=== PATIENT | female | born 1975 | race Caucasian/White ===

== ENCOUNTER 2017-07-03 14:45 | Emergency (ER) | payer OTHER, SELFPAY ==
[2017-07-03 14:46] VITALS: BP 119/79; PULSE 113; RESP 16; TEMP 36.8; O2SAT 98; BMI 21.7
[2017-07-03 15:07] VITALS: BP 105/68; PULSE 111; RESP 18; O2SAT 97
--- NOTE | 2017-07-03 15:52 | CT_ITS ---
STUDY: CT BRAIN WITH AND WITHOUT CONTRAST REASON FOR EXAM: Female, 42 years old. Headaches, fevers RADIATION DOSAGE (If Supplied By Facility): CTDIvol = ( 44.99 ) mGy, DLP = ( 1513.48 ) mGycm TECHNIQUE: Transaxial CT imaging of the brain was performed pre and post contrast administration. The examination was performed with intravenous administration of 50mL ml of Isovue 370 contrast material. Individualized dose optimization techniques were used for this CT. COMPARISON: None. FINDINGS: Normal soft tissue structures. Normal calvarium. Normal size ventricles and extra-axial spaces for the patient's age. Normal white matter tracts of the cerebral hemispheres. Normal basal ganglia and thalami. Normal brainstem. Normal cerebellum. There is no intracranial hemorrhage. There are no findings of an acute ischemic infarction. Normal visualized paranasal sinuses. No suspicious enhancing lesion after contrast administration CT/Brain/Head W/WO Contrast IMPRESSION: Normal unenhanced and enhanced CT scan of the brain. Electronically Signed: Berny Blanton MD at 17:24 EST , Service support ,
--- NOTE | 2017-07-03 16:18 | ED.VISSUMM ---
- ER Visit Summary Date of Service: 07/03/17 Chief Complaint: Fever History of Present Illness: The patient is a 42 F who has had symptoms for over 2 months that have been persistent: Fevers up to 102.7, myalgias, neck pain, bifrontal headache that is throbbing and intermittent, slight cough, fatigue with weight loss, yesterday she was lightheaded, she has been nauseated after eating, she states now her left low back has been hurting off and on but no urinary symptoms, she states she also has some right sided chest pain intermittently, and random pains everywhere of which that chest discomfort seems to be 1. Initially she was seen at urgent care and prescribed Augmentin for what seem to be a sinus infection, she went back because he got no better and was placed on doxycycline, that did not work either so she stopped it prematurely with about 3 or 4 pills left. She was seen here in the ER at one point, she had CMV serology that was negative and Julita-Ta viral serology panel, which the results appear to be consistent with either convalescent or prior EBV infection. Since then, she had an Julita-Ta DNA quant run which was negative, and she saw infectious disease doctor in [place] that ran an unknown blood test on Wednesday along with basic labs that showed a white blood count of 25,000 with a leftward shift, but the unknown blood test has not resulted yet. She is scheduled for an echocardiogram on Wednesday, and is growing increasingly fatigued and family is concerned, under the direction of a son-in-law who is an chief cook and is not currently local, they have come to the ER asking for multiple tests including a urinalysis to rule out or rule in pyelonephritis. She states that the sinus congestion really is not a prominent symptom anymore. Her neck occasionally feels stiff but it does not limit her moving her head, but when she moves it it hurts worse. She has had no confusion. No abdominal pain, trouble breathing, cough is minimal and nonproductive. Her ears burn and ache, a while ago they felt like they need to pop but that is no longer the feeling anymore. She has not been admitted for any of this or seen any other specialists except for her PCP so far. She states that she has a hormone imbalance that was diagnosed by her EYEGLASS FRAMES INSPECTOR sometime ago because she was feeling very fatigued, so the only medications that she takes prior to this is an estrogen and testosterone mix. Physical Examination: Afebrile, vital signs are normal, her exam essentially is normal except for the fact that the patient does not appear to feel well. Her heart is regular, I hear no murmur. There is no cervical lymphadenopathy, I can palpate no Virchow's nodes. There are no rashes. TMs are normal bilaterally. Her neck is supple and has full range of motion. The lights were off when I entered the room, however she denies any significant photophobia. All 4 extremities move without any difficulty, her reflexes are normal, there is no clonus and her toes are downgoing bilaterally. Her central and peripheral neurologic exams are normal. Abdomen is benign. Test Results: Urinalysis shows 25 leukocyte esterase, 50 blood, 5 ketones, 30 protein, 3+ bacteria, no white blood cells/red blood cells/epithelials. Sent for culture. CT head with and without contrast normal. Emergency Department Course and Treatment: I reviewed her labs from a couple days ago, which show a leukocytosis of 25 and a leftward shift, similar to the white blood count of 20 that we performed here on 06/11/17. I did not feel that she needed labs repeated again today. Clinically, and with the above test results, I do not think she has pyelonephritis. She is nontoxic and appears well, her neck is very benign, and I do not think she has meningitis although I did offer an LP, adding that especially if she wanted to be admitted, which I offered, it might be helpful to rule out meningitis and then there would be extra CSF available for consultants to add testing to if they desired. However, she prefers to go home and declines the LP. We discussed at length. I discussed with Dr. Fermin, aeronautics teacher for the infectious disease physician that the patient saw earlier this week, although unfortunately he did not have any access to office notes or lab results and did not personally know the patient. I also discussed with Dr. Escobar, covering for Dr. Zambrano. He offered the idea of a CT abdomen and pelvis looking for a retroperitoneal process that could be responsible for this, however in talking with the patient and her family, she had this on 06/14/17 at [facility], it was normal, showing no renal abnormality/mass/cyst/[place]/stone, no adrenal mass, and no other acute abnormality. Therefore do not think we need to repeat that tonight. After lengthy discussion with Dr. Escobar, family, patient, and the patient's son-in-law who is a physician/chief cook, we all agree that it is safe for her to be discharged home and continue with her outpatient echo at this time, which is scheduled in 2 days, and she is advised to follow-up with her PCP, her infectious disease doctor, and any other specialist whom she is referred, we discussed reasons to return to the ER. Will prescribe her ibuprofen 800 mg tablets to use as needed for fevers or pain, and she is comfortable with that plan. Treatment Plan: As above Disposition: Discharge home Impression: Fever of unknown origin Leukocytosis This note was generated with [employer] dictation software. It may contain incorrect words, spelling, and punctuation that were not noted in review of the chart prior to signing ED Disposition - Plan for ED Patient: Disposition: Home or Assisted Living Chief Complaint: General Illness Instructions: ED Fever Unconf Cause Prescriptions: Ibuprofen 800 mg PO . Q8-12H PRN #30 tab PRN Reason: Fever Referrals: Remigio Valdez MD [Primary Care Provider] - (next week after your echo) doctor, ID [Other] (next week -- ? LP (pt declined in ED today))
--- NOTE | 2017-07-03 16:23 | ED.DCSUM_ITS ---
- ER Visit Summary Date of Service: 07/03/17 Chief Complaint: Fever History of Present Illness: The patient is a 42 F who has had symptoms for over 2 months that have been persistent: Fevers up to 102.7, myalgias, neck pain, bifrontal headache that is throbbing and intermittent, slight cough, fatigue with weight loss, yesterday she was lightheaded, she has been nauseated after eating, she states now her left low back has been hurting off and on but no urinary symptoms, she states she also has some right sided chest pain intermittently, and random pains everywhere of which that chest discomfort seems to be 1. Initially she was seen at urgent care and prescribed Augmentin for what seem to be a sinus infection, she went back because he got no better and was placed on doxycycline, that did not work either so she stopped it prematurely with about 3 or 4 pills left. She was seen here in the ER at one point, she had CMV serology that was negative and Julita-Ta viral serology panel, which the results appear to be consistent with either convalescent or prior EBV infection. Since then, she had an Julita-Ta DNA quant run which was negative, and she saw infectious disease doctor in [place] that ran an unknown blood test on Wednesday along with basic labs that showed a white blood count of 25,000 with a leftward shift, but the unknown blood test has not resulted yet. She is scheduled for an echocardiogram on Wednesday, and is growing increasingly fatigued and family is concerned, under the direction of a son-in- law who is an brand sales manager and is not currently local, they have come to the ER asking for multiple tests including a urinalysis to rule out or rule in pyelonephritis. She states that the sinus congestion really is not a prominent symptom anymore. Her neck occasionally feels stiff but it does not limit her moving her head, but when she moves it it hurts worse. She has had no confusion. No abdominal pain, trouble breathing, cough is minimal and nonproductive. Her ears burn and ache, a while ago they felt like they need to pop but that is no longer the feeling anymore. She has not been admitted for any of this or seen any other specialists except for her PCP so far. She states that she has a hormone imbalance that was diagnosed by her SOCIAL WORKER sometime ago because she was feeling very fatigued, so the only medications that she takes prior to this is an estrogen and testosterone mix. Physical Examination: Afebrile, vital signs are normal, her exam essentially is normal except for the fact that the patient does not appear to feel well. Her heart is regular, I hear no murmur. There is no cervical lymphadenopathy, I can palpate no Virchow's nodes. There are no rashes. TMs are normal bilaterally. Her neck is supple and has full range of motion. The lights were off when I entered the room, however she denies any significant photophobia. All 4 extremities move without any difficulty, her reflexes are normal, there is no clonus and her toes are downgoing bilaterally. Her central and peripheral neurologic exams are normal. Abdomen is benign. Test Results: Urinalysis shows 25 leukocyte esterase, 50 blood, 5 ketones, 30 protein, 3+ bacteria, no white blood cells/red blood cells/epithelials. Sent for culture. CT head with and without contrast normal. Emergency Department Course and Treatment: I reviewed her labs from a couple days ago, which show a leukocytosis of 25 and a leftward shift, similar to the white blood count of 20 that we performed here on 06/11/17. I did not feel that she needed labs repeated again today. Clinically, and with the above test results, I do not think she has pyelonephritis. She is nontoxic and appears well, her neck is very benign, and I do not think she has meningitis although I did offer an LP, adding that especially if she wanted to be admitted, which I offered, it might be helpful to rule out meningitis and then there would be extra CSF available for consultants to add testing to if they desired. However , she prefers to go home and declines the LP. We discussed at length. I discussed with Dr. Fermin, promotional demonstrator for the infectious disease physician that the patient saw earlier this week, although unfortunately he did not have any access to office notes or lab results and did not personally know the patient. I also discussed with Dr. Escobar, covering for Dr. Zambrano. He offered the idea of a CT abdomen and pelvis looking for a retroperitoneal process that could be responsible for this, however in talking with the patient and her family, she had this on 06/14/17 at [facility], it was normal, showing no renal abnormality/mass/cyst/[place]/stone, no adrenal mass, and no other acute abnormality. Therefore do not think we need to repeat that tonight. After lengthy discussion with Dr. Escobar, family, patient, and the patient's son-in- law who is a physician/brand sales manager, we all agree that it is safe for her to be discharged home and continue with her outpatient echo at this time, which is scheduled in 2 days, and she is advised to follow-up with her PCP, her infectious disease doctor, and any other specialist whom she is referred, we discussed reasons to return to the ER. Will prescribe her ibuprofen 800 mg tablets to use as needed for fevers or pain, and she is comfortable with that plan. Treatment Plan: As above Disposition: Discharge home Impression: Fever of unknown origin Leukocytosis This note was generated with [employer] dictation software. It may contain incorrect words, spelling, and punctuation that were not noted in review of the chart prior to signing ED Disposition - Plan for ED Patient: Disposition: Home or Assisted Living Chief Complaint: General Illness Instructions: ED Fever Unconf Cause Prescriptions: Ibuprofen 800 mg PO . Q8-12H PRN #30 tab PRN Reason: Fever Referrals: Remigio Valdez MD [Primary Care Provider] - (next week after your echo) doctor, ID [Other] (next week -- ? LP (pt declined in ED today))
[2017-07-03 16:30] LABS: Color, Urine Yellow (Yellow); Glucose, Dipstick Normal (Normal); Ketone-Dipstick 5 mg/dl (Negative); Leukocyte Esterase-Dipstick 25 /ul (Negative); Nitrite-Dipstick Negative (Negative); Occult Blood-Urine 50 /ul (Negative); Protein-Dipstick 30 mg/dl (Negative); Specific Gravity, Urine 1.025 (1.002-1.030); Urine Bilirubin Dipstick Negative (Negative); Urine Clarity Clear (Clear); Urine Urobilinogen 1 mg/dl (Normal)
[2017-07-03 16:38] LABS: Bacteria 3+ /hpf (None Seen); Mucous, Urine 2+ /hpf (<or=2+); Red Blood Cells-Urine 0-5 SEEN /hpf (0-5); Squamous Epithelial Cells - UA 0-5 SEEN /hpf (5-10); White Blood Cells 0-5 SEEN /hpf (0-5)
[2017-07-03 18:09] VITALS: BP 100/58; PULSE 107; RESP 14; O2SAT 94
[2017-07-03 19:23] VITALS: BP 107/61; PULSE 109; RESP 16; O2SAT 95
== END 2017-07-03 19:24 | disposition home or self-care (01) ==
PROVIDERS: Emergency Provider Emergency Medicine; Family Provider Family Medicine; PCP Family Medicine
DX: R50.9 Fever, unspecified (principal); D72.829 Elevated white blood cell count, unspecified; R11.0 Nausea; R05 Cough; R07.9 Chest pain, unspecified; R51 Headache; M54.2 Cervicalgia; M79.7 Fibromyalgia; M54.5 Low back pain; R42 Dizziness and giddiness
CPT/HCPCS: 70470; 81001; 87086; 96360; 96361; 99284; J7030; Q9967; A4216

== ENCOUNTER 2017-08-14 15:53 | Inpatient (IN) | payer OTHER, SELFPAY ==
[2017-08-14] VITALS (14 sets, daily range): BP systolic 95–124; BP diastolic 53–64; PULSE 95–130; RESP 16–32; TEMP 37–39.3; O2SAT 93–99; BMI 20.5
--- NOTE | 2017-08-14 16:26 | RAD_ITS ---
STUDY: X-RAY CHEST REASON FOR EXAM: Female, 42 years old. Fever. Lymphoma. TECHNIQUE: Single AP portable view of the chest. COMPARISON: 06/11/2017. FINDINGS: Right lung suggests mild infiltrate in the lung bases. On the left there is widespread diffuse pulmonary infiltrate most pronounced in the lower lung calero. Possible small left pleural effusion Soft tissue mass seen around the left hilum and in the area of the AP window. This is consistent with the stated history of lymphoma. RAD/Chest 1 View (Portable) IMPRESSION: Mild infiltrate right lung base. Extensive infiltrate throughout the left lung. Left hilar and perihilar mass. Electronically Signed: Jesus Curiel MD at 18:22 EDT , Service support ,
--- NOTE | 2017-08-14 16:26 | EKG12_ITS ---
Test Reason : CHEST DISCOMFORT Blood Pressure : / mmHG Vent. Rate : 123 BPM Atrial Rate : 123 BPM P-R Int : 116 ms QRS Dur : 068 ms QT Int : 290 ms P-R-T Axes : 033 049 043 degrees QTc Int : 415 ms Sinus tachycardia Otherwise normal ECG Confirmed by MULU SIEGEL MD ([id number]), international editorial producer SHITAL SAVAGE ([id number] on 08/17/2017 1:26:14 PM Referred By: MR Confirmed By:MULU SIEGEL MD
--- NOTE | 2017-08-14 16:33 | ED.VISSUMM ---
- ER Visit Summary Date of Service: 08/14/17 Chief Complaint: Fever History of Present Illness: The patient is a 42 F presenting for evaluation secondary to worsening fever. Patient is undergoing workup for diagnosis of cancer at this time. Patient states that over the course of the last 3 months she has been having issues with intermittent fevers. Patient states that typically these are relatively controlled with Tylenol. Patient states that on Wednesday of this week she underwent a procedure where she had a biopsy of the lymph node taken on the left side of her neck and she had a thoracentesis of her left chest. Patient states that since then her fevers have been significantly worse and have changed in character. They are now as high as 102 3 which is abnormal, and only intermediately controlled with Tylenol. Patient does state that she has a mild cough mild shortness of breath and mild nausea. She denies any diarrhea. Patient states she has some pain in her neck where she had the biopsy but denies any neck rigidity. She denies any new rashes. She does state that she has a mild amount of dysuria associated with this. Last Tylenol the patient took was at 2255. Patient called her on-call oncologist and they recommended that she come in to the emergency department. Physical Examination: Vital signs notable for temperature of 101.4, heart rate of 130, pulse ox of 88% on room air with hypoxia. Well-nourished female no acute distress. Head normocephalic. PRL, EOMI no evidence of conjunctival pallor or scleral icterus. Moist mucous membranes. No neck rigidity noted, neck was supple with no JVD. Heart was tachycardic and regular. Lung sounds showed evidence of diminished sounds in the left lower lung calero with no respiratory distress. There is a minimal amount of epigastric tenderness to palpation with no guarding or rebound tenderness. No peripheral edema noted. Skin was hot to the touch. No lateralizing neurological deficits. Test Results: CBC shows leukocytosis 31.5, hemoglobin 9.5, platelets 742, chemistry and liver panels essentially unremarkable urinalysis unremarkable lactate negative. EKG shows sinus rate of 116 no evidence of acute ischemic changes. Chest x-ray shows left-sided infiltrate and mass Emergency Department Course and Treatment: Patient presented for evaluation secondary to a fever in the setting of a new diagnosis of cancer. Patient was found to be hypoxic and febrile. Patient's workup shows what is in my opinion a left-sided pneumonia. Had discussion with family about this, they state that their oncologist told him that this likely was more associated with the patient's cancer and with her tumor, but given the fact that the patient has new onset hypoxia with worse fever than she typically gets I am suspicious for the possibility of may be an obstructive pneumonia that actually causing the patient's symptoms. Regardless due to her hypoxia I still believe that she requires admission, and I believe that it would be of greater detriment to the patient not to give her antibiotics and it would to be just to give her antibiotics and the patient was given vancomycin and Zosyn. Patient will be admitted under the hospitalist. Disposition: Admission Impression: 1. Pneumonia 2. Sepsis 3. Hypoxia This note was generated with [employer] dictation software. It may contain incorrect words, spelling, and punctuation that were not noted in review of the chart prior to signing ED Disposition - Plan for ED Patient: Disposition: Acute [facility] Chief Complaint: Fever
[2017-08-14] MEDS: 0.9% Normal Saline 1,000 ML IV.SOLN. 1620 ML IV (16:46)
[2017-08-14] MEDS: Acetaminophen 500 MG Tablet 1000 MG PO (16:46)
[2017-08-14 17:00] LABS: Absolute Lymphocyte Count 3.99 X10^3/ul (0.83-4.51); Absolute Neutrophil Count 25.5 X10^3/uL (2.0-7.7); Basophil# 0.07 X10^3/uL; Basophil% 0.2 % (0-1); Eosinophil# 0.03 X10^3/uL; Eosinophils% 0.1 % (0-5); Hematocrit 30.6 % (37-47); Hemoglobin 9.5 g/dl (12.0-15.0); Lymphocyte # 3.99 X10^3/ul (4.0); Lymphocyte % 12.7 % (19-41); Mean Corpuscular Hgb 26.1 pg (27.0-32.0); Mean Corpuscular Volume 84.1 fL (81-99); Mean Platelet Vol. 8.6 fl (6.2-12.0); Monocyte# 1.71 X10^3/uL; Monocyte% 5.4 % (0-10); Neutrophil # 25.51 X10^3/uL (2.7-7.7); Neutrophil % 80.9 % (47-70); Platelet Count 742 K/mm3 (150-450); RBC Distribution Width CV 16.5 % (11.6-14.6); RBC Distribution Width SD 49.6 fl (35.1-43.9); Red Blood Count 3.64 M/mm3 (4.2-5.4)
[2017-08-14 17:04] LABS: Differential Indicated SCAN CRITERIA MET; International Normalized Ratio 1.3; POSITIVE COUNT YES; POSITIVE DIFFERENTIAL YES; POSITIVE MORPHOLOGY YES
[2017-08-14 17:05] LABS: White Blood Count 31.5 K/mm3 (4.4-11.0)
[2017-08-14 17:16] LABS: ALB/GLOB Ratio 0.4 RATIO (0.9-2.4); AST(SGOT) 17 U/L (15-37); Alanine Aminotransfer ALT/SGPT 18 U/L (13-56); Albumin, Serum 2.2 g/dL (3.2-5.0); Alkaline Phosphatase 144 U/L (45-117); Anion Gap 10 (5-15); BUN 10 mg/dL (7-18); BUN/Creat Ratio 13.9 RATIO (10-20); Calcium,Total 8.9 mg/dL (8.5-10.1); Chloride 99 mmol/L (98-107); Creatinine, Serum 0.72 mg/dL (0.55-1.02); EST Glomerular Filtration Rate 94 mL/min (>60); Est Glom Filt Rate - Afr Amer 113 mL/min (>60); Estimated Creatinine Clearance 85.31 ml/min; Globulin 6.1 g/dL (2.2-4.2); Glucose 89 mg/dL (74-106); Lipase 160 U/L (73-393); Potassium 4.3 mmol/L (3.5-5.1); Protein, Total 8.3 g/dL (6.4-8.2); Sodium Level 134 mmol/L (136-145)
[2017-08-14 17:18] LABS: Lactic Acid 0.9 mmol/L (0.4-2.0)
[2017-08-14 17:45] LABS: Mucous, Urine 0 SEEN /hpf (<or=2+)
[2017-08-14 17:48] LABS: Differential Comment SCANNED
[2017-08-14 17:49] LABS: Color, Urine Yellow (Yellow); Glucose, Dipstick Normal (Normal); Ketone-Dipstick Negative (Negative); Leukocyte Esterase-Dipstick 25 /ul (Negative); Nitrite-Dipstick Negative (Negative); Occult Blood-Urine 150 /ul (Negative); Protein-Dipstick 30 mg/dl (Negative); Specific Gravity, Urine 1.015 (1.002-1.030); Urine Bilirubin Dipstick Negative (Negative); Urine Clarity Clear (Clear); Urine Urobilinogen Normal (Normal)
[2017-08-14 18:00] LABS: Red Blood Cells-Urine 0-5 SEEN /hpf (0-5); White Blood Cells 0-5 SEEN /hpf (0-5)
[2017-08-14 18:01] LABS: Bacteria 2+ /hpf (None Seen); Squamous Epithelial Cells - UA 0-5 SEEN /hpf (5-10)
--- NOTE | 2017-08-14 20:42 | HP.PCM_ITS ---
Problem List (1) Fever Status: Acute (2) Sepsis Status: Acute (3) HCAP (healthcare-associated pneumonia) Status: Acute History of Present Illness Date of Admission: 08/14/17 Chief Complaint: HCAP The patient is a 42 year old female w/ h/o fever admitted for HCAP. Pt recently had left neck lymph node biopsy. She also recently had thoracentesis of the left chest. She has been having daily fever for the past few months. However, recently in the past few days, she noted that she has higher temp than usual. She also has been having worsening productive cough. Intensity and frequency of the cough have increased. Tylenol has failed to control her fever. Nothing made it better or worse despite being on antibiotic. She recently stopped NSAID secondary to a pending bone biopsy. Past Medical History Allergies codeine Adverse Reaction (Verified 08/14/17 16:00) Nausea hydrocodone Adverse Reaction (Verified 08/14/17 16:00) Nausea miconazole [From Monistat 1 Combo Pack] Adverse Reaction (Verified 07/03/17 14: 49) Swelling Home Medications: Ambulatory Orders Medication Instructions Recorded Ibuprofen 800 mg PO . Q8-12H PRN #30 tab 07/03/17 Progesterone,Micronized 150 mg PO QHS 07/03/17 [Endometrin] Testosterone 10 mg TOPICAL QHS 07/03/17 Albuterol Sulfate [Ventolin Hfa] 2 puff IH Q4H PRN PRN 08/14/17 Benzonatate [Tessalon Perle] 1 tab PO TID PRN 08/14/17 Dicyclomine HCl [Bentyl] 1 tab PO DAILY 08/14/17 Mirtazapine [Mirtazapine] 1 tab PO QHS 08/14/17 Pyridoxine HCl [Vitamin B-6] 1 tab PO DAILY 08/14/17 Lives: Spouse/ Significant Other, With Family Smoking Status: Former smoker Alcohol: None Drugs: None Review of Systems Constitutional: Reports: Chills, Fever. Denies: Weight Change HEENT: Denies: Head Aches, Sinus Congestion, Sinus Drainage Cardiovascular: Denies: Chest Pain, Palpitations Respiratory: Reports: Cough. Denies: Shortness of breath at rest, Sputum production Gastrointestinal: Denies: Abdominal Pain, Nausea, Vomiting Genitourinary: Denies: Dysuria Musculoskeletal: Denies: Joint Pain, Joint Tenderness Skin: Denies: Rash, Wounds Neurological: Denies: Numbness, Tingling, Focal weakness Psychiatric: Denies: Anxiety, Depression, Homicidal Ideations, Suicidal Ideations Hematologic/ Lymphatic: Denies: Easy Bruising, Easy Bleeding VTE Information - Inpt Only VTE Present on Admission: No VTE Mechan Device Prophylaxis: SCD's VTE Pharm Prophylaxis ordered?: Yes Patient Problems: Active and Suspected Problems Fever (Acute) Sepsis (Acute) HCAP (healthcare-associated pneumonia) (Acute) - Physical Exam General: Alert, Oriented x3, Cooperative HEENT: Atraumatic, PERRLA, EOMI, Normocephalic Neck: Supple, No JVD, Negative Carotid Bruits Lungs: Clear to auscultation, Normal air movement Cardiovascular: Regular rate, No murmurs Abdomen: Bowel Sounds Present, Soft, Non Tender Extremities: No edema, Capillary Refill Less than 3 Seconds Skin: No rashes, No breakdown Musculoskeletal: No Tenderness to Palpation of Joints or Extremities Neurological: Cranial nerves II-XII grossly intact Psych/Mental Status: Normal Affect, Appropriate Vital Signs Temp Pulse Resp BP Pulse Ox 99.5 F H 97 24 H 100/58 L 95 08/14/17 19:10 08/14/17 20:02 08/14/17 20:02 08/14/17 20:02 08/14/17 20:02 Oxygen Flow Rate (L/min) 6 Oxygen Delivery Method Nasal Cannula Weight: 54.2 kg Body Mass Index (BMI) 20.5 Laboratory Tests Past 24 Hrs 08/14/17 08/14/17 08/14/17 16:40 16:40 16:40 WBC 31.5 H* RBC 3.64 L Hgb 9.5 L Hct 30.6 L MCV 84.1 MCH 26.1 L MCHC 31.0 L RDW 16.5 H RDW Differential 49.6 H Plt Count 742 H MPV 8.6 Immature Gran % (Auto) 0.700 Neut % (Auto) 80.9 H Lymph % (Auto) 12.7 L [place] % (Auto) 5.4 Eos % (Auto) 0.1 Baso % (Auto) 0.2 Absolute Neuts (auto) 25.5 H Absolute Lymphs (auto) 3.99 Total Counted Not Reportable Differential Comment SCANNED Diff Path Review September foll PT 16.0 H INR 1.3 APTT 40.0 H Sodium 134 L Potassium 4.3 Chloride 99 Carbon Dioxide 25.0 Anion Gap 10 BUN 10 Creatinine 0.72 Estim Creat Clear Calc 85.31 Est GFR (MDRD) Af Amer 113 Est GFR (MDRD) Non-Af 94 BUN/Creatinine Ratio 13.9 Glucose 89 Lactic Acid Calcium 8.9 Total Bilirubin 0.40 AST 17 ALT 18 Alkaline Phosphatase 144 H Total Protein 8.3 H Albumin 2.2 L Globulin 6.1 H Albumin/Globulin Ratio 0.4 L Lipase 160 Urine Color Urine Clarity Urine pH Ur Specific [place] Urine Protein Urine Glucose (UA) Urine Ketones Urine Occult Blood Urine Nitrite Urine Bilirubin Urine Urobilinogen Ur Leukocyte Esterase Urine RBC Urine WBC Ur Squamous Epith Cells Urine Bacteria Urine Mucus 08/14/17 08/14/17 16:40 17:30 WBC RBC Hgb Hct MCV MCH MCHC RDW RDW Differential Plt Count MPV Immature Gran % (Auto) Neut % (Auto) Lymph % (Auto) [place] % (Auto) Eos % (Auto) Baso % (Auto) Absolute Neuts (auto) Absolute Lymphs (auto) Total Counted Differential Comment Diff Path Review PT INR APTT Sodium Potassium Chloride Carbon Dioxide Anion Gap BUN Creatinine Estim Creat Clear Calc Est GFR (MDRD) Af Amer Est GFR (MDRD) Non-Af BUN/Creatinine Ratio Glucose Lactic Acid 0.9 Calcium Total Bilirubin AST ALT Alkaline Phosphatase Total Protein Albumin Globulin Albumin/Globulin Ratio Lipase Urine Color Yellow Urine Clarity Clear Urine pH 5.0 Ur Specific [place] 1.015 Urine Protein 30 H Urine Glucose (UA) Normal Urine Ketones Negative Urine Occult Blood 150 H Urine Nitrite Negative Urine Bilirubin Negative Urine Urobilinogen Normal Ur Leukocyte Esterase 25 H Urine RBC 0-5 SEEN Urine WBC 0-5 SEEN Ur Squamous Epith Cells 0-5 SEEN Urine Bacteria 2+ Urine Mucus 0 SEEN Assessment/Plan Active and Suspected Problems Fever (Acute) Sepsis (Acute) HCAP (healthcare-associated pneumonia) (Acute) 42 year old female w/ h/o fever admitted for HCAP. 1) HCAP: Given leukocytosis, fever, and cough, she most likely has HCAP. She has proven sepsis secondary to HCAP. Will start zosyn and vanco. Will get CTA in AM to r/o possible PE. Cultures pending. 2) Fever: Probably infectious etiology. Possible also malignancy vs autoimmune as well. Will consider autoimmune workup if no malignancy is found. 3) Hyponatremia: Probably hypovolemia hyponatremia. Hydration. Monitor. 4) Chronic normocytic anemia secondary to chronic disease: Followed H and H. Monitor. 5) Prophylaxis: SCD / heparin.
[2017-08-14] MEDS: 0.9% Normal Saline 1,000 ML 125 ML IV (22:41)
--- NOTE | 2017-08-14 23:10 | PCM.RX.CS ---
Consult Pharmacy has been consulted to manage selected antiobiotic: Vancomycin Type of Consult: New start Suspected Infection: Other Prior Doses of Antibiotics Received/Current Regimen: Medications Vancomycin 1000mg IV x1 (ED) Vancomycin HCl () 500 mg in 100 mls @ 100 mls/hr IV Q8H ALEC Labs: Sodium 134 mmol/L (136-145) L 08/14/17 16:40 Potassium 4.3 mmol/L (3.5-5.1) 08/14/17 16:40 Chloride 99 mmol/L (98-107) 08/14/17 16:40 Carbon Dioxide 25.0 mmol/L (21.0-32.0) 08/14/17 16:40 Anion Gap 10 (5-15) 08/14/17 16:40 BUN 10 mg/dL (7-18) 08/14/17 16:40 Creatinine 0.72 mg/dL (0.55-1.02) 08/14/17 16:40 Est GFR (MDRD) Af Amer 113 mL/min (>60) 08/14/17 16:40 Est GFR (MDRD) Non-Af 94 mL/min (>60) 08/14/17 16:40 BUN/Creatinine Ratio 13.9 RATIO (10-20) 08/14/17 16:40 Glucose 89 mg/dL (74-106) 08/14/17 16:40 Weight used for dosin.2 kg Estimated Creatinine Clearance: 85 Goal Trough: 10-15 mcg/mL Pharmacy Plan for Drug Dosing: Pharmacy Service will continue to monitor and adjust dosing as required. Follow-Up Labs: Trough Vancomycin Labs to be done on [date and time ordered]: 08/15/17 @1930
[2017-08-15] VITALS (24 sets, daily range): BP systolic 85–116; BP diastolic 51–66; PULSE 98–122; RESP 14–32; TEMP 36.7–38.9; O2SAT 92–98
[2017-08-15] MEDS: guaiFENesin 1,200 MG Tablet 1200 MG PO ×2 (00:17→10:52)
[2017-08-15] MEDS: Acetaminophen 325 MG Tablet 650 MG PO ×2 (01:46→17:49)
[2017-08-15] MEDS: Albuterol 2.5 MG/3 ML VIAL.NEB. INHALATION ×2 (01:55→11:10)
[2017-08-15] MEDS: 0.9% Normal Saline 1,000 ML 999 ML IV (02:30)
[2017-08-15 02:48] LABS: Hematocrit 25.1 % (37-47); Hemoglobin 7.9 g/dl (12.0-15.0); Mean Corp Hgb Conc 31.5 g/gl (32-36); Mean Corpuscular Hgb 26.8 pg (27.0-32.0); Mean Corpuscular Volume 85.1 fL (81-99); Mean Platelet Vol. 8.6 fl (6.2-12.0); Platelet Count 537 K/mm3 (150-450); RBC Distribution Width CV 16.4 % (11.6-14.6); RBC Distribution Width SD 49.1 fl (35.1-43.9); Red Blood Count 2.95 M/mm3 (4.2-5.4); Scan Indicated on CBC? Y/N NO
[2017-08-15 02:50] LABS: White Blood Count 31.7 K/mm3 (4.4-11.0)
[2017-08-15 03:05] LABS: ALB/GLOB Ratio 0.4 RATIO (0.9-2.4); AST(SGOT) 14 U/L (15-37); Alanine Aminotransfer ALT/SGPT 16 U/L (13-56); Albumin, Serum 1.7 g/dL (3.2-5.0); Alkaline Phosphatase 115 U/L (45-117); Anion Gap 8 (5-15); BUN 8 mg/dL (7-18); BUN/Creat Ratio 14.1 RATIO (10-20); Calcium,Total 7.7 mg/dL (8.5-10.1); Chloride 105 mmol/L (98-107); Creatinine, Serum 0.57 mg/dL (0.55-1.02); EST Glomerular Filtration Rate 123 mL/min (>60); Est Glom Filt Rate - Afr Amer 149 mL/min (>60); Estimated Creatinine Clearance 107.77 ml/min; Globulin 4.7 g/dL (2.2-4.2); Glucose 122 mg/dL (74-106); Lactic Acid 1.1 mmol/L (0.4-2.0); Protein, Total 6.4 g/dL (6.4-8.2); Sodium Level 136 mmol/L (136-145)
[2017-08-15] MEDS: Piperacil/Tazobactam 3.375 GM/50 ML ML IV ×3 (06:25→22:24)
[2017-08-15] MEDS: 0.9% Normal Saline 1,000 ML 125 ML IV ×3 (07:01→23:30)
--- NOTE | 2017-08-15 09:15 | NURSING ---
aware Dr. Fabian was informed by primary RN vsa triggering Q1-2 hrs. Aware she still requests her order of now awaking patient for vital signs be followed.
--- NOTE | 2017-08-15 09:34 | PCA ---
Faxed STAT release of medical records to [facility] at [phone];
[2017-08-15] MEDS: Pyridoxine HCl 100 MG Tablet PO (10:52)
[2017-08-15] MEDS: Dicyclomine 10 MG Capsule PO (10:52)
[2017-08-15] MEDS: Ipratropium/Albuterol Sulfate 3 ML AMPUL.NEB INHALATION ×2 (15:04→19:59)
--- NOTE | 2017-08-15 16:20 | PN_ITS ---
<Evans Lund - Last Filed: 08/15/17 16:10> Patient Problems: Active and Suspected Problems Fever (Acute) Sepsis (Acute) HCAP (healthcare-associated pneumonia) (Acute) Subjective: Pts fever was highest last night at 102.7 at 1700, 2nd spike overnight at 0141 to 102.0. She Has not required O2 prior to this admission. She states she had a CT last week that did not have any pna and is concerned that she developed pna from the needle bx. She is coughing and mildly SOB. She is very fatigued today. She continues to have a productive cough with clear sputum, denies hemoptysis. She is a smoker, smoking 1 ppd for about 15 years. She also had some diarrhea overnight. No dysuria or frequency. - Physical Exam General: Alert, Oriented x3, Cooperative HEENT: Atraumatic, PERRLA, EOMI, Normocephalic Neck: Supple, No JVD, Negative Carotid Bruits Lungs: Normal air movement, Rales - L>R Cardiovascular: Regular rate, No murmurs Abdomen: Bowel Sounds Present, Soft, Non Tender Extremities: No edema, Capillary Refill Less than 3 Seconds Skin: No rashes, No breakdown Musculoskeletal: No Tenderness to Palpation of Joints or Extremities Neurological: Cranial nerves II-XII grossly intact Psych/Mental Status: Normal Affect, Appropriate Vital Signs Temp Pulse Resp BP Pulse Ox 98.8 F 117 H 24 H 101/59 L 92 08/15/17 11:40 08/15/17 15:04 08/15/17 15:04 08/15/17 11:40 08/15/17 15:04 Oxygen Flow Rate (L/min) 3 Oxygen Delivery Method Nasal Cannula Weight: 54.2 kg Body Mass Index (BMI) 20.5 Intake and Output for Last 24 Hours 08/13/17 08/14/17 08/15/17 23:59 23:59 23:59 Intake Total 435 / 435 2706 / 2706 Output Total 0 / 0 Balance 435 / 435 2706 / 2706 Microbiology Past 72 Hours 08/15/17 02:00 Respiratory Panel (PCR) - Final Mucosa - Nose 08/14/17 22:53 Influenza Types A,B Direct FA (GI) - Final Mucosa - Nose Laboratory Tests Past 24 Hrs 03/25/18 03/25/18 03/25/18 02:15 02:15 02:15 WBC 31.7 H* RBC 2.95 L Hgb 7.9 L Hct 25.1 L MCV 85.1 MCH 26.8 L MCHC 31.5 L RDW 16.4 H RDW Differential 49.1 H Plt Count 537 H MPV 8.6 Sodium 136 Potassium 4.0 Chloride 105 Carbon Dioxide 23.0 Anion Gap 8 BUN 8 Creatinine 0.57 Estim Creat Clear Calc 107.77 Est GFR (MDRD) Af Amer 149 Est GFR (MDRD) Non-Af 123 BUN/Creatinine Ratio 14.1 Glucose 122 H Lactic Acid 1.1 Calcium 7.7 L Total Bilirubin 0.30 AST 14 L ALT 16 Alkaline Phosphatase 115 Total Protein 6.4 Albumin 1.7 L Globulin 4.7 H Albumin/Globulin Ratio 0.4 L Blood Type Antibody Screen 08/15/17 11:50 WBC RBC Hgb Hct MCV MCH MCHC RDW RDW Differential Plt Count MPV Sodium Potassium Chloride Carbon Dioxide Anion Gap BUN Creatinine Estim Creat Clear Calc Est GFR (MDRD) Af Amer Est GFR (MDRD) Non-Af BUN/Creatinine Ratio Glucose Lactic Acid Calcium Total Bilirubin AST ALT Alkaline Phosphatase Total Protein Albumin Globulin Albumin/Globulin Ratio Blood Type O POSITIVE Antibody Screen NEGATIVE Medical Necessity - Tobacco Use Smoking Status: Former smoker Assessment/Plan Active and Suspected Problems Fever (Acute) Sepsis (Acute) HCAP (healthcare-associated pneumonia) (Acute) 1. Acute BL HCAP - Extensive infiltrate left lung and mild infiltrate right base. Pt of Dr. Obrien being followed for possible lymphoma vs lung CA. Continue vanc and zosyn. Respiratory panel negative. Blood cultures pending. LA neg. Urine ag neg.Continue mucinex, IS, pep therapy, deep breathing + coughing. Urine with 2+ bacteria, culture pending. Denies dysuria or urgency. WBC 31k, reportedly chronic fevers being workup up for Dr. Obrien. 2. ? Lymphoma - c/s to Dr. Obrien. Recent needle bx. Results pending. 3. Nicotine abuse - declines patch at this time. 4. Hyponatremia resolved 5. Normocytic anemia - T/S. denies blood in stool or vomit. She does have midepigastric pain. Obtain stool for occult. 6. Diarrhea - check cdiff. DVT ppx: heparin, scds This patient was seen by Evans Lund PA-C under the supervision of Doctor Caren. <Jordana Fabian - Last Filed: 08/15/17 17:16> - Physical Exam Vital Signs Temp Pulse Resp BP Pulse Ox 99.3 F H 120 H 16 103/66 94 08/15/17 15:30 08/15/17 16:05 08/15/17 15:30 08/15/17 15:30 08/15/17 15:30 Oxygen Flow Rate (L/min) 3 Oxygen Delivery Method Nasal Cannula Weight: 54.2 kg Body Mass Index (BMI) 20.5 Intake and Output for Last 24 Hours 08/13/17 08/14/17 08/15/17 23:59 23:59 23:59 Intake Total 435 / 435 2706 / 2706 Output Total 0 / 0 Balance 435 / 435 2706 / 2706 Microbiology Past 72 Hours 08/15/17 02:00 Respiratory Panel (PCR) - Final Mucosa - Nose 08/14/17 22:53 Influenza Types A,B Direct FA (GI) - Final Mucosa - Nose Laboratory Tests Past 24 Hrs 08/15/17 08/15/17 08/15/17 02:15 02:15 02:15 WBC 31.7 H* RBC 2.95 L Hgb 7.9 L Hct 25.1 L MCV 85.1 MCH 26.8 L MCHC 31.5 L RDW 16.4 H RDW Differential 49.1 H Plt Count 537 H MPV 8.6 Sodium 136 Potassium 4.0 Chloride 105 Carbon Dioxide 23.0 Anion Gap 8 BUN 8 Creatinine 0.57 Estim Creat Clear Calc 107.77 Est GFR (MDRD) Af Amer 149 Est GFR (MDRD) Non-Af 123 BUN/Creatinine Ratio 14.1 Glucose 122 H Lactic Acid 1.1 Calcium 7.7 L Total Bilirubin 0.30 AST 14 L ALT 16 Alkaline Phosphatase 115 Total Protein 6.4 Albumin 1.7 L Globulin 4.7 H Albumin/Globulin Ratio 0.4 L Blood Type Antibody Screen 08/15/17 08/15/17 11:50 17:00 WBC RBC Hgb Pending Hct Pending MCV MCH MCHC RDW RDW Differential Plt Count MPV Sodium Potassium Chloride Carbon Dioxide Anion Gap BUN Creatinine Estim Creat Clear Calc Est GFR (MDRD) Af Amer Est GFR (MDRD) Non-Af BUN/Creatinine Ratio Glucose Lactic Acid Calcium Total Bilirubin AST ALT Alkaline Phosphatase Total Protein Albumin Globulin Albumin/Globulin Ratio Blood Type O POSITIVE Antibody Screen NEGATIVE Assessment/Plan Patient was seen and examined. She looks unwell. Recently worked up for ? malignancy admitted with HCAP/Post-obstructive Pneumonia. Complains of feeling very tired, did not sleep well. Denies fever or chills. On 3L oxygen, Decreased AE bilaterally with coarse crackles all over lung calero worse on the left with increased egophony. On IV vancomycin and Zosyn. Jian consult oncology, ID. Work on chest physiotherapy, wean off oxygen as can be tolerated. Get records from [facility] stat concerning CT chest done a week ago. Code Visit Inpatient E&M: 91150 Subs Hosp L3
[2017-08-15 17:20] LABS: Hematocrit 26.4 % (37-47)
[2017-08-15 20:40] LABS: Vancomycin, Trough Level 6.1 ug/mL (5.0-15.0)
--- NOTE | 2017-08-15 21:13 | PCM.RX.CS ---
Consult Pharmacy has been consulted to manage selected antiobiotic: Vancomycin Type of Consult: Follow-up Suspected Infection: Pneumonia Prior Doses of Antibiotics Received/Current Regimen: Medications Discontinued Medications Vancomycin HCl () 500 mg in 100 mls @ 100 mls/hr IV Q8H ALEC Last Admin: 08/15/17 20:02 Dose: 100 mls/hr Labs: Sodium 136 mmol/L (136-145) 08/15/17 02:15 Potassium 4.0 mmol/L (3.5-5.1) 08/15/17 02:15 Chloride 105 mmol/L (98-107) 08/15/17 02:15 Carbon Dioxide 23.0 mmol/L (21.0-32.0) 08/15/17 02:15 Anion Gap 8 (5-15) 08/15/17 02:15 BUN 8 mg/dL (7-18) 08/15/17 02:15 Creatinine 0.57 mg/dL (0.55-1.02) 08/15/17 02:15 Est GFR (MDRD) Af Amer 149 mL/min (>60) 08/15/17 02:15 Est GFR (MDRD) Non-Af 123 mL/min (>60) 08/15/17 02:15 BUN/Creatinine Ratio 14.1 RATIO (10-20) 08/15/17 02:15 Glucose 122 mg/dL (74-106) H 08/15/17 02:15 Vancomycin Trough 6.1 ug/mL (5.0-15.0) 08/15/17 19:33 Microbiology: Microbiology 08/15/17 02:00 Mucosa - Nose Respiratory Panel (PCR) - Final 08/14/17 22:53 Mucosa - Nose Influenza Types A,B Direct FA (GI) - Final Weight used for dosin.2 kg Estimated Creatinine Clearance: 108 Goal Trough: 15-20 mcg/mL Pharmacy Plan for Drug Dosing: Pharmacy Service will continue to monitor and adjust dosing as required. Follow-Up Labs: Trough Vancomycin Labs to be done on [date and time ordered]: 08/17/17 @0675
[2017-08-16] VITALS (17 sets, daily range): BP systolic 96–116; BP diastolic 54–73; PULSE 100–111; RESP 16–20; TEMP 36.6–38.1; O2SAT 81–97
[2017-08-16] MEDS: Mirtazapine 15 MG Tablet PO ×2 (00:30→21:17)
[2017-08-16] MEDS: guaiFENesin 1,200 MG Tablet 1200 MG PO ×3 (00:30→21:17)
[2017-08-16] MEDS: Piperacil/Tazobactam 3.375 GM/50 ML ML IV ×3 (05:38→21:17)
[2017-08-16 06:04] LABS: Absolute Lymphocyte Count 3.46 X10^3/ul (0.83-4.51); Basophil# 0.04 X10^3/uL; Basophil% 0.1 % (0-1); Eosinophil# 0.04 X10^3/uL; Eosinophils% 0.1 % (0-5); Hematocrit 23.7 % (37-47); Hemoglobin 7.2 g/dl (12.0-15.0); Lymphocyte # 3.46 X10^3/ul (4.0); Lymphocyte % 12.3 % (19-41); Mean Corp Hgb Conc 30.4 g/gl (32-36); Mean Corpuscular Hgb 26.1 pg (27.0-32.0); Mean Corpuscular Volume 85.9 fL (81-99); Mean Platelet Vol. 8.6 fl (6.2-12.0); Monocyte% 5.3 % (0-10); Neutrophil # 22.97 X10^3/uL (2.7-7.7); Neutrophil % 81.7 % (47-70); Platelet Count 529 K/mm3 (150-450); RBC Distribution Width CV 16.6 % (11.6-14.6); RBC Distribution Width SD 50.3 fl (35.1-43.9); Red Blood Count 2.76 M/mm3 (4.2-5.4); White Blood Count 28.2 K/mm3 (4.4-11.0)
[2017-08-16 06:05] LABS: Differential Indicated SCAN CRITERIA MET; POSITIVE COUNT NO; POSITIVE DIFFERENTIAL YES; POSITIVE MORPHOLOGY YES
[2017-08-16 06:18] LABS: Differential Comment SCANNED
[2017-08-16 06:22] LABS: Anion Gap 10 (5-15); BUN 6 mg/dL (7-18); BUN/Creat Ratio 11.3 RATIO (10-20); Calcium,Total 8.2 mg/dL (8.5-10.1); Chloride 103 mmol/L (98-107); Creatinine, Serum 0.53 mg/dL (0.55-1.02); EST Glomerular Filtration Rate 133 mL/min (>60); Est Glom Filt Rate - Afr Amer 161 mL/min (>60); Glucose 108 mg/dL (74-106); Potassium 3.9 mmol/L (3.5-5.1); Sodium Level 137 mmol/L (136-145)
[2017-08-16] MEDS: Ipratropium/Albuterol Sulfate 3 ML AMPUL.NEB INHALATION ×3 (06:57→19:24)
[2017-08-16] MEDS: 0.9% Normal Saline 1,000 ML 125 ML IV ×2 (07:42→21:17)
--- NOTE | 2017-08-16 07:58 | CON.PCM_ITS ---
Problem List (1) Lung mass Status: Chronic (2) Fever Status: Acute Qualifiers: Fever type: unspecified Qualified Code(s): R50.9 - Fever, unspecified (3) Neutrophilic leukocytosis Status: Chronic - Consult Date of Consult: 08/16/[address] Jenny Kovacs patient with recurrent fever & a lung mass in the left upper mediastinum. My finnal recommendation will be communicated by electronic medical records and to Dr. Ott. - Reason for Consult Fever of unknown origin Left upper mediastinal mass History of Present Illness Date of Admission: 08/14/17 The patient is a 42 year old female w/ h/o fever admitted for fever. Patient has been having recurrent fever since June. Evaluation including CT scan of the abdomen pelvis and infectious disease consultation revealed no source of infection. X-ray in May did not reveal any lung mass. Patient is a smoker of 25+ pack year. She has a chronic cough for the last several weeks. Chest x- ray CT scan of the chest this month showed a left lung mass, mediastinal and left supraclavicular adenopathy. She also has a left pleural effusion. She had a left pleural thoracentesis left supraclavicular lymph node biopsy last week. Pleural fluid was exudative, however cytology was negative for malignancy. AFB and fungal stain were initially negative. 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 However, recently in the past few days, she noted that she has higher temp than usual, but has stopped ibuprofen. She also has been having worsening productive cough. Intensity and frequency of the cough have increased with pain in her chest. Tylenol has failed to control her fever. she completed a 7 day course of Levaquin last week. She was placed on Zosyn and vancomycin on admission. Respiratory panel, influenza, Legionaella tests were negative. Urine culture & blood cultures are pending. Past Medical History Allergies codeine Adverse Reaction (Verified 08/14/17 16:00) Nausea hydrocodone Adverse Reaction (Verified 08/14/17 16:00) Nausea miconazole [From Monistat 1 Combo Pack] Adverse Reaction (Verified 07/03/17 14: 49) Swelling Home Medications: Ambulatory Orders Medication Instructions Recorded Ibuprofen 800 mg PO . Q8-12H PRN #30 tab 07/03/17 Progesterone,Micronized 150 mg PO QHS 07/03/17 [Endometrin] Testosterone 10 mg TOPICAL QHS 07/03/17 Albuterol Sulfate [Ventolin Hfa] 2 puff IH Q4H PRN PRN 08/14/17 Benzonatate [Tessalon Perle] 1 tab PO TID PRN 08/14/17 Dicyclomine HCl [Bentyl] 1 tab PO DAILY 08/14/17 Mirtazapine [Mirtazapine] 1 tab PO QHS 08/14/17 Pyridoxine HCl [Vitamin B-6] 1 tab PO DAILY 08/14/17 Lives: Spouse/ Significant Other, With Family Smoking Status: Former smoker Alcohol: None Drugs: None Review of Systems Constitutional: Reports: Chills, Fever. Denies: Weight Change HEENT: Denies: Head Aches, Sinus Congestion, Sinus Drainage Cardiovascular: Denies: Chest Pain, Palpitations Respiratory: Reports: Cough. Denies: Shortness of breath at rest, Sputum production Gastrointestinal: Denies: Abdominal Pain, Nausea, Vomiting Genitourinary: Denies: Dysuria Musculoskeletal: Denies: Joint Pain, Joint Tenderness Skin: Denies: Rash, Wounds Neurological: Denies: Numbness, Tingling, Focal weakness Psychiatric: Denies: Anxiety, Depression, Homicidal Ideations, Suicidal Ideations Hematologic/ Lymphatic: Denies: Easy Bruising, Easy Bleeding - Physical Exam General: Alert, Oriented x3, Cooperative HEENT: Atraumatic, PERRLA, EOMI, Normocephalic Neck: Supple, No JVD, Negative Carotid Bruits Lungs: Clear to auscultation, Normal air movement Cardiovascular: Regular rate, No murmurs Abdomen: Bowel Sounds Present, Soft, Non Tender Extremities: No edema, Capillary Refill Less than 3 Seconds Skin: No rashes, No breakdown Musculoskeletal: No Tenderness to Palpation of Joints or Extremities Neurological: Cranial nerves II-XII grossly intact Psych/Mental Status: Normal Affect, Appropriate Vital Signs Temp Pulse Resp BP Pulse Ox 99.5 F H 97 24 H 100/58 L 95 08/14/17 19:10 08/14/17 20:02 08/14/17 20:02 08/14/17 20:02 08/14/17 20:02 Oxygen Flow Rate (L/min) 6 Oxygen Delivery Method Nasal Cannula Weight: 54.2 kg Body Mass Index (BMI) 20.5 Laboratory Tests Past 24 Hrs 08/14/17 08/14/17 08/14/17 16:40 16:40 16:40 WBC 31.5 H* RBC 3.64 L Hgb 9.5 L Hct 30.6 L MCV 84.1 MCH 26.1 L MCHC 31.0 L RDW 16.5 H RDW Differential 49.6 H Plt Count 742 H MPV 8.6 Immature Gran % (Auto) 0.700 Neut % (Auto) 80.9 H Lymph % (Auto) 12.7 L [place] % (Auto) 5.4 Eos % (Auto) 0.1 Baso % (Auto) 0.2 Absolute Neuts (auto) 25.5 H Absolute Lymphs (auto) 3.99 Total Counted Not Reportable Differential Comment SCANNED Diff Path Review September foll PT 16.0 H INR 1.3 APTT 40.0 H Sodium 134 L Potassium 4.3 Chloride 99 Carbon Dioxide 25.0 Anion Gap 10 BUN 10 Creatinine 0.72 Estim Creat Clear Calc 85.31 Est GFR (MDRD) Af Amer 113 Est GFR (MDRD) Non-Af 94 BUN/Creatinine Ratio 13.9 Glucose 89 Lactic Acid Calcium 8.9 Total Bilirubin 0.40 AST 17 ALT 18 Alkaline Phosphatase 144 H Total Protein 8.3 H Albumin 2.2 L Globulin 6.1 H Albumin/Globulin Ratio 0.4 L Lipase 160 Urine Color Urine Clarity Urine pH Ur Specific [place] Urine Protein Urine Glucose (UA) Urine Ketones Urine Occult Blood Urine Nitrite Urine Bilirubin Urine Urobilinogen Ur Leukocyte Esterase Urine RBC Urine WBC Ur Squamous Epith Cells Urine Bacteria Urine Mucus 08/14/17 08/14/17 16:40 17:30 WBC RBC Hgb Hct MCV MCH MCHC RDW RDW Differential Plt Count MPV Immature Gran % (Auto) Neut % (Auto) Lymph % (Auto) [place] % (Auto) Eos % (Auto) Baso % (Auto) Absolute Neuts (auto) Absolute Lymphs (auto) Total Counted Differential Comment Diff Path Review PT INR APTT Sodium Potassium Chloride Carbon Dioxide Anion Gap BUN Creatinine Estim Creat Clear Calc Est GFR (MDRD) Af Amer Est GFR (MDRD) Non-Af BUN/Creatinine Ratio Glucose Lactic Acid 0.9 Calcium Total Bilirubin AST ALT Alkaline Phosphatase Total Protein Albumin Globulin Albumin/Globulin Ratio Lipase Urine Color Yellow Urine Clarity Clear Urine pH 5.0 Ur Specific [place] 1.015 Urine Protein 30 H Urine Glucose (UA) Normal Urine Ketones Negative Urine Occult Blood 150 H Urine Nitrite Negative Urine Bilirubin Negative Urine Urobilinogen Normal Ur Leukocyte Esterase 25 H Urine RBC 0-5 SEEN Urine WBC 0-5 SEEN Ur Squamous Epith Cells 0-5 SEEN Urine Bacteria 2+ Urine Mucus 0 SEEN CXR: Left suprahilar/mediastinal lung mass & possible lung infiltrates Assessment/Plan Active and Suspected Problems Fever (Acute) Sepsis (Acute) Left lung mass (Chronic) Leukocytosis (Chronic) 42 year old female w/ h/o fever, leukocytosis from malignancy, and presumed sepsis on admission. 1) fever of unknown origin-secondary to malignancy -R/O sepsis Plan: -consult ID -d/c vancomycin; continue Zosyn -Culture pending 2) Lung mass; chest pain 2/2 inflammation from malignancy Plan: -CTA Chest today to R/O PE -Roxanol & Ibuprofen as needed for pain -PET/CT scan tomorrow at [facility] after d/c 3) anemia of chronic disease and iron deficiency Plan: - resume iron twice daily Follow-up with me on in my office to discuss palliative chemotherapy. cc: Dr. Cleveland Obrien, Dr. Emmanuel Parr, Dr. Efren Ott; Dr. Gerry Valdez
--- NOTE | 2017-08-16 10:15 | CT_ITS ---
STUDY: CTA CHEST REASON FOR EXAM: Female, 42 years old. Fever and sepsis RADIATION DOSAGE (If Supplied By Facility): CTDIvol = ( 6.43 ) mGy, DLP = ( 160.49 ) mGycm TECHNIQUE: The examination was performed with the intravenous administration of 75ML ml of Isovue 370 contrast material. Post-processing of the angiographic images was performed, with multiplanar reformation and 3D reconstruction. Individualized dose optimization techniques were used for this CT. COMPARISON: None. FINDINGS: Soft tissue windows show large bulky soft tissue mass in the superior mediastinum, along the left of the aorta and particularly in the AP window and left hilar regions surrounding the left mainstem bronchus and the left main pulmonary artery consistent with patient's history of lymphoma. There is no filling defect within the pulmonary arteries to suspect PE. There is a free-flowing left pleural effusion with associated atelectasis and scattered opacifications in the left upper lobe suggesting multifocal pneumonitis along with noncalcified nodules concerning for metastasis. Bony structures show degenerative change. Limited cuts through the upper abdomen show hepatomegaly. CT/CTA Chest W/WO Contrast IMPRESSION: No demonstrated PE Large bulky soft tissue masses in the superior mediastinum, left perihilar region and in the AP window consistent with patient's history of lymphoma. There is narrowing of the left mainstem bronchus and left upper and lower lobe bronchi. Free-flowing left pleural effusion with associated atelectasis Multifocal pneumonitis in the left upper lobe with noncalcified nodules suspicious for metastasis Right lung is clear Degenerative bony changes Fatty infiltration of liver with extensive hepatomegaly Electronically Signed: Berny Blanton MD at 11:09 EDT , Service support ,
[2017-08-16] MEDS: Dicyclomine 10 MG Capsule PO (10:22)
[2017-08-16] MEDS: Pyridoxine HCl 100 MG Tablet PO (10:22)
--- NOTE | 2017-08-16 11:21 | CASEMGMT ---
RN RIKKI Face to Face with patient for initial transition planning/care coordination assessment. RN CM introduced self and role at [facility]. Patient lying in bed, alert and oriented, friend at bedside. Patient willing to participate in assessment and is able to answer all questions appropriately. Care providers, pharmacy, and demographics verified. See link attached. Patient wishes to discharge home, denies need for home health at this time. Will monitor patient for home oxygen and nebulizer. Patient states she has no preference for DME company and is agreeable to [employer]. Patient states she has no further needs or concerns at this time. CM to follow for discharge planning needs that may arise. Disposition Plan: Patient to discharge home with family support and follow-up plans in place.
--- NOTE | 2017-08-16 13:17 | PCM.PROGNOTE ---
<Evans Lund - Last Filed: 08/16/17 13:17> Patient Problems: Active and Suspected Problems Fever (Acute) Sepsis (Acute) HCAP (healthcare-associated pneumonia) (Acute) Fever (Acute) Subjective: Pt reports that she was told she does not have lymphoma but has not been told if she has cancer or not yet. She seems more alert today. She is sitting upright in bed on O2. The daughter is present and asking for the patient to be DC'd so that she can get to her PET scan in [place] tomorrow. The patient is still somewhat SOB with a productive cough. She denies chills. Last fever recorded last evening up to 102.1. She denies CP. She is still somewhat tachy. She denies leg pain or swelling. - Physical Exam General: Alert, Oriented x3, Cooperative HEENT: Atraumatic, PERRLA, EOMI, Normocephalic Neck: Supple, No JVD, Negative Carotid Bruits Lungs: Diminished, Rales - BL calero Cardiovascular: No murmurs, Tachycardic Abdomen: Bowel Sounds Present, Soft, Non Tender Extremities: No edema, Capillary Refill Less than 3 Seconds, - - neg fab/yadira sign Skin: No rashes, No breakdown Musculoskeletal: No Tenderness to Palpation of Joints or Extremities Neurological: Cranial nerves II-XII grossly intact Psych/Mental Status: Normal Affect, Appropriate, Alert and oriented to time, place, person, mood and affect Vital Signs Temp Pulse Resp BP Pulse Ox 97.8 F 101 H 18 103/54 L 97 08/16/17 12:20 08/16/17 12:20 08/16/17 12:20 08/16/17 12:20 08/16/17 12:20 Oxygen Flow Rate (L/min) 96 Oxygen Delivery Method Nasal Cannula Weight: 54.2 kg Body Mass Index (BMI) 20.5 Intake and Output for Last 24 Hours 08/14/17 08/15/17 08/16/17 23:59 23:59 23:59 Intake Total 435 / 435 3696 / 3696 3608 / 3608 Output Total 0 / 0 Balance 435 / 435 3696 / 3696 3608 / 3608 Microbiology Past 72 Hours 08/16/17 07:50 C. difficile DNA Amplification - Final Stool 08/16/17 07:50 Stool Occult Blood (GI) - Final Stool 08/15/17 02:00 Respiratory Panel (PCR) - Final Mucosa - Nose 08/14/17 22:53 Influenza Types A,B Direct FA (GI) - Final Mucosa - Nose Laboratory Tests Past 24 Hrs 08/15/17 08/15/17 08/16/17 17:00 19:33 05:10 WBC 28.2 H RBC 2.76 L Hgb 8.0 L 7.2 L Hct 26.4 L 23.7 L MCV 85.9 MCH 26.1 L MCHC 30.4 L RDW 16.6 H RDW Differential 50.3 H Plt Count 529 H MPV 8.6 Immature Gran % (Auto) 0.500 Neut % (Auto) 81.7 H Lymph % (Auto) 12.3 L [place] % (Auto) 5.3 Eos % (Auto) 0.1 Baso % (Auto) 0.1 Absolute Neuts (auto) 23.0 H Absolute Lymphs (auto) 3.46 Total Counted Not Reportable Differential Comment SCANNED Sodium Potassium Chloride Carbon Dioxide Anion Gap BUN Creatinine Estim Creat Clear Calc Est GFR (MDRD) Af Amer Est GFR (MDRD) Non-Af BUN/Creatinine Ratio Glucose Calcium Vancomycin Trough 6.1 08/16/17 05:10 WBC RBC Hgb Hct MCV MCH MCHC RDW RDW Differential Plt Count MPV Immature Gran % (Auto) Neut % (Auto) Lymph % (Auto) [place] % (Auto) Eos % (Auto) Baso % (Auto) Absolute Neuts (auto) Absolute Lymphs (auto) Total Counted Differential Comment Sodium 137 Potassium 3.9 Chloride 103 Carbon Dioxide 24.0 Anion Gap 10 BUN 6 L Creatinine 0.53 L Estim Creat Clear Calc 115.90 Est GFR (MDRD) Af Amer 161 Est GFR (MDRD) Non-Af 133 BUN/Creatinine Ratio 11.3 Glucose 108 H Calcium 8.2 L Vancomycin Trough Medical Necessity - Tobacco Use Smoking Status: Former smoker Assessment/Plan Active and Suspected Problems Fever (Acute) Sepsis (Acute) HCAP (healthcare-associated pneumonia) (Acute) Fever (Acute) 1. Acute BL HCAP - Extensive infiltrate left lung and mild infiltrate right base. CTA of the chest is without PE, it does show a mass that may be compressing the left mainstem bronchus and left upper and lower lobe bronchi, left pleural effusion, multifocal pneumonitis ETHAN suspicious for mets. Pt of Dr. Obrien, nonsmall cell lung CA. Oncology DC'd Jeannieo. Evin continues. Infectious disease consult is pending. ? Pna vs changes c/w cancer. She remains tachy, febrile last night, with increased O2 demand, and leukocytosis. Resp panel neg. She did fail a week of levaquin as an outpatient. Urine ag's are neg. Blood cultures are pending. Urine culture neg. 2. Non small cell lung CA - reportedly stage IV. Plan for PET tomorrow at [facility] if pt stable. c/s to Dr. Obrien. Recent needle bx. Results pending. Per Dr. Obrien she will discuss palliative Chemo. 3. Nicotine abuse - declines patch at this time. 4. Hyponatremia resolved 5. Normocytic anemia, iron deficiency - Iron BID. denies blood in stool or vomit. occult blood neg. 6. Diarrhea - c diff neg DVT ppx: heparin, scds. Consider palliative care consult. This patient was seen by Evans Lund PA-C under the supervision of Doctor Tru. <Efren Ott - Last Filed: 08/16/17 17:36> Subjective: Discussed with Dr. Gregg in the morning. She had left supraclavicular lymph node biopsy as an outpatient and reported non-small cell cancer. Her chest x-ray this time showed significant enlargement of mediastinal mass as compared to May 2017. CT chest was ordered. - Physical Exam Neck: Supple, No JVD, Negative Carotid Bruits Lungs: Diminished - Large left pleural effusion, Rales Cardiovascular: No murmurs, Tachycardic Vital Signs Temp Pulse Resp BP Pulse Ox 100.5 F H 111 H 20 H 103/54 L 96 08/16/17 15:59 08/16/17 14:00 08/16/17 13:37 08/16/17 12:20 08/16/17 15:09 Oxygen Flow Rate (L/min) [ 2 AMBULATION with Oxygen] Oxygen Flow Rate (L/min) 1 Oxygen Delivery Method Nasal Cannula Weight: 119 lb 7.849 oz Body Mass Index (BMI) 20.5 Intake and Output for Last 24 Hours 08/14/17 08/15/17 08/16/17 23:59 23:59 23:59 Intake Total 435 / 435 3696 / 3696 3608 / 3608 Output Total 0 / 0 Balance 435 / 435 3696 / 3696 3608 / 3608 Microbiology Past 72 Hours 08/16/17 07:50 C. difficile DNA Amplification - Final Stool 08/16/17 07:50 Stool Occult Blood (GI) - Final Stool 08/15/17 02:00 Respiratory Panel (PCR) - Final Mucosa - Nose 08/14/17 22:53 Influenza Types A,B Direct FA (GI) - Final Mucosa - Nose Laboratory Tests Past 24 Hrs 08/15/17 08/16/17 08/16/17 19:33 05:10 05:10 WBC 28.2 H RBC 2.76 L Hgb 7.2 L Hct 23.7 L MCV 85.9 MCH 26.1 L MCHC 30.4 L RDW 16.6 H RDW Differential 50.3 H Plt Count 529 H MPV 8.6 Immature Gran % (Auto) 0.500 Neut % (Auto) 81.7 H Lymph % (Auto) 12.3 L [place] % (Auto) 5.3 Eos % (Auto) 0.1 Baso % (Auto) 0.1 Absolute Neuts (auto) 23.0 H Absolute Lymphs (auto) 3.46 Total Counted Not Reportable Differential Comment SCANNED Sodium 137 Potassium 3.9 Chloride 103 Carbon Dioxide 24.0 Anion Gap 10 BUN 6 L Creatinine 0.53 L Estim Creat Clear Calc 115.90 Est GFR (MDRD) Af Amer 161 Est GFR (MDRD) Non-Af 133 BUN/Creatinine Ratio 11.3 Glucose 108 H Calcium 8.2 L Vancomycin Trough 6.1 Assessment/Plan This patient was seen in conjunction with Evans JACOBSON. I have independently interviewed and examined the patient and reviewed pertinent history, examination findings, laboratory and plan of management. I have reviewed the note and agree with the documented findings with the few additional points. In brief, patient is admitted for shortness of breath. CT chest showed large bulky soft tissue masses in the superior mediastinum, left perihilar region and in the AP window. There is narrowing of the left mainstem bronchus and left upper and lower lobe bronchi. Free-flowing left pleural effusion with associated atelectasis Multifocal pneumonitis in the left upper lobe with noncalcified nodules suspicious for metastasis. The CT scan was discussed with the patient and her significant other. This was also discussed with ID and oncologist. Dr. Pack advised 7 more days of Omnicef and Flagyl for presemed bilateral lower lobe HCAP as the patient continues to spike fever. I have discussed my assessment with Evans JACOBSON and orders have been reviewed. Code Visit Inpatient E&M: 29043 Subs Hosp L3
[2017-08-16 13:45] LABS: Pathologist Review Reviewed
--- NOTE | 2017-08-16 15:19 | PCM.HP.ID ---
Problem List (1) Fever Status: Acute Qualifiers: Fever type: malignant hyperthermia due to anesthesia Encounter type: sequela Qualified Code(s): T88.3XXS - Malignant hyperthermia due to anesthesia, sequela Reason for Consult: fever Consulted by: Dr. Ott History of Present Illness: The patient is a 42 year old F with recent diagnosis of NSCLC who presented with worsened fever and cough. Fever and leukocytosis developed in April,. Had negative outpatient work-up and was referred to ID, and I saw her in June. Infectious work-up was neg, and she was referred to hem-onc. After that point, had worsened cough, cxr and CT showed new infiltrate and lymphadenopathy. LN bx done and she was given course of levaquin which finished last week. PET planned for tomorrow in [place]. Due to worsened fever and cough, came to [facility]. Started on vanc/zosyn, not feeling much better today. Vanc was stopped. Additional history provided by family at bedside. Full ROS performed and neg except as noted above. - Medical History Past Medical History (Chronic Problems): Chronic Problems Lung mass (Chronic) Neutrophilic leukocytosis (Chronic) Allergies/Adverse Reactions: Allergies codeine Adverse Reaction (Verified 08/14/17 16:00) Nausea hydrocodone Adverse Reaction (Verified 08/14/17 16:00) Nausea miconazole [From Monistat 1 Combo Pack] Adverse Reaction (Verified 07/03/17 14:49) Swelling Home Medications: Ambulatory Orders Medication Instructions Recorded Ibuprofen 800 mg PO . Q8-12H PRN #30 tab 07/03/17 Progesterone,Micronized 150 mg PO QHS 07/03/17 [Endometrin] Testosterone 10 mg TOPICAL QHS 07/03/17 Albuterol Sulfate [Ventolin Hfa] 2 puff IH Q4H PRN PRN 08/14/17 Benzonatate [Tessalon Perle] 1 tab PO TID PRN 08/14/17 Dicyclomine HCl [Bentyl] 1 tab PO DAILY 08/14/17 Mirtazapine [Mirtazapine] 1 tab PO QHS 08/14/17 Pyridoxine HCl [Vitamin B-6] 1 tab PO DAILY 08/14/17 - Social History SMOKING STATUS:: Former smoker Vital Signs Temp Pulse Resp BP Pulse Ox 97.8 F 111 H 20 H 103/54 L 96 08/16/17 12:20 08/16/17 14:00 08/16/17 13:37 08/16/17 12:20 08/16/17 15:09 Oxygen Flow Rate (L/min) [ 2 AMBULATION with Oxygen] Oxygen Flow Rate (L/min) 1 Oxygen Delivery Method Nasal Cannula Weight: 54.2 kg Body Mass Index (BMI) 20.5 Microbiology Past 72 Hours 08/16/17 07:50 C. difficile DNA Amplification - Final Stool 08/16/17 07:50 Stool Occult Blood (GI) - Final Stool 08/15/17 02:00 Respiratory Panel (PCR) - Final Mucosa - Nose 08/14/17 22:53 Influenza Types A,B Direct FA (GI) - Final Mucosa - Nose Laboratory Tests Past 24 Hrs 08/15/17 08/15/17 08/16/17 17:00 19:33 05:10 WBC 28.2 H RBC 2.76 L Hgb 8.0 L 7.2 L Hct 26.4 L 23.7 L MCV 85.9 MCH 26.1 L MCHC 30.4 L RDW 16.6 H RDW Differential 50.3 H Plt Count 529 H MPV 8.6 Immature Gran % (Auto) 0.500 Neut % (Auto) 81.7 H Lymph % (Auto) 12.3 L [place] % (Auto) 5.3 Eos % (Auto) 0.1 Baso % (Auto) 0.1 Absolute Neuts (auto) 23.0 H Absolute Lymphs (auto) 3.46 Total Counted Not Reportable Differential Comment SCANNED Sodium Potassium Chloride Carbon Dioxide Anion Gap BUN Creatinine Estim Creat Clear Calc Est GFR (MDRD) Af Amer Est GFR (MDRD) Non-Af BUN/Creatinine Ratio Glucose Calcium Vancomycin Trough 6.1 08/16/17 05:10 WBC RBC Hgb Hct MCV MCH MCHC RDW RDW Differential Plt Count MPV Immature Gran % (Auto) Neut % (Auto) Lymph % (Auto) [place] % (Auto) Eos % (Auto) Baso % (Auto) Absolute Neuts (auto) Absolute Lymphs (auto) Total Counted Differential Comment Sodium 137 Potassium 3.9 Chloride 103 Carbon Dioxide 24.0 Anion Gap 10 BUN 6 L Creatinine 0.53 L Estim Creat Clear Calc 115.90 Est GFR (MDRD) Af Amer 161 Est GFR (MDRD) Non-Af 133 BUN/Creatinine Ratio 11.3 Glucose 108 H Calcium 8.2 L Vancomycin Trough - Other Studies Radiology: [] Other Studies: [] reviewed Route of nutrition/ use of supplements: [] Nutritional Intake: [] IV Site: [] Cummins Catheter: [] - Physical Exam General: Alert, Oriented x3, Cooperative, No apparent distress HEENT: Atraumatic, PERRLA, EOMI Neck: Supple Lungs: Clear to auscultation, Diminished Cardiovascular: Regular rate, Regular Rhythm Abdomen: Bowel Sounds Present, Soft, Non Tender, Non-Distended Extremities: No edema Skin: No rashes IV Site: Peripheral, without redness Musculoskeletal: No Tenderness to Palpation of Joints or Extremities Neurological: Cranial nerves II-XII grossly intact - Assessment/Plan Antibiotics: [] Assessment/Plan: [] Active and Suspected Problems Fever (Acute) Sepsis (Acute) HCAP (healthcare-associated pneumonia) (Acute) Fever (Acute) Chronic fever due to new dx of NSCLC - suspicion for associated post-obstructive pneumonia. Ok for d/c home on po omnicef 300mg bid and po flagyl 500mg tid for one more week to see if that can help her fever/cough. Ultimate cause is her malignancy, and do not want to delay her outpatient work-up. Cont zosyn while inpatient. Thank you, will follow, d/w Dr. Ott and case briefer.
--- NOTE | 2017-08-16 15:35 | CON.PCM_ITS ---
Problem List (1) Fever Status: Acute Qualifiers: Fever type: malignant hyperthermia due to anesthesia Encounter type: sequela Qualified Code(s): T88.3XXS - Malignant hyperthermia due to anesthesia , sequela Reason for Consult: fever Consulted by: Dr. Ott History of Present Illness: The patient is a 42 year old F with recent diagnosis of NSCLC who presented with worsened fever and cough. Fever and leukocytosis developed in April,. Had negative outpatient work-up and was referred to ID, and I saw her in June. Infectious work-up was neg, and she was referred to hem-onc. After that point, had worsened cough, cxr and CT showed new infiltrate and lymphadenopathy. LN bx done and she was given course of levaquin which finished last week. PET planned for tomorrow in [place]. Due to worsened fever and cough, came to [facility]. Started on vanc/zosyn, not feeling much better today. Vanc was stopped. Additional history provided by family at bedside. Full ROS performed and neg except as noted above. - Medical History Past Medical History (Chronic Problems): Chronic Problems Lung mass (Chronic) Neutrophilic leukocytosis (Chronic) Allergies/Adverse Reactions: Allergies codeine Adverse Reaction (Verified 08/14/17 16:00) Nausea hydrocodone Adverse Reaction (Verified 08/14/17 16:00) Nausea miconazole [From Monistat 1 Combo Pack] Adverse Reaction (Verified 07/03/17 14: 49) Swelling Home Medications: Ambulatory Orders Medication Instructions Recorded Ibuprofen 800 mg PO . Q8-12H PRN #30 tab 07/03/17 Progesterone,Micronized 150 mg PO QHS 07/03/17 [Endometrin] Testosterone 10 mg TOPICAL QHS 07/03/17 Albuterol Sulfate [Ventolin Hfa] 2 puff IH Q4H PRN PRN 08/14/17 Benzonatate [Tessalon Perle] 1 tab PO TID PRN 08/14/17 Dicyclomine HCl [Bentyl] 1 tab PO DAILY 08/14/17 Mirtazapine [Mirtazapine] 1 tab PO QHS 08/14/17 Pyridoxine HCl [Vitamin B-6] 1 tab PO DAILY 08/14/17 - Social History SMOKING STATUS:: Former smoker Vital Signs Temp Pulse Resp BP Pulse Ox 97.8 F 111 H 20 H 103/54 L 96 08/16/17 12:20 08/16/17 14:00 08/16/17 13:37 08/16/17 12:20 08/16/17 15:09 Oxygen Flow Rate (L/min) [ 2 AMBULATION with Oxygen] Oxygen Flow Rate (L/min) 1 Oxygen Delivery Method Nasal Cannula Weight: 54.2 kg Body Mass Index (BMI) 20.5 Microbiology Past 72 Hours 08/16/17 07:50 C. difficile DNA Amplification - Final Stool 08/16/17 07:50 Stool Occult Blood (GI) - Final Stool 08/15/17 02:00 Respiratory Panel (PCR) - Final Mucosa - Nose 08/14/17 22:53 Influenza Types A,B Direct FA (GI) - Final Mucosa - Nose Laboratory Tests Past 24 Hrs 08/15/17 08/15/17 08/16/17 17:00 19:33 05:10 WBC 28.2 H RBC 2.76 L Hgb 8.0 L 7.2 L Hct 26.4 L 23.7 L MCV 85.9 MCH 26.1 L MCHC 30.4 L RDW 16.6 H RDW Differential 50.3 H Plt Count 529 H MPV 8.6 Immature Gran % (Auto) 0.500 Neut % (Auto) 81.7 H Lymph % (Auto) 12.3 L [place] % (Auto) 5.3 Eos % (Auto) 0.1 Baso % (Auto) 0.1 Absolute Neuts (auto) 23.0 H Absolute Lymphs (auto) 3.46 Total Counted Not Reportable Differential Comment SCANNED Sodium Potassium Chloride Carbon Dioxide Anion Gap BUN Creatinine Estim Creat Clear Calc Est GFR (MDRD) Af Amer Est GFR (MDRD) Non-Af BUN/Creatinine Ratio Glucose Calcium Vancomycin Trough 6.1 08/16/17 05:10 WBC RBC Hgb Hct MCV MCH MCHC RDW RDW Differential Plt Count MPV Immature Gran % (Auto) Neut % (Auto) Lymph % (Auto) [place] % (Auto) Eos % (Auto) Baso % (Auto) Absolute Neuts (auto) Absolute Lymphs (auto) Total Counted Differential Comment Sodium 137 Potassium 3.9 Chloride 103 Carbon Dioxide 24.0 Anion Gap 10 BUN 6 L Creatinine 0.53 L Estim Creat Clear Calc 115.90 Est GFR (MDRD) Af Amer 161 Est GFR (MDRD) Non-Af 133 BUN/Creatinine Ratio 11.3 Glucose 108 H Calcium 8.2 L Vancomycin Trough - Other Studies Radiology: [] Other Studies: [] reviewed Route of nutrition/ use of supplements: [] Nutritional Intake: [] IV Site: [] Cummins Catheter: [] - Physical Exam General: Alert, Oriented x3, Cooperative, No apparent distress HEENT: Atraumatic, PERRLA, EOMI Neck: Supple Lungs: Clear to auscultation, Diminished Cardiovascular: Regular rate, Regular Rhythm Abdomen: Bowel Sounds Present, Soft, Non Tender, Non-Distended Extremities: No edema Skin: No rashes IV Site: Peripheral, without redness Musculoskeletal: No Tenderness to Palpation of Joints or Extremities Neurological: Cranial nerves II-XII grossly intact - Assessment/Plan Antibiotics: [] Assessment/Plan: [] Active and Suspected Problems Fever (Acute) Sepsis (Acute) HCAP (healthcare-associated pneumonia) (Acute) Fever (Acute) Chronic fever due to new dx of NSCLC - suspicion for associated post- obstructive pneumonia. Ok for d/c home on po omnicef 300mg bid and po flagyl 500mg tid for one more week to see if that can help her fever/cough. Ultimate cause is her malignancy, and do not want to delay her outpatient work-up. Cont zosyn while inpatient. Thank you, will follow, d/w Dr. Ott and upper caser.
--- NOTE | 2017-08-16 15:44 | CASEMGMT ---
YING BRANDT notified by RN that patient qualified for home oxygen. Script obtained for [place] oxygen and [place] [facility] [place] [employer]. YING BRANDT [place] [facility] [place] in supervisor assembly and packing for testing in [place]. YING BRANDT updated charge nurse regarding home oxygen setup.
[2017-08-16] MEDS: Acetaminophen 325 MG Tablet 650 MG PO ×2 (15:58→21:17)
--- NOTE | 2017-08-16 19:14 | CON.PCM_ITS ---
Problem List (1) Pleural effusion, left Status: Acute (2) Lung mass Status: Chronic Reason for Consult Date of Consultation: 08/16/17 History of Present Illness: The patient is a 42 year old F recently diagnosed with left non-small cell lung cancer an a recurring left pleural effusion. She was seen by Dr. Donald - intelligence agent at 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 ? Patient reports that she first started feeling sick end of~April 2017 when she developed an upper respiratory infection with sinus congestion, nasal drainage, cough and fevers (MAXIMUM TEMPERATURE 102 Fahrenheit). ~She completed a course of Augmentin without significant clinical improvement and hence was prescribed a second antibiotic. ~Patient had pleuritic chest pain which improved after antibiotics were CXR done at OSH on 06/11/2017 was noted to be unremarkable. Patient had~and a CT scan sinus done 06/16/2017~showed mucosal thickening left maxillary sinus. ~CT scan of abdomen/pelvis with IV contrast done 06/14/2017 was unremarkable. ~Patient also started having night sweats. ~ Testing for mononucleosis was negative. ~EBV testing was negative except EBV IgG.~~CT scan of brain with/without contrast done 07/03/2017 was unremarkable. ~ Patient continued~to stay febrile and was seen in consultation by ID. she was seen by hematology/oncology on 07/07/2017 and treated with IV Injectafer (Iron) for KRISTEN. ~Patient was seen by her primary care physician and prescribed an albuterol inhaler for bronchitis. ~Meanwhile patient continued to have poor appetite (15 pound unintentional weight loss since beginning of 2018), night sweats, myalgias and generalized fatigue. ~Patient noticed worsening productive cough with clear to yellowish mucus (spitting and wastebasket all night). ~CXR done 07/26/2017 showed airspace consolidation left suprahilar region?patient was treated with a course of azithromycin followed by Levaquin. ~Repeat CXR 2017 showed similar findings. ~Patient has been alternating acetaminophen and ibuprofen for fevers. ~She denies any joint swelling, joint pain or skin rashes. ~Patient has been sleeping sitting up as cough is worse in supine position. ~She has noticed that she is unable to sleep on her left as she starts to cough heavily. ~She denies any hemoptysis. ~No palpable swollen glands. ~TB~blood screen and HIV screen are negative. ? LEEP 1997-; cells came back - repeat 1998 (Dr Olguin; [facility]). S/p Colonoscopy - for sigmoid diverticulitis - s/p Abx (07/2016) - unremarkable. ~Patient reports stable bowel habits. ~She has annual mammograms which are unremarkable. ? CT scan chest 08/06/2017 showed a large heterogeneous mass lesion ETHAN measuring 6.2 x 5.6 cm, multiple nodular densities left upper lung. ~Extensive interlobular septal thickening left lung calero. ~Moderate left pleural effusion. ~There is significant left hilar lymphadenopathy with enlarged mediastinal and right hilar lymph nodes. ~There is a 2.8 x 2.2 cm left supraclavicular lymph node. ? 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 Born and grew up in [facility]. No known exposure to TB. Travel - [place] ([place]). ? MMRC Dyspnea Scale: ? ~~~~?0.?Not troubled by breathlessness except on strenuous exercise 1. Short of breath when hurrying or walking up a slight hill 2. Walks slower than contemporaries on the level because of breathlessness, or has to stop for breath when walking at own pace 3. Stops for breath after about 100 m or after a few minutes on the level? 4. Too breathless to leave the house, or breathless when dressing or undressing ? he underwent lymph node biopsy and left thoracentesis. Thoracentesis removed proximally 700 cc of fluid. thoracentesis was negative for malignant cells. Biopsy of the supraventricular lymph node - undifferentiated non-small cell carcinoma. the patient has recurring shortness of breath, and the pleural effusion was be recommitting rather rapidly. She is currently scheduled to have a PET CT scan tomorrow in [place].. Dr. Obrien has asked me to see the patient for possible Pleurx catheter placement. Past Medical History Past Medical History (Chronic Problems): Chronic Problems Lung mass (Chronic) Neutrophilic leukocytosis (Chronic) Allergies codeine Adverse Reaction (Verified 08/14/17 16:00) Nausea hydrocodone Adverse Reaction (Verified 08/14/17 16:00) Nausea miconazole [From Monistat 1 Combo Pack] Adverse Reaction (Verified 07/03/17 14: 49) Swelling Home Medications: Ambulatory Orders Medication Instructions Recorded Progesterone,Micronized 150 mg PO QHS 07/03/17 [Endometrin] Testosterone 10 mg TOPICAL QHS 07/03/17 Albuterol Sulfate [Ventolin Hfa] 2 puff IH Q4H PRN PRN 08/14/17 Benzonatate [Tessalon Perle] 1 tab PO TID PRN 08/14/17 Dicyclomine HCl [Bentyl] 1 tab PO DAILY 08/14/17 Mirtazapine 1 tab PO QHS 08/14/17 Pyridoxine HCl [Vitamin B-6] 1 tab PO DAILY 08/14/17 Cefdinir [Omnicef [equiv]] 300 mg PO Q12H #14 capsule 08/16/17 Ensure Enlive 120 ml PO 4X/DAY #12 bottle 08/16/17 Guaifenesin [Mucinex] 1,200 mg PO BID tablet 08/16/17 Metronidazole [Flagyl] 500 mg PO Q8H #21 tablet 08/16/17 Oxycodone [Oxyir] 5 mg PO Q4H PRN PRN #12 tablet 08/16/17 Lives: Spouse/ Significant Other, With Family Smoking Status: Former smoker Alcohol: None Drugs: None Review of Systems Constitutional: Reports: Anorexia, Fever, Weight Change Cardiovascular: Reports: Chest Pain Respiratory: Reports: Shortness of Breath Patient Problems: Active and Suspected Problems Fever (Acute) Sepsis (Acute) HCAP (healthcare-associated pneumonia) (Acute) Fever (Acute) Pleural effusion, left (Acute) - Physical Exam General: Alert, Oriented x3 Neck: - - left super cervical adenopathy Lungs: Diminished - left base/mid chest with dullness to percussion consistent with significant left pleural effusion Cardiovascular: Regular rate, No murmurs Abdomen: Bowel Sounds Present, Soft, Non Tender Vital Signs Temp Pulse Resp BP Pulse Ox 98.1 F 104 H 18 103/61 93 08/16/17 18:02 08/16/17 18:02 08/16/17 18:02 08/16/17 18:02 08/16/17 18:02 Oxygen Flow Rate (L/min) [ 2 AMBULATION with Oxygen] Oxygen Flow Rate (L/min) 1 Oxygen Delivery Method Nasal Cannula Weight: 54.2 kg Body Mass Index (BMI) 20.5 Intake and Output for Last 24 Hours 08/14/17 08/15/17 08/16/17 23:59 23:59 23:59 Intake Total 435 / 435 3696 / 3696 4297 / 4297 Output Total 0 / 0 Balance 435 / 435 3696 / 3696 4297 / 4297 Microbiology Past 72 Hours 08/16/17 07:50 C. difficile DNA Amplification - Final Stool 08/16/17 07:50 Stool Occult Blood (GI) - Final Stool 08/15/17 02:00 Respiratory Panel (PCR) - Final Mucosa - Nose 08/14/17 22:53 Influenza Types A,B Direct FA (GI) - Final Mucosa - Nose Laboratory Tests Past 24 Hrs 08/15/17 08/16/17 08/16/17 19:33 05:10 05:10 WBC 28.2 H RBC 2.76 L Hgb 7.2 L Hct 23.7 L MCV 85.9 MCH 26.1 L MCHC 30.4 L RDW 16.6 H RDW Differential 50.3 H Plt Count 529 H MPV 8.6 Immature Gran % (Auto) 0.500 Neut % (Auto) 81.7 H Lymph % (Auto) 12.3 L Towns % (Auto) 5.3 Eos % (Auto) 0.1 Baso % (Auto) 0.1 Absolute Neuts (auto) 23.0 H Absolute Lymphs (auto) 3.46 Total Counted Not Reportable Differential Comment SCANNED Sodium 137 Potassium 3.9 Chloride 103 Carbon Dioxide 24.0 Anion Gap 10 BUN 6 L Creatinine 0.53 L Estim Creat Clear Calc 115.90 Est GFR (MDRD) Af Amer 161 Est GFR (MDRD) Non-Af 133 BUN/Creatinine Ratio 11.3 Glucose 108 H Calcium 8.2 L Vancomycin Trough 6.1 Assessment/Plan Active and Suspected Problems Fever (Acute) Sepsis (Acute) HCAP (healthcare-associated pneumonia) (Acute) Fever (Acute) Pleural effusion, left (Acute) left non-small cell lung cancer with metastases to the supraclavicular node, recurring left pleural effusion. I've spoken with the patient about a possible left Pleurx/tunneled pleural catheter placement. we discussed the risks, benefits, possible complications, and possible alternatives. I was able to write information about the catheter and demonstrate and show pictures what the catheter placement would entail. the patient is getting her PET CT scan tomorrow. She will follow up with Dr. Obrien . His opinion is, she will need a Pleurx catheter this week. We will plan for Pleurx catheter afternoon. Dr. Obrien and I also discussed the possibility of Port-A-Cath placement . the patient and Dr. Obrien will decide whether this is necessary after reviewing the PET CT scan morning.
[2017-08-16] MEDS: 0.9% NaCl Peripheral Flush Adult/Peds IV (21:16)
[2017-08-16] MEDS: Benzonatate 100 MG Capsule PO (21:17)
[2017-08-17] VITALS (8 sets, daily range): BP systolic 104–110; BP diastolic 59–60; PULSE 106–112; RESP 18–20; TEMP 37.5–37.6; O2SAT 92–94
--- NOTE | 2017-08-17 02:12 | NURSING ---
Called [facility] for breathing tx @ this time.
[2017-08-17] MEDS: Ipratropium/Albuterol Sulfate 3 ML AMPUL.NEB INHALATION ×2 (02:19→07:22)
[2017-08-17] MEDS: 0.9% Normal Saline 1,000 ML 125 ML IV (05:24)
[2017-08-17] MEDS: Piperacil/Tazobactam 3.375 GM/50 ML ML IV (05:24)
[2017-08-17 06:26] LABS: Absolute Lymphocyte Count 3.09 X10^3/ul (0.83-4.51); Absolute Neutrophil Count 22.6 X10^3/uL (2.0-7.7); Basophil# 0.04 X10^3/uL; Basophil% 0.1 % (0-1); Eosinophils% 0.4 % (0-5); Hematocrit 23.4 % (37-47); Hemoglobin 7.2 g/dl (12.0-15.0); Lymphocyte # 3.09 X10^3/ul (4.0); Lymphocyte % 11.4 % (19-41); Mean Corp Hgb Conc 30.8 g/gl (32-36); Mean Corpuscular Hgb 26.4 pg (27.0-32.0); Mean Corpuscular Volume 85.7 fL (81-99); Mean Platelet Vol. 8.8 fl (6.2-12.0); Monocyte# 1.07 X10^3/uL; Neutrophil # 22.63 X10^3/uL (2.7-7.7); Neutrophil % 83.6 % (47-70); Platelet Count 558 K/mm3 (150-450); RBC Distribution Width CV 16.7 % (11.6-14.6); RBC Distribution Width SD 50.1 fl (35.1-43.9); Red Blood Count 2.73 M/mm3 (4.2-5.4); White Blood Count 27.1 K/mm3 (4.4-11.0)
[2017-08-17 06:29] LABS: Differential Indicated SCAN CRITERIA MET; POSITIVE COUNT NO; POSITIVE DIFFERENTIAL YES; POSITIVE MORPHOLOGY YES
[2017-08-17 06:33] LABS: Anion Gap 8 (5-15); BUN 6 mg/dL (7-18); BUN/Creat Ratio 12.7 RATIO (10-20); Calcium,Total 7.7 mg/dL (8.5-10.1); Chloride 106 mmol/L (98-107); Creatinine, Serum 0.47 mg/dL (0.55-1.02); EST Glomerular Filtration Rate 151 mL/min (>60); Est Glom Filt Rate - Afr Amer 183 mL/min (>60); Glucose 101 mg/dL (74-106); Potassium 3.8 mmol/L (3.5-5.1); Sodium Level 137 mmol/L (136-145)
--- NOTE | 2017-08-17 07:39 | DCINST_ITS ---
- Discharge Diagnoses Current Active Problems: Current Active and Chronic Problems Fever (Acute) Sepsis (Acute) HCAP (healthcare-associated pneumonia) (Acute) Lung mass (Chronic) Fever (Acute) Neutrophilic leukocytosis (Chronic) Pleural effusion, left (Acute) You will use the following diet at home:: Regular Discharge Activity: May Not Drive Allergies/Adverse Reactions: Allergies codeine Adverse Reaction (Verified 08/14/17 16:00) Nausea hydrocodone Adverse Reaction (Verified 08/14/17 16:00) Nausea miconazole [From Monistat 1 Combo Pack] Adverse Reaction (Verified 07/03/17 14: 49) Swelling Medications to take at Discharge Progesterone,Micronized [Endometrin] 150 mg PO QHS 07/03/17 Testosterone 10 mg TOPICAL QHS 07/03/17 Albuterol Sulfate [Ventolin Hfa] 2 puff IH Q4H PRN PRN 08/14/17 Benzonatate [Tessalon Perle] 1 tab PO TID PRN 08/14/17 Dicyclomine HCl [Bentyl] 1 tab PO DAILY 08/14/17 Mirtazapine 1 tab PO QHS 08/14/17 Pyridoxine HCl [Vitamin B-6] 1 tab PO DAILY 08/14/17 Cefdinir [Omnicef [equiv]] 300 mg PO Q12H #14 capsule 08/16/17 Ensure Enlive 120 ml PO 4X/DAY #12 bottle 08/16/17 Guaifenesin [Mucinex] 1,200 mg PO BID tablet 08/16/17 Metronidazole [Flagyl] 500 mg PO Q8H #21 tablet 08/16/17 Oxycodone [Oxyir] 5 mg PO Q4H PRN PRN #12 tablet 08/16/17 The following prescriptions were given: Oxycodone [Oxyir] 5 mg PO Q4H PRN PRN #12 tablet PRN Reason: Moderate Pain (pain scale 4-5) Cefdinir [Omnicef [equiv]] 300 mg PO Q12H #14 capsule Metronidazole [Flagyl] 500 mg PO Q8H #21 tablet Ensure Enlive 120 ml PO 4X/DAY #12 bottle Primary Care Physician: Remigio Valdez MD [Primary Care Provider] - Please follow up with your Primary Care Physician in: in 1-2 weeks Please Follow Up With: Cleveland Obrien MD When: this week, Thurs Please Follow Up With: Barron Li MD When: this week, Thurs for port-catheter and possible Pleurex cath
--- NOTE | 2017-08-17 07:40 | PN_ITS ---
Patient Problems: Active and Suspected Problems Fever (Acute) Sepsis (Acute) HCAP (healthcare-associated pneumonia) (Acute) Fever (Acute) Pleural effusion, left (Acute) Subjective: Patient is feeling better. She is not short of breath on oxygen. She also has a productive cough. No Chest pain - Physical Exam General: Alert, Oriented x3 HEENT: Atraumatic, PERRLA, EOMI Oral: Moist Mucosa Neck: Supple, No JVD Lungs: Clear to auscultation, Diminished - Diminished breath sounds left lung base with dullness to percussion. Cardiovascular: Regular rate, Regular Rhythm, Normal S1, Normal S2 Abdomen: Bowel Sounds Present, Soft, Non Tender, Non-Distended, Hepatomegaly Extremities: No clubbing, No cyanosis, No edema Skin: No rashes Musculoskeletal: No Tenderness to Palpation of Joints or Extremities Lymphatic: Cervical Adenopathy - Left supraclavicular adenopathy 3cm Neurological: Cranial nerves II-XII grossly intact, Neuro grossly intact Psych/Mental Status: Normal Affect Vital Signs Temp Pulse Resp BP Pulse Ox 99.6 F H 106 H 18 110/60 94 08/17/17 02:12 08/17/17 05:25 08/17/17 02:20 08/17/17 02:12 08/17/17 02:12 Oxygen Flow Rate (L/min) [ 2 AMBULATION with Oxygen] Oxygen Flow Rate (L/min) 1 Oxygen Delivery Method Room Air Weight: 119 lb 7.849 oz Body Mass Index (BMI) 20.5 Intake and Output for Last 24 Hours 08/15/17 08/16/17 08/17/17 23:59 23:59 23:59 Intake Total 3696 / 3696 5197 / 5197 950 / 950 Balance 3696 / 3696 5197 / 5197 950 / 950 Microbiology Past 72 Hours 08/16/17 07:50 C. difficile DNA Amplification - Final Stool 08/16/17 07:50 Stool Occult Blood (GI) - Final Stool 08/15/17 02:00 Respiratory Panel (PCR) - Final Mucosa - Nose 08/14/17 22:53 Influenza Types A,B Direct FA (GI) - Final Mucosa - Nose Laboratory Tests Past 24 Hrs 08/17/17 08/17/17 05:42 05:42 WBC 27.1 H RBC 2.73 L Hgb 7.2 L Hct 23.4 L MCV 85.7 MCH 26.4 L MCHC 30.8 L RDW 16.7 H RDW Differential 50.1 H Plt Count 558 H MPV 8.8 Immature Gran % (Auto) 0.500 Neut % (Auto) 83.6 H Lymph % (Auto) 11.4 L Traill % (Auto) 4.0 Eos % (Auto) 0.4 Baso % (Auto) 0.1 Absolute Neuts (auto) 22.6 H Absolute Lymphs (auto) 3.09 Total Counted Not Reportable Sodium 137 Potassium 3.8 Chloride 106 Carbon Dioxide 23.0 Anion Gap 8 BUN 6 L Creatinine 0.47 L Estim Creat Clear Calc 130.70 Est GFR (MDRD) Af Amer 183 Est GFR (MDRD) Non-Af 151 BUN/Creatinine Ratio 12.7 Glucose 101 Calcium 7.7 L Medical Necessity - Tobacco Use Smoking Status: Former smoker Tobacco Use: Cigarettes Assessment/Plan Active and Suspected Problems Fever (Acute) Sepsis (Acute) HCAP (healthcare-associated pneumonia) (Acute) Fever (Acute) Pleural effusion, left (Acute) 1) non-small cell lung cancer Plan: -Discharge this morning for PET CT scan for staging at [facility] -For a Pleurx catheter placement this with Dr. Buitrago for malignant/ recurrent effusion -Repeat fluid cytology -Start Chemotherapy next week with cisplatin & etoposide 2) recurrent fever and leukocytosis-possible post-obstructive pneumonia ID consult appreciated Plan: -Continue antibiotics as outpatient -Need oxygen at home 3) iron deficiency anemia and anemia secondary to malignancy Plan: - Continue iron supplement as an outpatient - PPI and avoid NSAIDs Please schedule patient for appointment/follow-up with me on Wednesday noon to discuss and consent for chemotherapy treatment in my office. cc: Dr. Cleveland Obrien, Dr. Ott, Dr. Barron Li, Dr. Emmanuel Pack.
--- NOTE | 2017-08-17 14:08 | PCM.DC.SUM ---
<Evans Lund - Last Filed: 08/17/17 14:08> Discharge Date and Diagnosis Date of Admission: 08/14/17 Date of Discharge: 08/17/17 - Primary Discharge Diagnosis Bilateral postobstructive HCAP pneumonia Non-small cell lung cancer Chronic fever and leukocytosis Chronic hypoxic respiratory failure Nicotine abuse - Secondary Discharge Diagnosis Chronic Problems Lung mass (Chronic) Neutrophilic leukocytosis (Chronic) Hospital Course and Treatment Imaging Results: RAD/Chest 1 View (Portable) IMPRESSION: Mild infiltrate right lung base. Extensive infiltrate throughout the left lung. Left hilar and perihilar mass. CT/CTA Chest W/WO Contrast IMPRESSION: No demonstrated PE Large bulky soft tissue masses in the superior mediastinum, left perihilar region and in the AP window consistent with patient's history of lymphoma. There is narrowing of the left mainstem bronchus and left upper and lower lobe bronchi. Free-flowing left pleural effusion with associated atelectasis Multifocal pneumonitis in the left upper lobe with noncalcified nodules suspicious for metastasis Right lung is clear Degenerative bony changes Fatty infiltration of liver with extensive hepatomegaly Consultations: [facility] - oncology [facility] surgery [facility] Operations: None Procedures: None Summary of Care Provided: Physical exam on day of discharge: General: Resting comfortably NAD Psych: A/Ox3 normal affect HEENT: PEARRLA AT NC Neck: Supple NT CV: RRR no m/t/r/g/h Resp: Bilateral crackles left greater than right, lower lobes. Abd: [id number] Soft NT no guarding or rigidity Ext: DP2+= no edema Skin: W/D normal turgor Lymph/Heme: No active bleeding or adenopathy Neuro: CN2-12 intact Hospital course: The patient is a 42 year old F with a history of chronic fevers and leukocytosis being worked up as an outpatient by Dr. Tinajero for possible lymphoma versus lung cancer, nicotine abuse who presented to the emergency room with worsening shortness of breath and new productive cough, worsening of chronic fevers. The week prior she had undergone a needle biopsy of a mass in her lungs but had not received a diagnosis from Dr. Tinajero up to this point. Dr. Tinajero was consulted and patient was admitted for healthcare associated pneumonia. A chest x-ray demonstrated bilateral infiltrates. Infectious disease was consulted . Patient was significantly tachycardic and had increased oxygen demands so CTA was completed which did not reveal any PE. It demonstrated a bulky mass consistent with history of lymphoma, free-flowing left pleural effusions, multifocal pneumonitis suspicious for metastasis. Initially the patient was on Vanco and Zosyn. The patient had an outpatient PET scan that she needed to get to and was feeling improved on IV antibiotics desired discharge. She remained on oxygen and this was arranged for her at home along with a nebulizer and albuterol treatments. Infectious disease transitioned her to 7 more days of Flagyl and Omnicef. She had some diarrhea while she was here and was checked for C. difficile. This was negative. She had significant anemia but did not require blood transfusion. Stool occult blood was negative. Influenza's and respiratory panel were negative. Urine antigens were negative. Blood cultures are negative at 48 hours. Urine cultures negative. We advised the patient to follow-up to get her PET scan today, she will need close follow-up with Dr. Tinajero. Dr. Sherman saw her while she was here for consultation for Pleurx catheter placement. Per Dr. Guzman she was negative for lymphoma but appeared to have non-small cell lung cancer. He is going to arrange for palliative chemo therapy at this point. The patient was discharged in stable condition to home, a this time she did not feel she needed home health per Case Management. This patient was seen by Evans Lund PA-C under the supervision of Doctor Ott. [] Discharge Diet: No Restrictions Discharge Activity: May Not Drive Home Medications: Medications to take at Discharge Progesterone,Micronized [Endometrin] 150 mg PO QHS 07/03/17 Testosterone 10 mg TOPICAL QHS 07/03/17 Albuterol Sulfate [Ventolin Hfa] 2 puff IH Q4H PRN PRN 08/14/17 Benzonatate [Tessalon Perle] 1 tab PO TID PRN 08/14/17 Dicyclomine HCl [Bentyl] 1 tab PO DAILY 08/14/17 Mirtazapine 1 tab PO QHS 08/14/17 Pyridoxine HCl [Vitamin B-6] 1 tab PO DAILY 08/14/17 Cefdinir [Omnicef [equiv]] 300 mg PO Q12H #14 cap 08/16/17 Ensure Enlive 120 ml PO 4X/DAY #12 bottle 08/16/17 Guaifenesin [Mucinex] 1,200 mg PO BID tablet 08/16/17 Metronidazole [Flagyl] 500 mg PO Q8H #21 tab 08/16/17 Oxycodone [Oxyir] 5 mg PO Q4H PRN PRN #12 tab 08/16/17 Albuterol Aerosols [Ventolin Aerosols] 2.5 mg INHALATION Q4H PRN PRN #120 vial 08/17/17 Following Prescrptions Were Given to Patient: Albuterol Aerosols [Ventolin Aerosols] 2.5 mg INHALATION Q4H PRN PRN #120 vial PRN Reason: Sob &/Or Wheezing Cefdinir [Omnicef [equiv]] 300 mg PO Q12H #14 cap Ensure Enlive 120 ml PO 4X/DAY #12 bottle Metronidazole [Flagyl] 500 mg PO Q8H #21 tab Oxycodone [Oxyir] 5 mg PO Q4H PRN PRN #12 tab PRN Reason: Moderate Pain (pain scale 4-5) Primary Care Physician: Remigio Valdez MD [Primary Care Provider] - Please follow up with your Primary Care Physician in: in 1-2 weeks Please Follow Up With: Cleveland Obrien MD When: this week, Thurs Please Follow Up With: Barron Li MD When: this week, Thurs for port-catheter and possible Pleurex cath Disposition: Home Minutes spent on discharge:: 40 Patient Condition:: Stable Medical Necessity - Tobacco Use Smoking Status: Former smoker Tobacco Use: Cigarettes Meaningful Use Info Meaningful Use Diagnoses (Choose all that apply): None applicable <Efren Ott - Last Filed: 08/17/17 15:17> Discharge Date and Diagnosis - Secondary Discharge Diagnosis Chronic Problems Lung mass (Chronic) Neutrophilic leukocytosis (Chronic) Hospital Course and Treatment Summary of Care Provided: This patient was seen in conjunction with Evans JACOBSON. I have independently interviewed and examined the patient and reviewed pertinent history, examination findings, laboratory and plan of management. I have reviewed the note and agree with the documented findings with the few additional points. In brief, patient is admitted for progressive worsening of shortness of breath, cough and fever which is more chronic in nature. Overall, patient has diagnosis of non-small cell lung cancer. She is scheduled for PET scan today in [facility]. Discussed with infectious disease insurance healthcare consultant and oncologist. ID recommended 7 days of Omnicef and Flagyl. Prescription was given. Discharge medication reconciliation done. Discharge follow-up instructions given. Total time spent, exact 32 minutes on discharge meds reconciliation, examination, review of imaging and blood test and discussion with the patient on follow-up instructions. I have discussed my assessment with Evans JACOBSON and orders have been reviewed. [] Code Visit Inpatient E&M: 10169 Disch Hosp
--- NOTE | 2017-08-17 14:18 | DS.PCM_ITS ---
<Evans Lund - Last Filed: 08/17/17 14:08> Discharge Date and Diagnosis Date of Admission: 08/14/17 Date of Discharge: 08/17/17 - Primary Discharge Diagnosis Bilateral postobstructive HCAP pneumonia Non-small cell lung cancer Chronic fever and leukocytosis Chronic hypoxic respiratory failure Nicotine abuse - Secondary Discharge Diagnosis Chronic Problems Lung mass (Chronic) Neutrophilic leukocytosis (Chronic) Hospital Course and Treatment Imaging Results: RAD/Chest 1 View (Portable) IMPRESSION: Mild infiltrate right lung base. Extensive infiltrate throughout the left lung. Left hilar and perihilar mass. CT/CTA Chest W/WO Contrast IMPRESSION: No demonstrated PE Large bulky soft tissue masses in the superior mediastinum, left perihilar region and in the AP window consistent with patient's history of lymphoma. There is narrowing of the left mainstem bronchus and left upper and lower lobe bronchi. Free-flowing left pleural effusion with associated atelectasis Multifocal pneumonitis in the left upper lobe with noncalcified nodules suspicious for metastasis Right lung is clear Degenerative bony changes Fatty infiltration of liver with extensive hepatomegaly Consultations: [facility] - oncology [facility] surgery [facility] Operations: None Procedures: None Summary of Care Provided: Physical exam on day of discharge: General: Resting comfortably NAD Psych: A/Ox3 normal affect HEENT: PEARRLA AT NC Neck: Supple NT CV: RRR no m/t/r/g/h Resp: Bilateral crackles left greater than right, lower lobes. Abd: [id number] Soft NT no guarding or rigidity Ext: DP2+= no edema Skin: W/D normal turgor Lymph/Heme: No active bleeding or adenopathy Neuro: CN2-12 intact Hospital course: The patient is a 42 year old F with a history of chronic fevers and leukocytosis being worked up as an outpatient by Dr. Tinajero for possible lymphoma versus lung cancer, nicotine abuse who presented to the emergency room with worsening shortness of breath and new productive cough, worsening of chronic fevers. The week prior she had undergone a needle biopsy of a mass in her lungs but had not received a diagnosis from Dr. Tinajero up to this point. Dr. Tinajero was consulted and patient was admitted for healthcare associated pneumonia. A chest x-ray demonstrated bilateral infiltrates. Infectious disease was consulted . Patient was significantly tachycardic and had increased oxygen demands so CTA was completed which did not reveal any PE. It demonstrated a bulky mass consistent with history of lymphoma, free-flowing left pleural effusions, multifocal pneumonitis suspicious for metastasis. Initially the patient was on Vanco and Zosyn. The patient had an outpatient PET scan that she needed to get to and was feeling improved on IV antibiotics desired discharge. She remained on oxygen and this was arranged for her at home along with a nebulizer and albuterol treatments. Infectious disease transitioned her to 7 more days of Flagyl and Omnicef. She had some diarrhea while she was here and was checked for C. difficile. This was negative. She had significant anemia but did not require blood transfusion. Stool occult blood was negative. Influenza's and respiratory panel were negative. Urine antigens were negative. Blood cultures are negative at 48 hours. Urine cultures negative. We advised the patient to follow-up to get her PET scan today, she will need close follow-up with Dr. Tinajero. Dr. Sherman saw her while she was here for consultation for Pleurx catheter placement. Per Dr. Guzman she was negative for lymphoma but appeared to have non-small cell lung cancer. He is going to arrange for palliative chemo therapy at this point. The patient was discharged in stable condition to home, a this time she did not feel she needed home health per Case Management. This patient was seen by Evans Lund PA-C under the supervision of Doctor Ott. [] Discharge Diet: No Restrictions Discharge Activity: May Not Drive Home Medications: Medications to take at Discharge Progesterone,Micronized [Endometrin] 150 mg PO QHS 07/03/17 Testosterone 10 mg TOPICAL QHS 07/03/17 Albuterol Sulfate [Ventolin Hfa] 2 puff IH Q4H PRN PRN 08/14/17 Benzonatate [Tessalon Perle] 1 tab PO TID PRN 08/14/17 Dicyclomine HCl [Bentyl] 1 tab PO DAILY 08/14/17 Mirtazapine 1 tab PO QHS 08/14/17 Pyridoxine HCl [Vitamin B-6] 1 tab PO DAILY 08/14/17 Cefdinir [Omnicef [equiv]] 300 mg PO Q12H #14 cap 08/16/17 Ensure Enlive 120 ml PO 4X/DAY #12 bottle 08/16/17 Guaifenesin [Mucinex] 1,200 mg PO BID tablet 08/16/17 Metronidazole [Flagyl] 500 mg PO Q8H #21 tab 08/16/17 Oxycodone [Oxyir] 5 mg PO Q4H PRN PRN #12 tab 08/16/17 Albuterol Aerosols [Ventolin Aerosols] 2.5 mg INHALATION Q4H PRN PRN #120 vial 08/17/17 Following Prescrptions Were Given to Patient: Albuterol Aerosols [Ventolin Aerosols] 2.5 mg INHALATION Q4H PRN PRN #120 vial PRN Reason: Sob &/Or Wheezing Cefdinir [Omnicef [equiv]] 300 mg PO Q12H #14 cap Ensure Enlive 120 ml PO 4X/DAY #12 bottle Metronidazole [Flagyl] 500 mg PO Q8H #21 tab Oxycodone [Oxyir] 5 mg PO Q4H PRN PRN #12 tab PRN Reason: Moderate Pain (pain scale 4-5) Primary Care Physician: Remigio Valdez MD [Primary Care Provider] - Please follow up with your Primary Care Physician in: in 1-2 weeks Please Follow Up With: Cleveland Obrien MD When: this week, Thurs Please Follow Up With: Barron Li MD When: this week, Thurs for port-catheter and possible Pleurex cath Disposition: Home Minutes spent on discharge:: 40 Patient Condition:: Stable Medical Necessity - Tobacco Use Smoking Status: Former smoker Tobacco Use: Cigarettes Meaningful Use Info Meaningful Use Diagnoses (Choose all that apply): None applicable <Efren Ott - Last Filed: 08/17/17 15:17> Discharge Date and Diagnosis - Secondary Discharge Diagnosis Chronic Problems Lung mass (Chronic) Neutrophilic leukocytosis (Chronic) Hospital Course and Treatment Summary of Care Provided: This patient was seen in conjunction with Evans JACOBSON. I have independently interviewed and examined the patient and reviewed pertinent history, examination findings, laboratory and plan of management. I have reviewed the note and agree with the documented findings with the few additional points. In brief, patient is admitted for progressive worsening of shortness of breath, cough and fever which is more chronic in nature. Overall, patient has diagnosis of non-small cell lung cancer. She is scheduled for PET scan today in [facility]. Discussed with infectious disease small business consultant and oncologist. ID recommended 7 days of Omnicef and Flagyl. Prescription was given. Discharge medication reconciliation done. Discharge follow-up instructions given. Total time spent, exact 32 minutes on discharge meds reconciliation, examination , review of imaging and blood test and discussion with the patient on follow-up instructions. I have discussed my assessment with Evans JACOBSON and orders have been reviewed. [] Code Visit Inpatient E&M: 10202 Disch Hosp
== END 2017-08-17 08:48 | disposition home or self-care (01) | DRG 871 ==
LOC: ED 16:52 → PCU 20:45 → MS3 21:06
PROVIDERS: Internal Medicine; Physician Assistant; Admitting Provider Internal Medicine; Emergency Provider Emergency Medicine; Family Provider Family Medicine; PCP Family Medicine; Visit Provider Internal Medicine
DX: A41.9 Sepsis, unspecified organism (principal); J18.9 Pneumonia, unspecified organism; J96.11 Chronic respiratory failure with hypoxia; J90 Pleural effusion, not elsewhere classified; C34.90 Malignant neoplasm of unspecified part of unspecified bronchus or lung; E87.1 Hypo-osmolality and hyponatremia; D63.0 Anemia in neoplastic disease; D50.9 Iron deficiency anemia, unspecified; Y95 Nosocomial condition; Z72.0 Tobacco use
CPT/HCPCS: 36415; 71045; 71275; 80048; 80053; 80202; 81001; 82274; 83605; 83690; 85014; 85018; 85025; 85027; 85610; 85730; 86850; 86900; 87040; 87086; 87449; 87493; 87633; 87804; 93005; 94640; 94667; 94668; 97802; 99284; J7030; J7050; Q9967; A4216

== ENCOUNTER 2017-08-19 14:22 | Day surgery (SDC) | payer OTHER, SELFPAY ==
[2017-08-19] VITALS (11 sets, daily range): BP systolic 94–108; BP diastolic 57–89; PULSE 100–112; RESP 14–20; TEMP 36.8–39.2; O2SAT 93–96; BMI 21.6
--- NOTE | 2017-08-19 | IMM_PTH ---
PATIENT: ARJUN THIBODEAUX LOC: [facility] U#:[id number] AGE/SX: 42/F ROOM: RE08/19/[address]: Dr. Barron Li MD : 1975 BED: DIS: 08/20/2017 SPEC #: [id number] RECD: 08/23/17 10:36 STATUS: DAVID REQ #: [id number] BIENVENIDO: 08/19/17 00:[address]: Barron Li DEPT: IMMUNOHISTOCHEMISTRY RECD BY: Migdalia Carlson ENTERED: 08/23/17 10:38 SP TYPE: IMMUNO OTHR DR: Dr. Remigio Valdez MD Tissues: Pleural fluid, NOS Procedures: NAPSIN A (add) Ariel Ret (add) CK20 (add) CK7 (add) CK8 (add) VA (add) TTF1 (add) Vimentin (add) P40 (add) ER (initial) PHYSICIAN & INSTITUTION [place] [id number] SPECIMEN INFORMATION: Tissue Source: Left pleural fluid Clinical Info: Left lung cancer; left recurrent pleural effusion Specimen Number: [id number] CPT code: 33874, 64207 x9 METHODOLOGY: Deparaffinized sections of prefer/formalin-fixed tissue or PAP/DQ stained slides are incubated with monoclonal/polyclonal antibodies/oligonucleotide probes. Localization is made via biotin free immunoperoxidase method. Appropriate controls are performed and reacted as expected. Results on target cell population are indicated in the following table: RESULTS: ANTIBODY / CLONE RESULT ER (6F11) negative VA (1E2) negative Vimentin (V9) negative * CK7 (OV-TL12/30) negative * CK8 (96dvcnY89) negative * CK20 (KS20.8) negative TTF-1 (8G7G3/1) negative Napsin A (Rabbit Polyclonal) negative P40 (BC28) negative CALRET (polyclonal) negative * *?Positive in mesothelial cells. These tests were developed and their performance characteristics determined by [facility]. They may not have been cleared or approved by the U.S. Food and Drug Administration. The FDA has determined that such clearance or approval is not necessary. INTERPRETATION: Left pleural fluid: Negative for malignant cells. SJ:jo-ann 08/24/17
[2017-08-19] MEDS: Cefazolin 2 GM in 0.9% Normal Saline 100 ML IV (17:10)
[2017-08-19] MEDS: Bupivacaine 0.25% 30 ML Vial (17:29)
--- NOTE | 2017-08-19 18:05 | RAD_ITS ---
STUDY: X-RAY CHEST REASON FOR EXAM: Female, 42 years old. Left-sided chest tube insertion. TECHNIQUE: A single AP upright portable chest view. COMPARISON: Chest 08/14/2017. Correlation CTA chest 08/16/2017. FINDINGS: Small caliber left lung base pleural tube is noted with left lower lateral thoracic rib approach and with left lung base lateral superior extension forming a half loop at the level of the left hilum and then descending extension over the mid heart shadow is seen projecting just inferior to the left medial diaphragm which may be in the left posterior lung base but upper abdomen is not entirely excluded with this single view. Right lung appears well-expanded and clear. Left lung shows heterogeneous basal opacities extending in the midlung with mid and upper lung zone thin linear and groundglass opacities suggesting atelectasis and/or lower probability pleural fluid which was seen with prior CTA chest study 08/16/2017. Normal size heart noted with mild hazy left lower cardiac margin seen. Left paratracheal mass is again noted, approximate 8.6 x 7.5 cm with the appearance of mild narrowing of the distal left mainstem bronchus and is consistent with mediastinal masses/adenopathy seen with prior CTA chest 08/16/2017. Trachea is slightly left of midline due to mild rotation. Left hilum including pulmonary artery is obscured by above. Right hilum including pulmonary artery appears within normal limits. Aortic knob is partially obscured by above. No change visualized thoracic spine, ribs, clavicles, and shoulders. There is no demonstrated abnormality of the visualized soft tissue structures of the upper abdomen. No subdiaphragmatic free air seen grossly. EKG wires and oxygen tubing overlie the thorax. RAD/CXR for Line Placement IMPRESSION: Small caliber left lung base pleural tube as described with inferior tip likely in the left posterior lung base but upper abdomen is not entirely excluded with this single view. Clinical correlation recommended. If clinically indicated, lateral view may be more helpful. Redemonstration left paratracheal mediastinal mass extending into the left hilum, neoplasm/metastasis until proven otherwise also seen with CTA chest 08/16/2017. Overall mildly improved aeration in the left lung compared to portable chest 08/14/2017. . Electronically Signed: Emmanuel Chandler, at 19:03 EDT Tel , Service support ,
--- NOTE | 2017-08-19 18:06 | HP.PCM_ITS ---
History and Physical Date of Admission: 08/19/17 he patient is a 42 year old F recently diagnosed with left non-small cell lung cancer an a recurring left pleural effusion. She was seen by Dr. 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 ? Patient reports that she first started feeling sick end of~April 2017 when she developed an upper respiratory infection with sinus congestion, nasal drainage, cough and fevers (MAXIMUM TEMPERATURE 102 Fahrenheit). ~She completed a course of Augmentin without significant clinical improvement and hence was prescribed a second antibiotic. ~Patient had pleuritic chest pain which improved after antibiotics were CXR done at OSH on 06/11/2017 was noted to be unremarkable. Patient had~and a CT scan sinus done 06/16/2017~showed mucosal thickening left maxillary sinus. ~CT scan of abdomen/pelvis with IV contrast done 06/14/2017 was unremarkable. ~Patient also started having night sweats. ~ Testing for mononucleosis was negative. ~EBV testing was negative except EBV IgG.~~CT scan of brain with/without contrast done 07/03/2017 was unremarkable. ~ Patient continued~to stay febrile and was seen in consultation by ID. she was seen by hematology/oncology on 07/07/2017 and treated with IV Injectafer (Iron) for KRISTEN. ~Patient was seen by her primary care physician and prescribed an albuterol inhaler for bronchitis. ~Meanwhile patient continued to have poor appetite (15 pound unintentional weight loss since beginning of 2018), night sweats, myalgias and generalized fatigue. ~Patient noticed worsening productive cough with clear to yellowish mucus (spitting and wastebasket all night). ~CXR done 07/26/2017 showed airspace consolidation left suprahilar region?patient was treated with a course of azithromycin followed by Levaquin. ~Repeat CXR 2017 showed similar findings. ~Patient has been alternating acetaminophen and ibuprofen for fevers. ~She denies any joint swelling, joint pain or skin rashes. ~Patient has been sleeping sitting up as cough is worse in supine position. ~She has noticed that she is unable to sleep on her left as she starts to cough heavily. ~She denies any hemoptysis. ~No palpable swollen glands. ~TB~blood screen and HIV screen are negative. ? LEEP 1997-; cells came back - repeat 1998 (Dr Olguin; [facility]). S/p Colonoscopy - for sigmoid diverticulitis - s/p Abx (07/2016) - unremarkable. ~Patient reports stable bowel habits. ~She has annual mammograms which are unremarkable. ? CT scan chest 08/06/2017 showed a large heterogeneous mass lesion ETHAN measuring 6.2 x 5.6 cm, multiple nodular densities left upper lung. ~Extensive interlobular septal thickening left lung calero. ~Moderate left pleural effusion. ~There is significant left hilar lymphadenopathy with enlarged mediastinal and right hilar lymph nodes. ~There is a 2.8 x 2.2 cm left supraclavicular lymph node. ? 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 Born and grew up in [place]. No known exposure to TB. Travel - [place] ? MMRC Dyspnea Scale: ? ~~~~?0.?Not troubled by breathlessness except on strenuous exercise 1. Short of breath when hurrying or walking up a slight hill 2. Walks slower than contemporaries on the level because of breathlessness, or has to stop for breath when walking at own pace 3. Stops for breath after about 100 m or after a few minutes on the level? 4. Too breathless to leave the house, or breathless when dressing or undressing ? he underwent lymph node biopsy and left thoracentesis. Thoracentesis removed proximally 700 cc of fluid. thoracentesis was negative for malignant cells. Biopsy of the supraventricular lymph node - undifferentiated non-small cell carcinoma. the patient has recurring shortness of breath, and the pleural effusion was be recommitting rather rapidly. She is currently scheduled to have a PET CT scan tomorrow in [place].. Dr. Obrien has asked me to see the patient for possible Pleurx catheter placement. Past Medical History Past Medical History (Chronic Problems): Chronic Problems Lung mass (Chronic) Neutrophilic leukocytosis (Chronic) Allergies codeine Adverse Reaction (Verified 08/14/17 16:00) Nausea hydrocodone Adverse Reaction (Verified 08/14/17 16:00) Nausea miconazole [From Monistat 1 Combo Pack] Adverse Reaction (Verified 07/03/17 14: 49) Swelling Home Medications: Ambulatory Orders Medication Instructions Recorded Progesterone,Micronized 150 mg PO QHS 07/03/17 [Endometrin] Testosterone 10 mg TOPICAL QHS 07/03/17 Albuterol Sulfate [Ventolin Hfa] 2 puff IH Q4H PRN PRN 08/14/17 Benzonatate [Tessalon Perle] 1 tab PO TID PRN 08/14/17 Dicyclomine HCl [Bentyl] 1 tab PO DAILY 08/14/17 Mirtazapine 1 tab PO QHS 08/14/17 Pyridoxine HCl [Vitamin B-6] 1 tab PO DAILY 08/14/17 Cefdinir [Omnicef [equiv]] 300 mg PO Q12H #14 capsule 08/16/17 Ensure Enlive 120 ml PO 4X/DAY #12 bottle 08/16/17 Guaifenesin [Mucinex] 1,200 mg PO BID tablet 08/16/17 Metronidazole [Flagyl] 500 mg PO Q8H #21 tablet 08/16/17 Oxycodone [Oxyir] 5 mg PO Q4H PRN PRN #12 tablet 08/16/17 Lives: Spouse/ Significant Other, With Family Smoking Status: Former smoker Alcohol: None Drugs: None Review of Systems Constitutional: Reports: Anorexia, Fever, Weight Change Cardiovascular: Reports: Chest Pain Respiratory: Reports: Shortness of Breath Patient Problems: Active and Suspected Problems Fever (Acute) Sepsis (Acute) HCAP (healthcare-associated pneumonia) (Acute) Fever (Acute) Pleural effusion, left (Acute) - Physical Exam General: Alert, Oriented x3 Neck: - - left super cervical adenopathy Lungs: Diminished - left base/mid chest with dullness to percussion consistent with significant left pleural effusion Cardiovascular: Regular rate, No murmurs Abdomen: Bowel Sounds Present, Soft, Non Tender Vital Signs Temp Pulse Resp BP Pulse Ox 98.1 F 104 H 18 103/61 93 08/16/17 18:02 08/16/17 18:02 08/16/17 18:02 08/16/17 18:02 08/16/17 18:02 Oxygen Flow Rate (L/min) [ 2 AMBULATION with Oxygen] Oxygen Flow Rate (L/min) 1 Oxygen Delivery Method Nasal Cannula Weight: 54.2 kg Body Mass Index (BMI) 20.5 Intake and Output for Last 24 Hours 08/14/17 08/15/17 08/16/17 23:59 23:59 23:59 Intake Total 435 / 435 3696 / 3696 4297 / 4297 Output Total 0 / 0 Balance 435 / 435 3696 / 3696 4297 / 4297 Microbiology Past 72 Hours 08/16/17 07:50 C. difficile DNA Amplification - Final Stool 08/16/17 07:50 Stool Occult Blood (GI) - Final Stool 08/15/17 02:00 Respiratory Panel (PCR) - Final Mucosa - Nose 08/14/17 22:53 Influenza Types A,B Direct FA (GI) - Final Mucosa - Nose Laboratory Tests Past 24 Hrs 08/15/17 08/16/17 08/16/17 19:33 05:10 05:10 WBC 28.2 H RBC 2.76 L Hgb 7.2 L Hct 23.7 L MCV 85.9 MCH 26.1 L MCHC 30.4 L RDW 16.6 H RDW Differential 50.3 H Plt Count 529 H MPV 8.6 Immature Gran % (Auto) 0.500 Neut % (Auto) 81.7 H Lymph % (Auto) 12.3 L [place] % (Auto) 5.3 Eos % (Auto) 0.1 Baso % (Auto) 0.1 Absolute Neuts (auto) 23.0 H Absolute Lymphs (auto) 3.46 Total Counted Not Reportable Differential Comment SCANNED Sodium 137 Potassium 3.9 Chloride 103 Carbon Dioxide 24.0 Anion Gap 10 BUN 6 L Creatinine 0.53 L Estim Creat Clear Calc 115.90 Est GFR (MDRD) Af Amer 161 Est GFR (MDRD) Non-Af 133 BUN/Creatinine Ratio 11.3 Glucose 108 H Calcium 8.2 L Vancomycin Trough 6.1 Assessment/Plan Active and Suspected Problems Fever (Acute) Sepsis (Acute) HCAP (healthcare-associated pneumonia) (Acute) Fever (Acute) Pleural effusion, left (Acute) left non-small cell lung cancer with metastases to the supraclavicular node, recurring left pleural effusion. I've spoken with the patient about a possible left Pleurx/tunneled pleural catheter placement. we discussed the risks, benefits, possible complications, and possible alternatives. I was able to write information about the catheter and demonstrate and show pictures what the catheter placement would entail.
--- NOTE | 2017-08-19 18:06 | PCM.OPRPT ---
Report of Operation Date of Procedure: 08/19/17 Pre-Operative Diagnosis: left lung cancer, left recurrent pleural effusion Post-Operative Diagnosis: left lung cancer, left recurrent pleural effusion Surgery/Procedure Performed:: left tunneled pleural catheter - plurex catheter, ultrasound guided communication arts lecturer: None Type of Anesthesia:: MAC Anesthesiologist: Jayla Taylor - ASA3 Specimen's removed: 1700 plueral fluid for body fluid analysis Drains: left pleural drain Estimated Blood Loss (mL): minimal Fluids Replaced: 800 Description of Procedure: The patient was brought to the operating suite. The left chest site was marked in the holding area and the patient concurred this was the planned operative site. Sign was performed verifying patient, site, position, skip antibiotic prophylaxis-2 g of Ancef and DVT prophylaxis with SCDs. Ultrasound was used to evaluate the left thoracic space and pleural fluid was noted to be at the planned site which was marked on the skin Following IV sedation, left/right chest and upper lateral abdomen were prepped and draped in the usual fashion. Timeout was performed verifying patient, site, position. Local anesthetic was injected and a Seldinger needle was used to access the left pleural space without difficulty. a guidewire was inserted and advanced into the pleural space. Local anesthetic was injected and incision made for the catheter exit site. Next the catheter was tunneled from the skin exit site to the wire. Dilators were placed over the wire until the largest dilator with introducer sheath were placed. The wire and dilator removed. The catheter was fed through the introducer suture sheath and adjusted to the edge of the pleural surface with the fenestrations . There was good return of pleural fluid. The Pleurx catheter was affixed to an adapter and attached to a Pleur-evac at 20 cm suction. A total of approximately 1600 cc of fluid was drained. The catheter was secured with a 3-0 silk suture at the skin exit site. The thoracic site. Skin was closed with 4-0 Biosyn interrupted subcuticular sutures. Dermabond was applied to the thoracic site. A dressing was applied. The joints were taped and a large dressing placed over the drain exit site. The patient was brought to recovery room in stable condition with plans for a postprocedure chest x- ray
--- NOTE | 2017-08-19 18:49 | FLU_PTH ---
PATIENT: ARJUN THIBODEAUX LOC: [facility] [place] U#:[id number] AGE/SX: 42/F ROOM: RE08/19/[address]: Dr. Barron Li MD : 1975 BED: DIS: 08/20/2017 SPEC #: [id number] RECD: 08/20/17 08:54 STATUS: DAVID ELADIO #: [id number] BIENVENIDO: 08/19/17 18:[address]: Barron Li DEPT: CYTOLOGY RECD BY: Barron Buck ENTERED: 08/20/17 08:55 SP TYPE: Fluid OTHR DR: Dr. Remigio Valdez MD Tissues: Pleural fluid, NOS Procedures: Pap Stain (control) Special Stain Group II Surgery Specimen Level IV Cell Block Cytospin Fluid HEADER OPERATION: Left tunneled pleural catheter, ultrasound-guided PRE-OP DIAGNOSIS: Left lung cancer, left recurrent pleural effusion TISSUE SUBMITTED: Left pleural fluid for cytology DIAGNOSIS CYTOLOGY Left pleural fluid for cytology (cytospin and cell block): Negative for malignant cells. See comment. SJ:rg 08/24/17 COMMENT Immunohistochemistry ([id number]) supports the above diagnosis. CYTOLOGY STUDY Slides are reviewed. The specimen consists of reactive and nonreactive mesothelial cells, macrophages and inflammatory cells. CYTOLOGY GROSS Received is 20 ml of gold cloudy fluid labeled with the patient's name and and designated per the requisition as left pleural fluid. Submitted for cytology preparation including cell block. / RY:brandy 08/20/17 TC:5 CPT: 41350, 04205
[2017-08-19] MEDS: Lactated Ringers 1,000 ML 75 ML IV (19:00)
[2017-08-19 19:22] LABS: Cytology, Body Fluid / CSF SEE PATHOLOGY REPORT
[2017-08-19] MEDS: Morphine 2 MG/ML Syringe IV (19:26)
[2017-08-19 19:29] LABS: Body Fluid Mononuclear WBC # 1.273 10^3/uL; Body Fluid Mononuclear WBC % 58.4 %; Body Fluid Polynuclear WBC # 0.906 10^3/uL; Body Fluid Polynuclear WBC % 41.6 %; Body Fluid Total Cells Counted 2.554 10^3/ul (0.000-0.000); White Blood Count/Body Fluid 2.179 10^3/uL
[2017-08-19 19:40] LABS: Glucose, Body Fluid 82 mg/dL (40-70); LDH,Body Fluid 224 Units/l (Not Establ.); Protein, Body Fluid 4.7 g/dL (Not Establ.)
[2017-08-19 21:05] LABS: Appearance/Body Fluid CLOUDY; Auto B Fluid Analyzer BKGD Ct COUNTS W/IN LIMITS (W/IN LIMITS); Color/Body Fluid YELLOW; Source- Body Fluid PLEURAL FLUID
[2017-08-19 21:06] LABS: Lymphocytes 39 %; Macrophages 20 %; Mesothelial Cells 7 %; Monocytes 1 %; Neutrophil (Segs) 33 %
[2017-08-19 21:07] LABS: Body Fluid QC Type(s) BF2Q
[2017-08-19] MEDS: Acetaminophen 500 MG Tablet PO (22:25)
[2017-08-19] MEDS: Ibuprofen 200 MG Tablet PO (22:25)
[2017-08-19] MEDS: Cefdinir 300 MG Capsule PO (22:25)
[2017-08-19] MEDS: metroNIDAZOLE 500 MG Tablet PO (22:25)
[2017-08-19] MEDS: oxyCODONE 5 MG Tablet PO (22:29)
[2017-08-20] VITALS: BP 92/54; PULSE 107; RESP 18; TEMP 37.2; O2SAT 96
--- NOTE | 2017-08-20 00:30 | NURSING ---
communicable disease specialist assisted this RN with changing chest tube drainage collection container. Straw colored output present. Dressing CDI. Patient remains on 02 at , [place]. Patient tolerated procedure well. Daughter remains at bedside.
[2017-08-20] MEDS: Ibuprofen 200 MG Tablet PO ×3 (02:09→11:15)
[2017-08-20 04:05] VITALS: BP 87/52; PULSE 80; RESP 18; TEMP 36.4; O2SAT 98
--- NOTE | 2017-08-20 05:00 | RAD_ITS ---
STUDY: X-RAY CHEST REASON FOR EXAM: Female, 42 years old. Pneumothorax TECHNIQUE: PA and lateral COMPARISON: 08/19/2017 FINDINGS: There is a LEFT-sided chest tube. There is increased consolidation of the LEFT lower lung compared to prior study. There is a tiny LEFT apical pneumothorax. There is NO pleural effusion. Normal size heart. There is widening of the mediastinum. This corresponds to known mediastinal mass. Normal visualized pulmonary arteries. Normal visualized aortic arch and descending thoracic aorta. Normal visualized thoracic spine. Normal visualized ribs, clavicles, and shoulders. There is no demonstrated abnormality of the visualized soft tissue structures of the upper abdomen. RAD/Chest 1 View (Portable) IMPRESSION: There is a LEFT-sided chest tube. There is increased consolidation of the LEFT lower lung compared to prior study. There is a tiny LEFT apical pneumothorax. There is NO pleural effusion. Normal size heart. There is widening of the mediastinum. This corresponds to known mediastinal mass. Electronically Signed: Shakeel Mcgowan MD at 5:05 EDT , Service support ,
[2017-08-20] MEDS: Lactated Ringers 1,000 ML 75 ML IV (06:31)
[2017-08-20] MEDS: oxyCODONE 5 MG Tablet PO ×2 (06:32→11:19)
[2017-08-20] MEDS: metroNIDAZOLE 500 MG Tablet PO (06:32)
[2017-08-20 06:33] VITALS: BP 82/48; PULSE 83; RESP 18; TEMP 36.8; O2SAT 95
--- NOTE | 2017-08-20 06:42 | DCINST_ITS ---
You will use the following diet at home:: No restrictions Your food should be the consistency of: Regular Discharge Activity: May not drive while taking narcotic pain medications. May shower in (days): 3 - Wednesday before presenting for dressing change Call your doctor if your incision/area has: Continuous Slow Oozing, Sudden Increased Bleeding, Increased Pain/ Swelling Call your doctor if you observe: Shortness of breath Allergies/Adverse Reactions: Allergies codeine Adverse Reaction (Verified 08/18/17 13:55) Nausea hydrocodone Adverse Reaction (Verified 08/18/17 13:55) Nausea miconazole [From Monistat 1 Combo Pack] Adverse Reaction (Verified 08/18/17 13: 55) Swelling Medications to take at Discharge Progesterone,Micronized [Endometrin] 150 mg PO QHS 07/03/17 Testosterone 10 mg TOPICAL QHS 07/03/17 Albuterol Sulfate [Ventolin Hfa] 2 puff IH Q4H PRN PRN 08/14/17 Benzonatate [Tessalon Perle] 1 tab PO TID PRN 08/14/17 Dicyclomine HCl [Bentyl] 1 tab PO DAILY 08/14/17 Mirtazapine 0.5 tab PO QHS 08/14/17 Pyridoxine HCl [Vitamin B-6] 1 tab PO DAILY 08/14/17 Cefdinir [Omnicef [equiv]] 300 mg PO Q12H #14 cap 08/16/17 Metronidazole [Flagyl] 500 mg PO Q8H #21 tab 08/16/17 Albuterol Aerosols [Ventolin Aerosols] 2.5 mg INHALATION Q4H PRN PRN #120 vial 08/17/17 Acetaminophen [Tylenol] 500 - 1,000 mg PO Q6H PRN PRN 08/18/17 Ibuprofen [Motrin] 200 mg PO Q4 tablet 08/20/17 Oxycodone [Oxyir] 5 mg PO Q4H PRN PRN 7 Days #20 tab 08/20/17 The following prescriptions were given: Oxycodone [Oxyir] 5 mg PO Q4H PRN PRN 7 Days #20 tab PRN Reason: Moderate Pain (pain scale 4-5) Primary Care Physician: Remigio Valdez MD [Primary Care Provider] - Please Follow Up With: Barron Li MD - Wednesday for drainage
[2017-08-20 08:00] VITALS: RESP 18
--- NOTE | 2017-08-20 10:49 | NURSING ---
Dr Li now aware that pt is on home o2 1L at rest normally. ok to dc home now
[2017-08-20] MEDS: Pyridoxine HCl 100 MG Tablet PO (11:15)
[2017-08-20] MEDS: Cefdinir 300 MG Capsule PO (11:15)
[2017-08-20] MEDS: Dicyclomine 10 MG Capsule PO (11:16)
[2017-08-20 11:57] VITALS: BP 87/54; PULSE 91; RESP 16; TEMP 36.9; O2SAT 95
[2017-08-20 14:06] LABS: Pathologist Comment/Body Fluid Reviewed
--- NOTE | 2017-08-20 18:32 | PN.SURG_ITS ---
Subjective: some incisional pain - Physical Exam General: Alert Lungs: Clear to auscultation, Normal air movement, - - Pleurx catheter drainage site with straw-colored fluid. Cardiovascular: Regular rate, Regular Rhythm Vital Signs Temp Pulse Resp BP Pulse Ox 98.4 F 91 16 87/54 L 95 08/20/17 11:57 08/20/17 11:57 08/20/17 11:57 08/20/17 11:57 08/20/17 11:57 Oxygen Flow Rate (L/min) 1 Oxygen Delivery Method Room Air Weight: 57.1 kg Body Mass Index (BMI) 21.6 Intake and Output for Last 24 Hours 08/18/17 08/19/17 08/20/17 23:59 23:59 23:59 Intake Total 1984 486 / 486 Output Total 1969 156 / 156 Balance 330 / 330 Microbiology Past 72 Hours 08/19/17 18:40 Gram Stain - Final Fluid - Pleural (Lung) Body Fluid Culture - Preliminary No growth-Final to follow Laboratory Tests Past 24 Hrs 08/19/17 08/19/17 08/19/17 18:40 18:40 18:40 Fluid Source PLEURAL FLUID Fluid Color YELLOW Fluid Appearance CLOUDY Fluid Specific Grav 1.030 Fluid pH Cancelled Fluid WBC 2.179 Fluid RBC 0.58308 Fluid Tot Cell Count 2.554 H Fld Polynuclear WBCs # 0.906 Fld Polynuclear WBCs % 41.6 Fluid Mononuclear WBCs 1.273 Fld Mononuclear WBCs % 58.4 Fluid Neutrophils 33 Fluid Lymphocytes 39 Fluid Monocytes 1 Fluid Macrophages 20 Fld Mesothelial Cells 7 Fl Pathologist Comment Reviewed Fluid Glucose 82 H Fluid Total Protein 4.7 Fluid LDH 224 Fluid Amylase Pending Fluid Comment 2 SEE COMMENT Miscellaneous Cytology 08/19/17 18:40 Fluid Source Fluid Color Fluid Appearance Fluid Specific Grav Fluid pH Fluid WBC Fluid RBC Fluid Tot Cell Count Fld Polynuclear WBCs # Fld Polynuclear WBCs % Fluid Mononuclear WBCs Fld Mononuclear WBCs % Fluid Neutrophils Fluid Lymphocytes Fluid Monocytes Fluid Macrophages Fld Mesothelial Cells Fl Pathologist Comment Fluid Glucose Fluid Total Protein Fluid LDH Fluid Amylase Fluid Comment 2 Miscellaneous Cytology Pending Medical Necessity - Tobacco Use Smoking Status: Former smoker Assessment/Plan POD # 1 - status post left tunneled pleural/Pleurx catheter placement for evacuation of presumed malignant pleural fluidThe patient was brought to the operating suite. The left/right chest site was marked in the holding area and the patient concurred this was the planned operative site. Sign was performed verifying patient, site, position, skip antibiotic prophylaxis-2 g of Ancef and DVT prophylaxis with SCDs. Ultrasound was used to evaluate the left/right thoracic space and pleural fluid was noted to be at the planned site which was marked on the skin Following IV sedation, left/right chest and upper lateral abdomen were prepped and draped in the usual fashion. Timeout was performed verifying patient, site , position. Local anesthetic was injected and a Seldinger needle was used to access the left/right pleural space without difficulty. a guidewire was inserted and advanced into the pleural space. Local anesthetic was injected and incision made for the catheter exit site. Next the catheter was tunneled from the skin exit site to the wire. Dilators were placed over the wire until the largest dilator with introducer sheath were placed. The wire and dilator removed. The catheter was fed through the introducer suture sheath and adjusted to the edge of the pleural surface with the fenestrations . There was good return of pleural fluid. The Pleurx catheter was affixed to an adapter and attached to a Pleur-evac at 20 cm suction. A total of approximately 2500 cc of fluid was drained. The catheter was secured with a 3-0 silk suture at the skin exit site. The thoracic site. Skin was closed with 4-0 Biosyn interrupted subcuticular sutures. Dermabond was applied to the thoracic site. A dressing was applied. The joints were taped and a large dressing placed over the drain exit site. The patient was brought to recovery room in stable condition with plans for a postprocedure chest x-. Patient is able to be discharged home on oral pain medication. We'll follow up with cytology, cultures, and pleural body fluid panel results as outpatient.
--- NOTE | 2017-08-20 18:32 | PCM.DC.SUM ---
Discharge Date and Diagnosis Date of Admission: 08/19/17 Date of Discharge: 08/20/17 - Primary Discharge Diagnosis left lung cancer, left malignant pleural effusion - Secondary Discharge Diagnosis Chronic Problems Lung mass (Chronic) Neutrophilic leukocytosis (Chronic) Hospital Course and Treatment Operations: - - left tunneled thoracic catheter placement Summary of Care Provided: The patient is a 42 year old F with a recurring left pleural fluid felt to be secondary to left advanced non-small cell lung cancer. The patient is status post left tunneled pleural/Pleurx catheter placement for evacuation of presumed malignant pleural flui. good reexpansion of lung and was tolerating oral pain medications. Her diet after removing 2000 cc of left pleural fluid. Patient is able to be discharged home on oral pain medication. We'll follow up with cytology, cultures, and pleural body fluid panel results as outpatient Discharge Activity: May not drive while taking narcotic pain medications. May shower in (days): 3 - Wednesday before presenting for dressing change Call your doctor if your incision/area has: Continuous Slow Oozing, Sudden Increased Bleeding, Increased Pain/ Swelling Call your doctor if you observe: Shortness of breath Home Medications: Medications to take at Discharge Progesterone,Micronized [Endometrin] 150 mg PO QHS 07/03/17 Testosterone 10 mg TOPICAL QHS 07/03/17 Albuterol Sulfate [Ventolin Hfa] 2 puff IH Q4H PRN PRN 08/14/17 Benzonatate [Tessalon Perle] 1 tab PO TID PRN 08/14/17 Dicyclomine HCl [Bentyl] 1 tab PO DAILY 08/14/17 Mirtazapine 0.5 tab PO QHS 08/14/17 Pyridoxine HCl [Vitamin B-6] 1 tab PO DAILY 08/14/17 Cefdinir [Omnicef [equiv]] 300 mg PO Q12H #14 cap 08/16/17 Metronidazole [Flagyl] 500 mg PO Q8H #21 tab 08/16/17 Albuterol Aerosols [Ventolin Aerosols] 2.5 mg INHALATION Q4H PRN PRN #120 vial 08/17/17 Acetaminophen [Tylenol] 500 - 1,000 mg PO Q6H PRN PRN 08/18/17 Ibuprofen [Motrin] 200 mg PO Q4 tablet 08/20/17 Oxycodone [Oxyir] 5 mg PO Q4H PRN PRN 7 Days #20 tab 08/20/17 Following Prescrptions Were Given to Patient: Oxycodone [Oxyir] 5 mg PO Q4H PRN PRN 7 Days #20 tab PRN Reason: Moderate Pain (pain scale 4-5) Primary Care Physician: Remigio Valdez MD [Primary Care Provider] - Please Follow Up With: Barron Li MD - Wednesday for drainage Medical Necessity - Tobacco Use Smoking Status: Former smoker Meaningful Use Info Meaningful Use Diagnoses (Choose all that apply): None applicable
[2017-08-22 11:09] LABS: Amylase Body Fluid 50 U/L (.)
== END 2017-08-20 13:09 | disposition home or self-care (01) ==
LOC: SDC 14:22 → AC 14:24 → SDC 18:38 → MS3 18:42
PROVIDERS: Family Provider Family Medicine; PCP Family Medicine; Visit Provider Surgery
PROC: (CPT 32550; principal; 2017-08-19 15:45)
DX: C34.92 Malignant neoplasm of unspecified part of left bronchus or lung (principal); J91.0 Malignant pleural effusion; C77.0 Secondary and unspecified malignant neoplasm of lymph nodes of head, face and neck; J96.11 Chronic respiratory failure with hypoxia; K58.9 Irritable bowel syndrome, unspecified; I73.00 Raynaud's syndrome without gangrene; D64.9 Anemia, unspecified; Z79.899 Other long term (current) drug therapy; Z87.19 Personal history of other diseases of the digestive system; Z87.891 Personal history of nicotine dependence; Z98.51 Tubal ligation status
CPT/HCPCS: 32550; 75989; 71045; 81002; 82150; 82945; 83615; 84157; 87070; 87075; 87205; 88108; 88305; 88313; 88341; 88342; 89050; 97802; J7120; C1729

== ENCOUNTER 2017-08-26 15:15 | Inpatient (IN) | payer OTHER, SELFPAY ==
[2017-08-26] VITALS (10 sets, daily range): BP systolic 98–104; BP diastolic 50–67; PULSE 89–112; RESP 14–22; TEMP 36.9–38.8; O2SAT 89–97; BMI 20.5; BMI 20.3; BMI 20.4
--- NOTE | 2017-08-26 15:26 | EKG12_ITS ---
Test Reason : SEPSIS Blood Pressure : / mmHG Vent. Rate : 109 BPM Atrial Rate : 109 BPM P-R Int : 122 ms QRS Dur : 072 ms QT Int : 312 ms P-R-T Axes : 032 038 045 degrees QTc Int : 420 ms Sinus tachycardia Otherwise normal ECG Confirmed by ROBBIN ROSALES, MULU ([id number]), senior technical editor SHITAL SAVAGE ([id number] on 08/30/2017 2:17:01 PM Referred By: ROBERT Confirmed By:MULU SIEGEL MD
--- NOTE | 2017-08-26 15:28 | ED.VISSUMM ---
- ER Visit Summary Date of Service: 08/26/17 Chief Complaint: Fever History of Present Illness: The patient is a 42 F presents to the emergency department with fever. The patient has a history of non-small cell lung cancer. She just started chemotherapy on Wednesday. She has had 3 treatments. Last treatment was yesterday. She did have a fever today. It was 101.8 at home. She describes chills and myalgias. She has also been listless and lethargic. The patient has had scant cough, but states that she has had this. She was recently hospitalized about a week ago. She had a Pleurx catheter placed. She does drain it every other day. It was drained yesterday. Friend at the bedside states that it was clear pleural fluid. There was no purulence. She denies abdominal pain. She denies dysuria. She denies headache or vision changes. Physical Examination: Vital signs reviewed General: Well-nourished, well-developed Head: Normocephalic, atraumatic Eyes: Pupils equal and reactive, extraocular muscles intact Neck, supple, no lymphadenopathy Heart: Regular tachycardic rate and rhythm Respiratory: No distress, diminished in the left base Abdomen: Soft, nontender, nondistended, no peritoneal signs Back: Nontender Extremities: Nontender, no edema, no cords Skin: Normal color no rash Neuro: Alert and oriented, no focal or lateralizing deficits Test Results: [] Emergency Department Course and Treatment: The patient presents tachycardic, tachypneic, and with blood pressures in the 90s. Sepsis workup was pursued immediately. She was given 2 L of IV fluid, Zofran, Tylenol. She did have improvement of her nausea and of her fever. There is no erythema of her chest tube site. Her chest x-ray does show improvement of aeration in the left lower lung field. Screening labs do show persistent leukocytosis. She also has thrombus at Tanja. The patient was covered with IV cefepime on arrival. She continues to have a mild resting tachypnea. She is a chronic oxygen requirement. I did discuss the patient with Dr. Stahl. Given her recent chemotherapy, spiking fevers, and systemic symptoms he did agree with plan for admission with continued IV antibiotics and monitoring. This may all be related to tumor burden and tumor fever, but as she is currently undergoing chemo with infectious symptoms, I do feel that the most prudent thing would be to cover her with antibiotics and admit her. Patient was discussed with the hospitalist. Treatment Plan: [] Disposition: Admission Impression: 1. Sepsis 2. Non-small cell lung cancer with recent chemotherapy This note was generated with [employer] dictation software. It may contain incorrect words, spelling, and punctuation that were not noted in review of the chart prior to signing ED Disposition - Plan for ED Patient: Chief Complaint: Fever Referrals: Remigio Valdez MD [Primary Care Provider] -
[2017-08-26] MEDS: 0.9% Normal Saline 1,000 ML IV.SOLN. 2000 ML IV (15:37)
[2017-08-26] MEDS: Acetaminophen 500 MG Tablet 1000 MG PO (15:38)
[2017-08-26] MEDS: Ondansetron 4 MG/2 ML Vial IV (15:56)
[2017-08-26 16:14] LABS: Absolute Neutrophil Count 25.2 X10^3/uL (2.0-7.7); Basophil# 0.02 X10^3/uL; Basophil% 0.1 % (0-1); Hematocrit 31.6 % (37-47); Hemoglobin 9.9 g/dl (12.0-15.0); Lymphocyte % 8.2 % (19-41); Mean Corp Hgb Conc 31.3 g/gl (32-36); Mean Corpuscular Hgb 26.1 pg (27.0-32.0); Mean Corpuscular Volume 83.4 fL (81-99); Mean Platelet Vol. 8.5 fl (6.2-12.0); Monocyte# 0.22 X10^3/uL; Monocyte% 0.8 % (0-10); Neutrophil # 25.22 X10^3/uL (2.7-7.7); RBC Distribution Width CV 18.9 % (11.6-14.6); RBC Distribution Width SD 54.3 fl (35.1-43.9); Red Blood Count 3.79 M/mm3 (4.2-5.4)
[2017-08-26 16:16] LABS: Differential Indicated SCAN CRITERIA MET; POSITIVE COUNT YES; POSITIVE DIFFERENTIAL YES; POSITIVE MORPHOLOGY NO; Platelet Count 803 K/mm3 (150-450)
--- NOTE | 2017-08-26 16:16 | ED.RN ---
DR JONES NOTIFIED OF PLT RESULTS
--- NOTE | 2017-08-26 16:20 | RAD_ITS ---
STUDY: X-RAY CHEST REASON FOR EXAM: Female, 42 years old. Fever TECHNIQUE: Frontal view of the chest COMPARISON: 08/20/2017 FINDINGS: Again noted is airspace opacity in the left lower lobe with a small left pleural effusion. When compared with the prior exam, this is decreased The lungs are otherwise clear. There is no right pleural effusion. There is no pneumothorax. The heart is normal in size. There is stable prominence of the mediastinum, consistent with the patient's known history of lymphadenopathy and lymphoma. The visualized osseous structures are within normal limits. RAD/Chest 1 View (Portable) IMPRESSION: Left lower lobe opacity and small left pleural effusion which are decreased when compared with 08/20/2017. Electronically Signed: Javi Ceja, at 16:47 EDT Tel , Service support ,
[2017-08-26 16:23] LABS: ALB/GLOB Ratio 0.4 RATIO (0.9-2.4); AST(SGOT) 22 U/L (15-37); Alanine Aminotransfer ALT/SGPT 14 U/L (13-56); Albumin, Serum 2.1 g/dL (3.2-5.0); Alkaline Phosphatase 93 U/L (45-117); Anion Gap 11 (5-15); BUN 15 mg/dL (7-18); BUN/Creat Ratio 21.2 RATIO (10-20); Calcium,Total 9.2 mg/dL (8.5-10.1); Chloride 92 mmol/L (98-107); Creatinine, Serum 0.71 mg/dL (0.55-1.02); EST Glomerular Filtration Rate 95 mL/min (>60); Est Glom Filt Rate - Afr Amer 115 mL/min (>60); Estimated Creatinine Clearance 86.89 ml/min; Globulin 4.7 g/dL (2.2-4.2); Glucose 92 mg/dL (74-106); Potassium 4.1 mmol/L (3.5-5.1); Protein, Total 6.8 g/dL (6.4-8.2); Sodium Level 130 mmol/L (136-145)
[2017-08-26 16:37] LABS: Lactic Acid 1.6 mmol/L (0.4-2.0)
[2017-08-26 17:19] LABS: International Normalized Ratio 1.2; Prothrombin Time (Protime)PT. 15.1 SECONDS (11.7-14.9)
[2017-08-26 17:20] LABS: Partial Thromboplast Time 31.1 Seconds (24.1-36.2)
[2017-08-26 17:39] LABS: Bacteria 0 SEEN /hpf (None Seen); Mucous, Urine 0 SEEN /hpf (<or=2+); Red Blood Cells-Urine 0 SEEN /hpf (0-5); White Blood Cells 0 SEEN /hpf (0-5)
[2017-08-26 17:44] LABS: Anisocytosis 2+; Differential Comment SCANNED; Hypochromasia 1+; Platelet Estimate MKD INC (ADEQ)
[2017-08-26 17:57] LABS: Color, Urine Straw (Yellow); Glucose, Dipstick Normal (Normal); Ketone-Dipstick Negative (Negative); Leukocyte Esterase-Dipstick Negative /ul (Negative); Nitrite-Dipstick Negative (Negative); Occult Blood-Urine 10 /ul (Negative); Protein-Dipstick Negative (Negative); Specific Gravity, Urine 1.005 (1.002-1.030); Urine Bilirubin Dipstick Negative (Negative); Urine Clarity Clear (Clear); Urine Urobilinogen Normal (Normal)
[2017-08-26 18:12] LABS: Squamous Epithelial Cells - UA 0-5 SEEN /hpf (5-10)
[2017-08-26] MEDS: fentaNYL 100 MCG/2 ML Ampul 25 MCG IV (18:12)
--- NOTE | 2017-08-26 19:21 | HP.PCM_ITS ---
Problem List (1) Sepsis Status: Acute Qualifiers: Sepsis type: sepsis due to unspecified organism Qualified Code(s): A41.9 - Sepsis, unspecified organism (2) Fever Status: Acute Qualifiers: Fever type: unspecified Qualified Code(s): R50.9 - Fever, unspecified (3) HCAP (healthcare-associated pneumonia) Status: Acute Comment: Interval improvement on x-ray (4) Non-small cell cancer of left lung Status: Chronic Comment: Status post chemotherapy 08/23,08/24,08/25/17 cisplatin/etoposide (5) Neutrophilic leukocytosis Status: Chronic (6) Pleural effusion, left Status: Chronic Comment: presence of L pleurX catheter drains Q48 hours (7) Chronic hypoxemic respiratory failure Status: Chronic Comment: O2 at 2 liters History of Present Illness Date of Admission: 08/26/17 Chief Complaint: fever The patient is a 42 year old F former smoker 25+ PY smoker with past medical history of non-small cell cancer of the left lung, left pleural effusion s/p Pleurx catheter placement, reformed tobacco dependency, history of left lower lobe pneumonia, chronic home O2. She was admitted to hospital 08/14 through 08/17/2017, with chronic fever and leukocytosis, hypoxemia, and was found to have left lung mass with bilateral postobstructive HCAP pneumonia. She qualified for oxygen at discharge. Discharge antibiotics included Omnicef and metronidazole. Follow up was arranged with Dr. Obrien, oncology. Cultures were negative, respiratory panel was negative, and urinary antigens were negative. She underwent first chemotherapy regimen on 08/23/2017 (cisplatin, etoposide). She last drained Pleurx catheter last night; drainage was clear. She has intermittent chronic left lower back pain since Pleurx catheter placed. She presents with fever and fatigue, feeling very wiped out since chemotherapy.. Evaluation indicated temp 100.0, heart rate 107, respirations 22, blood pressure 104/67, 92% on 2 L Laboratories were pertinent for chronic leukocytosis/nutrition Lorie, white count 28,000 (unchanged from 08/16/2017), improved anemia hemoglobin 9.9 (prior 8.0 08/15/2017), normal INR, neutropenia sodium 130, normal lactic acid 1.6, albumin 2.1, urinalysis unrevealing. LFTs were unremarkable. Chest x-ray revealed presence of left hilar mass, but interval improvement in postobstructive left-sided airspace disease. The patient met sepsis criteria on admission, and was pancultured. She received Tylenol 1 g, 1.25 L saline, cefepime 1 g, fentanyl 25 mcg IV, and Zofran 4 mg IV. Upon seeing the patient, she appears very fatigued but nontoxic. The patient will be admitted for further management. Past Medical History Past Medical History (Chronic Problems): Chronic Problems Lung mass (Chronic) Neutrophilic leukocytosis (Chronic) Pleural effusion, left (Chronic) presence of L pleurX catheter drains Q48 hours Non-small cell cancer of left lung (Chronic) Status post chemotherapy 08/23,08/24,08/25/17 cisplatin/etoposide Chronic hypoxemic respiratory failure (Chronic) O2 at 2 liters Allergies codeine Adverse Reaction (Verified 08/26/17 15:18) Nausea hydrocodone Adverse Reaction (Verified 08/26/17 15:18) Nausea miconazole [From Monistat 1 Combo Pack] Adverse Reaction (Verified 08/26/17 15: 18) Swelling Home Medications: Ambulatory Orders Medication Instructions Recorded Progesterone,Micronized 150 mg PO QHS 07/03/17 [Endometrin] Testosterone 10 mg TOPICAL QHS 07/03/17 Albuterol Sulfate [Ventolin Hfa] 2 puff IH Q4H PRN PRN 08/14/17 Pyridoxine HCl [Vitamin B-6] 1 tab PO DAILY 08/14/17 Cefdinir [Omnicef [equiv]] 300 mg PO Q12H #14 cap 08/16/17 Albuterol Aerosols [Ventolin 2.5 mg INHALATION Q4H PRN PRN #120 08/17/17 Aerosols] vial Olanzapine [Zyprexa] 7.5 mg PO QHS 08/26/17 Surgical History: - - L pleurX catheter Smoking Status: Former smoker Review of Systems Constitutional: Reports: Fever, Malaise, Weakness Cardiovascular: Reports: - - pain L PleurX intermittent Respiratory: Reports: Shortness of Breath VTE Information - Inpt Only VTE Present on Admission: No VTE Mechan Device Prophylaxis: SCD's VTE Pharm Prophylaxis ordered?: Yes Objective: non toxic appearing - Physical Exam General: Alert, Oriented x3, Cooperative HEENT: - - no jaundice Oral: Moist Mucosa Neck: No JVD Lungs: - - decreased BS L base Cardiovascular: Regular rate, Regular Rhythm, Normal S1, Normal S2 Abdomen: Bowel Sounds Present, Soft, Non Tender Extremities: No edema, - - thin Vital Signs Temp Pulse Resp BP Pulse Ox 100.0 F H 95 21 H 104/61 95 08/26/17 16:34 08/26/17 18:33 08/26/17 18:33 08/26/17 18:33 08/26/17 18:33 Assessment/Plan 42-year-old patient with diagnosis of non-small cell lung cancer left lung, with associated left pleural effusion, status post Pleurx catheter placement, with chronic leukocytosis/neutrophilia, and resolving postobstructive pneumonitis, presents with fever and fatigue after first chemotherapy treatment on 08/23/2017. Patient met sepsis criteria on arrival. However, there is interval improvement in her chest x-ray. Fever/leukocytosis could represent postchemotherapy, tumor fever/tumor burden itself, HCAP/or persistent post obstructive PNA not excluded. She is mildly dehydrated by laboratories. Oxygenation is stable. Recent blood cultures and urinary antigens from last admission were negative; would hold off on repeating urinary antigens now. 1. Sepsis 2. Fever NOS 3. H CAP -- .appears intervally improved on x-ray 4. Non-small cell cancer of left lung, status post chemotherapy for 07/13/2017 through 08/25/2017, cisplatin, etoposide 5. Chronic neutrophilic leukocytosis 6. Left pleural effusion, status post left Pleurx catheter, drains every 48 hours 7. Chronic hypoxemic respiratory failure on home O2 at 2 L DVT prophylaxis --> subQ heparin Plan: Admit Supportive care with IV fluid hydration, comfort meds, pain management, pulmonary toilet, supplemental oxygen Probiotic Cefepime 2 g IV every 12 hours May self drain Pleurx catheter every 48 hours Daily lab Oncology opinion Code Visit Inpatient E&M: 33303 Init Hosp L2
[2017-08-26] MEDS: oxyCODONE 5 MG Tablet PO (20:34)
[2017-08-26] MEDS: Dext 5%-0.45% NS 1,000 ML 75 ML IV (20:35)
[2017-08-26] MEDS: OLANZapine 2.5 MG Tablet 7.5 MG PO (22:50)
[2017-08-26] MEDS: Heparin Injection 5,000 UNITS/ML Syringe 5000 UNITS SC (22:51)
[2017-08-26] MEDS: Acetaminophen 325 MG Tablet 650 MG PO (22:57)
[2017-08-26] MEDS: Ipratropium/Albuterol Sulfate 3 ML AMPUL.NEB INHALATION (23:15)
[2017-08-27] VITALS (11 sets, daily range): BP systolic 100–115; BP diastolic 55–62; PULSE 84–118; RESP 16–20; TEMP 36.9–38.8; O2SAT 95–98
[2017-08-27] MEDS: Ipratropium/Albuterol Sulfate 3 ML AMPUL.NEB INHALATION ×3 (06:39→18:57)
[2017-08-27 07:07] LABS: Absolute Lymphocyte Count 1.91 X10^3/ul (0.83-4.51); Absolute Neutrophil Count 22.8 X10^3/uL (2.0-7.7); Basophil# 0.01 X10^3/uL; Eosinophil# 0.01 X10^3/uL; Hematocrit 29.3 % (37-47); Lymphocyte # 1.91 X10^3/ul (4.0); Lymphocyte % 7.6 % (19-41); Mean Corp Hgb Conc 30.7 g/gl (32-36); Mean Corpuscular Hgb 25.9 pg (27.0-32.0); Mean Corpuscular Volume 84.4 fL (81-99); Mean Platelet Vol. 8.2 fl (6.2-12.0); Monocyte% 0.4 % (0-10); Neutrophil # 22.81 X10^3/uL (2.7-7.7); Neutrophil % 90.8 % (47-70); Platelet Count 656 K/mm3 (150-450); Red Blood Count 3.47 M/mm3 (4.2-5.4); White Blood Count 25.2 K/mm3 (4.4-11.0)
[2017-08-27 07:08] LABS: Differential Indicated SCAN CRITERIA MET; POSITIVE COUNT NO; POSITIVE DIFFERENTIAL YES; POSITIVE MORPHOLOGY NO
[2017-08-27 07:29] LABS: ALB/GLOB Ratio 0.4 RATIO (0.9-2.4); AST(SGOT) 8 U/L (15-37); Alanine Aminotransfer ALT/SGPT 10 U/L (13-56); Albumin, Serum 1.8 g/dL (3.2-5.0); Alkaline Phosphatase 88 U/L (45-117); Anion Gap 8 (5-15); BUN 11 mg/dL (7-18); BUN/Creat Ratio 19.7 RATIO (10-20); Calcium,Total 8.7 mg/dL (8.5-10.1); Chloride 97 mmol/L (98-107); Creatinine, Serum 0.56 mg/dL (0.55-1.02); EST Glomerular Filtration Rate 126 mL/min (>60); Est Glom Filt Rate - Afr Amer 152 mL/min (>60); Estimated Creatinine Clearance 108.96 ml/min; Globulin 4.4 g/dL (2.2-4.2); Glucose 100 mg/dL (74-106); Magnesium 1.9 mg/dL (1.6-2.6); Potassium 3.8 mmol/L (3.5-5.1); Protein, Total 6.2 g/dL (6.4-8.2); Sodium Level 133 mmol/L (136-145)
[2017-08-27 07:50] LABS: Anisocytosis 1+; Platelet Estimate MOD INC (ADEQ)
[2017-08-27] MEDS: Dext 5%-0.45% NS 1,000 ML 150 ML IV ×3 (08:15→23:30)
--- NOTE | 2017-08-27 09:05 | PCM.CONS.B ---
Problem List (1) Fever Status: Acute Qualifiers: Fever type: unspecified Qualified Code(s): R50.9 - Fever, unspecified (2) Non-small cell cancer of left lung Status: Chronic Comment: Status post chemotherapy 08/23,08/24,08/25/17 cisplatin/etoposide - Consult Date of Consult: 08/27/17 - Reason for Consult History of present illness: The patient is a 42-year-old female who presented in May with recurrent/relapsing fevers. She initially was seen in the emergency department on 06/11/2017 with a fever of 101.2 associated with generalized body aches and a sore throat. She had previously been seen in urgent care and was started on Augmentin for potential sinusitis. She was also given a Solu-Medrol Dosepak along with doxycycline. She did not improve. She continued to have intermittent fevers, body aches and was using Tylenol and ibuprofen to help control symptoms. She had a rather extensive workup which included a chest x-ray, blood cultures and Monospot testing for EBV. All were negative. She was seen by her primary care physician on 06/14 and a repeat CBC and CMP showed an elevated WBC and platelet count. CT scan of the abdomen and pelvis was obtained and was noted to be negative. Apparently the patient was also experiencing some left lower quadrant pain at that time. CT of the sinuses demonstrated thickening of the maxillary sinus membranes. She was seen by ID and referred for hematology evaluation. She was thought to potentially have a viral syndrome. She was seen by Dr. Obrien who ordered a chest CT. This demonstrated a left upper lobe/paramediastinal mass associated with possible postobstructive pneumonia. She was then referred to pulmonary medicine for evaluation. An ultrasound guided biopsy of a left supraventricular lymph node demonstrated poorly differentiated non-small cell lung cancer. She underwent Pleurx catheter placement last week. Cytology on pleural fluid was negative. She was started on chemotherapy including cisplatin and etoposide earlier this week. She received treatment on Wednesday, Wednesday and Wednesday. During the 3 days of treatment she didn't have any fevers. However yesterday she began feeling more fatigued and wiped out and developed a temperature to 102. She presented to the emergency department where she was noted to have a fever of 102. White count was significantly elevated. [facility]. She was started on hydration and admitted. Patient has a complaint of cough. It's associated with taking deep breaths. It's occasionally productive of thick clear sputum. She doesn't feel that she's been wheezing. She has been on home O2 2 L/m. She is on the same amount of oxygen presently. She denies chest pain, pressure and tightness. No hemoptysis. She quit smoking some time ago. She's been getting in a lot of fluids this week and her nausea has been under good control. She says her bowels have been working and they've been loose. She has minor mouth discomfort of the left buccal mucosa. No sore throat. Allergies codeine Adverse Reaction (Verified 08/26/17 15:18) Nausea hydrocodone Adverse Reaction (Verified 08/26/17 15:18) Nausea miconazole [From Monistat 1 Combo Pack] Adverse Reaction (Verified 08/26/17 15:18) Swelling Current Medications Acetaminophen (Tylenol) 650 mg PO Q4H PRN PRN PRN Reason: FEVER Last Admin: 08/26/17 22:57 Dose: 650 mg Acetaminophen (Tylenol) 650 mg PO Q6H PRN PRN PRN Reason: Mild Pain (scale 0-3)/T>100.7 Albuterol/Ipratropium (Duoneb) 3 ml INHALATION Q4H.RT [facility] Last Admin: 08/27/17 10:48 Dose: Not Given Bisacodyl (Dulcolax) 10 mg PO DAILY PRN PRN PRN Reason: Constipation Docusate Sodium (Colace) 200 mg PO BID PRN PRN PRN Reason: Constipation Famotidine (Pepcid) 20 mg PO BID PRN PRN Reason: DYSPEPSIA Fentanyl Citrate (Sublimaze (100mcg Ampule)) 25 mcg IV Q3H PRN PRN PRN Reason: SEVERE PAIN (6-10/10) Guaifenesin (Mucinex) 1,200 mg PO BID [facility] Last Admin: 08/27/17 10:38 Dose: 1,200 mg Heparin Sodium (Porcine) () 5,000 units SC BID [facility] Last Admin: 08/27/17 10:37 Dose: 5,000 units Cefepime HCl 2 gm/ Sodium (Chloride) 100 mls @ 200 mls/hr IV Q12 [facility] Last Admin: 08/27/17 10:36 Dose: 200 mls/hr Lactobacillus Acidophilus (Acidophilus) 2 tablet PO DAILY [facility] Last Admin: 08/27/17 10:37 Dose: 2 tablet Magnesium Hydroxide (Milk Of Magnesia) 30 ml PO DAILY PRN PRN PRN Reason: Constipation Non-Formulary Medication (Progesterone,Micronized [Endometrin]) 150 mg PO QHS [facility] Non-Formulary Medication (Testosterone) 10 mg TOPICAL QHS [facility] Nutritional Formula (Lactose Free) (Ensure Enlive) 120 ml PO 4X/DAY [facility] Last Admin: 08/27/17 12:28 Dose: 120 ml Nystatin (Nystatin) 500,000 unit PO 4X/DAY [facility] Last Admin: 08/27/17 12:28 Dose: 500,000 unit Olanzapine (Zyprexa) 7.5 mg PO QHS [facility] Last Admin: 08/26/17 22:50 Dose: 7.5 mg Ondansetron HCl (Zofran) 4 mg IV Q8H PRN PRN PRN Reason: NAUSEA Oxycodone HCl (Oxyir) 5 mg PO Q4H PRN PRN PRN Reason: Moderate Pain (pain scale 4-5) Last Admin: 08/26/17 20:34 Dose: 5 mg Pyridoxine HCl (Vitamin B-6) 100 mg PO DAILY [facility] Last Admin: 08/27/17 10:38 Dose: 100 mg Sodium Chloride () 5 - 30 ml IV UD PRN PRN Reason: SALINE FLUSH ROS: Constitutional: See above. Neuro: Denies symptoms of neuropathy. HEENT: No recent change in voice, vision or hearing. Resp: See above. CVS: Denies exertional chest pain, PND, orthopnea and LE edema. GI: Denies dysphagia and odynophagia. Denies reflux and abdominal pain. : Denies dysuria or gross hematuria. No symptoms of bladder outlet obstruction. Endo: Denies hot flashes. Musculoskeletal: Denies bone, back, joint and muscular pain. Derm: Denies rash. Denies jaundice and diffuse pruritis. Heme: Denies unusual bleeding and unexplained bruising. PHYSICAL EXAM: Vitals: Vital Signs Temp 98.5 F 08/27/17 10:30 Pulse 102 H 08/27/17 11:25 Resp 18 08/27/17 11:25 BP 100/58 L 08/27/17 10:30 Pulse Ox 96 08/27/17 11:25 Intake & Output 08/25/17 08/26/17 08/27/17 23:59 23:59 23:59 Intake Total 2059 Output Total 2099 Balance -40 / -40 Weight: 53.841 kg 53.841 kg Intake: Oral 550 / 550 IV fluid/meds 1510 / 1510 Output: Urine 2099 Fatigued, but otherwise well-appearing and in no acute distress. EYES: Sclerae are anicteric bilaterally. Thrush left buccal mucosa. NECK: Supple. LYMPHATIC: There is no palpable cervical or supraclavicular adenopathy. RESPIRATORY: Inspiratory breath sounds are diminished in all calero. Faint, coarse rhonchi. CARDIOVASCULAR: Rhythm is regular. Normal intensity S1/S2. ABDOMEN: The abdomen is nondistended. tender left upper quadrant secondary to Pleurx Extremities: No swelling or edema. SKIN: No jaundice or rash. NEUROLOGIC: cake stripper II-XII are grossly intact. DTRs normal. MUSCULOSKELETAL: No muscle wasting. ASSESSMENT/PLAN: 1) Fever/malaise. Assessment: -The patient has had recurring fever for the last 2 months. Extensive workup has not revealed any infectious source. -She was afebrile the 3 days she received chemotherapy but dexamethasone 10 mg intravenously was administered every day as an antiemetic. -Personally reviewed chest film images. Most recent film from yesterday demonstrates some hazy possible infiltrative process left lower lobe with improved appearance of pleural effusion. -Symptoms not suggestive of pneumonia. -The clinical course is suggestive of tumor fever. Malaise exacerbated by chemotherapy. Plan: -Continue hydration. -Supportive care with antiemetic therapy prn. -Add Nystatin swish and swallow. -Begin scheduled Tylenol administration 1000 mg PO q 6-8 hours. -I would be comfortable stopping antibiotic therapy for now and observing for another 24 hours or so prior to discharge.
--- NOTE | 2017-08-27 09:11 | CON.PCM_ITS ---
Problem List (1) Fever Status: Acute Qualifiers: Fever type: unspecified Qualified Code(s): R50.9 - Fever, unspecified (2) Non-small cell cancer of left lung Status: Chronic Comment: Status post chemotherapy 08/23,08/24,08/25/17 cisplatin/etoposide - Consult Date of Consult: 08/27/17 - Reason for Consult History of present illness: The patient is a 42-year-old female who presented in May with recurrent/relapsing fevers. She initially was seen in the emergency department on 06/11/2017 with a fever of 101.2 associated with generalized body aches and a sore throat. She had previously been seen in urgent care and was started on Augmentin for potential sinusitis. She was also given a Solu-Medrol Dosepak along with doxycycline. She did not improve. She continued to have intermittent fevers, body aches and was using Tylenol and ibuprofen to help control symptoms. She had a rather extensive workup which included a chest x-ray, blood cultures and Monospot testing for EBV. All were negative. She was seen by her primary care physician on 06/14 and a repeat CBC and CMP showed an elevated WBC and platelet count. CT scan of the abdomen and pelvis was obtained and was noted to be negative. Apparently the patient was also experiencing some left lower quadrant pain at that time. CT of the sinuses demonstrated thickening of the maxillary sinus membranes. She was seen by ID and referred for hematology evaluation. She was thought to potentially have a viral syndrome. She was seen by Dr. Obrien who ordered a chest CT. This demonstrated a left upper lobe/paramediastinal mass associated with possible postobstructive pneumonia. She was then referred to pulmonary medicine for evaluation. An ultrasound guided biopsy of a left supraventricular lymph node demonstrated poorly differentiated non-small cell lung cancer. She underwent Pleurx catheter placement last week. Cytology on pleural fluid was negative. She was started on chemotherapy including cisplatin and etoposide earlier this week. She received treatment on Wednesday, Wednesday and Wednesday. During the 3 days of treatment she didn't have any fevers. However yesterday she began feeling more fatigued and wiped out and developed a temperature to 102. She presented to the emergency department where she was noted to have a fever of 102. White count was significantly elevated. [facility] She was started on hydration and admitted. Patient has a complaint of cough. It's associated with taking deep breaths. It' s occasionally productive of thick clear sputum. She doesn't feel that she's been wheezing. She has been on home O2 2 L/m. She is on the same amount of oxygen presently. She denies chest pain, pressure and tightness. No hemoptysis. She quit smoking some time ago. She's been getting in a lot of fluids this week and her nausea has been under good control. She says her bowels have been working and they've been loose. She has minor mouth discomfort of the left buccal mucosa. No sore throat. Allergies codeine Adverse Reaction (Verified 08/26/17 15:18) Nausea hydrocodone Adverse Reaction (Verified 08/26/17 15:18) Nausea miconazole [From Monistat 1 Combo Pack] Adverse Reaction (Verified 08/26/17 15: 18) Swelling Current Medications Acetaminophen (Tylenol) 650 mg PO Q4H PRN PRN PRN Reason: FEVER Last Admin: 08/26/17 22:57 Dose: 650 mg Acetaminophen (Tylenol) 650 mg PO Q6H PRN PRN PRN Reason: Mild Pain (scale 0-3)/T>100.7 Albuterol/Ipratropium (Duoneb) 3 ml INHALATION Q4H.RT [facility] Last Admin: 08/27/17 10:48 Dose: Not Given Bisacodyl (Dulcolax) 10 mg PO DAILY PRN PRN PRN Reason: Constipation Docusate Sodium (Colace) 200 mg PO BID PRN PRN PRN Reason: Constipation Famotidine (Pepcid) 20 mg PO BID PRN PRN Reason: DYSPEPSIA Fentanyl Citrate (Sublimaze (100mcg Ampule)) 25 mcg IV Q3H PRN PRN PRN Reason: SEVERE PAIN (6-10/10) Guaifenesin (Mucinex) 1,200 mg PO BID [facility] Last Admin: 08/27/17 10:38 Dose: 1,200 mg Heparin Sodium (Porcine) () 5,000 units SC BID [facility] Last Admin: 08/27/17 10:37 Dose: 5,000 units Cefepime HCl 2 gm/ Sodium (Chloride) 100 mls @ 200 mls/hr IV Q12 [facility] Last Admin: 08/27/17 10:36 Dose: 200 mls/hr Lactobacillus Acidophilus (Acidophilus) 2 tablet PO DAILY [facility] Last Admin: 08/27/17 10:37 Dose: 2 tablet Magnesium Hydroxide (Milk Of Magnesia) 30 ml PO DAILY PRN PRN PRN Reason: Constipation Non-Formulary Medication (Progesterone,Micronized [Endometrin]) 150 mg PO QHS [facility] Non-Formulary Medication (Testosterone) 10 mg TOPICAL QHS [facility] Nutritional Formula (Lactose Free) (Ensure Enlive) 120 ml PO 4X/DAY [facility] Last Admin: 08/27/17 12:28 Dose: 120 ml Nystatin (Nystatin) 500,000 unit PO 4X/DAY [facility] Last Admin: 08/27/17 12:28 Dose: 500,000 unit Olanzapine (Zyprexa) 7.5 mg PO QHS [facility] Last Admin: 08/26/17 22:50 Dose: 7.5 mg Ondansetron HCl (Zofran) 4 mg IV Q8H PRN PRN PRN Reason: NAUSEA Oxycodone HCl (Oxyir) 5 mg PO Q4H PRN PRN PRN Reason: Moderate Pain (pain scale 4-5) Last Admin: 08/26/17 20:34 Dose: 5 mg Pyridoxine HCl (Vitamin B-6) 100 mg PO DAILY [facility] Last Admin: 08/27/17 10:38 Dose: 100 mg Sodium Chloride () 5 - 30 ml IV UD PRN PRN Reason: SALINE FLUSH ROS: Constitutional: See above. Neuro: Denies symptoms of neuropathy. HEENT: No recent change in voice, vision or hearing. Resp: See above. CVS: Denies exertional chest pain, PND, orthopnea and LE edema. GI: Denies dysphagia and odynophagia. Denies reflux and abdominal pain. : Denies dysuria or gross hematuria. No symptoms of bladder outlet obstruction. Endo: Denies hot flashes. Musculoskeletal: Denies bone, back, joint and muscular pain. Derm: Denies rash. Denies jaundice and diffuse pruritis. Heme: Denies unusual bleeding and unexplained bruising. PHYSICAL EXAM: Vitals: Vital Signs Temp 98.5 F 08/27/17 10:30 Pulse 102 H 08/27/17 11:25 Resp 18 08/27/17 11:25 BP 100/58 L 08/27/17 10:30 Pulse Ox 96 08/27/17 11:25 Intake & Output 08/25/17 08/26/17 08/27/17 23:59 23:59 23:59 Intake Total 2059 Output Total 2099 Balance -40 / -40 Weight: 53.841 kg 53.841 kg Intake: Oral 550 / 550 IV fluid/meds 1510 / 1510 Output: Urine 2099 Fatigued, but otherwise well-appearing and in no acute distress. EYES: Sclerae are anicteric bilaterally. Thrush left buccal mucosa. NECK: Supple. LYMPHATIC: There is no palpable cervical or supraclavicular adenopathy. RESPIRATORY: Inspiratory breath sounds are diminished in all calero. Faint, coarse rhonchi. CARDIOVASCULAR: Rhythm is regular. Normal intensity S1/S2. ABDOMEN: The abdomen is nondistended. tender left upper quadrant secondary to Pleurx Extremities: No swelling or edema. SKIN: No jaundice or rash. NEUROLOGIC: sort manager II-XII are grossly intact. DTRs normal. MUSCULOSKELETAL: No muscle wasting. ASSESSMENT/PLAN: 1) Fever/malaise. Assessment: -The patient has had recurring fever for the last 2 months. Extensive workup has not revealed any infectious source. -She was afebrile the 3 days she received chemotherapy but dexamethasone 10 mg intravenously was administered every day as an antiemetic. -Personally reviewed chest film images. Most recent film from yesterday demonstrates some hazy possible infiltrative process left lower lobe with improved appearance of pleural effusion. -Symptoms not suggestive of pneumonia. -The clinical course is suggestive of tumor fever. Malaise exacerbated by chemotherapy. Plan: -Continue hydration. -Supportive care with antiemetic therapy prn. -Add Nystatin swish and swallow. -Begin scheduled Tylenol administration 1000 mg PO q 6-8 hours. -I would be comfortable stopping antibiotic therapy for now and observing for another 24 hours or so prior to discharge.
[2017-08-27] MEDS: Heparin Injection 5,000 UNITS/ML Syringe 5000 UNITS SC ×2 (10:37→21:13)
[2017-08-27] MEDS: guaiFENesin 600 MG Tablet 1200 MG PO (10:38)
[2017-08-27] MEDS: Pyridoxine HCl 100 MG Tablet PO (10:38)
[2017-08-27] MEDS: NYSTATIN 500,000 UNIT/5 ML UDC 500000 UNIT PO ×2 (12:28→20:01)
--- NOTE | 2017-08-27 13:59 | CASEMGMT ---
Social Work Assessment Referral Date: 08/27/2017 Date of Assessment: 08/27/2017 Reason for Consult: Pt is a readmission and has cancer Informant: BROCK Personal Status: SW met with pt to complete initial assessment to identify discharge needs. SW introduced self and role at [facility]. Pt states that she lives with people at home and that she was previously independent before coming to the hospital. Pt states that she has good support at home from her family and friends. Pt states that she has home oxygen and nebulizer. SW provided information on [facility] and left pamphlet for pt in room. At this time, pt denied needing home health care and/or therapy in her home. Pt denied additional needs at this time. Substance Abuse: Pt states that she was a former smoker Mental Health Hx: Pt denied Plan: Return Home at discharge. Dia Gracia VARNISH DIPPER, [employer]
--- NOTE | 2017-08-27 14:10 | NURSING ---
Received call from Dr Li. wanted to know of this nurse was going to drain the port a cath. Informed Dr Li that I did not know anything about this patient, but can drain it if he wanted it done. States he doesn't care who does it but would like to know how much drainage was pulled, what color it was, and wanted some fluid sent for culture. matt Jacbo RN and Stephanie RN both aware.
[2017-08-27] MEDS: Acetaminophen 500 MG Tablet 1000 MG PO ×2 (15:09→21:22)
--- NOTE | 2017-08-27 15:54 | PCM.PN.HOSP ---
Subjective: CC: Fever Objective: This is a 42-year-old female with history of non-small cell cancer of the left lung, left pleural effusion s/p Pleurx catheter placement, she started chemotherapy on Wednesday and now resented to the emergency room with fever 101.8 . The patient has leukocytosis of more than 25K, she was started on IV Cefepime and admitted to the hospital. Oncologist does not feel the fever is due to an infectious process and recommends to continue antibiotics. Vitals/I&O's: Vital Signs Temp Pulse Resp BP Pulse Ox 101.9 F H 88 16 100/59 L 97 08/27/17 14:00 08/27/17 15:14 08/27/17 15:14 08/27/17 14:00 08/27/17 14:00 Oxygen Flow Rate (L/min) 2 Oxygen Delivery Method Nasal Cannula Weight: 53.841 kg Body Mass Index (BMI) 20.3 Intake and Output for Last 24 Hours 08/25/17 08/26/17 08/27/17 23:59 23:59 23:59 Intake Total 2059 / 2059 Output Total 2099 / 2099 Balance -40 / -40 General: Alert, Oriented x3 HEENT: Atraumatic Oral: Moist Mucosa Neck: Supple Lungs: Clear to auscultation Cardiovascular: Regular rate, Normal S1, Normal S2 Abdomen: Bowel Sounds Present, Soft, Non Tender Extremities: No clubbing Skin: No rashes Neurological: Cranial nerves II-XII grossly intact Laboratory Results 08/27/17 06:17: WBC 25.2 H, RBC 3.47 L, Hgb 9.0 L, Hct 29.3 L, MCV 84.4, MCH 25.9 L, MCHC 30.7 L, RDW 19.0 H, RDW Differential 58.0 H, Plt Count 656 H, MPV 8.2, Immature Gran % (Auto) 1.200 H, Neut % (Auto) 90.8 H, Lymph % (Auto) 7.6 L, [place] % (Auto) 0.4, Eos % (Auto) 0.0, Baso % (Auto) 0.0, Absolute Neuts (auto) 22.8 H, Absolute Lymphs (auto) 1.91, Total Counted Not Reportable, Platelet Estimate MOD INC, Anisocytosis 1+ 08/27/17 06:17: Sodium 133 L, Potassium 3.8, Chloride 97 L, Carbon Dioxide 28.0, Anion Gap 8, BUN 11, Creatinine 0.56, Estim Creat Clear Calc 108.96, Est GFR (MDRD) Af Amer 152, Est GFR (MDRD) Non-Af 126, BUN/Creatinine Ratio 19.7, Glucose 100, Calcium 8.7, Magnesium 1.9, Total Bilirubin 0.50, AST 8 L, ALT 10 L, Alkaline Phosphatase 88, Total Protein 6.2 L, Albumin 1.8 L, Globulin 4.4 H, Albumin/Globulin Ratio 0.4 L Current Medications Acetaminophen (Tylenol) 1,000 mg PO Q8 [facility] Last Admin: 08/27/17 15:09 Dose: 1,000 mg Albuterol/Ipratropium (Duoneb) 3 ml INHALATION Q4H.RT [facility] Last Admin: 08/27/17 15:14 Dose: 3 ml Bisacodyl (Dulcolax) 10 mg PO DAILY PRN PRN PRN Reason: Constipation Docusate Sodium (Colace) 200 mg PO BID PRN PRN PRN Reason: Constipation Famotidine (Pepcid) 20 mg PO BID PRN PRN Reason: DYSPEPSIA Fentanyl Citrate (Sublimaze (100mcg Ampule)) 25 mcg IV Q3H PRN PRN PRN Reason: SEVERE PAIN (6-10/10) Guaifenesin (Mucinex) 1,200 mg PO BID [facility] Last Admin: 08/27/17 10:38 Dose: 1,200 mg Heparin Sodium (Porcine) () 5,000 units SC BID [facility] Last Admin: 08/27/17 10:37 Dose: 5,000 units Dextrose/Sodium Chloride () 1,000 mls @ 150 mls/hr IV .Q6H40M [facility] Lactobacillus Acidophilus (Acidophilus) 2 tablet PO DAILY [facility] Last Admin: 08/27/17 10:37 Dose: 2 tablet Magnesium Hydroxide (Milk Of Magnesia) 30 ml PO DAILY PRN PRN PRN Reason: Constipation Non-Formulary Medication (Progesterone,Micronized [Endometrin]) 150 mg PO QHS [facility] Non-Formulary Medication (Testosterone) 10 mg TOPICAL QHS [facility] Nutritional Formula (Lactose Free) (Ensure Enlive) 120 ml PO 4X/DAY [facility] Last Admin: 08/27/17 12:28 Dose: 120 ml Nystatin (Nystatin) 500,000 unit PO 4X/DAY [facility] Last Admin: 08/27/17 12:28 Dose: 500,000 unit Olanzapine (Zyprexa) 7.5 mg PO QHS [facility] Last Admin: 08/26/17 22:50 Dose: 7.5 mg Ondansetron HCl (Zofran) 4 mg IV Q8H PRN PRN PRN Reason: NAUSEA Oxycodone HCl (Oxyir) 5 mg PO Q4H PRN PRN PRN Reason: Moderate Pain (pain scale 4-5) Last Admin: 08/26/17 20:34 Dose: 5 mg Pyridoxine HCl (Vitamin B-6) 100 mg PO DAILY [facility] Last Admin: 08/27/17 10:38 Dose: 100 mg Sodium Chloride () 5 - 30 ml IV UD PRN PRN Reason: SALINE FLUSH Medical Necessity - Tobacco Use Smoking Status: Former smoker Assessment/Plan 1. Fever of unclear etiology; the patient is immunocompromised and continues to spike fever, she will be continued on Cefepime and since she has a PleurX catheter , will add IV Vancomycin until cultures are negative. 2. Left pleural effusion, status post left Pleurx catheter, drains every 48 hours. 3. Non-small cell cancer of left lung, status post chemotherapy. 4.Chronic Respiratory failure on supplemental oxygen. 5. Leukocytosis;we will repeat CBC in q a.m. 6. Hyponatremia ; continue saline at 75 cc /hr, monitor sodium level closely. 7.DVT Prophylaxis with subcutaneous heparin. further Management of this patient will be dictated by her clinical progress. Discussed patient Past management plan with Dr. Stahl and Dr. Javier Code Visit Inpatient E&M: [id number] [facility] L[facility]
[2017-08-27] MEDS: OLANZapine 2.5 MG Tablet 7.5 MG PO (21:18)
[2017-08-28] VITALS (9 sets, daily range): BP systolic 94–107; BP diastolic 51–58; PULSE 95–124; RESP 18; TEMP 36.6–38.1; O2SAT 92–98
[2017-08-28] MEDS: Acetaminophen 500 MG Tablet 1000 MG PO ×3 (05:25→21:47)
[2017-08-28] MEDS: Dext 5%-0.45% NS 1,000 ML 150 ML IV ×2 (05:26→14:57)
[2017-08-28] MEDS: Ipratropium/Albuterol Sulfate 3 ML AMPUL.NEB INHALATION ×3 (07:02→14:55)
[2017-08-28] MEDS: Ondansetron 4 MG/2 ML Vial IV ×2 (09:11→17:10)
[2017-08-28] MEDS: guaiFENesin 600 MG Tablet 1200 MG PO (09:14)
[2017-08-28] MEDS: Pyridoxine HCl 100 MG Tablet PO (09:14)
[2017-08-28] MEDS: Heparin Injection 5,000 UNITS/ML Syringe 5000 UNITS SC ×2 (09:15→21:47)
[2017-08-28] MEDS: NYSTATIN 500,000 UNIT/5 ML UDC 500000 UNIT PO ×4 (09:15→21:47)
--- NOTE | 2017-08-28 10:17 | CON.PCM_ITS ---
Reason for Consult Date of Consultation: 08/27/17 History of Present Illness: The patient is a 42 year old F with left lung cancer recurring left pleural effusion. The patient is a 42 year old F recently diagnosed with left non-small cell lung cancer an a recurring left pleural effusion. She was seen by Dr. 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 ? Patient reports that she first started feeling sick end of~April 2017 when she developed an upper respiratory infection with sinus congestion, nasal drainage, cough and fevers (MAXIMUM TEMPERATURE 102 Fahrenheit). ~She completed a course of Augmentin without significant clinical improvement and hence was prescribed a second antibiotic. ~Patient had pleuritic chest pain which improved after antibiotics were CXR done at OSH on 06/11/2017 was noted to be unremarkable. Patient had~and a CT scan sinus done 06/16/2017~showed mucosal thickening left maxillary sinus. ~CT scan of abdomen/pelvis with IV contrast done 06/14/2017 was unremarkable. ~Patient also started having night sweats. ~ Testing for mononucleosis was negative. ~EBV testing was negative except EBV IgG.~~CT scan of brain with/without contrast done 07/03/2017 was unremarkable. ~ Patient continued~to stay febrile and was seen in consultation by ID. she was seen by hematology/oncology on 07/07/2017 and treated with IV Injectafer (Iron) for KRISTEN. ~Patient was seen by her primary care physician and prescribed an albuterol inhaler for bronchitis. ~Meanwhile patient continued to have poor appetite (15 pound unintentional weight loss since beginning of 2018), night sweats, myalgias and generalized fatigue. ~Patient noticed worsening productive cough with clear to yellowish mucus (spitting and wastebasket all night). ~CXR done 07/26/2017 showed airspace consolidation left suprahilar region?patient was treated with a course of azithromycin followed by Levaquin. ~Repeat CXR 2017 showed similar findings. ~Patient has been alternating acetaminophen and ibuprofen for fevers. ~She denies any joint swelling, joint pain or skin rashes. ~Patient has been sleeping sitting up as cough is worse in supine position. ~She has noticed that she is unable to sleep on her left as she starts to cough heavily. ~She denies any hemoptysis. ~No palpable swollen glands. ~TB~blood screen and HIV screen are negative. ? LEEP 1997-; cells came back - repeat 1998 (Dr Olguin; [facility]). S/p Colonoscopy - for sigmoid diverticulitis - s/p Abx (07/2016) - unremarkable. ~Patient reports stable bowel habits. ~She has annual mammograms which are unremarkable. ? CT scan chest 08/06/2017 showed a large heterogeneous mass lesion ETHAN measuring 6.2 x 5.6 cm, multiple nodular densities left upper lung. ~Extensive interlobular septal thickening left lung calero. ~Moderate left pleural effusion. ~There is significant left hilar lymphadenopathy with enlarged mediastinal and right hilar lymph nodes. ~There is a 2.8 x 2.2 cm left supraclavicular lymph node. ? 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 ~[place] 1-2 a month. Born and grew up in [facility]. No known exposure to TB. Travel - [place] ? MMRC Dyspnea Scale: ? ~~~~?0.?Not troubled by breathlessness except on strenuous exercise 1. Short of breath when hurrying or walking up a slight hill 2. Walks slower than contemporaries on the level because of breathlessness, or has to stop for breath when walking at own pace 3. Stops for breath after about 100 m or after a few minutes on the level? 4. Too breathless to leave the house, or breathless when dressing or undressing ? he underwent lymph node biopsy and left thoracentesis. Thoracentesis removed proximally 700 cc of fluid. thoracentesis was negative for malignant cells. Biopsy of the supraventricular lymph node - undifferentiated non-small cell carcinoma. the patient has recurring shortness of breath, and the pleural effusion was be recommitting rather rapidly. I placed a left tunneled thoracic/Pleurx catheter on August 20. Approximately 2 L of fluid was drained during the procedure and an overnight. When she was attached to a Pleur-evac. The site was capped off and she was discharged to home on August 21. fluid was negative for cytology. Culture was sent which demonstrated gram-positive sign Gram stain, but there was no growth on day 5. She had drainage of the fluid on Wednesday in my office draining about 600 cc and the fluid was drained at home on Wednesday, draining approximately 500 cc. Past Medical History Past Medical History (Chronic Problems): Chronic Problems Lung mass (Chronic) Neutrophilic leukocytosis (Chronic) Pleural effusion, left (Chronic) presence of L pleurX catheter drains Q48 hours Non-small cell cancer of left lung (Chronic) Status post chemotherapy 08/23,08/24,08/25/17 cisplatin/etoposide Chronic hypoxemic respiratory failure (Chronic) O2 at 2 liters Allergies codeine Adverse Reaction (Verified 08/26/17 15:18) Nausea hydrocodone Adverse Reaction (Verified 08/26/17 15:18) Nausea miconazole [From Monistat 1 Combo Pack] Adverse Reaction (Verified 08/26/17 15: 18) Swelling Home Medications: Ambulatory Orders Medication Instructions Recorded Progesterone,Micronized 150 mg PO QHS 07/03/17 [Endometrin] Testosterone 10 mg TOPICAL QHS 07/03/17 Albuterol Sulfate [Ventolin Hfa] 2 puff IH Q4H PRN PRN 08/14/17 Pyridoxine HCl [Vitamin B-6] 1 tab PO DAILY 08/14/17 Cefdinir [Omnicef [equiv]] 300 mg PO Q12H #14 cap 08/16/17 Albuterol Aerosols [Ventolin 2.5 mg INHALATION Q4H PRN PRN #120 08/17/17 Aerosols] vial Olanzapine [Zyprexa] 7.5 mg PO QHS 08/26/17 Surgical History: - - L pleurX catheter Smoking Status: Former smoker - Physical Exam General: Alert, Oriented x3, Cooperative Lungs: Clear to auscultation - on the right, Diminished, Rhonchi - on the left Vital Signs Temp Pulse Resp BP Pulse Ox 97.8 F 100 18 94/58 L 97 08/28/17 09:00 08/28/17 09:00 08/28/17 09:00 08/28/17 09:00 08/28/17 09:00 Oxygen Flow Rate (L/min) 3 Oxygen Delivery Method Room Air Weight: 53.841 kg Body Mass Index (BMI) 20.3 Intake and Output for Last 24 Hours 08/26/17 08/27/17 08/28/17 23:59 23:59 23:59 Intake Total 4278 / 4278 1130 / 1130 Output Total 5050 / 5050 1000 / 1000 Balance -772 / -772 130 / 130 Assessment/Plan recurring left pleural effusion, left lung cancer with likely postobstructive pneumonia. The Pleurx catheter was accessed and drained for just at 500 cc's. This fluid was sent for culture again.
--- NOTE | 2017-08-28 10:20 | PCM.PN.SRG ---
Subjective: some improved shortness of breath after drainage of pleural fluid yesterday - Physical Exam General: Alert, Oriented x3, Cooperative Lungs: Clear to auscultation - right, Diminished - on the left but improved with less dullness at the base, Rhonchi Vital Signs Temp Pulse Resp BP Pulse Ox 97.8 F 100 18 94/58 L 97 08/28/17 09:00 08/28/17 09:00 08/28/17 09:00 08/28/17 09:00 08/28/17 09:00 Oxygen Flow Rate (L/min) 3 Oxygen Delivery Method Room Air Weight: 53.841 kg Body Mass Index (BMI) 20.3 Intake and Output for Last 24 Hours 08/26/17 08/27/17 08/28/17 23:59 23:59 23:59 Intake Total 4278 / 4278 1130 / 1130 Output Total 5050 / 5050 1000 / 1000 Balance -772 / -772 130 / 130 Medical Necessity - Tobacco Use Smoking Status: Former smoker Assessment/Plan recurring left pleural effusion, left lung cancer with likely postobstructive pneumonia. The Pleurx catheter was accessed and drained for just at 500 cc's yesterday. This fluid was sent for culture again. - Gram stain and culture results pending.
--- NOTE | 2017-08-28 10:41 | PCM.PN.HOSP ---
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 She started chemotherapy 6 days ago and has had 3 sessions over. She presented to the emergency room on 08/25/2017 with fever of 101.8 and had leukocytosis of more than 25,000. She was started on IV cefepime and admitted to the hospital. Oncology is on board and think this may be due to post obstructive pneumonia. She has remained stable. Seen and examined this morning. She was sleeping in bed and looked quite lethargic. She denied any fever or chills but complained of increased sweats overnight. She denied any cough, any chest pain, any nausea or vomiting, any abdominal pain, any palpitations, any diarrhea vomiting. Review of systems otherwise negative. Vitals/I&O's: Vital Signs Temp Pulse Resp BP Pulse Ox 97.8 F 100 18 94/58 L 97 08/28/17 09:00 08/28/17 09:00 08/28/17 09:00 08/28/17 09:00 08/28/17 09:00 Oxygen Flow Rate (L/min) 3 Oxygen Delivery Method Room Air Weight: 118 lb 11.185 oz Body Mass Index (BMI) 20.3 Intake and Output for Last 24 Hours 08/26/17 08/27/17 08/28/17 23:59 23:59 23:59 Intake Total 4278 / 4278 1130 / 1130 Output Total 5050 / 5050 1000 / 1000 Balance -772 / -772 130 / 130 General: Alert, Oriented x3, Cooperative, Lethargic HEENT: Atraumatic, PERRLA, EOMI, Normocephalic Oral: Dry Mucosa Neck: Supple, No JVD, Negative Carotid Bruits Lungs: - - Decreased breath sounds and decreased vocal fremitus and left lower lung calero. No crackles or wheezing auscultated. Cardiovascular: Regular rate, Regular Rhythm, Normal S1, Normal S2, No murmurs Abdomen: Bowel Sounds Present, Soft, Non Tender, Non-Distended Extremities: No clubbing, No cyanosis, No edema, Capillary Refill Less than 3 Seconds Skin: No rashes, No breakdown, - - Left Pleurx catheter in place. Musculoskeletal: No Tenderness to Palpation of Joints or Extremities Lymphatic: No Cervical, Supraclavicular, or Inguinal Adenopathy Neurological: Cranial nerves II-XII grossly intact, Neuro grossly intact Psych/Mental Status: Normal Affect, Appropriate, Alert and oriented to time, place, person, mood and affect Microbiology Past 72 Hours 08/27/17 17:30 Other - Fluid Miscellaneous Culture - Preliminary No growth-Final to follow Current Medications Acetaminophen (Tylenol) 1,000 mg PO Q8 [facility] Last Admin: 08/28/17 05:25 Dose: 1,000 mg Albuterol/Ipratropium (Duoneb) 3 ml INHALATION Q4H.RT [facility] Last Admin: 08/28/17 07:02 Dose: 3 ml Bisacodyl (Dulcolax) 10 mg PO DAILY PRN PRN PRN Reason: Constipation Docusate Sodium (Colace) 200 mg PO BID PRN PRN PRN Reason: Constipation Famotidine (Pepcid) 20 mg PO BID PRN PRN Reason: DYSPEPSIA Fentanyl Citrate (Sublimaze (100mcg Ampule)) 25 mcg IV Q3H PRN PRN PRN Reason: SEVERE PAIN (6-10/10) Guaifenesin (Mucinex) 1,200 mg PO BID [facility] Last Admin: 08/28/17 09:14 Dose: 1,200 mg Heparin Sodium (Porcine) () 5,000 units SC BID [facility] Last Admin: 08/28/17 09:15 Dose: 5,000 units Dextrose/Sodium Chloride () 1,000 mls @ 150 mls/hr IV .Q6H40M [facility] Last Admin: 08/28/17 05:26 Dose: 150 mls/hr Cefepime HCl 1 gm/ Sodium (Chloride) 50 mls @ 100 mls/hr IV Q12 [facility] Last Admin: 08/28/17 09:21 Dose: 100 mls/hr Vancomycin HCl (Vancomycin) 1,000 mg in 200 mls @ 200 mls/hr IV Q12H [facility] Last Admin: 08/28/17 05:26 Dose: 200 mls/hr Lactobacillus Acidophilus (Acidophilus) 2 tablet PO DAILY [facility] Last Admin: 08/28/17 09:14 Dose: 2 tablet Magnesium Hydroxide (Milk Of Magnesia) 30 ml PO DAILY PRN PRN PRN Reason: Constipation Nutritional Formula (Lactose Free) (Ensure Enlive) 120 ml PO 4X/DAY [facility] Last Admin: 08/28/17 09:21 Dose: Not Given Nystatin (Nystatin) 500,000 unit PO 4X/DAY [facility] Last Admin: 08/28/17 09:15 Dose: 500,000 unit Olanzapine (Zyprexa) 7.5 mg PO QHS [facility] Last Admin: 08/27/17 21:18 Dose: 7.5 mg Ondansetron HCl (Zofran) 4 mg IV Q8H PRN PRN PRN Reason: NAUSEA Last Admin: 08/28/17 09:11 Dose: 4 mg Oxycodone HCl (Oxyir) 5 mg PO Q4H PRN PRN PRN Reason: Moderate Pain (pain scale 4-5) Last Admin: 08/26/17 20:34 Dose: 5 mg Pyridoxine HCl (Vitamin B-6) 100 mg PO DAILY [facility] Last Admin: 08/28/17 09:14 Dose: 100 mg Sodium Chloride () 5 - 30 ml IV UD PRN PRN Reason: SALINE FLUSH Medical Necessity - Tobacco Use Smoking Status: Former smoker Assessment/Plan 1. Fever of unknown etiology in an immunocompromised patient, possibly due to postobstructive pneumonia Patient did have a fever overnight though she complained of increased sweating. Complains of lethargy. Vitals: BP is 94/58, and was tachyacrdic overnight, with HR up to 118. Is 100 this morning. Examination is benign. Pleurx catheter in place. Site does not look infected. White cell count was 28 and admission trended down to 25.2 yesterday we will check CBC today. Is on IV vancomycin and IV cefepime. Will continue. Blood Cultures are pending. Urine cultures negative so far. Pleural fluid cultures are also negative. Urine for Strep and legionella are negative also We will give IV fluids at 100 cc/h. ID on board 2. Left pleural effusion due to non small cell left lung ca s/p Pleurx catheter placement; to be drained every 48 hours 3. Nonsmall cell lung cancer: is on chemotherapy. Has had 3 sessions of chemo so far. Oncology on board. 4. Hyponatremia: was 130 on admission, went up to 133 yesterday. Is up to 134 today. In light of mild hypotension and tachycardia, may be due to hypovolemic hyponatremia. Will continue IVF 5. Hypokalemia: K is 3.1. Will replace and mnitor 6. DVT prophylaxis: heparin This note was generated with [employer] dictation software. It may contain incorrect words, spelling, and punctuation that were not noted in checking the note before signing. Code Visit Inpatient E&M: 35536 Subs Hosp L3
--- NOTE | 2017-08-28 10:55 | PN_ITS ---
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 She started chemotherapy 6 days ago and has had 3 sessions over. She presented to the emergency room on 08/25/2017 with fever of 101.8 and had leukocytosis of more than 25,000. She was started on IV cefepime and admitted to the hospital. Oncology is on board and think this may be due to post obstructive pneumonia. She has remained stable. Seen and examined this morning. She was sleeping in bed and looked quite lethargic. She denied any fever or chills but complained of increased sweats overnight. She denied any cough, any chest pain, any nausea or vomiting, any abdominal pain, any palpitations, any diarrhea vomiting. Review of systems otherwise negative. Vitals/I&O's: Vital Signs Temp Pulse Resp BP Pulse Ox 97.8 F 100 18 94/58 L 97 08/28/17 09:00 08/28/17 09:00 08/28/17 09:00 08/28/17 09:00 08/28/17 09:00 Oxygen Flow Rate (L/min) 3 Oxygen Delivery Method Room Air Weight: 118 lb 11.185 oz Body Mass Index (BMI) 20.3 Intake and Output for Last 24 Hours 08/26/17 08/27/17 08/28/17 23:59 23:59 23:59 Intake Total 4278 / 4278 1130 / 1130 Output Total 5050 / 5050 1000 / 1000 Balance -772 / -772 130 / 130 General: Alert, Oriented x3, Cooperative, Lethargic HEENT: Atraumatic, PERRLA, EOMI, Normocephalic Oral: Dry Mucosa Neck: Supple, No JVD, Negative Carotid Bruits Lungs: - - Decreased breath sounds and decreased vocal fremitus and left lower lung calero. No crackles or wheezing auscultated. Cardiovascular: Regular rate, Regular Rhythm, Normal S1, Normal S2, No murmurs Abdomen: Bowel Sounds Present, Soft, Non Tender, Non-Distended Extremities: No clubbing, No cyanosis, No edema, Capillary Refill Less than 3 Seconds Skin: No rashes, No breakdown, - - Left Pleurx catheter in place. Musculoskeletal: No Tenderness to Palpation of Joints or Extremities Lymphatic: No Cervical, Supraclavicular, or Inguinal Adenopathy Neurological: Cranial nerves II-XII grossly intact, Neuro grossly intact Psych/Mental Status: Normal Affect, Appropriate, Alert and oriented to time, place, person, mood and affect Microbiology Past 72 Hours 08/27/17 17:30 Other - Fluid Miscellaneous Culture - Preliminary No growth-Final to follow Current Medications Acetaminophen (Tylenol) 1,000 mg PO Q8 [facility] Last Admin: 08/28/17 05:25 Dose: 1,000 mg Albuterol/Ipratropium (Duoneb) 3 ml INHALATION Q4H.RT [facility] Last Admin: 08/28/17 07:02 Dose: 3 ml Bisacodyl (Dulcolax) 10 mg PO DAILY PRN PRN PRN Reason: Constipation Docusate Sodium (Colace) 200 mg PO BID PRN PRN PRN Reason: Constipation Famotidine (Pepcid) 20 mg PO BID PRN PRN Reason: DYSPEPSIA Fentanyl Citrate (Sublimaze (100mcg Ampule)) 25 mcg IV Q3H PRN PRN PRN Reason: SEVERE PAIN (6-10/10) Guaifenesin (Mucinex) 1,200 mg PO BID [facility] Last Admin: 08/28/17 09:14 Dose: 1,200 mg Heparin Sodium (Porcine) () 5,000 units SC BID [facility] Last Admin: 08/28/17 09:15 Dose: 5,000 units Dextrose/Sodium Chloride () 1,000 mls @ 150 mls/hr IV .Q6H40M [facility] Last Admin: 08/28/17 05:26 Dose: 150 mls/hr Cefepime HCl 1 gm/ Sodium (Chloride) 50 mls @ 100 mls/hr IV Q12 [facility] Last Admin: 08/28/17 09:21 Dose: 100 mls/hr Vancomycin HCl (Vancomycin) 1,000 mg in 200 mls @ 200 mls/hr IV Q12H [facility] Last Admin: 08/28/17 05:26 Dose: 200 mls/hr Lactobacillus Acidophilus (Acidophilus) 2 tablet PO DAILY [facility] Last Admin: 08/28/17 09:14 Dose: 2 tablet Magnesium Hydroxide (Milk Of Magnesia) 30 ml PO DAILY PRN PRN PRN Reason: Constipation Nutritional Formula (Lactose Free) (Ensure Enlive) 120 ml PO 4X/DAY [facility] Last Admin: 08/28/17 09:21 Dose: Not Given Nystatin (Nystatin) 500,000 unit PO 4X/DAY [facility] Last Admin: 08/28/17 09:15 Dose: 500,000 unit Olanzapine (Zyprexa) 7.5 mg PO QHS [facility] Last Admin: 08/27/17 21:18 Dose: 7.5 mg Ondansetron HCl (Zofran) 4 mg IV Q8H PRN PRN PRN Reason: NAUSEA Last Admin: 08/28/17 09:11 Dose: 4 mg Oxycodone HCl (Oxyir) 5 mg PO Q4H PRN PRN PRN Reason: Moderate Pain (pain scale 4-5) Last Admin: 08/26/17 20:34 Dose: 5 mg Pyridoxine HCl (Vitamin B-6) 100 mg PO DAILY [facility] Last Admin: 08/28/17 09:14 Dose: 100 mg Sodium Chloride () 5 - 30 ml IV UD PRN PRN Reason: SALINE FLUSH Medical Necessity - Tobacco Use Smoking Status: Former smoker Assessment/Plan 1. Fever of unknown etiology in an immunocompromised patient, possibly due to postobstructive pneumonia * Patient did have a fever overnight though she complained of increased sweating. Complains of lethargy. * Vitals: BP is 94/58, and was tachyacrdic overnight, with HR up to 118. Is 100 this morning. * Examination is benign. Pleurx catheter in place. Site does not look infected. * White cell count was 28 and admission trended down to 25.2 yesterday we will check CBC today. * Is on IV vancomycin and IV cefepime. Will continue. * Blood Cultures are pending. Urine cultures negative so far. Pleural fluid cultures are also negative. Urine for Strep and legionella are negative also * We will give IV fluids at 100 cc/h. * ID on board 2. Left pleural effusion due to non small cell left lung ca * s/p Pleurx catheter placement; to be drained every 48 hours * * 3. Nonsmall cell lung cancer: is on chemotherapy. Has had 3 sessions of chemo so far. Oncology on board. 4. Hyponatremia: was 130 on admission, went up to 133 yesterday. Is up to 134 today. In light of mild hypotension and tachycardia, may be due to hypovolemic hyponatremia. Will continue IVF 5. Hypokalemia: K is 3.1. Will replace and mnitor 6. DVT prophylaxis: heparin This note was generated with [employer] Appation software. It may contain incorrect words, spelling, and punctuation that were not noted in checking the note before signing. Code Visit Inpatient E&M: 26240 Subs Hosp L3
[2017-08-28 12:07] LABS: Anion Gap 9 (5-15); BUN 7 mg/dL (7-18); BUN/Creat Ratio 12.3 RATIO (10-20); Calcium,Total 8.4 mg/dL (8.5-10.1); Chloride 98 mmol/L (98-107); Creatinine, Serum 0.57 mg/dL (0.55-1.02); EST Glomerular Filtration Rate 123 mL/min (>60); Est Glom Filt Rate - Afr Amer 148 mL/min (>60); Estimated Creatinine Clearance 107.05 ml/min; Glucose 154 mg/dL (74-106); Potassium 3.1 mmol/L (3.5-5.1); Sodium Level 134 mmol/L (136-145)
[2017-08-28 12:17] LABS: Absolute Lymphocyte Count 1.97 X10^3/ul (0.83-4.51); Absolute Neutrophil Count 20.3 X10^3/uL (2.0-7.7); Basophil# 0.02 X10^3/uL; Basophil% 0.1 % (0-1); Eosinophil# 0.06 X10^3/uL; Eosinophils% 0.3 % (0-5); Hematocrit 29.9 % (37-47); Hemoglobin 9.1 g/dl (12.0-15.0); Lymphocyte # 1.97 X10^3/ul (4.0); Lymphocyte % 8.5 % (19-41); Mean Corp Hgb Conc 30.4 g/gl (32-36); Mean Corpuscular Hgb 25.8 pg (27.0-32.0); Mean Corpuscular Volume 84.7 fL (81-99); Mean Platelet Vol. 8.2 fl (6.2-12.0); Monocyte# 0.05 X10^3/uL; Monocyte% 0.2 % (0-10); Neutrophil # 20.28 X10^3/uL (2.7-7.7); Neutrophil % 87.8 % (47-70); Platelet Count 579 K/mm3 (150-450); RBC Distribution Width CV 19.1 % (11.6-14.6); RBC Distribution Width SD 59.2 fl (35.1-43.9); Red Blood Count 3.53 M/mm3 (4.2-5.4); White Blood Count 23.1 K/mm3 (4.4-11.0)
[2017-08-28 12:18] LABS: Differential Indicated SCAN CRITERIA MET; POSITIVE COUNT YES; POSITIVE DIFFERENTIAL YES; POSITIVE MORPHOLOGY YES
[2017-08-28 12:19] LABS: Platelet Estimate SLT INC (ADEQ)
[2017-08-28 12:20] LABS: Hypersegmented Neutrophils RARE
[2017-08-28 19:35] LABS: Anion Gap 8 (5-15); BUN 6 mg/dL (7-18); BUN/Creat Ratio 11.4 RATIO (10-20); Calcium,Total 8.2 mg/dL (8.5-10.1); Chloride 101 mmol/L (98-107); Creatinine, Serum 0.53 mg/dL (0.55-1.02); EST Glomerular Filtration Rate 134 mL/min (>60); Est Glom Filt Rate - Afr Amer 162 mL/min (>60); Estimated Creatinine Clearance 115.13 ml/min; Glucose 144 mg/dL (74-106); Potassium 3.9 mmol/L (3.5-5.1); Sodium Level 134 mmol/L (136-145)
[2017-08-28] MEDS: OLANZapine 2.5 MG Tablet 7.5 MG PO (20:06)
[2017-08-29] VITALS (12 sets, daily range): BP systolic 91–108; BP diastolic 46–53; PULSE 90–113; RESP 16–18; TEMP 36.9–37.9; O2SAT 90–99
[2017-08-29] MEDS: Dext 5%-0.45% NS 1,000 ML 150 ML IV ×3 (00:24→15:56)
[2017-08-29] MEDS: Acetaminophen 500 MG Tablet 1000 MG PO ×2 (06:09→13:11)
[2017-08-29 06:43] LABS: Anion Gap 9 (5-15); BUN 6 mg/dL (7-18); BUN/Creat Ratio 10.7 RATIO (10-20); Calcium,Total 8.4 mg/dL (8.5-10.1); Chloride 99 mmol/L (98-107); Creatinine, Serum 0.56 mg/dL (0.55-1.02); EST Glomerular Filtration Rate 124 mL/min (>60); Est Glom Filt Rate - Afr Amer 150 mL/min (>60); Estimated Creatinine Clearance 108.96 ml/min; Glucose 111 mg/dL (74-106); Potassium 3.7 mmol/L (3.5-5.1); Sodium Level 133 mmol/L (136-145)
[2017-08-29 06:56] LABS: Hematocrit 26.6 % (37-47); Hemoglobin 8.1 g/dl (12.0-15.0); Mean Corp Hgb Conc 30.5 g/gl (32-36); Mean Corpuscular Hgb 25.8 pg (27.0-32.0); Mean Corpuscular Volume 84.7 fL (81-99); Mean Platelet Vol. 8.6 fl (6.2-12.0); Platelet Count 552 K/mm3 (150-450); RBC Distribution Width CV 18.8 % (11.6-14.6); RBC Distribution Width SD 56.2 fl (35.1-43.9); Red Blood Count 3.14 M/mm3 (4.2-5.4); White Blood Count 15.9 K/mm3 (4.4-11.0)
[2017-08-29 06:57] LABS: Differential Indicated MANUAL DIFF; POSITIVE COUNT YES; POSITIVE DIFFERENTIAL NO; POSITIVE MORPHOLOGY YES
[2017-08-29] MEDS: Ipratropium/Albuterol Sulfate 3 ML AMPUL.NEB INHALATION ×2 (07:00→11:36)
[2017-08-29 07:29] LABS: Anisocytosis 1+; Eosinophil 1 % (0-5); Hypochromasia 1+; Lymphocyte 5 % (19-41); Microcytosis 1+; Monocyte 1 % (0-10); Neutrophil-Band 4 % (0-5); Neutrophil-Segmented 89 % (47-70); Total Cells Counted 100 (MANUAL DIFF)
[2017-08-29 07:30] LABS: Hypersegmented Neutrophils 1+; Platelet Estimate MOD INC (ADEQ); Platelet Morphology LARGE
[2017-08-29 07:33] LABS: Absolute Neutrophil Count 14.8 X10^3/uL (2.0-7.7)
[2017-08-29] MEDS: Ondansetron 4 MG/2 ML Vial IV ×2 (07:48→14:06)
[2017-08-29] MEDS: 0.9% NaCl Peripheral Flush Adult/Peds IV (07:48)
--- NOTE | 2017-08-29 08:05 | NURSING ---
Pt medicated with Zofran for nausea. Addressed questions and concerns expressed by pt's and daughter. No further needs at this time.
[2017-08-29] MEDS: Pyridoxine HCl 100 MG Tablet PO (10:13)
[2017-08-29] MEDS: Heparin Injection 5,000 UNITS/ML Syringe 5000 UNITS SC (10:13)
[2017-08-29] MEDS: NYSTATIN 500,000 UNIT/5 ML UDC 500000 UNIT PO ×2 (10:13→14:53)
[2017-08-29] MEDS: proMETHazine 25 MG/ML Syringe 6.25 MG IV (10:27)
--- NOTE | 2017-08-29 10:44 | NURSING ---
Pt beginning to feel nauseated after ambulating to restroom and back to bed. Pt able to take PO medications, phenergan administered for nausea as ordered.
--- NOTE | 2017-08-29 11:08 | PCM.PN.HOSP ---
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 She started chemotherapy 6 days ago and has had 3 sessions over. She presented to the emergency room on 08/25/2017 with fever of 101.8 and had leukocytosis of more than 25,000. She was started on IV cefepime and admitted to the hospital. Oncology and surgery are on board and think this may be due to tumor fever vs post obstructive pneumonia. She has remained stable. Patient seen and examined today and daughter were by her bedside. Patient had no complaints this morning and felt quite well she denied any fever or chills, any shortness of breath and only complained of increased night sweating. She denies any chest pain, abdominal pain, diarrhea vomiting. Review of systems otherwise negative. daughter was very concerned that her mother was still in hospital and ask why she couldnt take her could not be taken home. She said mother had had fever and elevated white cell count ever since she was diagnosed with cancer and questioned why she was still she in hospital. She also expressed concern that her having been on antibiotics for a long time could predispose her to C. difficile which could result in a colostomy. She also mentioned that mother had an appointment with the [facility] oncology center tomorrow to check a magnesium and also for possible blood transfusion. Mother had been seen by Dr. Li tis morning who Said Pleurx Catheter would be drained tomorrow. Vitals/I&O's: Vital Signs Temp Pulse Resp BP Pulse Ox 98.5 F 104 H 18 91/46 L 95 08/29/17 07:45 08/29/17 07:45 08/29/17 07:45 08/29/17 07:45 08/29/17 07:45 Oxygen Flow Rate (L/min) 2 Oxygen Delivery Method Room Air Weight: 118 lb 11.185 oz Body Mass Index (BMI) 20.3 Intake and Output for Last 24 Hours 08/27/17 08/28/17 08/29/17 23:59 23:59 23:59 Intake Total 4278 / 4278 2907 / 2907 2772 / 2772 Output Total 5050 / 5050 1999 Balance -772 / -772 907 / 907 772 / 772 General: Alert, Oriented x3, Cooperative HEENT: Atraumatic, PERRLA, EOMI, Normocephalic Oral: Moist Mucosa Neck: Supple, No JVD, Negative Carotid Bruits Lungs: - - decreased breath sounds in left lower lung calero, with decreased vocal fremitus. Cardiovascular: Regular rate, Regular Rhythm, Normal S1, Normal S2, No murmurs Abdomen: Bowel Sounds Present, Soft, Non Tender, Non-Distended, No Hepato-splenomegaly Extremities: No clubbing, No cyanosis, No edema, Capillary Refill Less than 3 Seconds Skin: No rashes, No breakdown Musculoskeletal: No Tenderness to Palpation of Joints or Extremities Lymphatic: No Cervical, Supraclavicular, or Inguinal Adenopathy Neurological: Cranial nerves II-XII grossly intact Psych/Mental Status: Normal Affect, Appropriate, Alert and oriented to time, place, person, mood and affect Microbiology Past 72 Hours 08/27/17 17:30 Other - Fluid Miscellaneous Culture - Preliminary No growth-Final to follow 08/27/17 17:30 Other - Fluid Gram Stain - Final Laboratory Results 08/28/17 11:25: WBC 23.1 H, RBC 3.53 L, Hgb 9.1 L, Hct 29.9 L, MCV 84.7, MCH 25.8 L, MCHC 30.4 L, RDW 19.1 H, RDW Differential 59.2 H, Plt Count 579 H, MPV 8.2, Immature Gran % (Auto) 3.100 H, Neut % (Auto) 87.8 H, Lymph % (Auto) 8.5 L, [place] % (Auto) 0.2, Eos % (Auto) 0.3, Baso % (Auto) 0.1, Absolute Neuts (auto) 20.3 H, Absolute Lymphs (auto) 1.97, Total Counted Not Reportable, Diff Path Review May foll, Hypersegmented Neuts RARE, Platelet Estimate SLT INC 08/28/17 11:25: Sodium 134 L, Potassium 3.1 L, Chloride 98, Carbon Dioxide 27.0, Anion Gap 9, BUN 7, Creatinine 0.57, Estim Creat Clear Calc 107.05, Est GFR (MDRD) Af Amer 148, Est GFR (MDRD) Non-Af 123, BUN/Creatinine Ratio 12.3, Glucose 154 H, Calcium 8.4 L 08/28/17 18:35: Sodium 134 L, Potassium 3.9, Chloride 101, Carbon Dioxide 25.0, Anion Gap 8, BUN 6 L, Creatinine 0.53 L, Estim Creat Clear Calc 115.13, Est GFR (MDRD) Af Amer 162, Est GFR (MDRD) Non-Af 134, BUN/Creatinine Ratio 11.4, Glucose 144 H, Calcium 8.2 L 08/29/17 05:30: WBC 15.9 H, RBC 3.14 L, Hgb 8.1 L, Hct 26.6 L, MCV 84.7, MCH 25.8 L, MCHC 30.5 L, RDW 18.8 H, RDW Differential 56.2 H, Plt Count 552 H, MPV 8.6, Neut % (Auto) Not Reportable, Absolute Neuts (auto) 14.8 H, Absolute Lymphs (auto) 1.00, Total Counted 100, Neutrophils % (Manual) 89 H, Band Neutrophils % 4, Lymphocytes % (Manual) 5 L, Monocytes % (Manual) 1, Eosinophils % (Manual) 1, Diff Path Review May foll, Hypersegmented Neuts 1+ H, Platelet Estimate MOD INC, Plt Morphology Comment LARGE, Hypochromasia 1+, Anisocytosis 1+, Microcytosis 1+ 08/29/17 05:30: Sodium 133 L, Potassium 3.7, Chloride 99, Carbon Dioxide 25.0, Anion Gap 9, BUN 6 L, Creatinine 0.56, Estim Creat Clear Calc 108.96, Est GFR (MDRD) Af Amer 150, Est GFR (MDRD) Non-Af 124, BUN/Creatinine Ratio 10.7, Glucose 111 H, Calcium 8.4 L Current Medications Acetaminophen (Tylenol) 1,000 mg PO Q8 [facility] Last Admin: 08/29/17 06:09 Dose: 1,000 mg Albuterol/Ipratropium (Duoneb) 3 ml INHALATION Q4H.RT [facility] Last Admin: 08/29/17 07:00 Dose: 3 ml Bisacodyl (Dulcolax) 10 mg PO DAILY PRN PRN PRN Reason: Constipation Docusate Sodium (Colace) 200 mg PO BID PRN PRN PRN Reason: Constipation Famotidine (Pepcid) 20 mg PO BID PRN PRN Reason: DYSPEPSIA Fentanyl Citrate (Sublimaze (100mcg Ampule)) 25 mcg IV Q3H PRN PRN PRN Reason: SEVERE PAIN (6-10/10) Guaifenesin (Mucinex) 1,200 mg PO BID [facility] Last Admin: 08/29/17 10:07 Dose: Not Given Heparin Sodium (Porcine) () 5,000 units SC BID [facility] Last Admin: 08/29/17 10:13 Dose: 5,000 units Dextrose/Sodium Chloride () 1,000 mls @ 150 mls/hr IV .Q6H40M [facility] Last Admin: 08/29/17 08:38 Dose: 150 mls/hr Cefepime HCl 1 gm/ Sodium (Chloride) 50 mls @ 100 mls/hr IV Q12 [facility] Last Admin: 08/29/17 10:14 Dose: 100 mls/hr Vancomycin HCl (Vancomycin) 1,000 mg in 200 mls @ 200 mls/hr IV Q12H [facility] Last Admin: 08/29/17 04:32 Dose: 200 mls/hr Lactobacillus Acidophilus (Acidophilus) 2 tablet PO DAILY [facility] Last Admin: 08/29/17 10:13 Dose: 2 tablet Magnesium Hydroxide (Milk Of Magnesia) 30 ml PO DAILY PRN PRN PRN Reason: Constipation Nutritional Formula (Lactose Free) (Ensure Enlive) 120 ml PO 4X/DAY [facility] Last Admin: 08/29/17 10:07 Dose: Not Given Nystatin (Nystatin) 500,000 unit PO 4X/DAY [facility] Last Admin: 08/29/17 10:13 Dose: 500,000 unit Olanzapine (Zyprexa) 7.5 mg PO QHS [facility] Last Admin: 08/28/17 20:06 Dose: 7.5 mg Ondansetron HCl (Zofran) 4 mg IV Q6H PRN PRN PRN Reason: nausea, emesis Last Admin: 08/29/17 07:48 Dose: 4 mg Oxycodone HCl (Oxyir) 5 mg PO Q4H PRN PRN PRN Reason: Moderate Pain (pain scale 4-5) Last Admin: 08/26/17 20:34 Dose: 5 mg Promethazine HCl (Phenergan Iv) 6.25 mg IV Q4H PRN PRN PRN Reason: NAUSEA/VOMITING Last Admin: 08/29/17 10:27 Dose: 6.25 mg Pyridoxine HCl (Vitamin B-6) 100 mg PO DAILY [facility] Last Admin: 08/29/17 10:13 Dose: 100 mg Sodium Chloride () 5 - 30 ml IV UD PRN PRN Reason: SALINE FLUSH Last Admin: 08/29/17 07:48 Dose: 10 ml Medical Necessity - Tobacco Use Smoking Status: Former smoker Assessment/Plan 1. Fever of unknown etiology in an immunocompromised patient, possibly due to tumor fever vs postobstructive pneumonia patient looks much better today,a nd feels much better. still remains mildly tachycardic, with HR in 100s,a nd BP ~ 91/46 this morning. wbc today is 15.9 on IV vancomycin and cefepime. Today is day 4. on IVF NS @ 100cc/hr. Will give bolus of NS 500cc once. I spoke to family extensively and addressed their concerns. They were concerned because patient has had elevated white cell count and fever since May, and so didnt see why she should be in the hospital. THey were also concerned that she was at risk of C DIff and getting a colostomy since she had been on antibiotics for quite a long time. I explained to daughter and that her current fever was thought to be due to tumor fever vs post obstructive pneumonia, hence the antibiotics. I also explained that whilst she was at increased risk of C Diff due to the antibiotics, she was also immunosuppressed because of the chemotherapy and cancer, and was at increased risk of infection. She therefore needed the antibiotics. Daughter mentioned taht mother had an appointment at [facility] tomorrow for Mg and Hb check. I counselled that if patient was still inpatient at [facility] tomorrow, we would check her Mg and Hb to see if she needed a blood transfusion. Dr Schulz (covering for Dr Stahl) called on phone. He will come in and see patient today. Blood Cultures are pending. Urine cultures negative so far. Pleural fluid cultures are also negative. Urine for Strep and legionella are negative also We will give IV fluids at 100 cc/h. ID on board Dr Schulz spoke to family extensively, and decision was made to dc antibiotics, and to discharge home today. 2. Left pleural effusion due to non small cell left lung ca s/p Pleurx catheter placement; to be drained every 48 hours. Next drain is tomorrow. 3. Nonsmall cell lung cancer: is on chemotherapy. Has had 3 sessions of chemo so far. Next chemo session is 09/13/17. Oncology on board. 4. Hyponatremia:s 133 today. . Will continue IVF 5. Hypokalemia: resolved. 6. DVT prophylaxis: heparin Code status: full code Disposition: will dc home today. to follow up with oncologist at [facility] tomorrow for Mg and Hb check. This note was generated with [employer] dictation software. It may contain incorrect words, spelling, and punctuation that were not noted in checking the note before signing. Code Visit Inpatient E&M: 40297 Subs Hosp L3
--- NOTE | 2017-08-29 11:20 | PN_ITS ---
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 She started chemotherapy 6 days ago and has had 3 sessions over. She presented to the emergency room on 08/25/2017 with fever of 101.8 and had leukocytosis of more than 25,000. She was started on IV cefepime and admitted to the hospital. Oncology and surgery are on board and think this may be due to tumor fever vs post obstructive pneumonia. She has remained stable. Patient seen and examined today and daughter were by her bedside. Patient had no complaints this morning and felt quite well she denied any fever or chills, any shortness of breath and only complained of increased night sweating. She denies any chest pain, abdominal pain, diarrhea vomiting. Review of systems otherwise negative. daughter was very concerned that her mother was still in hospital and ask why she couldnt take her could not be taken home. She said mother had had fever and elevated white cell count ever since she was diagnosed with cancer and questioned why she was still she in hospital. She also expressed concern that her having been on antibiotics for a long time could predispose her to C. difficile which could result in a colostomy. She also mentioned that mother had an appointment with the [facility] oncology center tomorrow to check a magnesium and also for possible blood transfusion. Mother had been seen by Dr. Li tis morning who Said Pleurx Catheter would be drained tomorrow. Vitals/I&O's: Vital Signs Temp Pulse Resp BP Pulse Ox 98.5 F 104 H 18 91/46 L 95 08/29/17 07:45 08/29/17 07:45 08/29/17 07:45 08/29/17 07:45 08/29/17 07:45 Oxygen Flow Rate (L/min) 2 Oxygen Delivery Method Room Air Weight: 118 lb 11.185 oz Body Mass Index (BMI) 20.3 Intake and Output for Last 24 Hours 08/27/17 08/28/17 08/29/17 23:59 23:59 23:59 Intake Total 4278 / 4278 2907 / 2907 2772 / 2772 Output Total 5050 / 5050 1999 Balance -772 / -772 907 / 907 772 / 772 General: Alert, Oriented x3, Cooperative HEENT: Atraumatic, PERRLA, EOMI, Normocephalic Oral: Moist Mucosa Neck: Supple, No JVD, Negative Carotid Bruits Lungs: - - decreased breath sounds in left lower lung calero, with decreased vocal fremitus. Cardiovascular: Regular rate, Regular Rhythm, Normal S1, Normal S2, No murmurs Abdomen: Bowel Sounds Present, Soft, Non Tender, Non-Distended, No Hepato- splenomegaly Extremities: No clubbing, No cyanosis, No edema, Capillary Refill Less than 3 Seconds Skin: No rashes, No breakdown Musculoskeletal: No Tenderness to Palpation of Joints or Extremities Lymphatic: No Cervical, Supraclavicular, or Inguinal Adenopathy Neurological: Cranial nerves II-XII grossly intact Psych/Mental Status: Normal Affect, Appropriate, Alert and oriented to time, place, person, mood and affect Microbiology Past 72 Hours 08/27/17 17:30 Other - Fluid Miscellaneous Culture - Preliminary No growth-Final to follow 08/27/17 17:30 Other - Fluid Gram Stain - Final Laboratory Results 08/28/17 11:25: WBC 23.1 H, RBC 3.53 L, Hgb 9.1 L, Hct 29.9 L, MCV 84.7, MCH 25.8 L, MCHC 30.4 L, RDW 19.1 H, RDW Differential 59.2 H, Plt Count 579 H, MPV 8.2, Immature Gran % (Auto) 3.100 H, Neut % (Auto) 87.8 H, Lymph % (Auto) 8.5 L , [place] % (Auto) 0.2, Eos % (Auto) 0.3, Baso % (Auto) 0.1, Absolute Neuts (auto) 20.3 H, Absolute Lymphs (auto) 1.97, Total Counted Not Reportable, Diff Path Review May foll, Hypersegmented Neuts RARE, Platelet Estimate SLT INC 08/28/17 11:25: Sodium 134 L, Potassium 3.1 L, Chloride 98, Carbon Dioxide 27.0 , Anion Gap 9, BUN 7, Creatinine 0.57, Estim Creat Clear Calc 107.05, Est GFR ( MDRD) Af Amer 148, Est GFR (MDRD) Non-Af 123, BUN/Creatinine Ratio 12.3, Glucose 154 H, Calcium 8.4 L 08/28/17 18:35: Sodium 134 L, Potassium 3.9, Chloride 101, Carbon Dioxide 25.0, Anion Gap 8, BUN 6 L, Creatinine 0.53 L, Estim Creat Clear Calc 115.13, Est GFR (MDRD) Af Amer 162, Est GFR (MDRD) Non-Af 134, BUN/Creatinine Ratio 11.4, Glucose 144 H, Calcium 8.2 L 08/29/17 05:30: WBC 15.9 H, RBC 3.14 L, Hgb 8.1 L, Hct 26.6 L, MCV 84.7, MCH 25.8 L, MCHC 30.5 L, RDW 18.8 H, RDW Differential 56.2 H, Plt Count 552 H, MPV 8.6, Neut % (Auto) Not Reportable, Absolute Neuts (auto) 14.8 H, Absolute Lymphs (auto) 1.00, Total Counted 100, Neutrophils % (Manual) 89 H, Band Neutrophils % 4, Lymphocytes % (Manual) 5 L, Monocytes % (Manual) 1, Eosinophils % (Manual) 1, Diff Path Review May foll, Hypersegmented Neuts 1+ H, Platelet Estimate MOD INC, Plt Morphology Comment LARGE, Hypochromasia 1+, Anisocytosis 1+, Microcytosis 1+ 08/29/17 05:30: Sodium 133 L, Potassium 3.7, Chloride 99, Carbon Dioxide 25.0, Anion Gap 9, BUN 6 L, Creatinine 0.56, Estim Creat Clear Calc 108.96, Est GFR ( MDRD) Af Amer 150, Est GFR (MDRD) Non-Af 124, BUN/Creatinine Ratio 10.7, Glucose 111 H, Calcium 8.4 L Current Medications Acetaminophen (Tylenol) 1,000 mg PO Q8 [facility] Last Admin: 08/29/17 06:09 Dose: 1,000 mg Albuterol/Ipratropium (Duoneb) 3 ml INHALATION Q4H.RT [facility] Last Admin: 08/29/17 07:00 Dose: 3 ml Bisacodyl (Dulcolax) 10 mg PO DAILY PRN PRN PRN Reason: Constipation Docusate Sodium (Colace) 200 mg PO BID PRN PRN PRN Reason: Constipation Famotidine (Pepcid) 20 mg PO BID PRN PRN Reason: DYSPEPSIA Fentanyl Citrate (Sublimaze (100mcg Ampule)) 25 mcg IV Q3H PRN PRN PRN Reason: SEVERE PAIN (6-10/10) Guaifenesin (Mucinex) 1,200 mg PO BID [facility] Last Admin: 08/29/17 10:07 Dose: Not Given Heparin Sodium (Porcine) () 5,000 units SC BID [facility] Last Admin: 08/29/17 10:13 Dose: 5,000 units Dextrose/Sodium Chloride () 1,000 mls @ 150 mls/hr IV .Q6H40M [facility] Last Admin: 08/29/17 08:38 Dose: 150 mls/hr Cefepime HCl 1 gm/ Sodium (Chloride) 50 mls @ 100 mls/hr IV Q12 [facility] Last Admin: 08/29/17 10:14 Dose: 100 mls/hr Vancomycin HCl (Vancomycin) 1,000 mg in 200 mls @ 200 mls/hr IV Q12H [facility] Last Admin: 08/29/17 04:32 Dose: 200 mls/hr Lactobacillus Acidophilus (Acidophilus) 2 tablet PO DAILY [facility] Last Admin: 08/29/17 10:13 Dose: 2 tablet Magnesium Hydroxide (Milk Of Magnesia) 30 ml PO DAILY PRN PRN PRN Reason: Constipation Nutritional Formula (Lactose Free) (Ensure Enlive) 120 ml PO 4X/DAY [facility] Last Admin: 08/29/17 10:07 Dose: Not Given Nystatin (Nystatin) 500,000 unit PO 4X/DAY [facility] Last Admin: 08/29/17 10:13 Dose: 500,000 unit Olanzapine (Zyprexa) 7.5 mg PO QHS [facility] Last Admin: 08/28/17 20:06 Dose: 7.5 mg Ondansetron HCl (Zofran) 4 mg IV Q6H PRN PRN PRN Reason: nausea, emesis Last Admin: 08/29/17 07:48 Dose: 4 mg Oxycodone HCl (Oxyir) 5 mg PO Q4H PRN PRN PRN Reason: Moderate Pain (pain scale 4-5) Last Admin: 08/26/17 20:34 Dose: 5 mg Promethazine HCl (Phenergan Iv) 6.25 mg IV Q4H PRN PRN PRN Reason: NAUSEA/VOMITING Last Admin: 08/29/17 10:27 Dose: 6.25 mg Pyridoxine HCl (Vitamin B-6) 100 mg PO DAILY [facility] Last Admin: 08/29/17 10:13 Dose: 100 mg Sodium Chloride () 5 - 30 ml IV UD PRN PRN Reason: SALINE FLUSH Last Admin: 08/29/17 07:48 Dose: 10 ml Medical Necessity - Tobacco Use Smoking Status: Former smoker Assessment/Plan 1. Fever of unknown etiology in an immunocompromised patient, possibly due to tumor fever vs postobstructive pneumonia * patient looks much better today,a nd feels much better. * still remains mildly tachycardic, with HR in 100s,a nd BP ~ 91/46 this morning. * wbc today is 15.9 * on IV vancomycin and cefepime. Today is day 4. * on IVF NS @ 100cc/hr. Will give bolus of NS 500cc once. * I spoke to family extensively and addressed their concerns. They were concerned because patient has had elevated white cell count and fever since May, and so didnt see why she should be in the hospital. THey were also concerned that she was at risk of C DIff and getting a colostomy since she had been on antibiotics for quite a long time. I explained to daughter and that her current fever was thought to be due to tumor fever vs post obstructive pneumonia, hence the antibiotics. I also explained that whilst she was at increased risk of C Diff due to the antibiotics, she was also immunosuppressed because of the chemotherapy and cancer, and was at increased risk of infection. She therefore needed the antibiotics. Daughter mentioned taht mother had an appointment at [facility] tomorrow for Mg and Hb check. I counselled that if patient was still inpatient at [facility] tomorrow, we would check her Mg and Hb to see if she needed a blood transfusion. * Dr Schulz (covering for Dr Stahl) called on phone. He will come in and see patient today. * Blood Cultures are pending. Urine cultures negative so far. Pleural fluid cultures are also negative. Urine for Strep and legionella are negative also * We will give IV fluids at 100 cc/h. * ID on board * Dr Schulz spoke to family extensively, and decision was made to dc antibiotics, and to discharge home today. 2. Left pleural effusion due to non small cell left lung ca * s/p Pleurx catheter placement; to be drained every 48 hours. Next drain is tomorrow. * * 3. Nonsmall cell lung cancer: is on chemotherapy. Has had 3 sessions of chemo so far. Next chemo session is 09/13/17. Oncology on board. 4. Hyponatremia:s 133 today. . Will continue IVF 5. Hypokalemia: resolved. 6. DVT prophylaxis: heparin Code status: full code Disposition: will dc home today. to follow up with oncologist at [facility] tomorrow for Mg and Hb check. This note was generated with [employer] dictation software. It may contain incorrect words, spelling, and punctuation that were not noted in checking the note before signing. Code Visit Inpatient E&M: 63129 Subs Hosp L3
--- NOTE | 2017-08-29 13:02 | PCM.PROGNOTE ---
Subjective: Reviewed course with patient, hospital team. FUO, thought due to tumor fever. patient was admitted with this and lethargy. lethargy is better. fever persists. discussed with team, we can stop antibiotics. No BM in 5 days. will try to get bowels moving, OK for discharge at that point I think. she has follow up with Dr. Obrien tomorrow. - Physical Exam General: Oriented x3, Cooperative, No apparent distress HEENT: PERRLA Oral: Moist Mucosa Vital Signs Temp Pulse Resp BP Pulse Ox 98.5 F 109 H 18 91/46 L 95 08/29/17 07:45 08/29/17 11:36 08/29/17 11:36 08/29/17 07:45 08/29/17 07:45 Oxygen Flow Rate (L/min) 2 Oxygen Delivery Method Room Air Weight: 53.841 kg Body Mass Index (BMI) 20.3 Intake and Output for Last 24 Hours 08/27/17 08/28/17 08/29/17 23:59 23:59 23:59 Intake Total 4278 / 4278 2907 / 2907 2772 / 2772 Output Total 5050 / 5050 1999 Balance -772 / -772 907 / 907 772 / 772 Microbiology Past 72 Hours 08/27/17 17:30 Miscellaneous Culture - Preliminary Other - Fluid No growth-Final to follow Gram Stain - Final Laboratory Tests Past 24 Hrs 08/28/17 08/29/17 08/29/17 18:35 05:30 05:30 WBC 15.9 H RBC 3.14 L Hgb 8.1 L Hct 26.6 L MCV 84.7 MCH 25.8 L MCHC 30.5 L RDW 18.8 H RDW Differential 56.2 H Plt Count 552 H MPV 8.6 Neut % (Auto) Not Reportable Absolute Neuts (auto) 14.8 H Absolute Lymphs (auto) 1.00 Total Counted 100 Neutrophils % (Manual) 89 H Band Neutrophils % 4 Lymphocytes % (Manual) 5 L Monocytes % (Manual) 1 Eosinophils % (Manual) 1 Diff Path Review May foll Hypersegmented Neuts 1+ H Platelet Estimate MOD INC Plt Morphology Comment LARGE Hypochromasia 1+ Anisocytosis 1+ Microcytosis 1+ Sodium 134 L 133 L Potassium 3.9 3.7 Chloride 101 99 Carbon Dioxide 25.0 25.0 Anion Gap 8 9 BUN 6 L 6 L Creatinine 0.53 L 0.56 Estim Creat Clear Calc 115.13 108.96 Est GFR (MDRD) Af Amer 162 150 Est GFR (MDRD) Non-Af 134 124 BUN/Creatinine Ratio 11.4 10.7 Glucose 144 H 111 H Calcium 8.2 L 8.4 L Medical Necessity - Tobacco Use Smoking Status: Former smoker
[2017-08-29] MEDS: Magnesium Hydroxide 30 ML UDC PO (14:51)
--- NOTE | 2017-08-29 15:11 | NURSING ---
Pt's daughter expressed that Dr Vickers mentioned he would place order for an additional antiemetic, but uncertain of name of medication. No new orders for antiemetics listed. Called Dr Vickers and took verbal order for Compazine 10mg PO Q6H PRN Nausea. Informed pt of new order. Pt also given Milk of Mag for constipation. Informed her to notify nurse if she has a bowel movement.
--- NOTE | 2017-08-29 16:38 | PCM.DC ---
- Discharge Diagnoses Current Active Problems: Current Active and Chronic Problems Non-small cell cancer of left lung (Chronic) Status post chemotherapy 08/23,08/24,08/25/17 cisplatin/etoposide Chronic hypoxemic respiratory failure (Chronic) O2 at 2 liters You will use the following diet at home:: No restrictions Your food should be the consistency of: Regular Your liquids should be the consistency of: Regular/Thin Discharge Activity: Return to Normal Activity May resume sexual activity in: No Restrictions Weight Bearing Status: Weight bearing as tolerated Call your doctor if you observe: Fever of 101 or Higher Allergies/Adverse Reactions: Allergies codeine Adverse Reaction (Verified 08/26/17 15:18) Nausea hydrocodone Adverse Reaction (Verified 08/26/17 15:18) Nausea miconazole [From Monistat 1 Combo Pack] Adverse Reaction (Verified 08/26/17 15:18) Swelling Medications to take at Discharge Progesterone,Micronized [Endometrin] 150 mg PO QHS 07/03/17 Testosterone 10 mg TOPICAL QHS 07/03/17 Albuterol Sulfate [Ventolin Hfa] 2 puff IH Q4H PRN PRN 08/14/17 Pyridoxine HCl [Vitamin B-6] 1 tab PO DAILY 08/14/17 Cefdinir [Omnicef [equiv]] 300 mg PO Q12H #14 cap 08/16/17 Albuterol Aerosols [Ventolin Aerosols] 2.5 mg INHALATION Q4H PRN PRN #120 vial 08/17/17 Olanzapine [Zyprexa] 7.5 mg PO QHS 08/26/17 Nystatin 500,000 unit PO 4X/DAY #30 [facility] 08/29/17 Prochlorperazine Maleate [Compazine] 10 mg PO 4X/DAY PRN PRN #30 tab 08/29/17 The following prescriptions were given: Prochlorperazine Maleate [Compazine] 10 mg PO 4X/DAY PRN PRN #30 tab PRN Reason: Nausea Nystatin 500,000 unit PO 4X/DAY #30 [facility] Primary Care Physician: Remigio Valdez MD [Primary Care Provider] - Please follow up with your Primary Care Physician in: one week When: please follow up with your oncologist tomorrow () at [facility]
--- NOTE | 2017-08-29 16:54 | PCM.DC.SUM ---
Discharge Date and Diagnosis Date of Admission: 08/26/17 Date of Discharge: 08/29/17 - Primary Discharge Diagnosis non small cell lung cancer. fever and leucocytosis- likely tumor fever - Secondary Discharge Diagnosis Chronic Problems Lung mass (Chronic) Neutrophilic leukocytosis (Chronic) Pleural effusion, left (Chronic) presence of L pleurX catheter drains Q48 hours Non-small cell cancer of left lung (Chronic) Status post chemotherapy 08/23,08/24,08/25/17 cisplatin/etoposide Chronic hypoxemic respiratory failure (Chronic) O2 at 2 liters Hospital Course and Treatment Operations: None, - - left tunneled thoracic catheter placement Procedures: None Summary of Care Provided: nicole is a 42-year-old female with a history of non-small cell consult of the left lung with left pleural effusion status post Pleurx catheter placement. She started chemotherapy 6 days ago and has had 3 sessions over. She presented to the emergency room on 08/25/2017 with fever of 101.8 and had leukocytosis of more than 25,000. She was started on IV cefepime and admitted to the hospital. Oncology and surgery were consulted and thought the fever may be due to tumor fever vs post obstructive pneumonia. Blood cultures and urine cultures were negative throughout stay and pleural fluid cultures were also negative. Patient remained stable and antibiotics were discontinued on 08/29/17. She was discharged home on 08/29/17, to follow up with PCP and with her oncologist on 08/30/17 at [facility] for check of Mg and Hgb level. Discharge Diet: No Restrictions Discharge Activity: Return to Normal Activity May resume sexual activity in: No Restrictions Weight Bearing Status: Weight bearing as tolerated Call your doctor if you observe: Fever of 101 or Higher Home Medications: Medications to take at Discharge Progesterone,Micronized [Endometrin] 150 mg PO QHS 07/03/17 Testosterone 10 mg TOPICAL QHS 07/03/17 Albuterol Sulfate [Ventolin Hfa] 2 puff IH Q4H PRN PRN 08/14/17 Pyridoxine HCl [Vitamin B-6] 1 tab PO DAILY 08/14/17 Cefdinir [Omnicef [equiv]] 300 mg PO Q12H #14 cap 08/16/17 Albuterol Aerosols [Ventolin Aerosols] 2.5 mg INHALATION Q4H PRN PRN #120 vial 08/17/17 Olanzapine [Zyprexa] 7.5 mg PO QHS 08/26/17 Nystatin 500,000 unit PO 4X/DAY #30 udc 08/29/17 Prochlorperazine Maleate [Compazine] 10 mg PO 4X/DAY PRN PRN #30 tab 08/29/17 Following Prescrptions Were Given to Patient: Prochlorperazine Maleate [Compazine] 10 mg PO 4X/DAY PRN PRN #30 tab PRN Reason: Nausea Nystatin 500,000 unit PO 4X/DAY #30 udc Primary Care Physician: Remigio Valdez MD [Primary Care Provider] - Please follow up with your Primary Care Physician in: one week When: please follow up with your oncologist tomorrow () at [facility] Disposition: Home Minutes spent on discharge:: 45 Patient Condition:: Good Medical Necessity - Tobacco Use Smoking Status: Former smoker Meaningful Use Info Meaningful Use Diagnoses (Choose all that apply): None applicable Code Visit Inpatient E&M: 78598 Disch Hosp
--- NOTE | 2017-08-29 18:55 | NURSING ---
At 1800, discharge instructions given and explained to pt and family. Prescriptions reviewed and given. All questions and concerns addressed prior to discharge. Pt's IV's d/c'd. Pt tolerated well. Pt has all of her belongings. Pt leaves floor via wheelchair in stable condition.
[2017-08-30 14:29] LABS: Pathologist Review Reviewed
[2017-08-30 14:39] LABS: Pathologist Review Reviewed
[2017-08-30 14:44] LABS: Pathologist Review Reviewed
== END 2017-08-29 18:15 | disposition home or self-care (01) | DRG 180 ==
LOC: ED 15:54 → MS3 18:40
PROVIDERS: Admitting Provider Internal Medicine; Emergency Provider Emergency Medicine; Family Provider Family Medicine; PCP Family Medicine; Visit Provider Student in an Organized Health Care Education/Training Program
DX: C34.92 Malignant neoplasm of unspecified part of left bronchus or lung (principal); J18.9 Pneumonia, unspecified organism; J91.0 Malignant pleural effusion; J96.11 Chronic respiratory failure with hypoxia; E87.1 Hypo-osmolality and hyponatremia; R50.81 Fever presenting with conditions classified elsewhere; E87.6 Hypokalemia; E86.0 Dehydration; I73.00 Raynaud's syndrome without gangrene; Z79.899 Other long term (current) drug therapy; Z99.81 Dependence on supplemental oxygen; Z87.01 Personal history of pneumonia (recurrent); Z87.891 Personal history of nicotine dependence
CPT/HCPCS: 36415; 71045; 80048; 80053; 81001; 83605; 83735; 85025; 85610; 85730; 86850; 86900; 87040; 87070; 87086; 87205; 87449; 93005; 94640; 97110; 97162; 97166; 97530; 97802; 99285; J7030; J7040; J7050; A4216; J2405; J7799

== ENCOUNTER 2017-09-07 05:56 | Day surgery (SDC) | payer OTHER, SELFPAY ==
[2017-09-07] VITALS (7 sets, daily range): BP systolic 84–90; BP diastolic 50–60; PULSE 87–95; RESP 16; TEMP 36.3–36.8; O2SAT 92–95; BMI 18.5
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
[2017-09-07] MEDS: Lactated Ringers 1,000 ML 60 ML IV (06:50)
[2017-09-07] MEDS: Cefazolin 2 GM in 0.9% Normal Saline 100 ML IV (07:20)
[2017-09-07] MEDS: Bupivacaine Mpf 0.5% 30 ML VIAL (07:30)
--- NOTE | 2017-09-07 08:01 | RAD_ITS ---
STUDY: X-RAY CHEST REASON FOR EXAM: Female, 42 years old. Port placement. TECHNIQUE: Single AP portable view of the chest. COMPARISON: Comparison is made with prior study dated August 26, 2017. FINDINGS: A right-sided portacatheter as been placed. The tip is at the junction of the superior vena cava and right atrium. Stable appearance of the soft tissue mass in the region of the aortic knob. Increased markings in the left lung with blunting of the left costophrenic angle. This has improved. Minimal atelectasis at the right lung base. Normal size heart. Normal visualized pulmonary arteries. Normal visualized aortic arch and descending thoracic aorta. Normal visualized thoracic spine. Normal visualized ribs, clavicles, and shoulders. There is no demonstrated abnormality of the visualized soft tissue structures of the upper abdomen. RAD/CXR for Line Placement IMPRESSION: Status post right port placement. The tip is at the junction of the superior vena cava and right atrium. Electronically Signed: Osito Gee MD at 8:42 EDT Tel [phone], Service support ,
--- NOTE | 2017-09-07 08:07 | DCINST_ITS ---
Discharge Diet: No Restrictions - Pain medication may cause nausea. You should typically eat light foods as you take your pain medication. Discharge Activity: Return to Normal Activity, May Shower - with the bandage in place 1-2 days after surgery. DO NOT SHOWER WHEN YOUR PORT IS ACCESSED. Additional Activity Instructions:: May not drive, work with heavy equipment, or sign legal documents for [address] if you are no longer taking narcotic pain medications. You may drive when you are no longer taking pain medications. Additional Dressing/Incision Instructions:: Leave the bandage on for 2-3 days. When you remove the bandage, leave the steri-strips intact until they fall off. Allergies/Adverse Reactions: Allergies codeine Adverse Reaction (Verified 09/06/17 14:28) Nausea hydrocodone Adverse Reaction (Verified 09/06/17 14:28) Nausea miconazole [From Monistat 1 Combo Pack] Adverse Reaction (Verified 09/06/17 14: 28) Swelling Medications to take at Discharge Progesterone,Micronized [Endometrin] 150 mg PO QHS 07/03/17 Testosterone 10 mg TOPICAL QHS 07/03/17 Albuterol Sulfate [Ventolin Hfa] 2 puff IH Q4H PRN PRN 08/14/17 Pyridoxine HCl [Vitamin B-6] 1 tab PO DAILY 08/14/17 Albuterol Aerosols [Ventolin Aerosols] 2.5 mg INHALATION Q4H PRN PRN #120 vial 08/17/17 Prochlorperazine Maleate [Compazine] 10 mg PO 4X/DAY PRN PRN #30 tab 08/29/17 Dicyclomine HCl [Bentyl] 10 mg PO PRN PRN 09/06/17 Ondansetron HCl [Zofran] 4 mg PO PRN PRN 09/06/17 Pantoprazole Sodium [Protonix] 40 mg PO DAILY 09/06/17 Potassium Chloride [Klor-Con 10] 10 meq PO BID 09/06/17 Oxycodone [Oxyir] 5 mg PO Q4H PRN PRN #14 tab 09/07/17 The following prescriptions were given: Oxycodone [Oxyir] 5 mg PO Q4H PRN PRN #14 tab PRN Reason: Pain Primary Care Physician: Remigio Valdez MD [Primary Care Provider] - Please Follow Up With: Barron Li MD - [phone] When: Please plan to follow up in 7 days in the office.
--- NOTE | 2017-09-07 08:07 | PCM.OPRPT ---
Report of Operation Date of Procedure: 09/07/17 Pre-Operative Diagnosis: lung cancer, need for IV access Post-Operative Diagnosis: lung cancer, need for IV access - successful right subclavain portacath Surgery/Procedure Performed:: right subclavian power port with fluoroscopy nail artist: None Type of Anesthesia:: MAC Anesthesiologist: Terry Urbina - ASA3 Specimen's removed: none Estimated Blood Loss (mL): 10 Fluids Replaced: 400 Description of Procedure: The patient was brought to the operating suite. The left subclavian site was marked in the holding area and the patient concurred this was the planned operative site. Sign was performed verifying patient, site, position, skip antibiotic prophylaxis-2 g of Ancef and DVT prophylaxis with SCDs. Following IV sedation, the right neck and chest were prepped and draped in the usual fashion. Timeout was performed verifying patient, site, position. Local anesthetic was injected and a Seldinger needle was used to access the right subclavian vein without difficulty. Under fluoroscopic control, a guidewire was inserted and advanced the SVC RA region. Local anesthetic was injected and incision made and pocket created for the port site. Next the catheter was tunneled from the wire site incision to the port site incision. Under fluoroscopic control introducer sheath and dilator were inserted over the wire. The wire and dilator removed. The catheter was fed through the introducer suture sheath and adjusted to the SVC RA region. There was good return of venous blood and easy inflow of saline through the system. Fluoroscopy demonstrated good positioning of the catheter. Next the catheter was cut to length affixed to the port with the locking ring and secured in the pocket with 2-2-0 Prolene sutures. Subcutaneous fat closed with interrupted 3-0 Vicryl suture. Skin closed with 4-0 Biosyn interrupted and running subcuticular sutures. Fluoroscopy demonstrated good position of the system. The port was accessed. There was good return of venous blood. Inflow of saline was easy. The port was then flushed with 2-3 cc of 100 unit per heparin solution. A dressing was applied. The patient was brought to recovery room in stable condition. Grafts/Implants Used: REF - [id number] EXP 04/22/2019 - Complications 04/22/2019
--- NOTE | 2017-09-07 08:10 | OP.PCM_ITS ---
Report of Operation Date of Procedure: 09/07/17 Pre-Operative Diagnosis: lung cancer, need for IV access Post-Operative Diagnosis: lung cancer, need for IV access - successful right subclavain portacath Surgery/Procedure Performed:: right subclavian power port with fluoroscopy pinion sorter: None Type of Anesthesia:: MAC Anesthesiologist: Terry Urbina - ASA3 Specimen's removed: none Estimated Blood Loss (mL): 10 Fluids Replaced: 400 Description of Procedure: The patient was brought to the operating suite. The left subclavian site was marked in the holding area and the patient concurred this was the planned operative site. Sign was performed verifying patient, site, position, skip antibiotic prophylaxis-2 g of Ancef and DVT prophylaxis with SCDs. Following IV sedation, the right neck and chest were prepped and draped in the usual fashion. Timeout was performed verifying patient, site, position. Local anesthetic was injected and a Seldinger needle was used to access the right subclavian vein without difficulty. Under fluoroscopic control, a guidewire was inserted and advanced the SVC RA region. Local anesthetic was injected and incision made and pocket created for the port site. Next the catheter was tunneled from the wire site incision to the port site incision. Under fluoroscopic control introducer sheath and dilator were inserted over the wire. The wire and dilator removed. The catheter was fed through the introducer suture sheath and adjusted to the SVC RA region. There was good return of venous blood and easy inflow of saline through the system. Fluoroscopy demonstrated good positioning of the catheter. Next the catheter was cut to length affixed to the port with the locking ring and secured in the pocket with 2-2-0 Prolene sutures. Subcutaneous fat closed with interrupted 3-0 Vicryl suture. Skin closed with 4-0 Biosyn interrupted and running subcuticular sutures. Fluoroscopy demonstrated good position of the system. The port was accessed. There was good return of venous blood. Inflow of saline was easy. The port was then flushed with 2-3 cc of 100 unit per heparin solution. A dressing was applied. The patient was brought to recovery room in stable condition. Grafts/Implants Used: REF - [id number] EXP 04/22/2019 - Complications 04/22/2019
== END 2017-09-07 08:55 | disposition home or self-care (01) ==
LOC: SDC 05:59 → AC 05:59
PROVIDERS: Family Provider Family Medicine; PCP Family Medicine; Visit Provider Surgery
PROC: (CPT 36561; principal; 2017-09-07 07:00)
DX: Z45.2 Encounter for adjustment and management of vascular access device (principal); C34.12 Malignant neoplasm of upper lobe, left bronchus or lung; R09.02 Hypoxemia; K58.9 Irritable bowel syndrome, unspecified; K21.9 Gastro-esophageal reflux disease without esophagitis; Z79.899 Other long term (current) drug therapy; Z99.81 Dependence on supplemental oxygen; Z86.2 Personal history of diseases of the blood and blood-forming organs and certain disorders involving the immune mechanism; Z98.51 Tubal ligation status; Z87.891 Personal history of nicotine dependence; I73.00 Raynaud's syndrome without gangrene
CPT/HCPCS: 00532; 36561; 71045; 77001; J7120; C1788

== ENCOUNTER → 2017-09-28 10:43 | Outpatient (CLI) | payer OTHER, SELFPAY ==
[2017-09-28 10:49] VITALS: BP 86/64; PULSE 109; RESP 28; TEMP 37.5; O2SAT 98; BMI 18.0
[2017-09-28] MEDS: Acetaminophen 325 MG Tablet 650 MG PO (11:05)
[2017-09-28 11:23] VITALS: BP 79/57; PULSE 102; RESP 24; TEMP 37.9; O2SAT 98
[2017-09-28 12:23] VITALS: BP 86/59; PULSE 97; RESP 24; TEMP 37.7; O2SAT 97
[2017-09-28 13:11] VITALS: BP 84/53; PULSE 95; RESP 18; TEMP 37.6; O2SAT 97
== END ==
PROVIDERS: Family Provider Family Medicine; PCP Family Medicine; Visit Provider Internal Medicine Hematology & Oncology
DX: Z51.89 Encounter for other specified aftercare (principal); C34.90 Malignant neoplasm of unspecified part of unspecified bronchus or lung; D64.9 Anemia, unspecified
CPT/HCPCS: 36430; 86644; 86850; 86900; 86920; 86922; J7040; P9016; A4216

== ENCOUNTER 2017-11-28 20:59 | Observation (INO) | payer OTHER, SELFPAY ==
[2017-11-28 20:59] VITALS: BP 107/59; PULSE 139; RESP 22; TEMP 39.7; O2SAT 95; BMI 19.4
[2017-11-28 21:12] VITALS: BP 95/54; PULSE 129; RESP 21; O2SAT 95
--- NOTE | 2017-11-28 21:32 | RAD_ITS ---
STUDY: X-RAY CHEST REASON FOR EXAM: Female, 42 years old. Fever. Lymphoma. Recent chemotherapy. TECHNIQUE: Frontal and lateral views of the chest COMPARISON: 08/26/2017 FINDINGS: There is a right-sided port with its tip in the superior vena cava. The lungs are clear. There are no pleural effusions. There is no pneumothorax. The heart is normal in size. There is prominence of the left hilum and perihilar region which is decreased when compared with the prior exam. This likely represents the patient's known lymphoma. The visualized osseous structures are within normal limits. RAD/Chest PA and Lateral IMPRESSION: Prominence of the left hilum and perihilar region which is decreased when compared with the prior exam. This likely represents the patient's known lymphoma. No pulmonary infiltrate or pleural effusion. Electronically Signed: Javi Ceja, at 23:27 EDT Tel , Service support ,
--- NOTE | 2017-11-28 21:33 | EKG12_ITS ---
Test Reason : FEVER Blood Pressure : / mmHG Vent. Rate : 122 BPM Atrial Rate : 122 BPM P-R Int : 114 ms QRS Dur : 064 ms QT Int : 286 ms P-R-T Axes : 039 055 059 degrees QTc Int : 407 ms Sinus tachycardia Low voltage QRS (limb leads) Confirmed by GRISELDA ROSALES, OLAF ([id number]), graphic editor SHITAL SAVAGE ([id number]) on 12/02/2017 1:06:43 PM Referred By: JOHN Confirmed By:OLAF VILLALOBOS MD
[2017-11-28 22:08] VITALS: BP 104/65; PULSE 120; RESP 22; O2SAT 94
[2017-11-28] MEDS: Acetaminophen 500 MG Tablet 1000 MG PO (22:08)
[2017-11-28] MEDS: 0.9% Normal Saline 1,000 ML IV.SOLN. 2000 ML IV (22:08)
[2017-11-28 22:38] LABS: Absolute Neutrophil Count 26.3 X10^3/uL (2.0-7.7); Basophil# 0.02 X10^3/uL; Basophil% 0.1 % (0-1); Differential Indicated SCAN CRITERIA MET; Eosinophil# 0.01 X10^3/uL; Hematocrit 26.4 % (37-47); Hemoglobin 8.1 g/dl (12.0-15.0); Lymphocyte % 4.3 % (19-41); Mean Corp Hgb Conc 30.7 g/gl (32-36); Mean Corpuscular Hgb 30.3 pg (27.0-32.0); Mean Corpuscular Volume 98.9 fL (81-99); Mean Platelet Vol. 8.6 fl (6.2-12.0); Monocyte# 0.25 X10^3/uL; Monocyte% 0.9 % (0-10); Neutrophil # 26.33 X10^3/uL (2.7-7.7); Neutrophil % 94.4 % (47-70); POSITIVE COUNT NO; POSITIVE DIFFERENTIAL YES; POSITIVE MORPHOLOGY NO; Platelet Count 647 K/mm3 (150-450); RBC Distribution Width CV 16.7 % (11.6-14.6); RBC Distribution Width SD 57.1 fl (35.1-43.9); Red Blood Count 2.67 M/mm3 (4.2-5.4); White Blood Count 27.9 K/mm3 (4.4-11.0)
[2017-11-28 22:39] LABS: ALB/GLOB Ratio 0.4 RATIO (0.9-2.4); AST(SGOT) 14 U/L (15-37); Alanine Aminotransfer ALT/SGPT 17 U/L (13-56); Albumin, Serum 2.3 g/dL (3.2-5.0); Alkaline Phosphatase 108 U/L (45-117); Anion Gap 10 (5-15); BUN 17 mg/dL (7-18); BUN/Creat Ratio 19.1 RATIO (10-20); Calcium,Total 9.2 mg/dL (8.5-10.1); Chloride 97 mmol/L (98-107); Creatinine, Serum 0.89 mg/dL (0.55-1.02); EST Glomerular Filtration Rate 73 mL/min (>60); Est Glom Filt Rate - Afr Amer 88 mL/min (>60); Estimated Creatinine Clearance 63.42 ml/min; Globulin 5.2 g/dL (2.2-4.2); Glucose 97 mg/dL (74-106); Potassium 4.1 mmol/L (3.5-5.1); Protein, Total 7.5 g/dL (6.4-8.2); Sodium Level 134 mmol/L (136-145)
[2017-11-28 22:45] LABS: International Normalized Ratio 1.3; Prothrombin Time (Protime)PT. 15.7 SECONDS (11.7-14.9)
[2017-11-28 22:46] LABS: Partial Thromboplast Time 36.5 Seconds (24.1-36.2)
[2017-11-28 22:48] LABS: Lactic Acid 1.8 mmol/L (0.4-2.0)
[2017-11-28 22:54] LABS: Bacteria 0 SEEN /hpf (None Seen); Mucous, Urine 0 SEEN /hpf (<or=2+); White Blood Cells 0 SEEN /hpf (0-5)
[2017-11-28 22:57] LABS: Color, Urine Yellow (Yellow); Glucose, Dipstick Normal (Normal); Ketone-Dipstick Negative (Negative); Leukocyte Esterase-Dipstick Negative /ul (Negative); Nitrite-Dipstick Negative (Negative); Occult Blood-Urine 25 /ul (Negative); Protein-Dipstick 30 mg/dl (Negative); Urine Bilirubin Dipstick Negative (Negative); Urine Clarity Clear (Clear); Urine Urobilinogen Normal (Normal)
[2017-11-28 23:05] LABS: Red Blood Cells-Urine 0-5 SEEN /hpf (0-5); Squamous Epithelial Cells - UA 0-5 SEEN /hpf (5-10)
[2017-11-28 23:06] LABS: Differential Comment SCANNED
[2017-11-28 23:39] VITALS: BP 108/56; PULSE 114; RESP 20; TEMP 39.6; O2SAT 94
[2017-11-28] MEDS: Ketorolac 15 MG/ML Vial IV (23:42)
--- NOTE | 2017-11-28 23:48 | ED.VISSUMM ---
- ER Visit Summary Date of Service: 11/28/17 Chief Complaint: Fever History of Present Illness: The patient is a 42 F presenting for evaluation secondary to fever. Patient has an underlying history of non-small cell lung cancer for which she is getting chemotherapy and immunotherapy. Patient reports that she typically gets a daily fever, but never over 102. Patient reports that today she was feeling extremely more malaised and had a fever of 103 at home that did not seem to be alleviated by taking Tylenol. Patient denies any new infectious symptoms associated with this. Patient does endorse that she had a black stool but recently was started on iron. Review of systems otherwise negative. Physical Examination: Fever of 103.2 with a heart rate of 114 blood pressure 108/56. Thin somewhat ill-appearing female no acute distress. Head normocephalic. No evidence of scleral icterus, mild conjunctival pallor. Moist mucous membranes. Heart was tachycardic and regular, lungs sounds are clear to auscultation bilaterally no rhonchi rales or wheezes. Abdomen soft nontender. Back nontender extremities nontender nonedematous skin normal color no rash no petechia. Patient was alert and oriented no lateralizing neurological deficits. Test Results: CBC demonstrates leukocytosis typical for the patient in the range of 28 with a neutrophilic predominance. Chemistry panel unremarkable, chest x-ray shows no infiltrate, lactic acid negative, urinalysis negative Emergency Department Course and Treatment: Patient presented secondary to a fever in the setting acute therapy and a history of cancer. Her workup was found to be essentially unremarkable and unchanged from prior workups. I discussed the patient's case with the covering oncologist who recommended prophylactic antibiotics and hospitalist admission. Patient was given Zosyn and will be admitted to the hospitalist. Disposition: Admission Impression: 1. Fever 2. Non-small cell lung cancer on chemotherapy and immunotherapy This note was generated with [email or web address] dictation software. It may contain incorrect words, spelling, and punctuation that were not noted in review of the chart prior to signing ED Disposition - Plan for ED Patient: Chief Complaint: Fever Referrals: Remigio Valdez MD [Primary Care Provider] -
--- NOTE | 2017-11-28 23:51 | ED.DCSUM_ITS ---
- ER Visit Summary Date of Service: 11/28/17 Chief Complaint: Fever History of Present Illness: The patient is a 42 F presenting for evaluation secondary to fever. Patient has an underlying history of non-small cell lung cancer for which she is getting chemotherapy and immunotherapy. Patient reports that she typically gets a daily fever, but never over 102. Patient reports that today she was feeling extremely more malaised and had a fever of 103 at home that did not seem to be alleviated by taking Tylenol. Patient denies any new infectious symptoms associated with this. Patient does endorse that she had a black stool but recently was started on iron. Review of systems otherwise negative. Physical Examination: Fever of 103.2 with a heart rate of 114 blood pressure 108 /56. Thin somewhat ill-appearing female no acute distress. Head normocephalic. No evidence of scleral icterus, mild conjunctival pallor. Moist mucous membranes. Heart was tachycardic and regular, lungs sounds are clear to auscultation bilaterally no rhonchi rales or wheezes. Abdomen soft nontender. Back nontender extremities nontender nonedematous skin normal color no rash no petechia. Patient was alert and oriented no lateralizing neurological deficits. Test Results: CBC demonstrates leukocytosis typical for the patient in the range of 28 with a neutrophilic predominance. Chemistry panel unremarkable, chest x-ray shows no infiltrate, lactic acid negative, urinalysis negative Emergency Department Course and Treatment: Patient presented secondary to a fever in the setting acute therapy and a history of cancer. Her workup was found to be essentially unremarkable and unchanged from prior workups. I discussed the patient's case with the covering oncologist who recommended prophylactic antibiotics and hospitalist admission. Patient was given Zosyn and will be admitted to the hospitalist. Disposition: Admission Impression: 1. Fever 2. Non-small cell lung cancer on chemotherapy and immunotherapy This note was generated with [employer] dictation software. It may contain incorrect words, spelling, and punctuation that were not noted in review of the chart prior to signing ED Disposition - Plan for ED Patient: Chief Complaint: Fever Referrals: Remigio Valdez MD [Primary Care Provider] -
--- NOTE | 2017-11-28 23:55 | PCM.HP.STD ---
Problem List (1) Fever Status: Acute Qualifiers: Fever type: unspecified Qualified Code(s): R50.9 - Fever, unspecified (2) Lung mass Status: Chronic (3) Neutrophilic leukocytosis Status: Chronic (4) Non-small cell cancer of left lung Status: Chronic Comment: Status post chemotherapy 08/23,08/24,08/25/17 cisplatin/etoposide History of Present Illness Date of Admission: 11/28/17 Chief Complaint: Fever The patient is a 42 year old female w/ h/o non-small cell lung cancer on cisplatin and keytruda admitted for fever. She recently had cisplatin and keytruda on Wednesday. She usually get a low grade temp daily but this time, her fever spiked to 103. She is more fatigue than usual. Nothing made it better or worse. She took tylenol for fever but she continues to have fever. She has a chronic dry cough. No diarrhea. No rash. Past Medical History Past Medical History (Chronic Problems): Chronic Problems Lung mass (Chronic) Neutrophilic leukocytosis (Chronic) Pleural effusion, left (Chronic) presence of L pleurX catheter drains Q48 hours Non-small cell cancer of left lung (Chronic) Status post chemotherapy 08/23,08/24,08/25/17 cisplatin/etoposide Chronic hypoxemic respiratory failure (Chronic) O2 at 2 liters Allergies codeine Adverse Reaction (Verified 11/28/17 21:00) Nausea hydrocodone Adverse Reaction (Verified 11/28/17 21:00) Nausea miconazole [From Monistat 1 Combo Pack] Adverse Reaction (Verified 11/28/17 21:00) Swelling Home Medications: Ambulatory Orders Medication Instructions Recorded Albuterol Sulfate [Ventolin Hfa] 2 puff IH Q4H PRN PRN 08/14/17 Pyridoxine HCl [Vitamin B-6] 1 tab PO DAILY 08/14/17 Albuterol Aerosols [Ventolin 2.5 mg INHALATION Q4H PRN PRN #120 08/17/17 Aerosols] vial Ondansetron HCl [Zofran] 4 mg PO PRN PRN 09/06/17 Pantoprazole Sodium [Protonix] 40 mg PO DAILY 09/06/17 Potassium Chloride [Klor-Con 10] 10 meq PO BID 09/06/17 Oxycodone [Oxyir] 5 mg PO Q4H PRN PRN #14 tab 09/07/17 Iron Polysaccharide Complex 150 mg PO BIDCM 11/28/17 [Ferrex 150] Metoclopramide [Reglan] 10 mg PO 4X/DAY PRN 11/28/17 Surgical History: - - L pleurX catheter 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 Denies: Weight Change HEENT: Denies: Head Aches, Sinus Congestion, Sinus Drainage Cardiovascular: Denies: Chest Pain, Palpitations Respiratory: Denies: Cough, Shortness of breath at rest, Sputum production Gastrointestinal: Denies: Abdominal Pain, Nausea, Vomiting Genitourinary: Denies: Dysuria Musculoskeletal: Denies: Joint Pain, Joint Tenderness Skin: Denies: Rash, Wounds Neurological: Denies: Numbness, Tingling, Focal weakness Psychiatric: Denies: Anxiety, Depression, Homicidal Ideations, Suicidal Ideations Hematologic/ Lymphatic: Denies: Easy Bruising, Easy Bleeding VTE Information - Inpt Only VTE Present on Admission: No VTE Mechan Device Prophylaxis: SCD's VTE Pharm Prophylaxis ordered?: Yes - Physical Exam General: Alert, Oriented x3, Cooperative HEENT: Atraumatic, PERRLA, EOMI, Normocephalic Neck: Supple, No JVD, Negative Carotid Bruits Lungs: Clear to auscultation, Normal air movement Cardiovascular: Regular rate, No murmurs Abdomen: Bowel Sounds Present, Soft, Non Tender Extremities: No edema, Capillary Refill Less than 3 Seconds Skin: No rashes, No breakdown Musculoskeletal: No Tenderness to Palpation of Joints or Extremities Neurological: Cranial nerves II-XII grossly intact Psych/Mental Status: Normal Affect, Appropriate Vital Signs Temp Pulse Resp BP Pulse Ox 103.2 F H 114 H 20 H 108/56 L 94 11/28/17 23:39 11/28/17 23:39 11/28/17 23:39 11/28/17 23:39 11/28/17 23:39 Oxygen Delivery Method Room Air Weight: 49.8 kg Body Mass Index (BMI) 19.4 Laboratory Tests Past 24 Hrs 11/28/17 11/28/17 11/28/17 22:00 22:00 22:00 WBC 27.9 H RBC 2.67 L Hgb 8.1 L Hct 26.4 L MCV 98.9 MCH 30.3 MCHC 30.7 L RDW 16.7 H RDW Differential 57.1 H Plt Count 647 H MPV 8.6 Immature Gran % (Auto) 0.300 Neut % (Auto) 94.4 H Lymph % (Auto) 4.3 L [place] % (Auto) 0.9 Eos % (Auto) 0.0 Baso % (Auto) 0.1 Absolute Neuts (auto) 26.3 H Absolute Lymphs (auto) 1.20 Total Counted Not Reportable Differential Comment SCANNED PT 15.7 H INR 1.3 APTT 36.5 H Sodium 134 L Potassium 4.1 Chloride 97 L Carbon Dioxide 27.0 Anion Gap 10 BUN 17 Creatinine 0.89 Estim Creat Clear Calc 63.42 Est GFR (MDRD) Af Amer 88 Est GFR (MDRD) Non-Af 73 BUN/Creatinine Ratio 19.1 Glucose 97 Lactic Acid Calcium 9.2 Total Bilirubin 0.30 AST 14 L ALT 17 Alkaline Phosphatase 108 Total Protein 7.5 Albumin 2.3 L Globulin 5.2 H Albumin/Globulin Ratio 0.4 L Urine Color Urine Clarity Urine pH Ur Specific [place] Urine Protein Urine Glucose (UA) Urine Ketones Urine Occult Blood Urine Nitrite Urine Bilirubin Urine Urobilinogen Ur Leukocyte Esterase Urine RBC Urine WBC Ur Squamous Epith Cells Urine Bacteria Urine Mucus 11/28/17 11/28/17 22:00 22:40 WBC RBC Hgb Hct MCV MCH MCHC RDW RDW Differential Plt Count MPV Immature Gran % (Auto) Neut % (Auto) Lymph % (Auto) [place] % (Auto) Eos % (Auto) Baso % (Auto) Absolute Neuts (auto) Absolute Lymphs (auto) Total Counted Differential Comment PT INR APTT Sodium Potassium Chloride Carbon Dioxide Anion Gap BUN Creatinine Estim Creat Clear Calc Est GFR (MDRD) Af Amer Est GFR (MDRD) Non-Af BUN/Creatinine Ratio Glucose Lactic Acid 1.8 Calcium Total Bilirubin AST ALT Alkaline Phosphatase Total Protein Albumin Globulin Albumin/Globulin Ratio Urine Color Yellow Urine Clarity Clear Urine pH 7.0 Ur Specific [place] 1.010 Urine Protein 30 H Urine Glucose (UA) Normal Urine Ketones Negative Urine Occult Blood 25 H Urine Nitrite Negative Urine Bilirubin Negative Urine Urobilinogen Normal Ur Leukocyte Esterase Negative Urine RBC 0-5 SEEN Urine WBC 0 SEEN Ur Squamous Epith Cells 0-5 SEEN Urine Bacteria 0 SEEN Urine Mucus 0 SEEN Assessment/Plan All Active Problems Fever (Acute) Sepsis (Acute) HCAP (healthcare-associated pneumonia) (Acute) Fever (Acute) 42 year old female w/ h/o non-small cell lung cancer on cisplatin and keytruda admitted for fever. 1) Fever: Unclear etiology. Probably secondary to cisplantin / keytruda. Cultures pending. C/w empiric treatment with zosyn. 2) Leukocytosis: Cultures pending. C/w zosyn. 3) NSCL: Supportive care. 5) Prophylaxis: SCD / heparin.
[2017-11-29] VITALS (16 sets, daily range): BP systolic 88–109; BP diastolic 43–62; PULSE 84–121; RESP 14–20; TEMP 37–39.3; O2SAT 94–98; BMI 20.2; BMI 20.3
[2017-11-29] MEDS: Piperacil/Tazobactam 3.375 GM/50 ML ML IV ×4 (00:04→21:24)
[2017-11-29] MEDS: Metoclopramide 10 MG/2 ML Vial IV (00:04)
--- NOTE | 2017-11-29 01:07 | ED.RN ---
PT WITH LOW BP. DR. LOPEZ INFORMED. PT RESTING COMFORTABLY. AWAITING FURTHER ORDERS.
[2017-11-29] MEDS: 0.9% Normal Saline 1,000 ML 999 ML IV (01:22)
[2017-11-29 02:01] LABS: Lactic Acid 1.6 mmol/L (0.4-2.0)
[2017-11-29] MEDS: Metoclopramide 10 MG Tablet PO ×3 (05:04→21:36)
[2017-11-29] MEDS: Acetaminophen 325 MG Tablet 650 MG PO ×3 (05:47→21:32)
[2017-11-29 06:27] LABS: Anion Gap 9 (5-15); BUN 15 mg/dL (7-18); BUN/Creat Ratio 20.9 RATIO (10-20); Calcium,Total 8.6 mg/dL (8.5-10.1); Chloride 105 mmol/L (98-107); Creatinine, Serum 0.72 mg/dL (0.55-1.02); EST Glomerular Filtration Rate 94 mL/min (>60); Est Glom Filt Rate - Afr Amer 113 mL/min (>60); Estimated Creatinine Clearance 81.85 ml/min; Glucose 90 mg/dL (74-106); Potassium 4.1 mmol/L (3.5-5.1); Sodium Level 139 mmol/L (136-145)
[2017-11-29 06:33] LABS: Absolute Lymphocyte Count 1.21 X10^3/ul (0.83-4.51); Absolute Neutrophil Count 32.8 X10^3/uL (2.0-7.7); Basophil# 0.01 X10^3/uL; Eosinophil# 0.01 X10^3/uL; Hematocrit 25.4 % (37-47); Hemoglobin 7.8 g/dl (12.0-15.0); Lymphocyte # 1.21 X10^3/ul (4.0); Lymphocyte % 3.5 % (19-41); Mean Corp Hgb Conc 30.7 g/gl (32-36); Mean Corpuscular Hgb 30.5 pg (27.0-32.0); Mean Corpuscular Volume 99.2 fL (81-99); Mean Platelet Vol. 8.7 fl (6.2-12.0); Monocyte# 0.34 X10^3/uL; Neutrophil # 32.81 X10^3/uL (2.7-7.7); Platelet Count 608 K/mm3 (150-450); RBC Distribution Width CV 16.8 % (11.6-14.6); RBC Distribution Width SD 57.5 fl (35.1-43.9); Red Blood Count 2.56 M/mm3 (4.2-5.4)
[2017-11-29 06:49] LABS: POSITIVE COUNT YES; POSITIVE DIFFERENTIAL YES; POSITIVE MORPHOLOGY NO; White Blood Count 34.5 K/mm3 (4.4-11.0)
[2017-11-29 06:50] LABS: Differential Indicated SCAN CRITERIA MET
[2017-11-29 07:22] LABS: Differential Comment SCANNED; Platelet Estimate MOD INC (ADEQ)
[2017-11-29] MEDS: Pyridoxine HCl 100 MG Tablet PO (10:34)
[2017-11-29] MEDS: Pantoprazole Sodium 40 MG Tablet PO (10:34)
[2017-11-29] MEDS: Iron Polysaccharide Complex 150 MG CAPSULE PO ×2 (10:34→18:02)
[2017-11-29 14:28] LABS: Pathologist Review Reviewed
--- NOTE | 2017-11-29 15:32 | PCM.PN.HOSP ---
Patient Problems: Active and Suspected Problems Fever (Acute) Subjective: still with fevers. patient has had tumor fevers at home, but usually peaks at 102 F. Concern was when she got above 103 for other etiologies. Vitals/I&O's: Vital Signs Temp Pulse Resp BP Pulse Ox 39.3 C H 121 H 16 104/56 L 96 11/29/17 14:09 11/29/17 14:09 11/29/17 14:09 11/29/17 14:09 11/29/17 14:09 Oxygen Delivery Method Room Air Weight: 52 kg Body Mass Index (BMI) 20.2 Intake and Output for Last 24 Hours 11/27/17 11/28/17 11/29/17 23:59 23:59 23:59 Intake Total 480 / 480 Balance 480 / 480 General: Alert, No apparent distress HEENT: Atraumatic, Normocephalic Oral: Moist Mucosa, No Gingival or Mucosal Lesions/ Ulcerations Neck: No Nodes, Thyroid Normal Size and Texture Lungs: Clear to auscultation, Normal air movement, No rhonchi, No wheeze Cardiovascular: Regular rate, Regular Rhythm, Normal S1, Normal S2, No murmurs Abdomen: Bowel Sounds Present, Soft, Non Tender, Non-Distended, No Hepato-splenomegaly Extremities: No edema, No Calf Tenderness Skin: No rashes, No breakdown Musculoskeletal: - - port in right upper chest w/o erythema. Psych/Mental Status: Normal Affect, Appropriate Laboratory Results 11/29/17 05:25: WBC 34.5 H*, RBC 2.56 L, Hgb 7.8 L, Hct 25.4 L, MCV 99.2 H, MCH 30.5, MCHC 30.7 L, RDW 16.8 H, RDW Differential 57.5 H, Plt Count 608 H, MPV 8.7, Immature Gran % (Auto) 0.500, Neut % (Auto) 95.0 H, Lymph % (Auto) 3.5 L, [place] % (Auto) 1.0, Eos % (Auto) 0.0, Baso % (Auto) 0.0, Absolute Neuts (auto) 32.8 H, Absolute Lymphs (auto) 1.21, Total Counted Not Reportable, Differential Comment SCANNED, Diff Path Review Reviewed, Platelet Estimate MOD INC 11/29/17 05:25: Sodium 139, Potassium 4.1, Chloride 105, Carbon Dioxide 25.0, Anion Gap 9, BUN 15, Creatinine 0.72, Estim Creat Clear Calc 81.85, Est GFR (MDRD) Af Amer 113, Est GFR (MDRD) Non-Af 94, BUN/Creatinine Ratio 20.9 H, Glucose 90, Calcium 8.6 Current Medications Acetaminophen (Tylenol) 650 mg PO Q6H PRN PRN PRN Reason: FEVER Last Admin: 11/29/17 14:13 Dose: 650 mg Albuterol Sulfate (Ventolin Aerosols) 2.5 mg INHALATION Q4H PRN PRN PRN Reason: SOB &/OR WHEEZING Heparin Sodium (Beef Lung) (Heparin 500 Unit/5 Ml (100/Ml)) 500 unit IV UD PRN PRN Reason: HEPARIN FLUSH Heparin Sodium (Porcine) (Heparin Na) 5,000 unit SC Q8 [facility] Last Admin: 11/29/17 14:06 Dose: Not Given Piperacillin Sod/Tazobactam Sod (Zosyn) 3.375 gm in 50 mls @ 12.5 mls/hr IV Q8 [facility] Last Admin: 11/29/17 14:06 Dose: 12.5 mls/hr Magnesium Hydroxide (Milk Of Magnesia) 30 ml PO DAILY PRN PRN PRN Reason: Constipation Metoclopramide HCl (Reglan) 10 mg PO 4X/DAY PRN PRN PRN Reason: NAUSEA Last Admin: 11/29/17 14:13 Dose: 10 mg Nutritional Formula (Lactose Free) (Ensure Clear) 120 ml PO 4X/DAY [facility] Last Admin: 11/29/17 14:06 Dose: Not Given Ondansetron HCl (Zofran Odt) 4 mg PO Q8H PRN PRN Reason: NAUSEA/VOMITING Oxycodone HCl (Oxyir) 5 mg PO Q4H PRN PRN PRN Reason: PAIN Pantoprazole Sodium (Protonix) 40 mg PO DAILY [facility] Last Admin: 11/29/17 10:34 Dose: 40 mg [facility]accharide [facility] ([facility] Last Admin: 11/29/17 10:34 Dose: 150 mg Potassium Chloride (K-Dur) 10 meq PO BID [facility] Last Admin: 11/29/17 10:34 Dose: 10 meq Pyridoxine HCl (Vitamin B-6) 100 mg PO DAILY [facility] Last Admin: 11/29/17 10:34 Dose: 100 mg Sodium Chloride () 10 ml IV UD PRN PRN Reason: R PORT FLUSH Medical Necessity - Tobacco Use Smoking Status: Former smoker Assessment/Plan All Active Problems Fever (Acute) Sepsis (Acute) HCAP (healthcare-associated pneumonia) (Acute) Fever (Acute) 1. Fever: r/o infectious etiology continue w Zosyn for now follow up cultures may be due to cancer or even immunotherapy (DW Dr. Obrien) 2. NSCLC per oncology 3. DVT proph: sq heparin. Code Visit Inpatient E&M: 03633 Subs Hosp L2
--- NOTE | 2017-11-29 15:36 | PN_ITS ---
Patient Problems: Active and Suspected Problems Fever (Acute) Subjective: still with fevers. patient has had tumor fevers at home, but usually peaks at 102 F. Concern was when she got above 103 for other etiologies. Vitals/I&O's: Vital Signs Temp Pulse Resp BP Pulse Ox 39.3 C H 121 H 16 104/56 L 96 11/29/17 14:09 11/29/17 14:09 11/29/17 14:09 11/29/17 14:09 11/29/17 14:09 Oxygen Delivery Method Room Air Weight: 52 kg Body Mass Index (BMI) 20.2 Intake and Output for Last 24 Hours 11/27/17 11/28/17 11/29/17 23:59 23:59 23:59 Intake Total 480 / 480 Balance 480 / 480 General: Alert, No apparent distress HEENT: Atraumatic, Normocephalic Oral: Moist Mucosa, No Gingival or Mucosal Lesions/ Ulcerations Neck: No Nodes, Thyroid Normal Size and Texture Lungs: Clear to auscultation, Normal air movement, No rhonchi, No wheeze Cardiovascular: Regular rate, Regular Rhythm, Normal S1, Normal S2, No murmurs Abdomen: Bowel Sounds Present, Soft, Non Tender, Non-Distended, No Hepato- splenomegaly Extremities: No edema, No Calf Tenderness Skin: No rashes, No breakdown Musculoskeletal: - - port in right upper chest w/o erythema. Psych/Mental Status: Normal Affect, Appropriate Laboratory Results 11/29/17 05:25: WBC 34.5 H*, RBC 2.56 L, Hgb 7.8 L, Hct 25.4 L, MCV 99.2 H, MCH 30.5, MCHC 30.7 L, RDW 16.8 H, RDW Differential 57.5 H, Plt Count 608 H, MPV 8.7 , Immature Gran % (Auto) 0.500, Neut % (Auto) 95.0 H, Lymph % (Auto) 3.5 L, [place] % (Auto) 1.0, Eos % (Auto) 0.0, Baso % (Auto) 0.0, Absolute Neuts (auto) 32.8 H, Absolute Lymphs (auto) 1.21, Total Counted Not Reportable, Differential Comment SCANNED, Diff Path Review Reviewed, Platelet Estimate MOD INC 11/29/17 05:25: Sodium 139, Potassium 4.1, Chloride 105, Carbon Dioxide 25.0, Anion Gap 9, BUN 15, Creatinine 0.72, Estim Creat Clear Calc 81.85, Est GFR ( MDRD) Af Amer 113, Est GFR (MDRD) Non-Af 94, BUN/Creatinine Ratio 20.9 H, Glucose 90, Calcium 8.6 Current Medications Acetaminophen (Tylenol) 650 mg PO Q6H PRN PRN PRN Reason: FEVER Last Admin: 11/29/17 14:13 Dose: 650 mg Albuterol Sulfate (Ventolin Aerosols) 2.5 mg INHALATION Q4H PRN PRN PRN Reason: SOB &/OR WHEEZING Heparin Sodium (Beef Lung) (Heparin 500 Unit/5 Ml (100/Ml)) 500 unit IV UD PRN PRN Reason: HEPARIN FLUSH Heparin Sodium (Porcine) (Heparin Na) 5,000 unit SC Q8 [facility] Last Admin: 11/29/17 14:06 Dose: Not Given Piperacillin Sod/Tazobactam Sod (Zosyn) 3.375 gm in 50 mls @ 12.5 mls/hr IV Q8 [facility] Last Admin: 11/29/17 14:06 Dose: 12.5 mls/hr Magnesium Hydroxide (Milk Of Magnesia) 30 ml PO DAILY PRN PRN PRN Reason: Constipation Metoclopramide HCl (Reglan) 10 mg PO 4X/DAY PRN PRN PRN Reason: NAUSEA Last Admin: 11/29/17 14:13 Dose: 10 mg Nutritional Formula (Lactose Free) (Ensure Clear) 120 ml PO 4X/DAY [facility] Last Admin: 11/29/17 14:06 Dose: Not Given Ondansetron HCl (Zofran Odt) 4 mg PO Q8H PRN PRN Reason: NAUSEA/VOMITING Oxycodone HCl (Oxyir) 5 mg PO Q4H PRN PRN PRN Reason: PAIN Pantoprazole Sodium (Protonix) 40 mg PO DAILY [facility] Last Admin: 11/29/17 10:34 Dose: 40 mg Polysaccharide Iron Complex (Ferrex 150) [facility] Last Admin: 11/29/17 10:34 Dose: 150 mg Potassium Chloride (K-Dur) 10 meq PO BID [facility] Last Admin: 11/29/17 10:34 Dose: 10 meq Pyridoxine HCl (Vitamin B-6) 100 mg PO DAILY [facility] Last Admin: 11/29/17 10:34 Dose: 100 mg Sodium Chloride () 10 ml IV UD PRN PRN Reason: R PORT FLUSH Medical Necessity - Tobacco Use Smoking Status: Former smoker Assessment/Plan All Active Problems Fever (Acute) Sepsis (Acute) HCAP (healthcare-associated pneumonia) (Acute) Fever (Acute) 1. Fever: * r/o infectious etiology * continue w Zosyn for now * follow up cultures * may be due to cancer or even immunotherapy (DW Dr. Obrien) 2. NSCLC * per oncology 3. DVT proph: sq heparin. Code Visit Inpatient E&M: 67048 Subs Hosp L2
[2017-11-29] MEDS: Heparin Injection (Vial) 5,000 UNIT/ML VIAL 5000 UNIT SC (21:24)
[2017-11-29] MEDS: 0.9% Normal Saline 1,000 ML 500 ML IV (23:26)
[2017-11-30] VITALS (8 sets, daily range): BP systolic 92–100; BP diastolic 48–55; PULSE 96–113; RESP 16–20; TEMP 36.9–38.4; O2SAT 94–98
[2017-11-30] MEDS: Heparin Injection (Vial) 5,000 UNIT/ML VIAL 5000 UNIT SC (06:57)
[2017-11-30] MEDS: Piperacil/Tazobactam 3.375 GM/50 ML ML IV (06:58)
[2017-11-30] MEDS: Metoclopramide 10 MG Tablet PO (07:00)
[2017-11-30] MEDS: Acetaminophen 325 MG Tablet 650 MG PO (07:01)
[2017-11-30] MEDS: Ondansetron 4 MG/2 ML Vial IV (10:10)
[2017-11-30] MEDS: Iron Polysaccharide Complex 150 MG CAPSULE PO (10:14)
[2017-11-30] MEDS: Pyridoxine HCl 100 MG Tablet PO (10:14)
[2017-11-30] MEDS: Pantoprazole Sodium 40 MG Tablet PO (10:14)
--- NOTE | 2017-11-30 11:44 | DCINST_ITS ---
- Discharge Diagnoses Current Active Problems: Current Active and Chronic Problems Fever (Acute) You will use the following diet at home:: No restrictions Your food should be the consistency of: Regular Your liquids should be the consistency of: Regular/Thin Discharge Activity: Return to Normal Activity Call your doctor if you observe: Shortness of breath, Chest pain, - - fever greater than 103 Allergies/Adverse Reactions: Allergies codeine Adverse Reaction (Verified 11/28/17 21:00) Nausea hydrocodone Adverse Reaction (Verified 11/28/17 21:00) Nausea miconazole [From Monistat 1 Combo Pack] Adverse Reaction (Verified 11/28/17 21: 00) Swelling Medications to take at Discharge Albuterol Sulfate [Ventolin Hfa] 2 puff IH Q4H PRN PRN 08/14/17 Pyridoxine HCl [Vitamin B-6] 1 tab PO DAILY 08/14/17 Albuterol Aerosols [Ventolin Aerosols] 2.5 mg INHALATION Q4H PRN PRN #120 vial 08/17/17 Ondansetron HCl [Zofran] 4 mg PO PRN PRN 09/06/17 Pantoprazole Sodium [Protonix] 40 mg PO DAILY 09/06/17 Potassium Chloride [Klor-Con 10] 10 meq PO BID 09/06/17 Oxycodone [Oxyir] 5 mg PO Q4H PRN PRN #14 tab 09/07/17 Iron Polysaccharide Complex [Ferrex 150] 150 mg PO BIDCM 11/28/17 Metoclopramide [Reglan] 10 mg PO 4X/DAY PRN 11/28/17 Acetaminophen 500 mg PO Q4H PRN PRN #1 liquid 11/30/17 Ibuprofen 2 - 3 mg PO 4X/DAY PRN PRN #1 tablet 11/30/17 The following prescriptions were given: Acetaminophen 500 mg PO Q4H PRN PRN #1 liquid PRN Reason: pain. fever. Ibuprofen 2 - 3 mg PO 4X/DAY PRN PRN #1 tablet PRN Reason: fever. pain. Primary Care Physician: Remigio Valdez MD [Primary Care Provider] - Within 2 Weeks Test Results: Test results from this visit will be discussed in further detail at your follow- up appointment, if applicable. Please Follow Up With: Cleveland Obrien MD When: 2 weeks Proposed Discharge Date: 11/30/17
--- NOTE | 2017-11-30 11:44 | PCM.DC.SUM ---
Discharge Date and Diagnosis - Problem List Patient Problems: Active and Suspected Problems Fever (Acute) Date of Admission: 11/28/17 Date of Discharge: 11/30/17 - Primary Discharge Diagnosis Active and Suspected Problems Fever (Acute) - Secondary Discharge Diagnosis Chronic Problems Lung mass (Chronic) Neutrophilic leukocytosis (Chronic) Pleural effusion, left (Chronic) presence of L pleurX catheter drains Q48 hours Non-small cell cancer of left lung (Chronic) Status post chemotherapy 08/23,08/24,08/25/17 cisplatin/etoposide Chronic hypoxemic respiratory failure (Chronic) O2 at 2 liters Hospital Course and Treatment Imaging Results: Clinical Impression(s) from Imaging Studies Chest X-Ray 11/28/17 21:32 IMPRESSION: Prominence of the left hilum and perihilar region which is decreased when compared with the prior exam. This likely represents the patient's known lymphoma. No pulmonary infiltrate or pleural effusion. Electronically Signed: Javi Ceja, at 23:27 EDT Tel , Service support , Operations: None, - - left tunneled thoracic catheter placement Procedures: None Summary of Care Provided: The patient is a 42 year old F with history of non-small cell lung cancer who is been having chronic fevers at home spiked temperature of greater than 103.5 Fahrenheit. Patient was advised to go to emergency room to evaluate for any potential source of fever. Patient had blood cultures as well as urine studies which were negative. Chest x-ray was also negative for any acute process. Discussed with Dr. Obrien and he feels that the fevers are likely related with her tumor burden and just advise if the cultures come back negative that she could be discharged. I spoke with microbiology and at approximately 36 hours her blood cultures are so far negative. I told her that is not a guarantee that the blood cultures being are going to remain negative but if if they do come back positive that we would notify her and did advise her if there is an actual sign of infection based on the blood cultures were not. Patient expressed understanding and feels ready to go home. Physical exam patient is no acute distress and afebrile. Heart is regular rate and rhythm S1-S2 with a murmurs, rubs. Lungs are clear to auscultation bilaterally. [] Discharge Diet: No Restrictions Discharge Activity: Return to Normal Activity Call your doctor if you observe: Shortness of breath, Chest pain, - - fever greater than 103 Home Medications: Medications to take at Discharge Albuterol Sulfate [Ventolin Hfa] 2 puff IH Q4H PRN PRN 08/14/17 Pyridoxine HCl [Vitamin B-6] 1 tab PO DAILY 08/14/17 Albuterol Aerosols [Ventolin Aerosols] 2.5 mg INHALATION Q4H PRN PRN #120 vial 08/17/17 Ondansetron HCl [Zofran] 4 mg PO PRN PRN 09/06/17 Pantoprazole Sodium [Protonix] 40 mg PO DAILY 09/06/17 Potassium Chloride [Klor-Con 10] 10 meq PO BID 09/06/17 Oxycodone [Oxyir] 5 mg PO Q4H PRN PRN #14 tab 09/07/17 Iron Polysaccharide Complex [Ferrex 150] 150 mg PO BIDCM 11/28/17 Metoclopramide [Reglan] 10 mg PO 4X/DAY PRN 11/28/17 Acetaminophen 500 mg PO Q4H PRN PRN #1 liquid 11/30/17 Ibuprofen 2 - 3 mg PO 4X/DAY PRN PRN #1 tablet 11/30/17 Following Prescrptions Were Given to Patient: Acetaminophen 500 mg PO Q4H PRN PRN #1 liquid PRN Reason: pain. fever. Ibuprofen 2 - 3 mg PO 4X/DAY PRN PRN #1 tablet PRN Reason: fever. pain. Primary Care Physician: Remigio Valdez MD [Primary Care Provider] - Within 2 Weeks Please Follow Up With: Cleveland Obrien MD When: 2 weeks Disposition: Home Minutes spent on discharge:: 28 Patient Condition:: Fair Medical Necessity - Tobacco Use Smoking Status: Former smoker Meaningful Use Info Meaningful Use Diagnoses (Choose all that apply): None applicable Code Visit Inpatient E&M: 79858 Disch Hosp
== END 2017-11-30 11:43 | disposition home or self-care (01) ==
LOC: ED 21:41 → MS3 11-29 01:45 → PCU 11-29 02:58
PROVIDERS: Admitting Provider Internal Medicine; Emergency Provider Emergency Medicine; Family Provider Family Medicine; PCP Family Medicine
DX: R50.9 Fever, unspecified (principal); Z92.21 Personal history of antineoplastic chemotherapy; J96.11 Chronic respiratory failure with hypoxia; C34.92 Malignant neoplasm of unspecified part of left bronchus or lung; D72.828 Other elevated white blood cell count; Z87.891 Personal history of nicotine dependence; Z79.899 Other long term (current) drug therapy; R00.0 Tachycardia, unspecified; C85.90 Non-Hodgkin lymphoma, unspecified, unspecified site; R53.83 Other fatigue; J90 Pleural effusion, not elsewhere classified
CPT/HCPCS: 36591; 71046; 80048; 80053; 81001; 83605; 85025; 85610; 85730; 87040; 87086; 87088; 93005; 96361; 96365; 96366; 96372; 96375; 97802; 99218; 99281; J7030; J7040; A4216; G0378; J2405

== ENCOUNTER 2018-01-30 11:40 | Observation (INO) | payer OTHER, SELFPAY ==
[2018-01-30] VITALS (8 sets, daily range): BP systolic 89–97; BP diastolic 56–74; PULSE 80–116; RESP 14–24; TEMP 36.8–37.1; O2SAT 95–99; BMI 18.3; BMI 18.5
--- NOTE | 2018-01-30 12:54 | ED.DCSUM_ITS ---
- ER Visit Summary Date of Service: 01/30/18 Chief Complaint: [] Vomiting crampy abdominal pain constipation metastatic lung cancer History of Present Illness: The patient is a 42 F [] she diagnosed with medical metastatic lung cancer earlier in 2018 she is undergoing chemo and immunotherapy with Kytruda, last doses were Wednesday per the family she has had persistent sense of abdominal cramping and constipation she tried fleets enemas at home with no improvement she had vomiting this morning they spoke with Dr. Stewart the oncologist and she was asked to come to the hospital for evaluation. Per the family her metastasis is in the left shoulder neck area, all of her lung cancer has responded very well to the chemotherapy, they report that she has no history of metastasis to anywhere but the area above, she has had prior colonoscopies, there were unremarkable, she has no history of GI ailments Physical Examination: [] On exam she is very thin she has a port right chest is intact her lungs sound clear heart tones are normal the neck is supple HEENT exams unremarkable she is awake and alert no distress she is complaining of diffuse crampy abdominal discomfort the abdomen shows no rebound guarding organomegaly rather diffuse discomfort the back is unremarkable rectal exam shows soft brown stool extremity exam unremarkable Test Results: [] Emergency Department Course and Treatment: [] IV fluids pain management CT abdomen Patient's general screening labs are in the computer, generally unremarkable white count was slightly elevated at 14,000, CT abdomen shows diffuse inflammatory changes involving the colon no abscess no free fluid no free air see all those reports, given the above given her constellation of her symptoms the persistent vomiting of asked the hospital service for further management admission we did start IV antibiotics Treatment Plan: [] Disposition: [] Home stable Impression: [] Abdominal pain, diffuse: Colitis, metastatic lung cancer, recent chemotherapy This note was generated with [employer] dictation software. It may contain incorrect words, spelling, and punctuation that were not noted in review of the chart prior to signing ED Disposition - Plan for ED Patient: Chief Complaint: Abd Pain Referrals: Remigio Valdez MD [Primary Care Provider] -
[2018-01-30] MEDS: 0.9% Normal Saline 1,000 ML 125 ML IV ×2 (12:55→18:12)
[2018-01-30] MEDS: Ondansetron 4 MG/2 ML Vial IV ×2 (12:55→19:44)
[2018-01-30] MEDS: morphine 8 MG/ML Syringe IV (12:55)
[2018-01-30 13:11] LABS: Bacteria 0 SEEN /hpf (None Seen); Mucous, Urine 0 SEEN /hpf (<or=2+); White Blood Cells 0 SEEN /hpf (0-5)
[2018-01-30 13:14] LABS: Color, Urine Yellow (Yellow); Glucose, Dipstick Normal (Normal); Ketone-Dipstick Negative (Negative); Leukocyte Esterase-Dipstick Negative /ul (Negative); Nitrite-Dipstick Negative (Negative); Occult Blood-Urine 50 /ul (Negative); Protein-Dipstick Negative (Negative); Urine Bilirubin Dipstick Negative (Negative); Urine Clarity Clear (Clear); Urine Urobilinogen Normal (Normal)
[2018-01-30 13:17] LABS: Absolute Lymphocyte Count 1.31 X10^3/ul (0.83-4.51); Basophil# 0.02 X10^3/uL; Basophil% 0.1 % (0-1); Differential Indicated SCAN CRITERIA MET; Eosinophil# 0.02 X10^3/uL; Eosinophils% 0.1 % (0-5); Hematocrit 32.3 % (37-47); Lymphocyte # 1.31 X10^3/ul (4.0); Lymphocyte % 9.6 % (19-41); Mean Corpuscular Hgb 31.2 pg (27.0-32.0); Mean Corpuscular Volume 100.6 fL (81-99); Mean Platelet Vol. 8.8 fl (6.2-12.0); Monocyte# 0.33 X10^3/uL; Monocyte% 2.4 % (0-10); Neutrophil # 11.96 X10^3/uL (2.7-7.7); Neutrophil % 87.7 % (47-70); POSITIVE COUNT NO; POSITIVE DIFFERENTIAL NO; POSITIVE MORPHOLOGY YES; Platelet Count 377 K/mm3 (150-450); RBC Distribution Width CV 18.1 % (11.6-14.6); Red Blood Count 3.21 M/mm3 (4.2-5.4); White Blood Count 13.7 K/mm3 (4.4-11.0)
[2018-01-30 13:20] LABS: Squamous Epithelial Cells - UA 0-5 SEEN /hpf (5-10)
[2018-01-30 13:21] LABS: Red Blood Cells-Urine > 100 SEEN /hpf (0-5)
[2018-01-30 13:32] LABS: AST(SGOT) 21 U/L (15-37); Alanine Aminotransfer ALT/SGPT 25 U/L (13-56); Alkaline Phosphatase 101 U/L (45-117); Anion Gap 8 (5-15); BUN 13 mg/dL (7-18); BUN/Creat Ratio 22.8 RATIO (10-20); Calcium,Total 10.1 mg/dL (8.5-10.1); Chloride 101 mmol/L (98-107); Creatinine, Serum 0.57 mg/dL (0.55-1.02); EST Glomerular Filtration Rate 122 mL/min (>60); Est Glom Filt Rate - Afr Amer 147 mL/min (>60); Estimated Creatinine Clearance 96.05 ml/min; Globulin 5.2 g/dL (2.2-4.2); Glucose 93 mg/dL (74-106); Lipase 71 U/L (73-393); Potassium 3.5 mmol/L (3.5-5.1); Protein, Total 8.2 g/dL (6.4-8.2); Sodium Level 139 mmol/L (136-145)
[2018-01-30 13:48] LABS: Anisocytosis 1+
--- NOTE | 2018-01-30 15:38 | PCM.HP.STD ---
Problem List (1) HCAP (healthcare-associated pneumonia) Status: Chronic Comment: Interval improvement on x-ray (2) Chronic hypoxemic respiratory failure Status: Chronic Comment: O2 at 2 liters (3) Lung mass Status: Chronic (4) Non-small cell cancer of left lung Status: Chronic Comment: Status post chemotherapy 4/2,3,08/25/17 cisplatin/etoposide (5) Pleural effusion, left Status: Chronic Comment: presence of L pleurX catheter drains Q48 hours (6) Subacute colitis Status: Acute (7) Fecal impaction of colon Status: Acute History of Present Illness Date of Admission: 01/30/18 Chief Complaint: Abdominal cramps and constipation The patient is a 42 year old F with history of non-small cell lung cancer who finished her fourth cycle of Keytruda and chemotherapy by Dr. Gregg came to ER with abdominal cramps, nausea and vomiting and constipation. She has ongoing constipation for more than 1 month, last bowel movement about 3-4 days ago. She on bowel regimen of magnesium oxide, lactulose and has even tried Fleet enema yesterday on the advice of on-call oncologist of [place]. She also also has appointment to see Dr. Galarza tomorrow for for chronic constipation. Her vomiting started yesterday and could not eat or drink and therefore she is very dehydrated. She has abdominal pain mainly over upper quadrant that has been going for about 1 week. She did not had fever last 1 week although she was admitted in first week of November 2017 for high fever 103.5 Fahrenheit which was thought probably secondary to high tumor burden and tumor biology but workup was negative. He had prior colonoscopy but were unremarkable. ] In ED, she has leukocytosis 13,000, hemoglobin 10 and platelet count 377,000. K3.5. UA shows RBC more than 100 but no pyuria, nitrite and LE negative. She got 1 dose of IV Zosyn in ED. Past Medical History Past Medical History (Chronic Problems): Chronic Problems HCAP (healthcare-associated pneumonia) (Chronic) Interval improvement on x-ray Lung mass (Chronic) Pleural effusion, left (Chronic) presence of L pleurX catheter drains Q48 hours Non-small cell cancer of left lung (Chronic) Status post chemotherapy 4/2,43,08/25/17 cisplatin/etoposide Chronic hypoxemic respiratory failure (Chronic) O2 at 2 liters Allergies codeine Adverse Reaction (Verified 01/30/18 11:43) Nausea hydrocodone Adverse Reaction (Verified 01/30/18 11:43) Nausea miconazole [From Monistat 1 Combo Pack] Adverse Reaction (Verified 01/30/18 11:43) Swelling Home Medications: Ambulatory Orders Medication Instructions Recorded Pyridoxine HCl [Vitamin B-6] 1 tab PO DAILY 08/14/17 Ondansetron HCl [Zofran] 4 mg PO PRN PRN 09/06/17 Pantoprazole Sodium [Protonix] 40 mg PO DAILY 09/06/17 Potassium Chloride [Klor-Con 10] 10 meq PO BID 09/06/17 Oxycodone [Oxyir] 5 mg PO Q4H PRN PRN #14 tab 09/07/17 Metoclopramide [Reglan] 10 mg PO 4X/DAY PRN 11/28/17 Acetaminophen 500 mg PO Q4H PRN PRN #1 liquid 11/30/17 Ibuprofen 2 - 3 mg PO 4X/DAY PRN PRN #1 11/30/17 tablet Folic Acid [Folic Acid] 1 mg PO DAILY 01/30/18 Lactulose 15 gm PO DAILY 01/30/18 Surgical History: - - L pleurX catheter CENTRAL SERVICES TECH History: No pertinent CENTRAL SERVICES TECH history Smoking Status: Former smoker - *Family History Maternal History Items: No pertinent history Review of Systems Constitutional: Reports: Anorexia, Weakness, Fatigue. Denies: Chills, Fever HEENT: Denies: Head Aches, Sinus Congestion, Sinus Drainage Cardiovascular: Denies: Chest Pain, Palpitations Respiratory: Denies: Cough, Shortness of breath at rest, Sputum production Gastrointestinal: Reports: Abdominal Pain, Constipation, Dyspepsia, Nausea, Vomiting. Denies: Hematemesis, Hematochezia, Melena Genitourinary: Denies: Dysuria Musculoskeletal: Denies: Joint Pain, Joint Tenderness Skin: Denies: Rash, Wounds Neurological: Denies: Numbness, Tingling, Focal weakness Psychiatric: Denies: Anxiety, Depression, Homicidal Ideations, Suicidal Ideations Hematologic/ Lymphatic: Denies: Easy Bruising, Easy Bleeding VTE Information - Inpt Only VTE Present on Admission: No VTE Mechan Device Prophylaxis: SCD's VTE Pharm Prophylaxis ordered?: Yes Patient Problems: Active and Suspected Problems Subacute colitis (Acute) Fecal impaction of colon (Acute) - Physical Exam General: Alert, Oriented x3, Cooperative HEENT: Atraumatic, PERRLA, EOMI, Normocephalic Oral: Dry Mucosa Neck: Supple, No JVD, Negative Carotid Bruits Lungs: Clear to auscultation, Normal air movement, No rhonchi, No wheeze, No rales Cardiovascular: Regular rate, No murmurs Abdomen: Bowel Sounds Present, Soft, Non-Distended, Hyperactive Bowel Sounds, Tender - Mild tenderness over right and left upper quadrant Extremities: No edema, Capillary Refill Less than 3 Seconds Skin: No rashes, No breakdown Musculoskeletal: No Tenderness to Palpation of Joints or Extremities Neurological: Cranial nerves II-XII grossly intact, Motor Exam 5/5 strength throughout Psych/Mental Status: Normal Affect, Appropriate Vital Signs Temp Pulse Resp BP Pulse Ox 98.7 F 80 15 97/66 97 01/30/18 11:41 01/30/18 15:14 01/30/18 15:14 01/30/18 15:14 01/30/18 15:14 Oxygen Delivery Method Room Air Weight: 106 lb 8 oz Body Mass Index (BMI) 18.3 Laboratory Tests Past 24 Hrs 01/30/18 01/30/18 01/30/18 11:50 11:50 12:35 WBC 13.7 H RBC 3.21 L Hgb 10.0 L Hct 32.3 L MCV 100.6 H MCH 31.2 MCHC 31.0 L RDW 18.1 H RDW Differential 67.0 H Plt Count 377 MPV 8.8 Immature Gran % (Auto) 0.100 Neut % (Auto) 87.7 H Lymph % (Auto) 9.6 L Daniels % (Auto) 2.4 Eos % (Auto) 0.1 Baso % (Auto) 0.1 Absolute Neuts (auto) 12.0 H Absolute Lymphs (auto) 1.31 Total Counted Not Reportable Anisocytosis 1+ Sodium 139 Potassium 3.5 Chloride 101 Carbon Dioxide 30.0 Anion Gap 8 BUN 13 Creatinine 0.57 Estim Creat Clear Calc 96.05 Est GFR (MDRD) Af Amer 147 Est GFR (MDRD) Non-Af 122 BUN/Creatinine Ratio 22.8 H Glucose 93 Calcium 10.1 Total Bilirubin 0.40 Direct Bilirubin 0.10 AST 21 ALT 25 Alkaline Phosphatase 101 Total Protein 8.2 Albumin 3.0 L Globulin 5.2 H Lipase 71 L Urine Color Yellow Urine Clarity Clear Urine pH 6.0 Ur Specific [place] 1.010 Urine Protein Negative Urine Glucose (UA) Normal Urine Ketones Negative Urine Occult Blood 50 H Urine Nitrite Negative Urine Bilirubin Negative Urine Urobilinogen Normal Ur Leukocyte Esterase Negative Urine RBC > 100 SEEN Urine WBC 0 SEEN Ur Squamous Epith Cells 0-5 SEEN Urine Bacteria 0 SEEN Urine Mucus 0 SEEN Assessment/Plan All Active Problems Subacute colitis (Acute) Fecal impaction of colon (Acute) The patient is a 42 year old F with history of non-small cell lung cancer who finished her fourth cycle of Keytruda and chemotherapy by Dr. Gregg came to ER with abdominal cramps, nausea and vomiting and constipation. She has ongoing constipation for more than 1 month, last bowel movement about 3-4 days ago. She on bowel regimen of magnesium oxide, lactulose and has even tried Fleet enema yesterday on the advice of on-call oncologist of [place]. She also also has appointment to see Dr. Galarza tomorrow for for chronic constipation. Her vomiting started yesterday and could not eat or drink and therefore she is very dehydrated. She has abdominal pain mainly over upper quadrant that has been going for about 1 week. She did not had fever last 1 week although she was admitted in first week of November 2017 for high fever 103.5 Fahrenheit which was thought probably secondary to high tumor burden and tumor biology but workup was negative. He had prior colonoscopy but were unremarkable. ] In ED, she has leukocytosis 13,000, hemoglobin 10 and platelet count 377,000. K3.5. UA shows RBC more than 100 but no pyuria, nitrite and LE negative. She got 1 dose of IV Zosyn in ED. 1. Abdominal cramps, persistent nausea and vomiting paralysis secondary to chemotherapy adverse effect, Keytruda/colitis: Patient is being admitted on regular floor. Care to do has side effect of colitis and constipation. IV fluid normal saline for dehydration. Monitor intake and output. Watch out temperature graft. I think she does not need antibiotic now she did not had fever for last 1 week, maximum was 99 Fahrenheit. Blood cultures ?2 and urine culture ordered. ESR and CRP ordered. CT abdomen shows abnormal thickening of wall of colon suggestive of diffuse colitis but probably might be effect of chronic stool softener or chemotherapy side effect. She had Zosyn during previous admission in November 2017. Stool for C. difficile ordered. Probiotics ordered. 2. Non-small cell lung cancer on left lung on chemotherapy: Will consult Dr. Gregg for further opinion 3. DVT prophylaxis: On 5000 units of cutaneous twice daily . Watch out for dropping hemoglobin or platelet count or GI bleed and if any of them are positive, discontinue Lovenox. Laboratory Results 01/30/18 11:50: WBC 13.7 H, RBC 3.21 L, Hgb 10.0 L, Hct 32.3 L, MCV 100.6 H, MCH 31.2, MCHC 31.0 L, RDW 18.1 H, RDW Differential 67.0 H, Plt Count 377, MPV 8.8, Immature Gran % (Auto) 0.100, Neut % (Auto) 87.7 H, Lymph % (Auto) 9.6 L, Daniels % (Auto) 2.4, Eos % (Auto) 0.1, Baso % (Auto) 0.1, Absolute Neuts (auto) 12.0 H, Absolute Lymphs (auto) 1.31, Total Counted Not Reportable, Anisocytosis 1+ 01/30/18 11:50: Sodium 139, Potassium 3.5, Chloride 101, Carbon Dioxide 30.0, Anion Gap 8, BUN 13, Creatinine 0.57, Estim Creat Clear Calc 96.05, Est GFR (MDRD) Af Amer 147, Est GFR (MDRD) Non-Af 122, BUN/Creatinine Ratio 22.8 H, Glucose 93, Calcium 10.1, Total Bilirubin 0.40, Direct Bilirubin 0.10, AST 21, ALT 25, Alkaline Phosphatase 101, Total Protein 8.2, Albumin 3.0 L, Globulin 5.2 H, Lipase 71 L 01/30/18 12:35: Urine Color Yellow, Urine Clarity Clear, Urine pH 6.0, Ur Specific [place] 1.010, Urine Protein Negative, Urine Glucose (UA) Normal, Urine Ketones Negative, Urine Occult Blood 50 H, Urine Nitrite Negative, Urine Bilirubin Negative, Urine Urobilinogen Normal, Ur Leukocyte Esterase Negative, Urine RBC > 100 SEEN, Urine WBC 0 SEEN, Ur Squamous Epith Cells 0-5 SEEN, Urine Bacteria 0 SEEN, Urine Mucus 0 SEEN Clinical Impression(s) from Imaging Studies Abdomen/Pelvis CT 01/30/18 12:48 IMPRESSION: Abnormal thickening of the jain of the colon suggests a diffuse colitis. This could be related to infection or inflammation. Code Visit Inpatient E&M: 43425 Init Hosp L3
[2018-01-30 16:59] LABS: AST(SGOT) 21 U/L (15-37); Alanine Aminotransfer ALT/SGPT 24 U/L (13-56); Alkaline Phosphatase 102 U/L (45-117); Globulin 5.2 g/dL (2.2-4.2); Protein, Total 8.2 g/dL (6.4-8.2)
[2018-01-30 17:06] LABS: Erythrocyte Sedimentation Rate 126 mm/hr (0-20)
[2018-01-30] MEDS: Fleet Enema 1 ML RECTAL (18:07)
[2018-01-30] MEDS: oxyCODONE 5 MG Tablet PO (18:44)
[2018-01-30] MEDS: Lactulose 20 GM/30 ML UDC 30 GM PO ×2 (18:44→22:57)
[2018-01-30] MEDS: Heparin Injection (Vial) 5,000 UNIT/ML VIAL 5000 UNIT SC (18:45)
[2018-01-30] MEDS: Senna/Docusate Sodium 1 Tablet 2 TABLET PO (22:57)
[2018-01-30] MEDS: proMETHazine 25 MG/ML Syringe 12.5 MG IV (23:12)
[2018-01-31] VITALS (8 sets, daily range): BP systolic 87–102; BP diastolic 57–66; PULSE 79–106; RESP 14–18; TEMP 36.8–37.4; O2SAT 96–99
[2018-01-31] MEDS: 0.9% Normal Saline 1,000 ML 125 ML IV ×3 (02:01→18:00)
[2018-01-31] MEDS: Ondansetron 4 MG/2 ML Vial IV (02:04)
[2018-01-31] MEDS: Acetaminophen 500 MG Tablet PO (04:41)
[2018-01-31] MEDS: Lactulose 20 GM/30 ML UDC 30 GM PO (04:42)
[2018-01-31 05:09] LABS: Anion Gap 10 (5-15); BUN 10 mg/dL (7-18); BUN/Creat Ratio 15.4 RATIO (10-20); Calcium,Total 9.3 mg/dL (8.5-10.1); Chloride 105 mmol/L (98-107); Creatinine, Serum 0.65 mg/dL (0.55-1.02); EST Glomerular Filtration Rate 105 mL/min (>60); Est Glom Filt Rate - Afr Amer 127 mL/min (>60); Estimated Creatinine Clearance 85.26 ml/min; Glucose 94 mg/dL (74-106); Sodium Level 142 mmol/L (136-145)
[2018-01-31 05:21] LABS: Absolute Neutrophil Count 10.8 X10^3/uL (2.0-7.7); Basophil# 0.02 X10^3/uL; Basophil% 0.2 % (0-1); Eosinophil# 0.02 X10^3/uL; Eosinophils% 0.2 % (0-5); Hematocrit 30.2 % (37-47); Hemoglobin 9.4 g/dl (12.0-15.0); Lymphocyte % 9.8 % (19-41); Mean Corp Hgb Conc 31.1 g/gl (32-36); Mean Corpuscular Hgb 32.2 pg (27.0-32.0); Mean Corpuscular Volume 103.4 fL (81-99); Mean Platelet Vol. 8.6 fl (6.2-12.0); Monocyte# 0.19 X10^3/uL; Monocyte% 1.5 % (0-10); Neutrophil # 10.82 X10^3/uL (2.7-7.7); Neutrophil % 88.1 % (47-70); Platelet Count 380 K/mm3 (150-450); RBC Distribution Width CV 17.8 % (11.6-14.6); RBC Distribution Width SD 65.8 fl (35.1-43.9); Red Blood Count 2.92 M/mm3 (4.2-5.4); White Blood Count 12.3 K/mm3 (4.4-11.0)
[2018-01-31 05:55] LABS: POSITIVE COUNT NO; POSITIVE DIFFERENTIAL NO
[2018-01-31] MEDS: proMETHazine 25 MG/ML Syringe 12.5 MG IV (06:20)
[2018-01-31 07:11] LABS: Differential Comment SCANNED; Differential Indicated SCAN CRITERIA MET; POSITIVE MORPHOLOGY YES
[2018-01-31] MEDS: Metoclopramide 10 MG Tablet PO ×2 (09:58→14:40)
[2018-01-31] MEDS: Pantoprazole Sodium 40 MG Tablet PO (10:00)
[2018-01-31] MEDS: Heparin Injection (Vial) 5,000 UNIT/ML VIAL 5000 UNIT SC (10:01)
--- NOTE | 2018-01-31 11:19 | CASEMGMT ---
RN CM assessment completed, see link. DC PLAN: HOME -Pt withdrawn, not very communicative. Denies dc needs, states has family support. Rica BREWSTERN RN ACM
--- NOTE | 2018-01-31 11:40 | PCM.PN.HOSP ---
Patient Problems: Active and Suspected Problems Subacute colitis (Acute) Fecal impaction of colon (Acute) Subjective: Patient seen and examined. He is 42-year-old female with a history of non-small cell lung cancer on chemotherapy. She was admitted with a complaint of nausea and vomiting and constipation. She has been managed for constipation and dehydration and is on enemas and laxatives. Patient seen and examined. She complains of diarrhea as a consequence of the numerous laxatives and enema that she received. She denies any fever or chills, but admits to vomiting twice overnight. She denies any chest pain or abdominal pain. 12 point review of systems otherwise negative. Labs and vitals reviewed. Patient's was at bedside at time of review. Vitals/I&O's: Vital Signs Temp Pulse Resp BP Pulse Ox 98.4 F 89 16 87/57 L 96 01/31/18 08:00 01/31/18 08:00 01/31/18 08:00 01/31/18 08:00 01/31/18 08:00 Oxygen Delivery Method Room Air Weight: 107 lb 12.8 oz Body Mass Index (BMI) 18.5 Intake and Output for Last 24 Hours 01/29/18 01/30/18 01/31/18 23:59 23:59 23:59 Intake Total 1958 / 1958 Output Total 400 / 400 Balance 1559 / 1559 General: Alert, Oriented x3, Cooperative, No apparent distress HEENT: Atraumatic, PERRLA, EOMI, Normocephalic Oral: Dry Mucosa Neck: Supple, No JVD, Negative Carotid Bruits Lungs: Clear to auscultation, Normal air movement, No rhonchi, No wheeze, No rales Cardiovascular: Regular rate, Regular Rhythm, Normal S1, Normal S2, No murmurs Abdomen: Bowel Sounds Present, Soft, Non Tender, Non-Distended, No Hepato-splenomegaly Extremities: No clubbing, No cyanosis, No edema, Capillary Refill Less than 3 Seconds Skin: No rashes, No breakdown Musculoskeletal: No Tenderness to Palpation of Joints or Extremities Lymphatic: No Cervical, Supraclavicular, or Inguinal Adenopathy Neurological: Cranial nerves II-XII grossly intact, Motor Exam 5/5 strength throughout, Muscle tone normal Psych/Mental Status: Normal Affect, Appropriate, Alert and oriented to time, place, person, mood and affect Microbiology Past 72 Hours 01/30/18 Unknown Stool Stool Occult Blood (GI) - Final Occult Blood Positive 01/30/18 Unknown Interface Orders Stool Lactoferrin - Final Laboratory Results 01/31/18 04:30: WBC 12.3 H, RBC 2.92 L, Hgb 9.4 L, Hct 30.2 L, MCV 103.4 H, MCH 32.2 H, MCHC 31.1 L, RDW 17.8 H, RDW Differential 65.8 H, Plt Count 380, MPV 8.6, Immature Gran % (Auto) 0.200, Neut % (Auto) 88.1 H, Lymph % (Auto) 9.8 L, [place] % (Auto) 1.5, Eos % (Auto) 0.2, Baso % (Auto) 0.2, Absolute Neuts (auto) 10.8 H, Absolute Lymphs (auto) 1.20, Total Counted Not Reportable, Differential Comment SCANNED 01/31/18 04:30: Sodium 142, Potassium 3.0 L, Chloride 105, Carbon Dioxide 27.0, Anion Gap 10, BUN 10, Creatinine 0.65, Estim Creat Clear Calc 85.26, Est GFR (MDRD) Af Amer 127, Est GFR (MDRD) Non-Af 105, BUN/Creatinine Ratio 15.4, Glucose 94, Calcium 9.3 Diagnostic Data Abdomen/Pelvis CT 01/30/18 12:48 IMPRESSION: Abnormal thickening of the jain of the colon suggests a diffuse colitis. This could be related to infection or inflammation. Electronically Signed: Krystal Alatorre MD at 14:20 EDT , Service support , Current Medications Acetaminophen (Tylenol) 500 mg PO Q6H PRN PRN PRN Reason: fever/pain Last Admin: 01/31/18 04:41 Dose: 500 mg Bisacodyl (Dulcolax) 5 mg PO DAILY PRN PRN PRN Reason: Constipation Folic Acid (Folic Acid) 1 mg PO DAILYCM [facility] Last Admin: 01/31/18 09:59 Dose: Not Given Heparin Sodium (Beef Lung) (Heparin 500 Unit/5 Ml (100/Ml)) 500 unit IV UD PRN PRN Reason: HEPARIN FLUSH Heparin Sodium (Porcine) (Heparin Na) 5,000 unit SC Q12 [facility] Last Admin: 01/31/18 10:01 Dose: 5,000 unit Sodium Chloride () 1,000 mls @ 125 mls/hr IV .Q8H [facility] Last Admin: 01/31/18 09:58 Dose: 125 mls/hr Potassium Chloride (Kcl 10meq/100ml) 10 meq in 100 mls @ 100 mls/hr IV BOLUS Q1H [facility] Stop: 01/31/18 11:59 Last Admin: 01/31/18 11:12 Dose: 100 mls/hr Lactobacillus Acidophilus (Acidophilus) 1 tablet PO TID [facility] Last Admin: 01/31/18 04:42 Dose: 1 tablet Lactulose (Chronulac, Cephulac) 30 gm PO TID [facility] Stop: 02/01/18 06:01 Last Admin: 01/31/18 04:42 Dose: 30 gm Lactulose (Chronulac, Cephulac) 30 gm PO TID PRN PRN Reason: CONSTIPATION Metoclopramide HCl (Reglan) 10 mg PO 4X/DAY PRN PRN Reason: NAUSEA Last Admin: 01/31/18 09:58 Dose: 10 mg Nutritional Formula (Lactose Free) (Ensure Enlive) 120 ml PO 4X/DAY [facility] Last Admin: 01/31/18 09:54 Dose: Not Given Ondansetron HCl (Zofran) 4 mg IV Q4H PRN PRN PRN Reason: NAUSEA Last Admin: 01/31/18 02:04 Dose: 4 mg Oxycodone HCl (Oxyir) 5 mg PO Q4H PRN PRN PRN Reason: PAIN Last Admin: 01/30/18 18:44 Dose: 5 mg Pantoprazole Sodium (Protonix) 40 mg PO DAILY [facility] Last Admin: 01/31/18 10:00 Dose: 40 mg Potassium Chloride (K-Dur) 20 meq PO BID [facility] Last Admin: 01/31/18 11:13 Dose: 20 meq Promethazine HCl (Phenergan) 12.5 mg IV Q6H PRN PRN PRN Reason: NAUSEA/VOMITING Last Admin: 01/31/18 06:20 Dose: 12.5 mg Pyridoxine HCl (Vitamin B-6) 100 mg PO DAILY [facility] Last Admin: 01/31/18 09:59 Dose: Not Given Senna/Docusate Sodium (Senokot-S, Yaritza-Colace) 2 tablet PO BID [facility] Last Admin: 01/31/18 09:30 Dose: Not Given Sodium Chloride () 10 ml IV UD PRN PRN Reason: VAD FLUSH Zolpidem Tartrate (Ambien (Generic)) 5 mg PO QHS PRN PRN PRN Reason: INSOMNIA Medical Necessity - Tobacco Use Smoking Status: Former smoker Assessment/Plan All Active Problems Subacute colitis (Acute) Fecal impaction of colon (Acute) 1. Constipation resolving. Patient now having diarrhea due to oral laxatives and enemas C Diff testing deferred o/a of her being on laxatives CT abdomen showed diffuse colitis ESR/CRP were 126/106- this may be due to malignancy also since patient is now having diarrhea, will hold off on laxatives for now. though she does have a mild leucocytosis, with wbc being 12.3 today, she has no clear evidence of infection; diarrhea is likely due to laxatives. will hold off on antibiotics for now 2. Non small cell lung cancer undergoing chemo with oncology. currently stable to follow up with oncology on dishcarge 3. Hypokalemia: K today is 3, likely due to vomiting and diarrhea. Will replace and monitor DVT prophylaxis: heparin This note was generated with [employer] dictation software. It may contain incorrect words, spelling, and punctuation that were not noted in checking the note before signing. Code Visit Inpatient E&M: 03414 Subs Hosp L3
[2018-01-31 13:35] LABS: Magnesium 1.4 mg/dL (1.6-2.6)
--- NOTE | 2018-01-31 13:40 | CON.PCM_ITS ---
Problem List (1) Fecal impaction of colon Status: Acute (2) Non-small cell cancer of left lung Status: Chronic Comment: Status post chemotherapy 08/23,08/24,08/25/17 cisplatin/etoposide - Consult Date of Consult: 01/31/[address] Ott regarding and patient known to me with metastatic non-small cell lung cancer on Immuno-chemotherapy. Patient present with constipation and intractable nausea vomiting this weekend. - Reason for Consult History of Present Illness Date of Admission: 01/30/18 Chief Complaint: Abdominal cramps and constipation The patient is a 42 year old F with history of non-small cell lung cancer who finished her fifth cycle of Keytruda and Alimta last Wednesday. A week prior, she had problem with constipation and poor appetite. Patient had epigastric tenderness and was on Prevacid and Reglan. She is scheduled for an GI evaluation for upper endoscopy as well. She complain of abdominal pain came to ER with abdominal cramps, nausea and vomiting and constipation. She has constipation on and off for more than 1 month, last bowel movement about 3-4 days ago. She on bowel regimen of magnesium oxide, lactulose and has even tried Fleet enema no improvement this weekend. Her vomiting started yesterday and could not eat or drink and therefore she is also dehydrated. She has abdominal pain mainly over upper quadrant that has been going for about 1 week. She did not had fever or any sign of infection. Her fever actually has resolved since starting chemotherapy treatment 2 months ago. She had prior colonoscopy but were unremarkable for iron deficiency anemia.. In ED, she has leukocytosis 13,000, hemoglobin 10 and platelet count 377,000. K3.5. UA shows RBC more than 100 but no pyuria, nitrite and LE negative. She got 1 dose of IV Zosyn in ED. she had a soapsuds enema followed by lactulose yesterday and she finally had a bowel movement last night. This morning she has no abdominal pain or cramping or nausea. She has not eaten anything but has loose stool. He denied any pain, shortness of breath, or fever. Past Medical History Past Medical History (Chronic Problems): Chronic Problems Non-small cell cancer of left lung (Chronic) w isolated brain metastasis -Achieved partial remission after chemotherapy, radiation therapy & gamma knife to brain metastasis. -Maintenance treatment with KEYTRUDA/Alimta Anemia (Chronic) Allergies codeine Adverse Reaction (Verified 01/30/18 11:43) Nausea hydrocodone Adverse Reaction (Verified 01/30/18 11:43) Nausea miconazole [From Monistat 1 Combo Pack] Adverse Reaction (Verified 01/30/18 11: 43) Swelling Home Medications: Ambulatory Orders Medication Instructions Recorded Pyridoxine HCl [Vitamin B-6] 1 tab PO DAILY 08/14/17 Ondansetron HCl [Zofran] 4 mg PO PRN PRN 09/06/17 Pantoprazole Sodium [Protonix] 40 mg PO DAILY 09/06/17 Potassium Chloride [Klor-Con 10] 10 meq PO BID 09/06/17 Oxycodone [Oxyir] 5 mg PO Q4H PRN PRN #14 tab 09/07/17 Metoclopramide [Reglan] 10 mg PO 4X/DAY PRN 11/28/17 Acetaminophen 500 mg PO Q4H PRN PRN #1 liquid 11/30/17 Ibuprofen 2 - 3 mg PO 4X/DAY PRN PRN #1 11/30/17 tablet Folic Acid [Folic Acid] 1 mg PO DAILY 01/30/18 Lactulose 15 gm PO DAILY 01/30/18 Surgical History: - - L pleurX catheter VASCULAR RADIOLOGIST History: No pertinent VASCULAR RADIOLOGIST history Smoking Status: Former smoker - *Family History Maternal History Items: No pertinent history Review of Systems Constitutional: Reports: Anorexia, Weakness, Fatigue. Denies: Chills, Fever HEENT: Denies: Head Aches, Sinus Congestion, Sinus Drainage Cardiovascular: Denies: Chest Pain, Palpitations Respiratory: Denies: Cough, Shortness of breath at rest, Sputum production Gastrointestinal: Reports: Abdominal Pain, Constipation, Dyspepsia, Nausea, Vomiting. Denies: Hematemesis, Hematochezia, Melena Genitourinary: Denies: Dysuria Musculoskeletal: Denies: Joint Pain, Joint Tenderness Skin: Denies: Rash, Wounds Neurological: Denies: Numbness, Tingling, Focal weakness Psychiatric: Denies: Anxiety, Depression, Homicidal Ideations, Suicidal Ideations Hematologic/ Lymphatic: Denies: Easy Bruising, Easy Bleeding Dehydration/nausea and vomiting (Acute) Fecal impaction of colon (Acute) - Physical Exam General: Alert, Oriented x3, Cooperative HEENT: Atraumatic, PERRLA, EOMI, Normocephalic Oral: Dry Mucosa Neck: Supple, No JVD, Negative Carotid Bruits Lungs: Clear to auscultation, Normal air movement, No rhonchi, No wheeze, No rales Cardiovascular: Regular rate, No murmurs Abdomen: Bowel Sounds Present, Soft, Non-Distended, Hyperactive Bowel Sounds, no tenderness/guarding/rebound tenderness Extremities: No edema, Capillary Refill Less than 3 Seconds Skin: No rashes, No breakdown Musculoskeletal: No Tenderness to Palpation of Joints or Extremities Neurological: Cranial nerves II-XII grossly intact, Motor Exam 5/5 strength throughout Psych/Mental Status: Normal Affect, Appropriate Vital Signs Temp Pulse Resp BP Pulse Ox 98.7 F 80 15 97/66 97 01/30/18 11:41 01/30/18 15:14 01/30/18 15:14 01/30/18 15:14 01/30/18 15:14 Oxygen Delivery Method Room Air Weight: 106 lb 8 oz Body Mass Index (BMI) 18.3 Laboratory Tests Past 24 Hrs 01/30/18 01/30/18 01/30/18 11:50 11:50 12:35 WBC 13.7 H RBC 3.21 L Hgb 10.0 L Hct 32.3 L MCV 100.6 H MCH 31.2 MCHC 31.0 L RDW 18.1 H RDW Differential 67.0 H Plt Count 377 MPV 8.8 Immature Gran % (Auto) 0.100 Neut % (Auto) 87.7 H Lymph % (Auto) 9.6 L [place] % (Auto) 2.4 Eos % (Auto) 0.1 Baso % (Auto) 0.1 Absolute Neuts (auto) 12.0 H Absolute Lymphs (auto) 1.31 Total Counted Not Reportable Anisocytosis 1+ Sodium 139 Potassium 3.5 Chloride 101 Carbon Dioxide 30.0 Anion Gap 8 BUN 13 Creatinine 0.57 Estim Creat Clear Calc 96.05 Est GFR (MDRD) Af Amer 147 Est GFR (MDRD) Non-Af 122 BUN/Creatinine Ratio 22.8 H Glucose 93 Calcium 10.1 Total Bilirubin 0.40 Direct Bilirubin 0.10 AST 21 ALT 25 Alkaline Phosphatase 101 Total Protein 8.2 Albumin 3.0 L Globulin 5.2 H Lipase 71 L Urine Color Yellow Urine Clarity Clear Urine pH 6.0 Ur Specific [place] 1.010 Urine Protein Negative Urine Glucose (UA) Normal Urine Ketones Negative Urine Occult Blood 50 H Urine Nitrite Negative Urine Bilirubin Negative Urine Urobilinogen Normal Ur Leukocyte Esterase Negative Urine RBC > 100 SEEN Urine WBC 0 SEEN Ur Squamous Epith Cells 0-5 SEEN Urine Bacteria 0 SEEN Urine Mucus 0 SEEN Clinical Impression(s) from Imaging Studies Abdomen/Pelvis CT 01/30/18 12:48 IMPRESSION: Abnormal thickening of the jain of the colon suggests a diffuse colitis. This could be related to infection or inflammation. Assessment/Plan All Active Problems Fecal impaction of colon (Acute) Dehydration/nausea/vomiting (Acute) 1. Abdominal cramps, persistent nausea and vomiting, fecal impaction and constipation. -Improved after soapsuds enema. No clinical evidence of colitis, active bowel sounds abdomen is nontender. Plan: -Discharge home this afternoon on B.R.A.T diet. -Resume stool softener once her stool is formed, MiraLAX as needed for constipation, Reglan as needed for nausea. -Continue Protonix and follow up with Dr. Galarza for EGD because of iron deficiency anemia & constipation. 2. Non-small cell lung cancer on left lung on chemotherapy: Stable to be discharged home today Plan: -Call if her symptoms persist for evaluation in the office this week -Follow-up in 3 weeks for her next cycle of maintenance chemotherapy & KEYTRUDA cc: Dr. Cleveland Obrien, Dr. Efren Ott; Dr. Zaida Galarza
[2018-02-01] MEDS: 0.9% Normal Saline 1,000 ML 125 ML IV (02:03)
[2018-02-01 03:50] VITALS: BP 92/58; PULSE 83; RESP 16; TEMP 37.1; O2SAT 96
[2018-02-01 04:43] LABS: Basophil# 0.02 X10^3/uL; Basophil% 0.2 % (0-1); Eosinophil# 0.05 X10^3/uL; Eosinophils% 0.5 % (0-5); Hematocrit 27.3 % (37-47); Hemoglobin 8.5 g/dl (12.0-15.0); Lymphocyte % 9.8 % (19-41); Mean Corp Hgb Conc 31.1 g/gl (32-36); Mean Corpuscular Hgb 31.8 pg (27.0-32.0); Mean Corpuscular Volume 102.2 fL (81-99); Mean Platelet Vol. 8.6 fl (6.2-12.0); Neutrophil % 88.4 % (47-70); Platelet Count 309 K/mm3 (150-450); RBC Distribution Width CV 17.7 % (11.6-14.6); RBC Distribution Width SD 66.1 fl (35.1-43.9); Red Blood Count 2.67 M/mm3 (4.2-5.4); White Blood Count 10.2 K/mm3 (4.4-11.0)
[2018-02-01 04:45] LABS: Differential Indicated SCAN CRITERIA MET; POSITIVE COUNT NO; POSITIVE DIFFERENTIAL NO; POSITIVE MORPHOLOGY YES
[2018-02-01 04:47] LABS: Anion Gap 9 (5-15); BUN 5 mg/dL (7-18); BUN/Creat Ratio 9.4 RATIO (10-20); Calcium,Total 8.8 mg/dL (8.5-10.1); Chloride 106 mmol/L (98-107); Creatinine, Serum 0.53 mg/dL (0.55-1.02); EST Glomerular Filtration Rate 132 mL/min (>60); Est Glom Filt Rate - Afr Amer 159 mL/min (>60); Estimated Creatinine Clearance 104.56 ml/min; Glucose 90 mg/dL (74-106); Potassium 3.7 mmol/L (3.5-5.1); Sodium Level 142 mmol/L (136-145)
[2018-02-01 05:17] LABS: Differential Comment SCAN
[2018-02-01 05:18] LABS: Anisocytosis 1+; Macrocytosis 1+
[2018-02-01 08:35] VITALS: BP 96/61; PULSE 87; RESP 16; TEMP 36.8; O2SAT 97
[2018-02-01] MEDS: Pantoprazole Sodium 40 MG Tablet PO (08:46)
[2018-02-01] MEDS: Metoclopramide 10 MG Tablet PO (08:46)
[2018-02-01] MEDS: 0.9% NaCl VAD Flush 10 ML IV (08:47)
--- NOTE | 2018-02-01 09:31 | DCINST_ITS ---
- Discharge Diagnoses Current Active Problems: Current Active and Chronic Problems Subacute colitis (Acute) Fecal impaction of colon (Acute) You will use the following diet at home:: Cardiac Your food should be the consistency of: Regular Your liquids should be the consistency of: Regular/Thin Discharge Activity: Return to Normal Activity Weight Bearing Status: Weight bearing as tolerated Call your doctor if you observe: Fever of 101 or Higher, - - worsening constipation Instructions: Oncology: Controlling Constipation, Treating Constipation Allergies/Adverse Reactions: Allergies codeine Adverse Reaction (Verified 01/30/18 11:43) Nausea hydrocodone Adverse Reaction (Verified 01/30/18 11:43) Nausea miconazole [From Monistat 1 Combo Pack] Adverse Reaction (Verified 01/30/18 11: 43) Swelling Medications to take at Discharge Pyridoxine HCl [Vitamin B-6] 1 tab PO DAILY 08/14/17 Ondansetron HCl [Zofran] 4 mg PO PRN PRN 09/06/17 Pantoprazole Sodium [Protonix] 40 mg PO DAILY 09/06/17 Potassium Chloride [Klor-Con 10] 10 meq PO BID 09/06/17 Oxycodone [Oxyir] 5 mg PO Q4H PRN PRN #14 tab 09/07/17 Metoclopramide [Reglan] 10 mg PO 4X/DAY PRN 11/28/17 Acetaminophen 500 mg PO Q4H PRN PRN #1 liquid 11/30/17 Ibuprofen 2 - 3 mg PO 4X/DAY PRN PRN #1 tablet 11/30/17 Folic Acid 1 mg PO DAILY 01/30/18 Lactulose 15 gm PO DAILY 01/30/18 Primary Care Physician: Remigio Valdez MD [Primary Care Provider] - Please follow up with your Primary Care Physician in: one week Test Results: Test results from this visit will be discussed in further detail at your follow- up appointment, if applicable. Please Follow Up With: Cleveland Obrien MD When: 1-2 weeks Please Follow Up With: Zaida Galarza MD When: please call for appointment for colonoscopy and EGD
--- NOTE | 2018-02-01 09:32 | DS.PCM_ITS ---
Discharge Date and Diagnosis Date of Admission: 01/30/18 Date of Discharge: 02/01/18 - Primary Discharge Diagnosis Active and Suspected Problems Subacute colitis (Acute) Fecal impaction of colon (Acute) - Secondary Discharge Diagnosis Chronic Problems HCAP (healthcare-associated pneumonia) (Chronic) Interval improvement on x-ray Lung mass (Chronic) Pleural effusion, left (Chronic) presence of L pleurX catheter drains Q48 hours Non-small cell cancer of left lung (Chronic) Status post chemotherapy 08/23,08/24,08/25/17 cisplatin/etoposide Chronic hypoxemic respiratory failure (Chronic) O2 at 2 liters Hospital Course and Treatment Imaging Results: Diagnostic Data Abdomen/Pelvis CT 01/30/18 12:48 IMPRESSION: Abnormal thickening of the jain of the colon suggests a diffuse colitis. This could be related to infection or inflammation. Electronically Signed: Krystal Alatorre MD at 14:20 EDT , Service support , Laboratory Tests 01/30/18 01/30/18 01/30/18 11:50 11:50 11:50 WBC 13.7 H RBC 3.21 L Hgb 10.0 L Hct 32.3 L MCV 100.6 H MCH 31.2 MCHC 31.0 L RDW 18.1 H RDW Differential 67.0 H Plt Count 377 MPV 8.8 Immature Gran % (Auto) 0.100 Neut % (Auto) 87.7 H Lymph % (Auto) 9.6 L [place] % (Auto) 2.4 Eos % (Auto) 0.1 Baso % (Auto) 0.1 Absolute Neuts (auto) 12.0 H Absolute Lymphs (auto) 1.31 Total Counted Not Reportable Differential Comment Anisocytosis 1+ Macrocytosis ESR 126 H Sodium 139 Potassium 3.5 Chloride 101 Carbon Dioxide 30.0 Anion Gap 8 BUN 13 Creatinine 0.57 Estim Creat Clear Calc 96.05 Est GFR (MDRD) Af Amer 147 Est GFR (MDRD) Non-Af 122 BUN/Creatinine Ratio 22.8 H Glucose 93 Calcium 10.1 Magnesium Total Bilirubin 0.40 Direct Bilirubin 0.10 AST 21 ALT 25 Alkaline Phosphatase 101 C-React Prot Ext Range Total Protein 8.2 Albumin 3.0 L Globulin 5.2 H Lipase 71 L Urine Color Urine Clarity Urine pH Ur Specific [place] Urine Protein Urine Glucose (UA) Urine Ketones Urine Occult Blood Urine Nitrite Urine Bilirubin Urine Urobilinogen Ur Leukocyte Esterase Urine RBC Urine WBC Ur Squamous Epith Cells Urine Bacteria Urine Mucus 01/30/18 01/30/18 01/31/18 11:50 12:35 04:30 WBC 12.3 H RBC 2.92 L Hgb 9.4 L Hct 30.2 L MCV 103.4 H MCH 32.2 H MCHC 31.1 L RDW 17.8 H RDW Differential 65.8 H Plt Count 380 MPV 8.6 Immature Gran % (Auto) 0.200 Neut % (Auto) 88.1 H Lymph % (Auto) 9.8 L [place] % (Auto) 1.5 Eos % (Auto) 0.2 Baso % (Auto) 0.2 Absolute Neuts (auto) 10.8 H Absolute Lymphs (auto) 1.20 Total Counted Not Reportable Differential Comment SCANNED Anisocytosis Macrocytosis ESR Sodium Potassium Chloride Carbon Dioxide Anion Gap BUN Creatinine Estim Creat Clear Calc Est GFR (MDRD) Af Amer Est GFR (MDRD) Non-Af BUN/Creatinine Ratio Glucose Calcium Magnesium Total Bilirubin 0.40 Direct Bilirubin 0.10 AST 21 ALT 24 Alkaline Phosphatase 102 C-React Prot Ext Range 106.00 H Total Protein 8.2 Albumin 3.0 L Globulin 5.2 H Lipase Urine Color Yellow Urine Clarity Clear Urine pH 6.0 Ur Specific [place] 1.010 Urine Protein Negative Urine Glucose (UA) Normal Urine Ketones Negative Urine Occult Blood 50 H Urine Nitrite Negative Urine Bilirubin Negative Urine Urobilinogen Normal Ur Leukocyte Esterase Negative Urine RBC > 100 SEEN Urine WBC 0 SEEN Ur Squamous Epith Cells 0-5 SEEN Urine Bacteria 0 SEEN Urine Mucus 0 SEEN 01/31/18 01/31/18 02/01/18 04:30 04:30 04:03 WBC 10.2 RBC 2.67 L Hgb 8.5 L Hct 27.3 L MCV 102.2 H MCH 31.8 MCHC 31.1 L RDW 17.7 H RDW Differential 66.1 H Plt Count 309 MPV 8.6 Immature Gran % (Auto) 0.100 Neut % (Auto) 88.4 H Lymph % (Auto) 9.8 L [place] % (Auto) 1.0 Eos % (Auto) 0.5 Baso % (Auto) 0.2 Absolute Neuts (auto) 9.0 H Absolute Lymphs (auto) 1.00 Total Counted Not Reportable Differential Comment SCAN Anisocytosis 1+ Macrocytosis 1+ ESR Sodium 142 Potassium 3.0 L Chloride 105 Carbon Dioxide 27.0 Anion Gap 10 BUN 10 Creatinine 0.65 Estim Creat Clear Calc 85.26 Est GFR (MDRD) Af Amer 127 Est GFR (MDRD) Non-Af 105 BUN/Creatinine Ratio 15.4 Glucose 94 Calcium 9.3 Magnesium 1.4 L Total Bilirubin Direct Bilirubin AST ALT Alkaline Phosphatase C-React Prot Ext Range Total Protein Albumin Globulin Lipase Urine Color Urine Clarity Urine pH Ur Specific [place] Urine Protein Urine Glucose (UA) Urine Ketones Urine Occult Blood Urine Nitrite Urine Bilirubin Urine Urobilinogen Ur Leukocyte Esterase Urine RBC Urine WBC Ur Squamous Epith Cells Urine Bacteria Urine Mucus 02/01/18 04:03 WBC RBC Hgb Hct MCV MCH MCHC RDW RDW Differential Plt Count MPV Immature Gran % (Auto) Neut % (Auto) Lymph % (Auto) [place] % (Auto) Eos % (Auto) Baso % (Auto) Absolute Neuts (auto) Absolute Lymphs (auto) Total Counted Differential Comment Anisocytosis Macrocytosis ESR Sodium 142 Potassium 3.7 Chloride 106 Carbon Dioxide 27.0 Anion Gap 9 BUN 5 L Creatinine 0.53 L Estim Creat Clear Calc 104.56 Est GFR (MDRD) Af Amer 159 Est GFR (MDRD) Non-Af 132 BUN/Creatinine Ratio 9.4 L Glucose 90 Calcium 8.8 Magnesium Total Bilirubin Direct Bilirubin AST ALT Alkaline Phosphatase C-React Prot Ext Range Total Protein Albumin Globulin Lipase Urine Color Urine Clarity Urine pH Ur Specific [place] Urine Protein Urine Glucose (UA) Urine Ketones Urine Occult Blood Urine Nitrite Urine Bilirubin Urine Urobilinogen Ur Leukocyte Esterase Urine RBC Urine WBC Ur Squamous Epith Cells Urine Bacteria Urine Mucus Operations: None, - - left tunneled thoracic catheter placement Procedures: None Summary of Care Provided: The patient is a 42 year old F with a history of non-small cell cancer of the left lung was admitted on 01/30/2018 with complaint of abdominal cramps, nausea vomiting constipation. Because patient had been going on for about a month and her last bowel movement had been 3-4 days prior to admission. She was on bowel regimen with magnesium oxide, and lactulose not even try fleets enema to no avail. Unable to eat or drink because of the severe constipation and had been vomiting. She had no associated fever or chills. White cell count was elevated at 13,000 platelet count was 377,000 and hemoglobin was 10. Urinalysis showed WBC more than 100 but no pyuria or nitrites. She received 1 dose of IV Zosyn in the ED. However she was admitted and managed for constipation likely opiate induced. She was given soapsuds enema and this resulted in loose stools. C. difficile was not done on account of patient being on laxatives causing diarrhea. Diarrhea resolved.She also had hypokalemia which resolved with replacement of potassium. Oncology was consulted and recommended the patient be discharged to follow-up on outpatient basis with Dr. Donahue for EGD and colonoscopy as CT of the abdomen done during this admission showed diffuse colitis. She was discharged on 02/01/2018 and is to follow-up with her primary care doctor, oncologist and general surgeon. Patient seen and examined prior to discharge. She had no complaints and diarrhea has stopped. She denied any fever or chills, any abdominal pain, any nausea vomiting, any shortness of breath, any chest pain. 12 point review of systems otherwise negative. On examination. Vital Signs Height 5 ft 4 in Weight: 107 lb 12.8 oz Weight in Pounds 107.8 lbs Pulse Ox 97 Temperature 98.2 F Pulse Rate 87 Respiratory Rate 16 Blood Pressure 96/61 Blood Pressure Position Semi-Fowlers [] General: Alert, Oriented x3, Cooperative, No apparent distress HEENT: Atraumatic, PERRLA, EOMI, Normocephalic Oral: Dry Mucosa Neck: Supple, No JVD, Negative Carotid Bruits Lungs: Clear to auscultation, Normal air movement, No rhonchi, No wheeze, No rales Cardiovascular: Regular rate, Regular Rhythm, Normal S1, Normal S2, No murmurs Abdomen: Bowel Sounds Present, Soft, Non Tender, Non-Distended, No Hepato- splenomegaly Extremities: No clubbing, No cyanosis, No edema, Capillary Refill Less than 3 Seconds Skin: No rashes, No breakdown Musculoskeletal: No Tenderness to Palpation of Joints or Extremities Lymphatic: No Cervical, Supraclavicular, or Inguinal Adenopathy Neurological: Cranial nerves II-XII grossly intact, Motor Exam 5/5 strength throughout, Muscle tone normal Psych/Mental Status: Normal Affect, Appropriate, Alert and oriented to time, place, person, mood and affect Plan as stated above. Discharge Diet: 2000 mg Sodium Diet Discharge Activity: Return to Normal Activity Weight Bearing Status: Weight bearing as tolerated Call your doctor if you observe: Fever of 101 or Higher, - - worsening constipation Home Medications: Medications to take at Discharge Pyridoxine HCl [Vitamin B-6] 1 tab PO DAILY 08/14/17 Ondansetron HCl [Zofran] 4 mg PO PRN PRN 09/06/17 Pantoprazole Sodium [Protonix] 40 mg PO DAILY 09/06/17 Potassium Chloride [Klor-Con 10] 10 meq PO BID 09/06/17 Oxycodone [Oxyir] 5 mg PO Q4H PRN PRN #14 tab 09/07/17 Metoclopramide [Reglan] 10 mg PO 4X/DAY PRN 11/28/17 Acetaminophen 500 mg PO Q4H PRN PRN #1 liquid 11/30/17 Ibuprofen 2 - 3 mg PO 4X/DAY PRN PRN #1 tablet 11/30/17 Folic Acid 1 mg PO DAILY 01/30/18 Lactulose 15 gm PO DAILY 01/30/18 Primary Care Physician: Remigio Valdez MD [Primary Care Provider] - Please follow up with your Primary Care Physician in: one week Please Follow Up With: Cleveland Obrien MD When: 1-2 weeks Please Follow Up With: Zaida Galarza MD When: please call for appointment for colonoscopy and EGD Patient Instructions: Treating Constipation, Oncology: Controlling Constipation Disposition: Home Minutes spent on discharge:: 35 Patient Condition:: Stable Medical Necessity - Tobacco Use Smoking Status: Former smoker Meaningful Use Info Meaningful Use Diagnoses (Choose all that apply): None applicable Code Visit Inpatient E&M: 52268 Disch Hosp
--- NOTE | 2018-02-03 15:32 | CASEMGMT ---
YING CM DC Call DC Date 02/01/18 LACE 4 Disposition: Home Call to home phone. No answer, message machine full and could not leave message. Rica BREWSTERN RN ACM
== END 2018-02-01 10:01 | disposition home or self-care (01) | DRG 389 ==
LOC: ED 14:00 → MS2 16:32
PROVIDERS: Admitting Provider Internal Medicine; Emergency Provider Emergency Medicine; Family Provider Family Medicine; PCP Family Medicine; Visit Provider Student in an Organized Health Care Education/Training Program
DX: K56.41 Fecal impaction (principal); C34.92 Malignant neoplasm of unspecified part of left bronchus or lung; K52.9 Noninfective gastroenteritis and colitis, unspecified; E86.0 Dehydration; E87.6 Hypokalemia; Z87.891 Personal history of nicotine dependence; D50.9 Iron deficiency anemia, unspecified; Z79.899 Other long term (current) drug therapy
CPT/HCPCS: 36415; 36591; 74176; 80048; 80076; 81001; 82274; 83630; 83690; 83735; 85025; 85652; 86140; 87040; 87086; 87506; 96361; 96365; 96372; 96375; 96376; 97802; 99218; 99281; J7030; A4216; G0378; J2405

== ENCOUNTER → 2018-02-28 11:00 | Outpatient (CLI) | payer OTHER, SELFPAY ==
[2018-02-28 11:34] VITALS: BP 85/63; PULSE 119; RESP 16; TEMP 36.3; O2SAT 97; BMI 18.4
[2018-02-28] MEDS: 0.9% Normal Saline 1,000 ML 500 ML IV (11:41)
[2018-02-28 11:48] LABS: BUN 11 mg/dL (7-18); Creatinine, Serum 0.69 mg/dL (0.55-1.02); EST Glomerular Filtration Rate 98 mL/min (>60); Est Glom Filt Rate - Afr Amer 118 mL/min (>60); Estimated Creatinine Clearance 77.48 ml/min; Glucose 102 mg/dL (74-106)
[2018-02-28 11:49] LABS: Anion Gap 11 (5-15); BUN/Creat Ratio 15.9 RATIO (10-20); Calcium,Total 10.6 mg/dL (8.5-10.1); Chloride 98 mmol/L (98-107); Magnesium 1.3 mg/dL (1.6-2.6); Potassium 3.9 mmol/L (3.5-5.1); Sodium Level 135 mmol/L (136-145)
== END ==
PROVIDERS: Family Provider Family Medicine; PCP Family Medicine; Visit Provider Internal Medicine Hematology & Oncology
DX: E83.42 Hypomagnesemia (principal); C34.90 Malignant neoplasm of unspecified part of unspecified bronchus or lung; E86.0 Dehydration; R53.1 Weakness
CPT/HCPCS: 96365; 96366; 36591; 80048; 82533; 83735; J7030; A4216

== ENCOUNTER 2018-03-18 17:39 | Inpatient (IN) | payer OTHER, SELFPAY ==
[2018-03-18 17:40] VITALS: BP 100/61; PULSE 120; RESP 20; TEMP 36.8; O2SAT 99; BMI 16.6
[2018-03-18] MEDS: 0.9% Normal Saline 1,000 ML 1000 ML IV (18:42)
[2018-03-18] MEDS: Ondansetron 4 MG/2 ML Vial IV ×2 (18:42→22:47)
[2018-03-18 18:56] LABS: Absolute Lymphocyte Count 1.12 X10^3/ul (0.83-4.51); Absolute Neutrophil Count 15.1 X10^3/uL (2.0-7.7); Basophil# 0.01 X10^3/uL; Basophil% 0.1 % (0-1); Eosinophil# 0.04 X10^3/uL; Eosinophils% 0.2 % (0-5); Hematocrit 29.5 % (37-47); Hemoglobin 9.2 g/dl (12.0-15.0); Lymphocyte # 1.12 X10^3/ul (4.0); Lymphocyte % 6.8 % (19-41); Mean Corp Hgb Conc 31.2 g/gl (32-36); Mean Corpuscular Hgb 31.3 pg (27.0-32.0); Mean Corpuscular Volume 100.3 fL (81-99); Mean Platelet Vol. 8.9 fl (6.2-12.0); Monocyte% 0.6 % (0-10); Neutrophil # 15.08 X10^3/uL (2.7-7.7); Neutrophil % 92.2 % (47-70); Platelet Count 439 K/mm3 (150-450); RBC Distribution Width CV 15.2 % (11.6-14.6); Red Blood Count 2.94 M/mm3 (4.2-5.4); White Blood Count 16.4 K/mm3 (4.4-11.0)
[2018-03-18 19:01] LABS: POSITIVE COUNT NO; POSITIVE DIFFERENTIAL NO; POSITIVE MORPHOLOGY NO
[2018-03-18 19:08] LABS: AST(SGOT) 7 U/L (15-37); Alanine Aminotransfer ALT/SGPT 10 U/L (13-56); Albumin, Serum 2.4 g/dL (3.2-5.0); Alkaline Phosphatase 117 U/L (45-117); Anion Gap 8 (5-15); BUN 10 mg/dL (7-18); BUN/Creat Ratio 27.7 RATIO (10-20); Bilirubin, Direct 0.15 mg/dL (0.00-0.30); Calcium,Total 9.1 mg/dL (8.5-10.1); Chloride 98 mmol/L (98-107); Creatinine, Serum 0.36 mg/dL (0.55-1.02); EST Glomerular Filtration Rate 207 mL/min (>60); Est Glom Filt Rate - Afr Amer 250 mL/min (>60); Estimated Creatinine Clearance 134.11 ml/min; Globulin 4.8 g/dL (2.2-4.2); Glucose 104 mg/dL (74-106); Potassium 3.2 mmol/L (3.5-5.1); Protein, Total 7.2 g/dL (6.4-8.2); Sodium Level 134 mmol/L (136-145)
[2018-03-18] MEDS: proMETHazine 25 MG/ML Syringe 6.25 MG IV (19:13)
[2018-03-18] MEDS: Morphine 4 MG/ML Syringe IV (19:13)
--- NOTE | 2018-03-18 19:55 | ED.VISSUMM ---
- ER Visit Summary Date of Service: 03/18/18 Chief Complaint: Nausea and vomiting History of Present Illness: The patient is a 42 F currently undergoing chemotherapy for lung cancer. Patient has had nausea with frequent vomiting over the past 1 month. Her last chemotherapy treatment was on the . Patient has had no appetite and very little p.o. intake this week. She started vomiting again yesterday. She has been in the oncologist office twice this week for IV fluids. Patient started vomiting at home after getting IV fluids today and was sent to the emergency room. Physical Examination: Blood pressure is 100/61, temperature 98.3, heart rate 120, respiratory rate 20, pulse ox 99% on room air. Patient is lying in bed. She appears ill but in no distress. Head neck examination is unremarkable. Heart is tachycardic and regular. Lung sounds clear. Abdomen is soft with no focal tenderness. Hypoactive bowel sounds are present. Test Results: CBC was a white count of 16.4 and hemoglobin of 9.2. She does have a left shift with 92% neutrophils. Chemistry studies reveal a sodium of 134 potassium 3.2. LFTs are unremarkable. On review of prior records it does appear that her white count was 20.25 on the . I did speak with Dr. Stahl and she did get growth factor with her chemo. Emergency Department Course and Treatment: Patient has had IV fluids and Zofran followed by dose of morphine and Phenergan. At this time vital signs include blood pressure of 98/64 and heart rate of 93. She will be ordered IV potassium replacement. She will be admitted for further treatment. Dr. Stahl will see her in consult tomorrow. Treatment Plan: [] Disposition: Admit Impression: 1. Hyponatremia 2. Hypokalemia 3. Lung CA This note was generated with [employer] dictation software. It may contain incorrect words, spelling, and punctuation that were not noted in review of the chart prior to signing ED Disposition - Plan for ED Patient: Chief Complaint: Nausea/Vomiting Referrals: Remigio Valdez MD [Primary Care Provider] -
--- NOTE | 2018-03-18 20:02 | ED.DCSUM_ITS ---
- ER Visit Summary Date of Service: 03/18/18 Chief Complaint: Nausea and vomiting History of Present Illness: The patient is a 42 F currently undergoing chemotherapy for lung cancer. Patient has had nausea with frequent vomiting over the past 1 month. Her last chemotherapy treatment was on the . Janay ent has had no appetite and very little p.o. intake this week. She started vomiting again yesterday. She has been in the oncologist office twice this week for IV fluids. Patient started vomiting at home after getting IV fluids today and was sent to the emergency room. Physical Examination: Blood pressure is 100/61, temperature 98.3, heart rate 120, respiratory rate 20, pulse ox 99% on room air. Patient is lying in bed. She appears ill but in no distress. Head neck examination is unremarkable. Heart is tachycardic and regular. Lung sounds clear. Abdomen is soft with no focal tenderness. Hypoactive bowel sounds are present. Test Results: CBC was a white count of 16.4 and hemoglobin of 9.2. She does have a left shift with 92% neutrophils. Chemistry studies reveal a sodium of 134 potassium 3.2. LFTs are unremarkable. On review of prior records it does appear that her white count was 20.25 on the . I did speak with Dr. Stahl and she did get growth factor with her chemo. Emergency Department Course and Treatment: Patient has had IV fluids and Zofran followed by dose of morphine and Phenergan. At this time vital signs include blood pressure of 98/64 and heart rate of 93. She will be ordered IV potassium replacement. She will be admitted for further treatment. Dr. Stahl will see her in consult tomorrow. Treatment Plan: [] Disposition: Admit Impression: 1. Hyponatremia 2. Hypokalemia 3. Lung CA This note was generated with [employer] dictation software. It may contain incorrect words, spelling, and punctuation that were not noted in review of the chart prior to signing ED Disposition - Plan for ED Patient: Chief Complaint: Nausea/Vomiting Referrals: Remigio Valdez MD [Primary Care Provider] -
--- NOTE | 2018-03-18 20:06 | HP.PCM_ITS ---
History of Present Illness Date of Admission: 03/18/18 Chief Complaint: Nausea, emesis The patient is a 42 y/o F w/ PMHx: Non-small Cell Lung Cancer (left) s/p cisplatin/etoposide chemotherapy w/ L pleurx catheter w/ drainage q 48 hours noted to have achieved partial remission after chemotherapy, radiation therapy & gamma knife to brain metastasis maintained on keytruda/alimta regimen, AOCD, Chronic Hypoxic Respiratory Failure (2L NC), Former Tobacco use, Severe Protein- Calorie Malnutrition w/ recent discharge on 02/01/18 following admission for subacute colitis who presents to the 03/18/18 with increased nausea, emesis and poor intake over the last several weeks, worsened following last round of chemotherapy on 03/14/18 with decreased appetite and poor intake with IVFs outpatient w/ Oncology x 2 this past week. ED consulted Dr. Stahl who will see in AM. Work-up in the ED included T 98.3, heart rate 120, BP 100/61, respiratory rate 20, 99% on room air, CBC with WBC 16.4, heme globin 9.2, platelet 439 with left shift, CMP with sodium 134, potassium 3.2, BUN/creatinine 10/0.36. 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 Past Medical History Past Medical History (Chronic Problems): Chronic Problems HCAP (healthcare-associated pneumonia) (Chronic) Interval improvement on x-ray Lung mass (Chronic) Pleural effusion, left (Chronic) presence of L pleurX catheter drains Q48 hours Non-small cell cancer of left lung (Chronic) Status post chemotherapy 08/23,08/24,08/25/17 cisplatin/etoposide Chronic hypoxemic respiratory failure (Chronic) O2 at 2 liters Allergies codeine Adverse Reaction (Verified 03/18/18 17:40) Nausea hydrocodone Adverse Reaction (Verified 03/18/18 17:40) Nausea miconazole [From Monistat 1 Combo Pack] Adverse Reaction (Verified 03/18/18 17:40) Swelling Home Medications: Ambulatory Orders Medication Instructions Recorded Pyridoxine HCl [Vitamin B-6] 1 tab PO DAILY 08/14/17 Pantoprazole Sodium [Protonix] 40 mg PO DAILY 09/06/17 Potassium Chloride [Klor-Con 10] 10 meq PO BID 09/06/17 Folic Acid 1 mg PO DAILY 01/30/18 Ibuprofen 400 - 600 mg PO 4X/DAY PRN PRN 03/18/18 Morphine Sulfate [Morphine Sulfate 15 mg PO BID PRN PRN 03/18/18 ER] proMETHazine tablet [Phenergan 12.5 mg PO Q6H PRN PRN 03/18/18 tablet] Surgical History: - - L pleurX catheter, power port placement, T+A. 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 Paternal History Items: - - Patient denies marked maternal or paternal family history of HD, DM, HTN, Cancer. Review of Systems Constitutional: Reports: Anorexia, Malaise, Weakness, Fatigue. Denies: Chills, Fever, Weight Change HEENT: Denies: Head Aches, Sinus Congestion, Sinus Drainage Cardiovascular: Denies: Chest Pain, Palpitations Respiratory: Denies: Cough, Shortness of breath at rest, Sputum production Gastrointestinal: Reports: Nausea, Vomiting. Denies: Abdominal Pain Genitourinary: Denies: Dysuria Musculoskeletal: Denies: Joint Pain, Joint Tenderness Skin: Denies: Rash, Wounds Neurological: Denies: Numbness, Tingling, Focal weakness Psychiatric: Denies: Anxiety, Depression, Homicidal Ideations, Suicidal Ideations Endocrine: Reports: Heat/ Cold Intolerance Hematologic/ Lymphatic: Reports: Anemia. Denies: Easy Bruising, Easy Bleeding VTE Information - Inpt Only VTE Present on Admission: No VTE Mechan Device Prophylaxis: SCD's VTE Pharm Prophylaxis ordered?: Yes Subjective: Laying in the ED bed, fatigued appearance, NAD. Objective: Physical Examination: General: awake, alert, oriented x 3 and cooperative, laying in the ED bed in no apparent distress, fatigued appearance. Skin: normal color, turgor, no icterus, cyanosis. HEENT: AT/NC, EOMI, PERRLA, dry MM, no carotid bruits or JVD noted. Lungs: Diminished BS BL, > bases, moderate effort, no rales, ronchi or wheezing. Heart: Mildly tachycardic with regular rhythm; no gallop, rub audible. Abdomen: soft, cachetic appearing, NTTP, ND, normal BS, no HSM. Extremities: no cyanosis, clubbing, or edema. Neurological: patient awake, alert, oriented x 3; cognitive function intact; pupils equally reactive to light and accomodation; cranial nerves II-XII grossly normal, moving all 4 extremities, no focal deficits, strength moderately to severely globally decreased. Psychiatric: affect appears flat, fatigued, no acute evidence of depressive or anxiety feelings. - Physical Exam Vital Signs Temp Pulse Resp BP Pulse Ox 98.3 F 120 H 20 H 100/61 99 03/18/18 17:40 03/18/18 17:40 03/18/18 17:40 03/18/18 17:40 03/18/18 17:40 Oxygen Delivery Method Room Air Weight: 93 lb 14.671 oz Body Mass Index (BMI) 16.6 Laboratory Tests Past 24 Hrs 03/18/18 03/18/18 18:40 18:40 WBC 16.4 H RBC 2.94 L Hgb 9.2 L Hct 29.5 L MCV 100.3 H MCH 31.3 MCHC 31.2 L RDW 15.2 H RDW Differential 56.0 H Plt Count 439 MPV 8.9 Immature Gran % (Auto) 0.100 Neut % (Auto) 92.2 H Lymph % (Auto) 6.8 L Sunflower % (Auto) 0.6 Eos % (Auto) 0.2 Baso % (Auto) 0.1 Absolute Neuts (auto) 15.1 H Absolute Lymphs (auto) 1.12 Total Counted Not Reportable Sodium 134 L Potassium 3.2 L Chloride 98 Carbon Dioxide 28.0 Anion Gap 8 BUN 10 Creatinine 0.36 L Estim Creat Clear Calc 134.11 Est GFR (MDRD) Af Amer 250 Est GFR (MDRD) Non-Af 207 BUN/Creatinine Ratio 27.7 H Glucose 104 Calcium 9.1 Total Bilirubin 0.30 Direct Bilirubin 0.15 AST 7 L ALT 10 L Alkaline Phosphatase 117 Total Protein 7.2 Albumin 2.4 L Globulin 4.8 H Assessment/Plan All Active Problems Subacute colitis (Acute) Fecal impaction of colon (Acute) The patient is a 42 y/o F w/ PMHx: Non-small Cell Left Lung Cancer, AOCD, Chronic Hypoxic Respiratory Failure (2L NC), Former Tobacco use, Severe Protein- Calorie Malnutrition w/ recent discharge on 02/01/18 following admission for subacute colitis who presents to the 03/18/18 with increased nausea, emesis and poor intake over the last several weeks, worsened following last round of chemotherapy. (1) N/V, Poor Intake, Likely secondary to Chemotherapy: Will admit to [facility], will continue aggressive hydration, repeat BMP, CBC in AM, mag and phos pending. Anti-emetics, pain regimen PRN. Fall precautions. Clears trial and ADAT. Oncology will see in AM, recently in their office x 2 for IVFs secondary to dehydration. (2) Non-small Cell Lung Cancer (left) w/ Chronic Hypoxic Respiratory Failure: Patient s/p cisplatin/etoposide chemotherapy w/ L pleurx catheter w/ drainage q 48 hours noted to have achieved partial remission after chemotherapy, radiation therapy & gamma knife to brain metastasis maintained on keytruda/alimta regimen. Most recent chemotherapy round completed 03/14/18. Mag and phos pending. Dr. Stahl consulted per ED, will see in AM. (3) Hyponatremia, Mild: Secondary to hypovolemia, poor intake, nausea/emesis/GI losses, continue IVFs, repeat BMP in AM. (4) Chronic Pain Syndrome: Attempt to continue oral home morphine regimen, transition to IV if unable, bowel regimen as able to tolerate given constipation history. (5) AOCD, Fe Deficiency Anemia: Anemia w/ chemotherapy, admission Hgb 9.2, stable, trend CBC. (6) Leukocytosis: Secondary to recent Neulasta administration, dehydration, repeat CBC in AM. (7) Hypokalemia: Admission K+ 3.2, supplementation given, repeat level in AM. (8) GERD: PPI IV until oral intake tolerance improves. (9) Former Tobacco use: Encourage continued cessation. (10) Severe Protein-Calorie Malnutrition: Evidenced per BMI, habitus w/ muscle and fat loss, nutrition consulted. (11) DVT Prophylaxis: SCDs, heparin. Code Visit OBSV E&M: 33641 Initial observation care L3
[2018-03-18] MEDS: 0.9% Normal Saline 1,000 ML 150 ML IV (20:29)
[2018-03-18 20:42] VITALS: BP 95/68; PULSE 91; RESP 14; O2SAT 98
[2018-03-18 20:56] VITALS: BP 95/68; PULSE 91; RESP 14; O2SAT 98
[2018-03-18 21:15] VITALS: BP 100/63; PULSE 88; RESP 16; TEMP 36.6; O2SAT 99
[2018-03-18 21:16] VITALS: PULSE 95; RESP 15; O2SAT 99; BMI 17.1
[2018-03-18 21:20] VITALS: BMI 17.1
[2018-03-18 21:39] LABS: Magnesium 2.1 mg/dL (1.6-2.6); Phosphorus 2.4 mg/dL (2.5-4.9)
[2018-03-19 03:16] VITALS: PULSE 90; O2SAT 98
[2018-03-19] MEDS: Morphine 2 MG/ML Syringe IV ×2 (03:42→07:20)
[2018-03-19 03:46] VITALS: BP 102/62; PULSE 95; RESP 15; TEMP 37; O2SAT 98
[2018-03-19 07:32] LABS: Absolute Lymphocyte Count 1.16 X10^3/ul (0.83-4.51); Absolute Neutrophil Count 9.4 X10^3/uL (2.0-7.7); Anion Gap 8 (5-15); BUN 7 mg/dL (7-18); BUN/Creat Ratio 21.7 RATIO (10-20); Basophil# 0.01 X10^3/uL; Basophil% 0.1 % (0-1); Calcium,Total 8.8 mg/dL (8.5-10.1); Chloride 102 mmol/L (98-107); Creatinine, Serum 0.32 mg/dL (0.55-1.02); EST Glomerular Filtration Rate 236 mL/min (>60); Eosinophil# 0.03 X10^3/uL; Eosinophils% 0.3 % (0-5); Est Glom Filt Rate - Afr Amer 285 mL/min (>60); Estimated Creatinine Clearance 155.13 ml/min; Glucose 76 mg/dL (74-106); Hematocrit 25.6 % (37-47); Lymphocyte # 1.16 X10^3/ul (4.0); Lymphocyte % 10.8 % (19-41); Mean Corp Hgb Conc 31.3 g/gl (32-36); Mean Corpuscular Hgb 31.4 pg (27.0-32.0); Mean Corpuscular Volume 100.4 fL (81-99); Mean Platelet Vol. 8.5 fl (6.2-12.0); Monocyte# 0.14 X10^3/uL; Monocyte% 1.3 % (0-10); Neutrophil # 9.42 X10^3/uL (2.7-7.7); Neutrophil % 87.2 % (47-70); Platelet Count 387 K/mm3 (150-450); Potassium 4.1 mmol/L (3.5-5.1); RBC Distribution Width CV 15.2 % (11.6-14.6); RBC Distribution Width SD 55.4 fl (35.1-43.9); Red Blood Count 2.55 M/mm3 (4.2-5.4); Sodium Level 134 mmol/L (136-145); White Blood Count 10.8 K/mm3 (4.4-11.0)
[2018-03-19 07:58] LABS: POSITIVE COUNT NO; POSITIVE DIFFERENTIAL NO; POSITIVE MORPHOLOGY NO
[2018-03-19] MEDS: 0.9% Normal Saline 1,000 ML 150 ML IV ×3 (08:11→21:19)
[2018-03-19] MEDS: 0.9% NaCl VAD Flush 10 ML IV ×3 (08:45→20:58)
[2018-03-19] MEDS: HYDROmorphone 1 MG/ML Syringe IV ×4 (08:45→20:45)
[2018-03-19 08:53] VITALS: BP 108/74; PULSE 98; RESP 18; TEMP 36.9; O2SAT 99
--- NOTE | 2018-03-19 09:40 | PCM.PN.HOSP ---
Patient Problems: Active and Suspected Problems Nausea & vomiting (Acute) Subjective: Patient was seen and examined. Complains of severe pain in the lower back. This is chronic, been ongoing. States that she has been told it was musculoskeletal, related to her prolonged history of nausea with vomiting. Pain was uncontrolled last night with IV morphine, better controlled this morning with IV Dilaudid. Denies dizziness or shortness of breath or chest pain. Vitals/I&O's: Vital Signs Temp Pulse Resp BP Pulse Ox 98.4 F 98 18 108/74 99 03/19/18 08:53 03/19/18 08:53 03/19/18 08:53 03/19/18 08:53 03/19/18 08:53 Oxygen Delivery Method Room Air Weight: 43.8 kg Body Mass Index (BMI) 17.1 Intake and Output for Last 24 Hours 03/17/18 03/18/18 03/19/18 23:59 23:59 23:59 Intake Total 958 / 958 Output Total 900 / 900 Balance 58 / 58 General: Alert, Oriented x3, Cooperative, No apparent distress HEENT: Atraumatic, PERRLA, EOMI, Normocephalic Oral: Moist Mucosa Neck: Supple, No JVD, Negative Carotid Bruits Lungs: Clear to auscultation, Normal air movement Cardiovascular: Regular rate, Regular Rhythm, Normal S1, Normal S2, No murmurs Abdomen: Bowel Sounds Present, Soft, Non Tender, Non-Distended Extremities: No edema Skin: No rashes, No breakdown Musculoskeletal: Tenderness - over the lower thoracic region, almost a point tenderness over T12. Lymphatic: No Cervical, Supraclavicular, or Inguinal Adenopathy Neurological: Cranial nerves II-XII grossly intact, Neuro grossly intact Psych/Mental Status: Normal Affect, Appropriate Laboratory Results 03/18/18 18:40: WBC 16.4 H, RBC 2.94 L, Hgb 9.2 L, Hct 29.5 L, MCV 100.3 H, MCH 31.3, MCHC 31.2 L, RDW 15.2 H, RDW Differential 56.0 H, Plt Count 439, MPV 8.9, Immature Gran % (Auto) 0.100, Neut % (Auto) 92.2 H, Lymph % (Auto) 6.8 L, Saunders % (Auto) 0.6, Eos % (Auto) 0.2, Baso % (Auto) 0.1, Absolute Neuts (auto) 15.1 H, Absolute Lymphs (auto) 1.12, Total Counted Not Reportable 03/18/18 18:40: Sodium 134 L, Potassium 3.2 L, Chloride 98, Carbon Dioxide 28.0, Anion Gap 8, BUN 10, Creatinine 0.36 L, Estim Creat Clear Calc 134.11, Est GFR (MDRD) Af Amer 250, Est GFR (MDRD) Non-Af 207, BUN/Creatinine Ratio 27.7 H, Glucose 104, Calcium 9.1, Total Bilirubin 0.30, Direct Bilirubin 0.15, AST 7 L, ALT 10 L, Alkaline Phosphatase 117, Total Protein 7.2, Albumin 2.4 L, Globulin 4.8 H 03/18/18 18:40: Phosphorus 2.4 L, Magnesium 2.1 03/19/18 07:00: WBC 10.8, RBC 2.55 L, Hgb 8.0 L, Hct 25.6 L, MCV 100.4 H, MCH 31.4, MCHC 31.3 L, RDW 15.2 H, RDW Differential 55.4 H, Plt Count 387, MPV 8.5, Immature Gran % (Auto) 0.300, Neut % (Auto) 87.2 H, Lymph % (Auto) 10.8 L, Saunders % (Auto) 1.3, Eos % (Auto) 0.3, Baso % (Auto) 0.1, Absolute Neuts (auto) 9.4 H, Absolute Lymphs (auto) 1.16, Total Counted Not Reportable 03/19/18 07:00: Sodium 134 L, Potassium 4.1, Chloride 102, Carbon Dioxide 24.0, Anion Gap 8, BUN 7, Creatinine 0.32 L, Estim Creat Clear Calc 155.13, Est GFR (MDRD) Af Amer 285, Est GFR (MDRD) Non-Af 236, BUN/Creatinine Ratio 21.7 H, Glucose 76, Calcium 8.8 Current Medications Acetaminophen (Tylenol) 650 mg PO Q6H PRN PRN PRN Reason: Non-cardiac pain (mod-severe) Al Hydroxide/Mg Hydroxide (Mylanta Ii) 30 ml PO Q6H PRN PRN PRN Reason: Gastric burning Heparin Sodium (Beef Lung) () 50 units IV UD PRN PRN Reason: HEPARIN FLUSH Heparin Sodium (Porcine) (Heparin Na) 5,000 unit SC Q12 [facility] Last Admin: 03/18/18 22:25 Dose: Not Given Hydromorphone HCl (Dilaudid Inj) 1 mg IV Q4H PRN PRN PRN Reason: SEVERE PAIN (6-10/10) Last Admin: 03/19/18 08:45 Dose: 1 mg Sodium Chloride () 1,000 mls @ 150 mls/hr IV .Q6H40M [facility] Last Admin: 03/19/18 08:11 Dose: 150 mls/hr Pantoprazole Sodium 40 mg/ (Sodium Chloride) 110 mls @ 330 mls/hr IV Q12 [facility] Last Admin: 03/18/18 23:10 Dose: 330 mls/hr Magnesium Hydroxide (Milk Of Magnesia) 30 ml PO DAILY PRN PRN PRN Reason: Constipation Nutritional Formula (Lactose Free) (Ensure Clear) 120 ml PO 4X/DAY [facility] Last Admin: 03/19/18 08:51 Dose: 120 ml Ondansetron HCl (Zofran) 4 mg IV Q8H PRN PRN PRN Reason: NAUSEA Last Admin: 03/18/18 22:47 Dose: 4 mg Promethazine HCl (Phenergan) 12.5 mg IV Q6H PRN PRN PRN Reason: NAUSEA/VOMITING Sodium Chloride () 10 ml IV UD PRN PRN Reason: VAD FLUSH Last Admin: 03/19/18 08:45 Dose: 10 ml Medical Necessity - Tobacco Use Smoking Status: Former smoker Tobacco Use: Non-smoker Assessment/Plan All Active Problems Subacute colitis (Acute) Fecal impaction of colon (Acute) Nausea & vomiting (Acute) 32-year-old female with past medical history of non-small cell lung cancer, status post chemotherapy, following closely with oncology in the outpatient, protracted nausea and vomiting since beginning of January. 1. Intractable nausea and vomiting, postprandial in nature, status post EGD which was normal a month ago, improved today, able to have some broth we stay down, continue on PPIs, and manage symptomatically 2. Back pain, no history of meds, believed to be musculoskeletal, would continue on the current IV hydromorphone, would add topical analgesic as well as heating pad 3. Anemia, macroytic, appears to be at her baseline, drop in hemoglobin from 9.2-8.0 is likely due to hemodilution, will check iron stores 4. Hypokalemia, resolved 5. Hyponatremia, acute, remains the same 6. Hypophospatemia, repeat this am is pending 7. Leukocytosis, likely reactive, resolving, will trend CBC 8. Non-small cell lung cancer, follows with oncology, on chemotherapy, per patient, left Pleurx catheter was removed 3 months ago 9. Malnutrition, severe, related to chemotherapy with protracted nausea and vomiting as well as cancer 10. GERD, on PPI 11. DVT PPx- Heparin SC Code Visit Inpatient E&M: 04576 Subs Hosp L2
--- NOTE | 2018-03-19 09:58 | CON.PCM_ITS ---
Problem List (1) Non-small cell cancer of left lung Status: Chronic Comment: Status post chemotherapy 08/23,08/24,08/25/17 cisplatin/etoposide (2) Nausea & vomiting Status: Acute Qualifiers: Vomiting type: unspecified Vomiting Intractability: intractable Qualified Code(s): R11.2 - Nausea with vomiting, unspecified - Consult Date of Consult: 03/19/18 - Reason for Consult HPI: The patient is a 42-year-old female who presented in May with recurrent/relapsing fevers. She initially was seen in the emergency department on 06/11/2017 with a fever of 101.2 associated with generalized body aches and a sore throat. She had previously been seen in urgent care and was started on Augmentin for potential sinusitis. She was also given a Solu-Medrol Dosepak along with doxycycline. She did not improve. She continued to have intermittent fevers, body aches and was using Tylenol and ibuprofen to help control symptoms. She had a rather extensive workup which included a chest x-ray, blood cultures and Monospot testing for EBV. All were negative. She was seen by her primary care physician on 06/14 and a repeat CBC and CMP showed an elevated WBC and platelet count. CT scan of the abdomen and pelvis was obtained and was noted to be negative. Apparently the patient was also experiencing some left lower quadrant pain at that time. CT of the sinuses demonstrated thickening of the maxillary sinus membranes. She was seen by ID and referred for hematology evaluation. She was thought to potentially have a viral syndrome. She was seen by Dr. Obrien who ordered a chest CT. This demonstrated a left upper lobe/paramediastinal mass associated with possible postobstructive pneumonia. She was then referred to pulmonary medicine for evaluation. An ultrasound guided biopsy of a left supraventricular lymph node demonstrated poorly differentiated non-small cell lung cancer. She started chemotherapy in October with carboplatin, pemetrexed and pembrolizumab. Following 4 cycles of treatment she began maintenance therapy on 01/28 with pembrolizumab and pemetrexed every 3 weeks. She was seen in the office twice this week for worsening nausea and vomiting. She received IV hydration and antiemetic therapy. Despite these measures her nausea worsened and every time she tried to eat she had vomiting. She was brought to the emergency room by her . Nausea has been occurring since beginning of January. Had EGD which evidently was okay, but was having some dysphagia at that time. Dysphagia has resolved. She has an appetite and gets hungry. Food smells good. But after eating has prompt emesis. Occasional heartburn. No abdominal pain or bloating. Takes MOM ~every other night and has softer stools with regular BMs. Also has been having back pain. Non-malignant. Was given Rx earlier this week for MS Feli. Nausea worsened after that. Got hydromorphone in ED and that is working better for pain. Was given one time dose 6.25 mg promethazine in ED last pm at 7:15 pm. None since. She also had 4 mg dose ondansetron ~10:45 pm last night. This am was able to drink Ensure and is craving chicken broth. No vomiting. Allergies codeine Adverse Reaction (Verified 03/18/18 21:28) Nausea hydrocodone Adverse Reaction (Verified 03/18/18 21:28) Nausea miconazole [From Monistat 1 Combo Pack] Adverse Reaction (Verified 03/18/18 21:28) Swelling Current Medications Acetaminophen (Tylenol) 650 mg PO Q6H PRN PRN PRN Reason: Non-cardiac pain (mod-severe) Al Hydroxide/Mg Hydroxide (Mylanta Ii) 30 ml PO Q6H PRN PRN PRN Reason: Gastric burning Heparin Sodium (Beef Lung) () 50 units IV UD PRN PRN Reason: HEPARIN FLUSH Heparin Sodium (Porcine) (Heparin Na) 5,000 unit SC Q12 [facility] Last Admin: 03/19/18 10:07 Dose: 5,000 unit Hydromorphone HCl (Dilaudid Inj) 1 mg IV Q4H PRN PRN PRN Reason: SEVERE PAIN (6-10/10) Last Admin: 03/19/18 08:45 Dose: 1 mg Sodium Chloride () 1,000 mls @ 150 mls/hr IV .Q6H40M [facility] Last Admin: 03/19/18 08:11 Dose: 150 mls/hr Pantoprazole Sodium 40 mg/ (Sodium Chloride) 110 mls @ 330 mls/hr IV Q12 [facility] Last Admin: 03/18/18 23:10 Dose: 330 mls/hr Magnesium Hydroxide (Milk Of Magnesia) 30 ml PO DAILY PRN PRN PRN Reason: Constipation Menthol (Bengay Vanishing Scent) 1 applic TOPICAL TID PRN PRN PRN Reason: PAIN Nutritional Formula (Lactose Free) (Ensure Clear) 120 ml PO 4X/DAY [facility] Last Admin: 03/19/18 08:51 Dose: 120 ml Ondansetron HCl (Zofran) 4 mg IV Q8H PRN PRN PRN Reason: NAUSEA Last Admin: 03/18/18 22:47 Dose: 4 mg Promethazine HCl (Phenergan) 6.25 mg IV Q6 [facility] Sodium Chloride () 10 ml IV UD PRN PRN Reason: VAD FLUSH Last Admin: 03/19/18 08:45 Dose: 10 ml PE: Vital Signs Temp 98.4 F 03/19/18 08:53 Pulse 98 03/19/18 08:53 Resp 18 03/19/18 08:53 BP 108/74 03/19/18 08:53 Pulse Ox 99 03/19/18 08:53 Intake & Output 03/17/18 03/18/18 03/19/18 23:59 23:59 23:59 Intake Total 958 / 958 Output Total 900 / 900 Balance 58 / 58 Weight: 43.8 kg Intake: Oral 100 / 100 IV fluid/meds 858 / 858 Output: Urine 900 / 900 Fatigued appearing. Left supraclavicular mass decreased. Regular heart rhythm. No edema. ASSESSMENT/PLAN: 1) Intractable post-prandial n/v. Assessment: -Had EGD ~a month ago with no significant findings. Dysphagia resolved following EGD. -Very sensitive to the sedating effects of phenothiazines, i.e. olanzapine. Gets constipated wit ondansetron. -Seems n/v less since off morphine. Plan: -Promethazine 6.25 mg IV q 6 hours scheduled toda. -IVFs -Ondansetron prn. -Encourage PO intake. -Hopeful to be able to d/c tomorrow. 2) Back pain. Assessment: -Non-malignant per discussion with Dr. Obrien. -Responding better to hydromorphone. Plan: -Will continue with PO hydromorphone as outpatient. Will follow.
[2018-03-19] MEDS: Heparin Injection (Vial) 5,000 UNIT/ML VIAL 5000 UNIT SC ×2 (10:07→21:09)
--- NOTE | 2018-03-19 10:33 | NURSING ---
PT RESTING QUIETLY IN BED, EYES CLOSED, RESP EASY
[2018-03-19 11:10] VITALS: O2SAT 98
[2018-03-19 11:13] LABS: Phosphorus 2.2 mg/dL (2.5-4.9)
--- NOTE | 2018-03-19 11:55 | CPS ---
Pt. refused training on IS. Instructed pt. on importance of exercise, but still refused to do IS.
[2018-03-19] MEDS: proMETHazine 25 MG/ML Syringe 6.25 MG IV ×2 (11:59→18:13)
[2018-03-19 15:02] VITALS: BP 111/75; PULSE 104; RESP 18; TEMP 37; O2SAT 98
[2018-03-19 16:10] LABS: Iron 69 ug/dL (50-170); Iron Binding Capacity,Total 111 ug/dL (250-450); PERCENT IRON SATURATION 62.2 % (15.0-55.0)
[2018-03-20] VITALS (7 sets, daily range): BP systolic 109–113; BP diastolic 66–77; PULSE 78–123; RESP 16–18; TEMP 36.8–37.1; O2SAT 96–97
[2018-03-20] MEDS: proMETHazine 25 MG/ML Syringe 6.25 MG IV ×4 (00:10→17:33)
[2018-03-20] MEDS: 0.9% NaCl VAD Flush 10 ML IV ×11 (00:10→23:00)
[2018-03-20] MEDS: HYDROmorphone 1 MG/ML Syringe IV ×8 (00:25→23:00)
[2018-03-20] MEDS: 0.9% Normal Saline 1,000 ML 150 ML IV (04:21)
[2018-03-20 06:53] LABS: BUN 3 mg/dL (7-18); BUN/Creat Ratio 9.9 RATIO (10-20); Calcium,Total 8.6 mg/dL (8.5-10.1); Chloride 98 mmol/L (98-107); EST Glomerular Filtration Rate 253 mL/min (>60); Est Glom Filt Rate - Afr Amer 306 mL/min (>60); Estimated Creatinine Clearance 165.47 ml/min; Glucose 92 mg/dL (74-106); Phosphorus 2.5 mg/dL (2.5-4.9); Potassium 2.8 mmol/L (3.5-5.1); Sodium Level 133 mmol/L (136-145)
[2018-03-20] MEDS: Heparin Injection (Vial) 5,000 UNIT/ML VIAL 5000 UNIT SC ×2 (09:57→22:04)
[2018-03-20] MEDS: Lidocaine 5% Patch 2 PATCH TOPICAL ×3 (09:57→15:56)
--- NOTE | 2018-03-20 10:15 | PCM.PN.HOSP ---
Patient Problems: Active and Suspected Problems Nausea & vomiting (Acute) Subjective: Patient was seen and examined. Overnight she complained of severe back pain. Frequency for IV Dilaudid increased to every 2 hours. Lidoderm patches also added. Complains of point tenderness in her lower back. Nausea is improved, tolerating liquid diet. Denies any fever or chills or shortness of breath or chest pain. Objective: General: Alert, Oriented x3, Cooperative, No apparent distress HEENT: Atraumatic, PERRLA, EOMI, Normocephalic Oral: Moist Mucosa Neck: Supple, No JVD, Negative Carotid Bruits Lungs: Clear to auscultation, Normal air movement Cardiovascular: Regular rate, Regular Rhythm, Normal S1, Normal S2, No murmurs Abdomen: Bowel Sounds Present, Soft, Non Tender, Non-Distended Extremities: No edema Skin: No rashes, No breakdown Musculoskeletal: Tenderness - over the lower thoracic region, point tenderness over T12-L1 vertebrae Lymphatic: No Cervical, Supraclavicular, or Inguinal Adenopathy Neurological: Cranial nerves II-XII grossly intact, Neuro grossly intact Psych/Mental Status: Normal Affect, Appropriate Vitals/I&O's: Vital Signs Temp Pulse Resp BP Pulse Ox 98.2 F 118 H 18 109/66 96 03/20/18 09:56 03/20/18 09:56 03/20/18 09:56 03/20/18 09:56 03/20/18 09:56 Oxygen Delivery Method Room Air Weight: 43.8 kg Body Mass Index (BMI) 17.1 Intake and Output for Last 24 Hours 03/18/18 03/19/18 03/20/18 23:59 23:59 23:59 Intake Total 3321 / 3321 1999 / 1999 Output Total 2500 / 2500 600 / 600 Balance 821 / 821 1400 / 1400 Laboratory Results 03/19/18 07:00: Phosphorus 2.2 L 03/19/18 07:00: Iron 69, TIBC 111 L, Iron Saturation 62.2 H, Folate 16.00 03/20/18 06:20: Sodium 133 L, Potassium 2.8 L, Chloride 98, Carbon Dioxide 27.0, BUN 3 L, Creatinine 0.30 L, Estim Creat Clear Calc 165.47, Est GFR (MDRD) Af Amer 306, Est GFR (MDRD) Non-Af 253, BUN/Creatinine Ratio 9.9 L, Glucose 92, Calcium 8.6, Phosphorus 2.5, Albumin 2.0 L 03/20/18 06:20: Vitamin B12 Pending Current Medications Acetaminophen (Tylenol) 650 mg PO Q6H PRN PRN PRN Reason: Non-cardiac pain (mod-severe) Al Hydroxide/Mg Hydroxide (Mylanta Ii) 30 ml PO Q6H PRN PRN PRN Reason: Gastric burning Heparin Sodium (Beef Lung) () 50 units IV UD PRN PRN Reason: HEPARIN FLUSH Heparin Sodium (Porcine) (Heparin Na) 5,000 unit SC Q12 [facility] Last Admin: 03/20/18 09:57 Dose: 5,000 unit Hydromorphone HCl (Dilaudid Inj) 1 mg IV Q3H PRN PRN PRN Reason: SEVERE PAIN (6-1010) Last Admin: 03/20/18 07:37 Dose: 1 mg Pantoprazole Sodium 40 mg/ (Sodium Chloride) 110 mls @ 330 mls/hr IV Q12 [facility] Last Admin: 03/20/18 09:57 Dose: 330 mls/hr Sodium Chloride () 1,000 mls @ 75 mls/hr IV .[id number] [facility] Last Admin: 03/20/18 10:05 Dose: Not Given Lidocaine (Lidoderm Patch) 2 patch TOPICAL DAILY [facility]; Protocol Last Admin: 03/20/18 09:57 Dose: 2 patch Magnesium Hydroxide (Milk Of Magnesia) 30 ml PO DAILY PRN PRN PRN Reason: Constipation Menthol (Bengay Vanishing Scent) 1 applic TOPICAL TID PRN PRN PRN Reason: PAIN Nutritional Formula (Lactose Free) (Ensure Clear) 120 ml PO 4X/DAY [facility] Last Admin: 03/20/18 09:57 Dose: 120 ml Ondansetron HCl (Zofran) 4 mg IV Q8H PRN PRN PRN Reason: NAUSEA Last Admin: 03/18/18 22:47 Dose: 4 mg Promethazine HCl (Phenergan) 6.25 mg IV Q6 [facility] Last Admin: 03/20/18 06:34 Dose: 6.25 mg Sodium Chloride () 10 ml IV UD PRN PRN Reason: VAD FLUSH Last Admin: 03/20/18 07:37 Dose: 10 ml Medical Necessity - Tobacco Use Smoking Status: Former smoker Tobacco Use: Non-smoker Assessment/Plan All Active Problems Subacute colitis (Acute) Fecal impaction of colon (Acute) Nausea & vomiting (Acute) 32-year-old female with past medical history of non-small cell lung cancer, status post chemotherapy, following closely with oncology in the outpatient, who has been having protracted nausea and vomiting since beginning of January. 1. Intractable nausea and vomiting, postprandial in nature, status post EGD, reportedly normal a month ago, on PPI Discussed with oncology, will order Upper GI series with small bowel to evaluate for partial obstruction, Continue on prn antiemetics, PPI, gentle IV fluids, advance diet if tolerated. 2. Back pain, with point tenderness over the lower thoracic region, around T12-L1, unclear if she has mets to the region, discussed with oncology, who will review recent imaging done in [facility], will continue on hydromorphone, Lidoderm patch, will discontinue topical BenGay 3. Hypokalemia, potassium is 2.8, will replaced IV, recheck at 5 PM, and in a.m. 4. Anemia, macrocytic, appears to be at her baseline, drop in hemoglobin from 9.2-8.0 is likely due to hemodilution, iron stores shows a mixed picture, B12 is pending, folate is normal 5. Hyponatremia, acute, remains the same at 133, 6. Hypophospatemia, placed 7. Leukocytosis, likely reactive, resolving 8. Non-small cell lung cancer, follows with oncology, on chemotherapy, per patient, left Pleurx catheter was removed 3 months ago 9. Malnutrition, severe, related to chemotherapy with protracted nausea and vomiting as well as cancer 10.GERD, on PPI 11.DVT PPx- Heparin SC Code Visit Inpatient E&M: 49288 Subs Hosp L2
--- NOTE | 2018-03-20 11:57 | CT_ITS ---
STUDY: CT ABDOMEN AND PELVIS WITH CONTRAST REASON FOR EXAM: Female, 42 years old. Nausea/vomiting RADIATION DOSAGE (If Supplied By Facility): CTDIvol = ( 8.17 ) mGy, DLP = ( 305 ) mGycm TECHNIQUE: Transaxial images were obtained from the dome of the diaphragm to the symphysis pubis without oral contrast. 100 ml of Isovue 300 contrast was administered. Sagittal and coronal images were reconstructed. Individualized dose optimization techniques were used for this CT. COMPARISON: January 30, 2018 FINDINGS: There is a small left pleural effusion associated with minimal dependent consolidation within the left lower lobe. The visualized portions of the heart are within normal limits. There is an enlarged gastrohepatic lymph node measuring up to 1.5 cm. Within segment 4 of the liver adjacent to the falciform ligament there is a low-attenuation focus that likely reflect underlying fat. Normal gallbladder and extrahepatic biliary system. Normal spleen. Abutting or arising from the body of the pancreas there is a 4.6 x 3.8 x 3.7 cm heterogenous soft tissue mass. The mass abuts the posterior gastric fundus. Normal bilateral adrenal glands. Normal right kidney. Normal left kidney. Normal small intestine. Normal colon. The appendix is visualized and appears normal. There are scattered peripheral calcifications of the abdominal aorta consistent with atherosclerosis. Normal inferior vena cava. Normal retroperitoneum. Normal urinary bladder. There is free fluid within the pelvis. There are coils noted within the fallopian tubes bilaterally. Normal abdominal wall. There are diffuse degenerative changes of the visualized lumbar spine. CT/Abdomen/Pelvis WITH Contrast IMPRESSION: 4.6 x 3.8 x 3.7 cm abdominal mass abutting or arising from the pancreas consistent with an underlying neoplastic process which may reflect a metastatic focus or less likely a primary pancreatic malignancy. Enlarged gastrohepatic lymph node consistent with underlying neoplastic process. Small left pleural effusion associated with minimal left basilar dependent consolidation. Atherosclerosis. Electronically Signed: Tennille Viera MD at 16:24 EDT Tel , Service support ,
[2018-03-20] MEDS: 0.9% Normal Saline 1,000 ML 75 ML IV (11:59)
[2018-03-20] MEDS: Ondansetron 4 MG/2 ML Vial IV (13:29)
[2018-03-20] MEDS: Magnesium Hydroxide 30 ML UDC PO (17:39)
--- NOTE | 2018-03-20 19:04 | NURSING ---
TEXT SENT TO DR AL REGARDING PTS REPEAT K+ LEVEL.
--- NOTE | 2018-03-20 22:05 | PCM.PROGNOTE ---
Patient Problems: Active and Suspected Problems Nausea & vomiting (Acute) Subjective: Patient seen and examined earlier today. Was able to tolerate fluids yesterday, but small volume emesis after eating a potato chip last pm. Left flank pain worse--hurts all the time not just with movement. No urinary symptoms. - Physical Exam General: Alert Oral: Moist Mucosa Lungs: Normal air movement Cardiovascular: Regular Rhythm Abdomen: - - Tender in left side of epigastrium and left flank. Vital Signs Temp Pulse Resp BP Pulse Ox 98.4 F 78 16 111/77 96 03/20/18 20:12 03/20/18 20:12 03/20/18 20:12 03/20/18 20:12 03/20/18 20:12 Oxygen Delivery Method Room Air Weight: 43.8 kg Body Mass Index (BMI) 17.1 Intake and Output for Last 24 Hours 03/18/18 03/19/18 03/20/18 23:59 23:59 23:59 Intake Total 3321 / 3321 3582 / 3582 Output Total 2500 / 2500 1400 / 1400 Balance 821 / 821 2182 / 2182 Laboratory Tests Past 24 Hrs 03/20/18 03/20/18 03/20/18 06:20 06:20 17:15 Sodium 133 L Potassium 2.8 L 3.0 L Chloride 98 Carbon Dioxide 27.0 BUN 3 L Creatinine 0.30 L Estim Creat Clear Calc 165.47 Est GFR (MDRD) Af Amer 306 Est GFR (MDRD) Non-Af 253 BUN/Creatinine Ratio 9.9 L Glucose 92 Calcium 8.6 Phosphorus 2.5 Albumin 2.0 L Vitamin B12 Pending Medical Necessity - Tobacco Use Smoking Status: Former smoker Tobacco Use: Non-smoker Assessment/Plan All Active Problems Subacute colitis (Acute) Fecal impaction of colon (Acute) Nausea & vomiting (Acute) ASSESSMENT/PLAN: 1) Intractable post-prandial n/v. Assessment: -Had EGD ~a month ago with no significant findings. Dysphagia resolved following EGD. -Tolerating Phenergan well with no over-sedative effect. -Able to get in fluids. Plan: -Contintue promethazine 6.25 mg IV q 6 hours scheduled. -IVFs -Ondansetron prn. -Encourage PO fluid intake. -Upper GI with small bowel follow through if CT for below doesn't help discover cause. 2) Back pain. Assessment: -Worsening. Plan: -CT A/P today. Discussed with Dr. Fabian.
[2018-03-21] MEDS: proMETHazine 25 MG/ML Syringe 6.25 MG IV ×2 (00:14→05:36)
[2018-03-21] MEDS: 0.9% NaCl VAD Flush 10 ML IV ×4 (00:15→05:37)
[2018-03-21] MEDS: HYDROmorphone 1 MG/ML Syringe IV ×3 (02:10→08:41)
[2018-03-21] MEDS: 0.9% Normal Saline 1,000 ML 75 ML IV ×2 (02:19→15:35)
[2018-03-21 05:42] VITALS: BP 113/79; PULSE 108; RESP 16; TEMP 37.1; O2SAT 98
[2018-03-21 06:02] LABS: BUN 3 mg/dL (7-18); Calcium,Total 9.1 mg/dL (8.5-10.1); Chloride 97 mmol/L (98-107); Creatinine, Serum 0.33 mg/dL (0.55-1.02); EST Glomerular Filtration Rate 227 mL/min (>60); Est Glom Filt Rate - Afr Amer 274 mL/min (>60); Estimated Creatinine Clearance 150.42 ml/min; Glucose 100 mg/dL (74-106); Phosphorus 2.1 mg/dL (2.5-4.9); Potassium 3.5 mmol/L (3.5-5.1); Sodium Level 134 mmol/L (136-145)
[2018-03-21 08:35] LABS: Vitamin B12 1514 pg/mL (211-911)
--- NOTE | 2018-03-21 08:47 | PCM.PROGNOTE ---
Patient Problems: Active and Suspected Problems Nausea & vomiting (Acute) Subjective: Has been NPO overnight for scheduled upper GI series with small bowel follow-through today. No vomiting through the night. Pain is under reasonable control with IV Dilaudid. - Physical Exam General: Alert Lungs: Normal air movement Cardiovascular: Regular Rhythm Vital Signs Temp Pulse Resp BP Pulse Ox 98.8 F 108 H 16 113/79 98 03/21/18 05:42 03/21/18 05:42 03/21/18 05:42 03/21/18 05:42 03/21/18 05:42 Oxygen Delivery Method Room Air Weight: 43.8 kg Body Mass Index (BMI) 17.1 Intake and Output for Last 24 Hours 03/19/18 03/20/18 03/21/18 23:59 23:59 23:59 Intake Total 3321 / 3321 3582 / 3582 1422 / 1422 Output Total 2500 / 2500 1400 / 1400 Balance 821 / 821 2182 / 2182 1422 / 1422 Laboratory Tests Past 24 Hrs 03/20/18 03/20/18 03/21/18 06:20 17:15 05:20 Sodium 134 L Potassium 3.0 L 3.5 Chloride 97 L Carbon Dioxide 28.0 BUN 3 L Creatinine 0.33 L Estim Creat Clear Calc 150.42 Est GFR (MDRD) Af Amer 274 Est GFR (MDRD) Non-Af 227 BUN/Creatinine Ratio 9.0 L Glucose 100 Calcium 9.1 Phosphorus 2.1 L Albumin 2.0 L Vitamin B12 1514 H Medical Necessity - Tobacco Use Smoking Status: Former smoker Tobacco Use: Non-smoker Assessment/Plan All Active Problems Subacute colitis (Acute) Fecal impaction of colon (Acute) Nausea & vomiting (Acute) ASSESSMENT/PLAN: 1) Intractable post-prandial n/v. Assessment: -I personally reviewed CT scan images from yesterday and compared those to the CT scan images from 01/30. Enlarging pancreatic metastasis with extrinsic compression of the stomach. this also of course explains her upper left flank pain. Plan: -I discussed with her and her salvage options including the potential for palliative conventional radiation versus PRT. -I will discuss other future chemotherapy options with Dr. Guzman. -Recommend begin methadone 5 mg by mouth every 12 hours. -Convert hydromorphone to oral use for as necessary use for breakthrough pain. -Phenergan 12.5 mg by mouth every 6 hours [id number]. -Okay for discharge today. Discussed with Dr. Fabian.
--- NOTE | 2018-03-21 08:50 | PN_ITS ---
Patient Problems: Active and Suspected Problems Nausea & vomiting (Acute) Subjective: Has been NPO overnight for scheduled upper GI series with small bowel follow- through today. No vomiting through the night. Pain is under reasonable control with IV Dilaudid. - Physical Exam General: Alert Lungs: Normal air movement Cardiovascular: Regular Rhythm Vital Signs Temp Pulse Resp BP Pulse Ox 98.8 F 108 H 16 113/79 98 03/21/18 05:42 03/21/18 05:42 03/21/18 05:42 03/21/18 05:42 03/21/18 05:42 Oxygen Delivery Method Room Air Weight: 43.8 kg Body Mass Index (BMI) 17.1 Intake and Output for Last 24 Hours 03/19/18 03/20/18 03/21/18 23:59 23:59 23:59 Intake Total 3321 / 3321 3582 / 3582 1422 / 1422 Output Total 2500 / 2500 1400 / 1400 Balance 821 / 821 2182 / 2182 1422 / 1422 Laboratory Tests Past 24 Hrs 03/20/18 03/20/18 03/21/18 06:20 17:15 05:20 Sodium 134 L Potassium 3.0 L 3.5 Chloride 97 L Carbon Dioxide 28.0 BUN 3 L Creatinine 0.33 L Estim Creat Clear Calc 150.42 Est GFR (MDRD) Af Amer 274 Est GFR (MDRD) Non-Af 227 BUN/Creatinine Ratio 9.0 L Glucose 100 Calcium 9.1 Phosphorus 2.1 L Albumin 2.0 L Vitamin B12 1514 H Medical Necessity - Tobacco Use Smoking Status: Former smoker Tobacco Use: Non-smoker Assessment/Plan All Active Problems Subacute colitis (Acute) Fecal impaction of colon (Acute) Nausea & vomiting (Acute) ASSESSMENT/PLAN: 1) Intractable post-prandial n/v. Assessment: -I personally reviewed CT scan images from yesterday and compared those to the CT scan images from 01/30. Enlarging pancreatic metastasis with extrinsic compress ion of the stomach. this also of course explains her upper left flank pain. Plan: -I discussed with her and her salvage options including the potential for palliative conventional radiation versus PRT. -I will discuss other future chemotherapy options with Dr. Guzman. -Recommend begin methadone 5 mg by mouth every 12 hours. -Convert hydromorphone to oral use for as necessary use for breakthrough pain. -Phenergan 12.5 mg by mouth every 6 hours [id number]. -Okay for discharge today. Discussed with Dr. Fabian.
[2018-03-21 08:55] VITALS: BP 104/71; PULSE 108; RESP 16; TEMP 36.8
--- NOTE | 2018-03-21 09:20 | PCM.PN.HOSP ---
Patient Problems: Active and Suspected Problems Nausea & vomiting (Acute) Subjective: Patient was seen and examined. Tolerated her lunch and supper. Nausea is better with medication. Pain in his spine is better with current pain regimen. Patient had a CT scan of the abdomen and pelvis done that showed a 4.6 x 3.8 x 2.7 abdominal mass abutting arising from the pancreas consistent with possible metastatic focus, enlarged gastrohepatic lymph node. Objective: Physical exam: General: Alert, Oriented x3, Cooperative, No apparent distress, appears comfortable today compared to yesterday HEENT: Atraumatic, PERRLA, EOMI, Normocephalic Oral: Moist Mucosa Neck: Supple, No JVD, Negative Carotid Bruits Lungs: Clear to auscultation, Normal air movement Cardiovascular: Regular rate, Regular Rhythm, Normal S1, Normal S2, No murmurs Abdomen: Bowel Sounds Present, Soft, Non Tender, Non-Distended Extremities: No edema Skin: No rashes, No breakdown Musculoskeletal: Tenderness - over the lower thoracic region, point tenderness over T12-L1 vertebrae Lymphatic: No Cervical, Supraclavicular, or Inguinal Adenopathy Neurological: Cranial nerves II-XII grossly intact, Neuro grossly intact Psych/Mental Status: Normal Affect, Appropriate Vitals/I&O's: Vital Signs Temp Pulse Resp BP Pulse Ox 98.8 F 108 H 16 113/79 98 03/21/18 05:42 03/21/18 05:42 03/21/18 05:42 03/21/18 05:42 03/21/18 05:42 Oxygen Delivery Method Room Air Weight: 43.8 kg Body Mass Index (BMI) 17.1 Intake and Output for Last 24 Hours 03/19/18 03/20/18 03/21/18 23:59 23:59 23:59 Intake Total 3321 / 3321 3582 / 3582 1422 / 1422 Output Total 2500 / 2500 1400 / 1400 Balance 821 / 821 2182 / 2182 1422 / 1422 Laboratory Results 03/20/18 06:20: Vitamin B12 1514 H 03/20/18 17:15: Potassium 3.0 L 03/21/18 05:20: Sodium 134 L, Potassium 3.5, Chloride 97 L, Carbon Dioxide 28.0, BUN 3 L, Creatinine 0.33 L, Estim Creat Clear Calc 150.42, Est GFR (MDRD) Af Amer 274, Est GFR (MDRD) Non-Af 227, BUN/Creatinine Ratio 9.0 L, Glucose 100, Calcium 9.1, Phosphorus 2.1 L, Albumin 2.0 L Current Medications Acetaminophen (Tylenol) 650 mg PO Q6H PRN PRN PRN Reason: Non-cardiac pain (mod-severe) Al Hydroxide/Mg Hydroxide (Mylanta Ii) 30 ml PO Q6H PRN PRN PRN Reason: Gastric burning Bisacodyl (Dulcolax) 5 mg PO DAILY [facility] Heparin Sodium (Beef Lung) () 50 units IV UD PRN PRN Reason: HEPARIN FLUSH Heparin Sodium (Porcine) (Heparin Na) 5,000 unit SC Q12 [facility] Last Admin: 03/20/18 22:04 Dose: 5,000 unit Hydromorphone HCl (Dilaudid Inj) 1 mg IV Q3H PRN PRN PRN Reason: SEVERE PAIN (6-10/10) Last Admin: 03/21/18 08:41 Dose: 1 mg Hydromorphone HCl (Dilaudid Tablet) 2 mg PO Q3H PRN PRN PRN Reason: SEVERE PAIN (6-10/10) Pantoprazole Sodium 40 mg/ (Sodium Chloride) 110 mls @ 330 mls/hr IV Q12 [facility] Last Admin: 03/20/18 21:57 Dose: 330 mls/hr Sodium Chloride () 1,000 mls @ 75 mls/hr IV .[id number] [facility] Last Admin: 03/21/18 02:19 Dose: 75 mls/hr Lidocaine (Lidoderm Patch) 2 patch TOPICAL DAILY [facility]; Protocol Last Admin: 03/20/18 15:56 Dose: 2 patch Magnesium Hydroxide (Milk Of Magnesia) 30 ml PO DAILY PRN PRN PRN Reason: Constipation Last Admin: 03/20/18 17:39 Dose: 30 ml Methadone HCl () 5 mg PO BID [facility] Nutritional Formula (Lactose Free) (Ensure Clear) 120 ml PO 4X/DAY [facility] Last Admin: 03/20/18 22:03 Dose: 120 ml Ondansetron HCl (Zofran) 4 mg IV Q8H PRN PRN PRN Reason: NAUSEA Last Admin: 03/20/18 13:29 Dose: 4 mg Promethazine HCl (Phenergan Tablet) 12.5 mg PO Q6 [facility] Promethazine HCl (Phenergan) 6.25 mg IV Q6 PRN PRN Reason: NAUSEA/VOMITING Senna/Docusate Sodium (Senokot-S, Yaritza-Colace) 2 tablet PO BID [facility] Sodium Chloride () 10 ml IV UD PRN PRN Reason: VAD FLUSH Last Admin: 03/21/18 05:37 Dose: 10 ml Medical Necessity - Tobacco Use Smoking Status: Former smoker Tobacco Use: Non-smoker Assessment/Plan All Active Problems Subacute colitis (Acute) Fecal impaction of colon (Acute) Nausea & vomiting (Acute) 32-year-old female with past medical history of non-small cell lung cancer, status post chemotherapy, following closely with oncology in the outpatient, who has been having protracted nausea and vomiting since beginning of January. 1. Intractable nausea and vomiting, postprandial in nature, likely secondary to enlarging pancreatic metastasis with extrinsic compression to the stomach, previous EGD a month ago was negative, upper GI series done for this morning has been consulted, Nausea and vomiting appears improved with current regimen. Will transition patient to oral Phenergan, monitor for improvement on oral meds 2. Back pain, with point tenderness over the lower thoracic region, around T12-L1, likely related to enlarging pancreatic mass, pain is fairly controlled on IV Dilaudid, as with oncology, will switch to methadone 5 mg every 12, Dilaudid p.o. as needed, oncology to discuss with radiation therapy for possible palliative treatments. 3. Hypokalemia, replaced, will continue on potassium 20mEq daily, repeat labs in am or in a couple of days. 4. Anemia, macrocytic, appears to be at her baseline, drop in hemoglobin from 9.2-8.0 is likely due to hemodilution, iron stores shows a mixed picture, B12 is elevated, folate is normal 5. Hyponatremia, acute, remains the same at 134, 6. Hypophospatemia, replaced 7. Leukocytosis, likely reactive, resolving 8. Non-small cell lung cancer, follows with oncology, on chemotherapy, per patient, left Pleurx catheter was removed 3 months ago 9. Malnutrition, severe, related to chemotherapy with protracted nausea and vomiting as well as cancer 10.GERD, on PPI 11.DVT PPx- Heparin SC 12. Disposition: Possible DC today Code Visit Inpatient E&M: 02188 Subs Hosp L2
--- NOTE | 2018-03-21 09:27 | PN_ITS ---
Patient Problems: Active and Suspected Problems Nausea & vomiting (Acute) Subjective: Patient was seen and examined. Tolerated her lunch and supper. Nausea is better with medication. Pain in his spine is better with current pain regimen. Patient had a CT scan of the abdomen and pelvis done that showed a 4.6 x 3.8 x 2.7 abdominal mass abutting arising from the pancreas consistent with possible metastatic focus, enlarged gastrohepatic lymph node. Objective: Physical exam: General: Alert, Oriented x3, Cooperative, No apparent distress, appears comfortable today compared to yesterday HEENT: Atraumatic, PERRLA, EOMI, Normocephalic Oral: Moist Mucosa Neck: Supple, No JVD, Negative Carotid Bruits Lungs: Clear to auscultation, Normal air movement Cardiovascular: Regular rate, Regular Rhythm, Normal S1, Normal S2, No murmurs Abdomen: Bowel Sounds Present, Soft, Non Tender, Non-Distended Extremities: No edema Skin: No rashes, No breakdown Musculoskeletal: Tenderness - over the lower thoracic region, point tenderness over T12-L1 vertebrae Lymphatic: No Cervical, Supraclavicular, or Inguinal Adenopathy Neurological: Cranial nerves II-XII grossly intact, Neuro grossly intact Psych/Mental Status: Normal Affect, Appropriate Vitals/I&O's: Vital Signs Temp Pulse Resp BP Pulse Ox 98.8 F 108 H 16 113/79 98 03/21/18 05:42 03/21/18 05:42 03/21/18 05:42 03/21/18 05:42 03/21/18 05:42 Oxygen Delivery Method Room Air Weight: 43.8 kg Body Mass Index (BMI) 17.1 Intake and Output for Last 24 Hours 03/19/18 03/20/18 03/21/18 23:59 23:59 23:59 Intake Total 3321 / 3321 3582 / 3582 1422 / 1422 Output Total 2500 / 2500 1400 / 1400 Balance 821 / 821 2182 / 2182 1422 / 1422 Laboratory Results 03/20/18 06:20: Vitamin B12 1514 H 03/20/18 17:15: Potassium 3.0 L 03/21/18 05:20: Sodium 134 L, Potassium 3.5, Chloride 97 L, Carbon Dioxide 28.0, BUN 3 L, Creatinine 0.33 L, Estim Creat Clear Calc 150.42, Est GFR (MDRD) Af Amer 274, Est GFR (MDRD) Non-Af 227, BUN/Creatinine Ratio 9.0 L, Glucose 100, Calcium 9.1, Phosphorus 2.1 L, Albumin 2.0 L Current Medications Acetaminophen (Tylenol) 650 mg PO Q6H PRN PRN PRN Reason: Non-cardiac pain (mod-severe) Al Hydroxide/Mg Hydroxide (Mylanta Ii) 30 ml PO Q6H PRN PRN PRN Reason: Gastric burning Bisacodyl (Dulcolax) 5 mg PO DAILY [facility] Heparin Sodium (Beef Lung) () 50 units IV UD PRN PRN Reason: HEPARIN FLUSH Heparin Sodium (Porcine) (Heparin Na) 5,000 unit SC Q12 [facility] Last Admin: 03/20/18 22:04 Dose: 5,000 unit Hydromorphone HCl (Dilaudid Inj) 1 mg IV Q3H PRN PRN PRN Reason: SEVERE PAIN (6-10/10) Last Admin: 03/21/18 08:41 Dose: 1 mg Hydromorphone HCl (Dilaudid Tablet) 2 mg PO Q3H PRN PRN PRN Reason: SEVERE PAIN (6-10/10) Pantoprazole Sodium 40 mg/ (Sodium Chloride) 110 mls @ 330 mls/hr IV Q12 [facility] Last Admin: 03/20/18 21:57 Dose: 330 mls/hr Sodium Chloride () 1,000 mls @ 75 mls/hr IV .[id number] [facility] Last Admin: 03/21/18 02:19 Dose: 75 mls/hr Lidocaine (Lidoderm Patch) 2 patch TOPICAL DAILY [facility]; Protocol Last Admin: 03/20/18 15:56 Dose: 2 patch Magnesium Hydroxide (Milk Of Magnesia) 30 ml PO DAILY PRN PRN PRN Reason: Constipation Last Admin: 03/20/18 17:39 Dose: 30 ml Methadone HCl () 5 mg PO BID [facility] Nutritional Formula (Lactose Free) (Ensure Clear) 120 ml PO 4X/DAY [facility] Last Admin: 03/20/18 22:03 Dose: 120 ml Ondansetron HCl (Zofran) 4 mg IV Q8H PRN PRN PRN Reason: NAUSEA Last Admin: 03/20/18 13:29 Dose: 4 mg Promethazine HCl (Phenergan Tablet) 12.5 mg PO Q6 [facility] Promethazine HCl (Phenergan) 6.25 mg IV Q6 PRN PRN Reason: NAUSEA/VOMITING Senna/Docusate Sodium (Senokot-S, Yaritza-Colace) 2 tablet PO BID [facility] Sodium Chloride () 10 ml IV UD PRN PRN Reason: VAD FLUSH Last Admin: 03/21/18 05:37 Dose: 10 ml Medical Necessity - Tobacco Use Smoking Status: Former smoker Tobacco Use: Non-smoker Assessment/Plan All Active Problems Subacute colitis (Acute) Fecal impaction of colon (Acute) Nausea & vomiting (Acute) 32-year-old female with past medical history of non-small cell lung cancer, status post chemotherapy, following closely with oncology in the outpatient, who has been having protracted nausea and vomiting since beginning of January. 1. Intractable nausea and vomiting, postprandial in nature, likely secondary to enlarging pancreatic metastasis with extrinsic compression to the stomach, previous EGD a month ago was negative, upper GI series done for this morning has been consulted, Nausea and vomiting appears improved with current regimen. Will transition patient to oral Phenergan, monitor for improvement on oral meds 2. Back pain, with point tenderness over the lower thoracic region, around T12- L1, likely related to enlarging pancreatic mass, pain is fairly controlled on IV Dilaudid, as with oncology, will switch to methadone 5 mg every 12, Dilaudid p.o. as needed, oncology to discuss with radiation therapy for possible palliative treatments. 3. Hypokalemia, replaced, will continue on potassium 20mEq daily, repeat labs in am or in a couple of days. 4. Anemia, macrocytic, appears to be at her baseline, drop in hemoglobin from 9.2-8.0 is likely due to hemodilution, iron stores shows a mixed picture, B12 is elevated, folate is normal 5. Hyponatremia, acute, remains the same at 134, 6. Hypophospatemia, replaced 7. Leukocytosis, likely reactive, resolving 8. Non-small cell lung cancer, follows with oncology, on chemotherapy, per patient, left Pleurx catheter was removed 3 months ago 9. Malnutrition, severe, related to chemotherapy with protracted nausea and vomiting as well as cancer 10.GERD, on PPI 11.DVT PPx- Heparin SC 12. Disposition: Possible DC today Code Visit Inpatient E&M: 35378 Subs Hosp L2
--- NOTE | 2018-03-21 10:45 | CASEMGMT ---
RN RIKKI Face to Face with patient for initial transition planning/care coordination assessment. RN CM introduced self and role at [facility]. Patient lying in bed, alert and oriented, friend at bedside. Patient willing to participate in assessment and is able to answer all questions appropriately. Care providers, pharmacy, and demographics verified. Patient wishes to discharge home, denies need for home health at this time. Patient states she has no further needs or concerns at this time. CM to follow for discharge planning needs that may arise. PCP: José Miguel Specialists: Micah, oncology Preferred Pharmacy: [facility] Insurance: [employer] Prescription Benefit: [employer] Living Will/HPOA: DaughterZee LNOK: Daughter Living Arrangements: Patient lives with healthcare facility administrator in 1 story house. Patient states that she is independent. Transportation: [employer] DME/HHC: Patient has oxygen and nebulizer through [facility] Disposition Plan: Patient to discharge home with family support and follow-up plans in place. Dia FORRESTER, RN, CM
[2018-03-21] MEDS: proMETHazine 25 MG Tablet 12.5 MG PO ×3 (12:11→23:55)
[2018-03-21] MEDS: Na Biphos/Potassium Phosphate PACKET 1 PACKET PO ×4 (12:11→21:16)
[2018-03-21] MEDS: HYDROmorphone 2 MG TABLET PO ×4 (12:51→22:27)
[2018-03-21] MEDS: Lidocaine 5% Patch 2 PATCH TOPICAL (13:57)
[2018-03-21 14:17] VITALS: O2SAT 97
[2018-03-21 15:40] VITALS: BP 104/76; PULSE 116; RESP 16; TEMP 36.9; O2SAT 100
[2018-03-21] MEDS: Ondansetron 4 MG/2 ML Vial IV (16:52)
[2018-03-21 21:13] VITALS: BP 104/69; PULSE 113; RESP 18; TEMP 37.1; O2SAT 93
[2018-03-21 21:15] VITALS: PULSE 113
[2018-03-21] MEDS: Heparin Injection (Vial) 5,000 UNIT/ML VIAL 5000 UNIT SC (21:16)
[2018-03-22] MEDS: HYDROmorphone 2 MG TABLET PO ×4 (02:42→13:46)
[2018-03-22] MEDS: 0.9% Normal Saline 1,000 ML 75 ML IV (02:43)
[2018-03-22 02:50] VITALS: BP 107/69; PULSE 108; RESP 16; TEMP 36.9; O2SAT 95
[2018-03-22] MEDS: proMETHazine 25 MG Tablet 12.5 MG PO ×2 (06:18→12:05)
[2018-03-22 08:50] VITALS: BP 100/65; PULSE 113; RESP 16; TEMP 36.9; O2SAT 96
--- NOTE | 2018-03-22 09:01 | DCINST_ITS ---
- Discharge Diagnoses Current Active Problems: Current Active and Chronic Problems Nausea & vomiting (Acute) Reason(s) for Visit for Discharge Instructions: Nausea and vomiting You will use the following diet at home:: Regular, Full liquid - advance diet as tolerated Your food should be the consistency of: Regular Your liquids should be the consistency of: Regular/Thin Discharge Activity: Return to Normal Activity Additional Instructions: Follow-up with your oncologist as scheduled as well as radiation oncology. Allergies/Adverse Reactions: Allergies codeine Adverse Reaction (Verified 03/18/18 21:28) Nausea hydrocodone Adverse Reaction (Verified 03/18/18 21:28) Nausea miconazole [From Monistat 1 Combo Pack] Adverse Reaction (Verified 03/18/18 21:28) Swelling Medications to take at Discharge Pyridoxine HCl [Vitamin B-6] 1 tab PO DAILY 08/14/17 Pantoprazole Sodium [Protonix] 40 mg PO DAILY 09/06/17 Potassium Chloride [Klor-Con 10] 10 meq PO BID 09/06/17 Folic Acid 1 mg PO DAILY 01/30/18 Ibuprofen 400 - 600 mg PO 4X/DAY PRN PRN 03/18/18 Marinol 03/18/18 Zofran PO PRN 03/18/18 Bisacodyl [Dulcolax] 5 mg PO DAILY #30 tablet 03/22/18 Ensure Clear 120 ml PO 4X/DAY #100 liquid 03/22/18 HYDROmorphone tablet [Dilaudid] 2 mg PO Q3H PRN PRN #20 tablet 03/22/18 Senna/Docusate Sodium [Senokot-S] 2 tablet PO BID #60 tablet 03/22/18 fentaNYL patch [Duragesic patch] 75 mcg TRANSDERM. Q3D #10 patch 03/22/18 proMETHazine tablet [Phenergan tablet] 12.5 mg PO Q6H PRN PRN #30 tablet 03/22/18 The following prescriptions were given: HYDROmorphone tablet [Dilaudid] 2 mg PO Q3H PRN PRN #20 tablet PRN Reason: Severe Pain (6-10/10) proMETHazine tablet [Phenergan tablet] 12.5 mg PO Q6H PRN PRN #30 tablet PRN Reason: Nausea Bisacodyl [Dulcolax] 5 mg PO DAILY #30 tablet fentaNYL patch [Duragesic patch] 75 mcg TRANSDERM. Q3D #10 patch Senna/Docusate Sodium [Senokot-S] 2 tablet PO BID #60 tablet Ensure Clear 120 ml PO 4X/DAY #100 liquid Primary Care Physician: Remigio Valdez MD [Primary Care Provider] - Please follow up with your Primary Care Physician in: within 2 weeks Test Results: Test results from this visit will be discussed in further detail at your follow- up appointment, if applicable. Please Follow Up With: Cleveland Obrien MD When: as scheduled Proposed Discharge Date: 03/22/18
--- NOTE | 2018-03-22 09:01 | PCM.DC.SUM ---
Discharge Date and Diagnosis - Problem List Patient Problems: Active and Suspected Problems Nausea & vomiting (Acute) Date of Admission: 03/18/18 Date of Discharge: 03/22/18 - Primary Discharge Diagnosis Active and Suspected Problems Nausea & vomiting (Acute), intractable Acute on chronic back pain Pancreatic mass, possible metastasis Hypokalemia Hypophosphatemia Leukocytosis Malnutrition, severe - Secondary Discharge Diagnosis Chronic Problems HCAP (healthcare-associated pneumonia) (Chronic) Interval improvement on x-ray Lung mass (Chronic) Pleural effusion, left (Chronic) presence of L pleurX catheter drains Q48 hours Non-small cell cancer of left lung (Chronic) Status post chemotherapy 08/23,08/24,08/25/17 cisplatin/etoposide Chronic hypoxemic respiratory failure (Chronic) O2 at 2 liters Hospital Course and Treatment Imaging Results: Clinical Impression(s) from Imaging Studies Abdomen/Pelvis CT 03/20/18 11:57 IMPRESSION: 4.6 x 3.8 x 3.7 cm abdominal mass abutting or arising from the pancreas consistent with an underlying neoplastic process which may reflect a metastatic focus or less likely a primary pancreatic malignancy. Enlarged gastrohepatic lymph node consistent with underlying neoplastic process. Small left pleural effusion associated with minimal left basilar dependent consolidation. Atherosclerosis. Electronically Signed: Tennille Viera MD at 16:24 EDT Tel , Service support , Oncology Operations: None, - - left tunneled thoracic catheter placement Procedures: None Summary of Care Provided: 42-year-old female with past medical history of non-small cell lung cancer, status post chemotherapy, following closely with oncology in the outpatient, admitted with protracted nausea and vomiting since beginning of January. Patient was managed symptomatically with IV fluids and antiemetic with improvement. Repeat imaging of the abdomen showed enlarging pancreatic mass with extrinsic compression to the stomach. She had a previous EGD done a month ago that was negative. Nausea improved with Phenergan. Patient also complained of point tenderness in the lower thoracic region, likely secondary to enlarging pancreatic mass, followed closely by oncology, managed on IV Dilaudid. Transitioned to fentanyl patch as well as oral Dilaudid. Patient will follow up closely with oncology. She had electrolyte imbalances in this admission that were replaced. She was also maintained on nutritional supplements for malnutrition. Patient will have possible radiation treatment to help with pain control. She will follow-up with oncology. Patient Problems: Active and Suspected Problems Nausea & vomiting (Acute) Subjective: The day of discharge, patient was seen and examined. Pain is fairly controlled. Ready for discharge. Did not tolerate methadone started yesterday, good pain control with fentanyl Objective: Physical exam: General: Alert, Oriented x3, Cooperative, No apparent distress, appears comfortable today compared to yesterday HEENT: Atraumatic, PERRLA, EOMI, Normocephalic Oral: Moist Mucosa Neck: Supple, No JVD, Negative Carotid Bruits Lungs: Clear to auscultation, Normal air movement Cardiovascular: Regular rate, Regular Rhythm, Normal S1, Normal S2, No murmurs Abdomen: Bowel Sounds Present, Soft, Non Tender, Non-Distended Extremities: No edema Skin: No rashes, No breakdown Musculoskeletal: Tenderness - over the lower thoracic region, point tenderness over T12-L1 vertebrae Lymphatic: No Cervical, Supraclavicular, or Inguinal Adenopathy Neurological: Cranial nerves II-XII grossly intact, Neuro grossly intact Psych/Mental Status: Normal Affect, Appropriate - Physical Exam Vital Signs Temp Pulse Resp BP Pulse Ox 98.5 F 108 H 16 107/69 95 03/22/18 02:50 03/22/18 02:50 03/22/18 02:50 03/22/18 02:50 03/22/18 02:50 Oxygen Delivery Method Room Air Weight: 43.8 kg Body Mass Index (BMI) 17.1 Intake and Output for Last 24 Hours 03/20/18 03/21/18 03/22/18 23:59 23:59 23:59 Intake Total 3582 / 3582 3560 / 3560 686 / 686 Output Total 1400 / 1400 Balance 2182 / 2182 3560 / 3560 686 / 686 Discharge Diet: Light diet - advance as tolerated Discharge Activity: Return to Normal Activity Home Medications: Medications to take at Discharge Pyridoxine HCl [Vitamin B-6] 1 tab PO DAILY 08/14/17 Pantoprazole Sodium [Protonix] 40 mg PO DAILY 09/06/17 Potassium Chloride [Klor-Con 10] 10 meq PO BID 09/06/17 Folic Acid 1 mg PO DAILY 01/30/18 Ibuprofen 400 - 600 mg PO 4X/DAY PRN PRN 03/18/18 Marinol 03/18/18 Zofran PO PRN 03/18/18 Bisacodyl [Dulcolax] 5 mg PO DAILY #30 tablet 03/22/18 Ensure Clear 120 ml PO 4X/DAY #100 liquid 03/22/18 HYDROmorphone tablet [Dilaudid] 2 mg PO Q3H PRN PRN #20 tablet 03/22/18 Senna/Docusate Sodium [Senokot-S] 2 tablet PO BID #60 tablet 03/22/18 fentaNYL patch [Duragesic patch] 75 mcg TRANSDERM. Q3D #10 patch 03/22/18 proMETHazine tablet [Phenergan tablet] 12.5 mg PO Q6H PRN PRN #30 tablet 03/22/18 Following Prescrptions Were Given to Patient: HYDROmorphone tablet [Dilaudid] 2 mg PO Q3H PRN PRN #20 tablet PRN Reason: Severe Pain (6-03/02) proMETHazine tablet [Phenergan tablet] 12.5 mg PO Q6H PRN PRN #30 tablet PRN Reason: Nausea Bisacodyl [Dulcolax] 5 mg PO DAILY #30 tablet fentaNYL patch [Duragesic patch] 75 mcg TRANSDERM. Q3D #10 patch Senna/Docusate Sodium [Senokot-S] 2 tablet PO BID #60 tablet Ensure Clear 120 ml PO 4X/DAY #100 liquid Primary Care Physician: Remigio Valdez MD [Primary Care Provider] - Please follow up with your Primary Care Physician in: within 2 weeks Please Follow Up With: Cleveland Obrien MD When: as scheduled Disposition: Home Minutes spent on discharge:: 50 Patient Condition:: Fair Medical Necessity - Tobacco Use Smoking Status: Former smoker Tobacco Use: Non-smoker Meaningful Use Info Meaningful Use Diagnoses (Choose all that apply): None applicable Code Visit Inpatient E&M: 72796 Disch Hosp
[2018-03-22] MEDS: Bisacodyl 5 MG Tablet PO (10:12)
[2018-03-22] MEDS: Na Biphos/Potassium Phosphate PACKET 1 PACKET PO (10:13)
[2018-03-22] MEDS: Ondansetron 4 MG/2 ML Vial IV (10:22)
[2018-03-22] MEDS: 0.9% NaCl VAD Flush 10 ML IV ×2 (10:22→15:11)
[2018-03-22 11:03] VITALS: O2SAT 96
--- NOTE | 2018-03-22 11:09 | NURSING ---
Pt requesting this RN call pharmacy and Dr. frias's office to ensure medications would be ordered and not need preauthorization. August pharmacy director at [facility] notified this RN that all medications ready for pick-up with the exception of ensure which will have to be ordered and the fentanyl patch, which needs prior authorization. Dr. triana called this RN and notified of need for pt to chicken picker fentanyl prescription at office. This RN called office and spoke with Meme- states that prescription is ready and can be picked up anytime prior to 5pm. This RN will update .
[2018-03-22 13:44] VITALS: BP 99/62; PULSE 114; RESP 16; TEMP 37.1; O2SAT 96
--- NOTE | 2018-03-22 13:47 | NURSING ---
pt requesting to hold 1400 phos and ensure at this time.
--- NOTE | 2018-03-22 15:20 | CHAPLAIN ---
Type of Pastoral Visit _x__ Initial Visit ___ Follow-up Visit ___ On-call Visit ___ General Patient Visit ___ Spiritual Assessment ___ Family Conference ___ Bereavement ___ Rapid Response ___ Code Blue ___ Other (describe below) Pastoral Care Referral From _x__ Patient ___ Family ___ Nurse ___ Physician ___ Software Systems Architect ___ Human Resources Vice President ___ Other (describe below) Sacrament/Intervention ___ Active listening ___ Anointing ___ Restorationist ___ Bereavement ___ Communion ___ Yadira exploration ___ ___ Life review _x__ Prayer ___ Reconciliation ___ Sacrament of Sick _x__ Supportive presence ___ Wedding ___ Other (describe below) Pastoral Comments patient says that she is leaving soon but would welcome a prayer; pt request is to pray for feeling better; spouse is with pt at bedside;
--- NOTE | 2018-03-24 13:53 | CASEMGMT ---
YING BRANDT Discharge phone call. Discharge Date: 03/22/18 DC disposition: home LACE 3 DC CALL: call to home phone. Friend Benny answered, stated pt was not able to come to phone at this time. Benny stated pt had radiation treatment today, pain was manageable and she spoke with her physicians re: continued care. No questions at this time. YING BRANDT let Benny know if pt has concerns/questions to contact her physician- he states she is aware and is in contact with them due to her treatments. no further questions noted. Rica BREWSTERN RN ACM
== END 2018-03-22 15:32 | disposition home or self-care (01) | DRG 374 ==
LOC: ED 18:22 → MS3 20:37
PROVIDERS: Internal Medicine; Admitting Provider Family Medicine; Emergency Provider Emergency Medicine; Family Provider Family Medicine; PCP Family Medicine; Referring Provider Family Medicine; Visit Provider Family Medicine
DX: C78.89 Secondary malignant neoplasm of other digestive organs (principal); E43 Unspecified severe protein-calorie malnutrition; E87.1 Hypo-osmolality and hyponatremia; C34.92 Malignant neoplasm of unspecified part of left bronchus or lung; J96.11 Chronic respiratory failure with hypoxia; Z68.1 Body mass index [BMI] 19.9 or less, adult; R11.2 Nausea with vomiting, unspecified; E87.6 Hypokalemia; Z99.81 Dependence on supplemental oxygen; Z87.891 Personal history of nicotine dependence; E86.1 Hypovolemia; M54.9 Dorsalgia, unspecified; E83.39 Other disorders of phosphorus metabolism; G89.29 Other chronic pain; Z79.899 Other long term (current) drug therapy; D53.9 Nutritional anemia, unspecified
CPT/HCPCS: 36591; 74177; 80048; 80069; 80076; 82607; 82746; 83540; 83550; 83735; 84100; 84132; 85025; 97802; 99284; J7030; J7050; Q9967; A4216; J2405

== ENCOUNTER → 2018-05-23 17:07 | Outpatient (CLI) | payer OTHER, SELFPAY ==
[2018-05-23 17:51] LABS: Anion Gap 11 (5-15); BUN 6 mg/dL (7-18); BUN/Creat Ratio 28.6 RATIO (10-20); Calcium,Total 8.8 mg/dL (8.5-10.1); Chloride 97 mmol/L (98-107); Creatinine, Serum 0.21 mg/dL (0.55-1.02); EST Glomerular Filtration Rate 386 mL/min (>60); Est Glom Filt Rate - Afr Amer 467 mL/min (>60); Glucose 113 mg/dL (74-106); Potassium 3.7 mmol/L (3.5-5.1); Sodium Level 135 mmol/L (136-145)
== END ==
PROVIDERS: Family Provider Family Medicine; PCP Family Medicine; Referring Provider Family Medicine Hospice and Palliative Medicine; Visit Provider Family Medicine Hospice and Palliative Medicine
DX: C34.90 Malignant neoplasm of unspecified part of unspecified bronchus or lung (principal)
CPT/HCPCS: 80048